=== PATIENT | female | born 1955 | race Caucasian/White ===

== ENCOUNTER 2020-02-21 12:44 | Outpatient (REF) | payer OTHER, SELFPAY ==
--- NOTE | 2020-02-21 12:51 | XR_ITS ---
EXAMINATION: XR LUMBOSACRAL SPINE CLINICAL INFORMATION: Fall. COMPARISON: None TECHNIQUE: Three views of the lumbosacral spine. FINDINGS: There is normal lumbar lordosis. The vertebral heights, alignment and disc heights are normal. There is no visible acute fracture, dislocation or lytic process seen. The soft tissues are normal. XR/XR lumbar spine 2-3V IMPRESSION: Unremarkable lumbar spine exam.
== END 2020-02-21 12:45 | disposition home or self-care (01) ==
LOC: HO.XRAY 12:44
PROVIDERS: PCP Internal Medicine; Visit Provider Nurse Practitioner Family
DX: M54.5 Low back pain (principal); W19.XXXA Unspecified fall, initial encounter
CPT/HCPCS: 72100

== ENCOUNTER 2020-04-29 11:24 | Outpatient (REF) | payer OTHER, SELFPAY ==
[2020-04-29 12:33] LABS: Alanine Aminotransferase 64 U/L (0-31); Albumin Level 3.9 g/dL (3.5-5.0); Alkaline Phosphatase 83 U/L (39-117); Anion Gap 11 (12-20); Aspartate Amino Transferase 37 U/L (5-31); Bilirubin Total 1.3 mg/dL (0.0-1.0); Blood Urea Nitrogen 13 mg/dL (9-16); Calcium 8.9 mg/dL (8.4-10.2); Carbon Dioxide 25 mmol/L (22-29); Chloride 108 mmol/L (96-108); Cholesterol 198 mg/dL; Estimated Glomerular Filt Rate > 60; Glucose Fasting 146 mg/dL (60-99); HDL Cholesterol 55 mg/dL; LDL Cholesterol Calculated 118 mg/dl; Potassium 3.9 mmol/l (3.3-5.1); Sodium 140 mmol/L (135-145); Total Protein 6.5 g/dL (6.5-8.0); Triglycerides 129 mg/dL; Uric Acid 4.6 mg/dL (2.4-5.7)
== END 2020-04-29 11:25 | disposition home or self-care (01) ==
LOC: HO.LAB 11:24
PROVIDERS: PCP Internal Medicine; Visit Provider Internal Medicine
DX: E11.9 Type 2 diabetes mellitus without complications (principal); M1A.0490 Idiopathic chronic gout, unspecified hand, without tophus (tophi)
CPT/HCPCS: 80053; 80061; 84550

== ENCOUNTER 2020-08-14 10:43 | Outpatient (REF) | payer OTHER, SELFPAY ==
[2020-08-14 11:36] LABS: MANUAL DIFF FLAG NO
[2020-08-14 11:46] LABS: Basophils Absolute Auto 0.1 X10*3/uL (0.0-0.2); Eosinophils Absolute Auto 0.3 X10*3/uL (0.0-0.4); Eosinophils Percent Auto 4.3 % (0-4); Hematocrit 44.5 % (37-47); Hemoglobin 13.7 g/dl (12.0-16.0); Imm Gran Abs Auto 0.01 X10*3/uL (0.00-0.03); Imm Gran Pct Auto 0.2 % (0.0-0.4); Lymphocytes Absolute Auto 2.9 X10*3/uL (1.2-4.9); Mean Corpuscular HGB Conc 30.8 g/dl (31.0-35.0); Mean Corpuscular Hemoglobin 26.3 pg (27.0-33.0); Mean Corpuscular Volume 85.4 fL (80-98); Mean Platelet Volume 9.8 fL (9.4-12.3); Monocytes Absolute Auto 0.6 X10*3/uL (0.1-1.2); Monocytes Percent Auto 10.3 % (2-11); Neutrophils Absolute Auto 2.2 X10*3/uL (2.0-8.3); Neutrophils Percent Auto 36.2 % (45-73); Platelet Count 184 X10*3/uL (160-400); Red Blood Count 5.21 X10*6/uL (4.20-5.50); Red Cell Distribution Width 13.2 % (11.0-16.0); White Blood Count 6.1 X10*3/uL (4.8-10.8)
[2020-08-14 12:14] LABS: Alanine Aminotransferase 57 U/L (0-31); Albumin Level 3.9 g/dL (3.5-5.0); Alkaline Phosphatase 85 U/L (39-117); Anion Gap 14 (12-20); Aspartate Amino Transferase 30 U/L (5-31); Bilirubin Total 0.6 mg/dL (0.0-1.0); Blood Urea Nitrogen 15 mg/dL (9-16); Calcium 9.2 mg/dL (8.4-10.2); Carbon Dioxide 24 mmol/L (22-29); Chloride 108 mmol/L (96-108); Cholesterol 175 mg/dL; Estimated Glomerular Filt Rate > 60; Glucose Fasting 102 mg/dL (60-99); HDL Cholesterol 48 mg/dL; LDL Cholesterol Calculated 95 mg/dl; Potassium 4.6 mmol/L (3.3-5.1); Sodium 141 mmol/L (135-145); Total Protein 6.3 g/dL (6.5-8.0); Triglycerides 161 mg/dL
[2020-08-14 12:19] LABS: Creatinine Urine 196.56 mg/dL; Microalbum/Creatinine Ratio Ur 28.4 ug/mg cr
== END 2020-08-14 10:44 | disposition home or self-care (01) ==
LOC: HO.LAB 10:43
PROVIDERS: PCP Internal Medicine; Visit Provider Internal Medicine
DX: E11.9 Type 2 diabetes mellitus without complications (principal); E78.5 Hyperlipidemia, unspecified; M1A.0490 Idiopathic chronic gout, unspecified hand, without tophus (tophi); E66.01 Morbid (severe) obesity due to excess calories; Z68.37 Body mass index [BMI] 37.0-37.9, adult; D64.9 Anemia, unspecified
CPT/HCPCS: 36415; 80053; 80061; 82043; 84443; 84550; 85025

== ENCOUNTER 2021-02-09 13:04 | Outpatient (REF) | payer OTHER, SELFPAY ==
[2021-02-16 06:21] LABS: HPV 16 RNA NOT DETECTED (NOT DETECTED); HPV mRNA E6/E7 rflx Detected (Not Detected)
== END 2021-02-09 13:05 | disposition home or self-care (01) ==
LOC: HO.LAB 13:04
PROVIDERS: PCP Internal Medicine; Visit Provider Obstetrics & Gynecology
DX: Z01.419 Encounter for gynecological examination (general) (routine) without abnormal findings (principal); Z11.51 Encounter for screening for human papillomavirus (HPV); Z78.0 Asymptomatic menopausal state; R19.00 Intra-abdominal and pelvic swelling, mass and lump, unspecified site
CPT/HCPCS: 87624; 87625; 88142

== ENCOUNTER 2021-03-01 12:30 | Outpatient (REF) | payer OTHER, SELFPAY | END 2021-03-01 12:31 | disposition home or self-care (01) | LOC: HO.LAB 12:30 | PROVIDERS: PCP Internal Medicine; Visit Provider Obstetrics & Gynecology | DX: R87.610 Atypical squamous cells of undetermined significance on cytologic smear of cervix (ASC-US) (principal); R87.810 Cervical high risk human papillomavirus (HPV) DNA test positive | CPT/HCPCS: 57454; 88305; 88341; 88342; 88360 ==

== ENCOUNTER 2021-03-02 13:26 | Outpatient (REF) | payer OTHER, SELFPAY ==
--- NOTE | ~2021-03-02 | MM_ITS ---
EXAMINATION: BONE DENSITOMETRY CLINICAL INDICATION: Asymptomatic menopausal state. COMPARISON: None (current study represents initial baseline exam). TECHNIQUE: Using a [employer] DXA System (software version: 13.1) manufactured by [employer], dual-energy x-ray absorptiometry was performed of the lumbar spine and left hip. The images are of good technical quality. Summary results are attached. FINDINGS: AP SPINE L1-L4: BMD 1.004 g/cm2, Z-score -0.6, T-score -1.5, osteopenia. LEFT FEMUR, NECK: BMD 0.784 g/cm2, Z-score -0.8, T-score -1.8, osteopenia. LEFT FEMUR, TOTAL: BMD 0.900 g/cm2, Z-score -0.1, T-score -0.9, normal. IDENTIFIED RISK FACTORS: Secondary osteoporosis, history of fracture (adult), anticonvulsants, menopause, anticonvulsants. HISTORY OF FRACTURE: Wrist. Knee. MEDICATIONS: None listed. MM/XR DEXA axial skeleton IMPRESSION: 1. DIAGNOSIS: Osteopenia based on the lowest T-score value of -1.8 in the femoral neck applying World Health Organization criteria. 2. 10-YEAR FRACTURE RISK PREDICTION, FRAX: Major osteoporotic fracture (clinical spine, forearm, hip or shoulder) 8.8%. Hip fracture 1.2%. 3. Treatment Recommendations: NOF guidelines recommend consideration for treatment in postmenopausal women and men age 50 and older presenting with the following: -A hip or vertebral (clinical or morphometric) fracture. -T-score less than or equal to -2.5 at the femoral neck or spine after appropriate evaluation to exclude secondary causes. -Low bone mass at the hip or spine and a 10-year fracture probability by FRAX of greater than or equal to 3% for hip fracture or greater than or equal to 20% for major osteoporotic fracture based on the [place] adapted WHO algorithm. 4. Other Recommendations: All treatment decisions require clinical judgment and consideration of individual patient factors, including patient preferences, comorbidities, previous drug use, risk factors not captured in the FRAX model (e.g. frailty, falls, vitamin D deficiency, increased bone turnover, interval significant decline in bone density) and possible under or overestimation of fracture risk by FRAX. Additional medical evaluation for secondary cause of low bone mineral density may be appropriate. FUTURE SCAN RECOMMENDATION: People with diagnosed cases of osteoporosis or at high risk for fracture should have regular bone mineral density tests. For patients eligible for Medicare, routine testing is allowed once every 2 years. The testing frequency can be increased to one year for patients who have rapidly progressing disease, those who are receiving or discontinuing medical therapy to restore bone mass, or have additional risk factors.
--- NOTE | ~2021-03-02 | MM_ITS ---
EXAMINATION: MM DIAGNOSTIC DIGITAL BREAST TOMOSYNTHESIS, BILATERAL US DIAGNOSTIC ULTRASOUND BREAST, LEFT CLINICAL INFORMATION: Left mastodynia greatest 3:00 retroareolar region. Due for yearly. Prior history bilateral breast surgeries. COMPARISON: Mammography: 11/15/2016, 09/17/2015 TECHNIQUE: Digital breast tomosynthesis is performed in both the craniocaudal and mediolateral oblique views along with computer-aided detection (CAD). Synthesized 2D images are generated from the tomosynthesis. Ultrasound left breast is performed including all 4 quadrants and additional targeting 3:00 retroareolar region. Grayscale imaging and color Doppler are performed. FINDINGS: There are scattered areas of fibroglandular density (ACR BI-RADS breast composition Category b). Parenchymal pattern is similar to prior studies. There is old scarring left breast upper outer quadrant similar to prior studies. Neither breast shows interval mass or architectural abnormality or developing density. No abnormal calcifications. The axilla are unremarkable. No skin thickening. No coarsening of the Rodrigo's ligaments. No interval duct ectasia. Ultrasound left breast demonstrates no cystic or solid mass. No focal duct ectasia or skin thickening or edema tracking in soft tissue planes. No suspicious architectural changes. Some minor scarring present upper outer quadrant consistent with the mammography exams. Results are discussed with the patient at time of visit using an international first officer. MM/MM tomosynthesis diagnostic BI IMPRESSION: 1. No significant changes in mammographic pattern compared with prior studies. 2. Unremarkable left breast ultrasound. ASSESSMENT: BI-RADS 2: Benign RECOMMENDATION: 1. Patient's left breast pain should be managed based on the clinical impression. 2. Otherwise, routine annual screening mammography. This patient's information was entered into a reminder system with a target due date for their next mammogram.
== END 2021-03-02 13:27 | disposition home or self-care (01) ==
LOC: HO.MAMMO 13:26
PROVIDERS: PCP Internal Medicine; Visit Provider Obstetrics & Gynecology
DX: Z13.820 Encounter for screening for osteoporosis (principal); Z78.0 Asymptomatic menopausal state; N64.4 Mastodynia
CPT/HCPCS: 76642; 77062; 77066; 77080

== ENCOUNTER 2021-03-05 11:12 | Outpatient (REF) | payer OTHER, SELFPAY ==
[2021-03-05 12:25] LABS: Blood Urea Nitrogen 10 mg/dL (9-16); Estimated Glomerular Filt Rate > 60
== END 2021-03-05 11:13 | disposition home or self-care (01) ==
LOC: HO.LAB 11:12
PROVIDERS: PCP Internal Medicine; Visit Provider Obstetrics & Gynecology
DX: R19.00 Intra-abdominal and pelvic swelling, mass and lump, unspecified site (principal)
CPT/HCPCS: 36415; 82565; 84520

== ENCOUNTER 2021-03-08 10:14 | Outpatient (REF) | payer OTHER, SELFPAY ==
--- NOTE | ~2021-03-08 | CT_ITS ---
EXAMINATION: CT ABDOMEN AND PELVIS WITH CONTRAST CLINICAL INFORMATION: Intra-abdominal and pelvic swelling, mass or lump COMPARISON: Previous CT of the abdomen and pelvis March 2018 TECHNIQUE: Multidetector volumetric images were obtained from the superior aspect of the liver through the pubic symphysis following administration 85 mL of Omnipaque 350 intravenous contrast. Sagittal and coronal reformatted images were obtained on the technologist's workstation. Oral contrast: Yes This CT examination was performed using dose optimization techniques as appropriate, variously including the following: *Automated exposure control *Adjustment of mA and/or kV according to patient size (this includes techniques or standardized protocols for targeted exams where dose is matched to indication/reason for exam; i.e. extremities or head) *Use of iterative reconstruction technique DLP: 429 mGy-cm FINDINGS: LUNG BASES: The visualized lung bases are unremarkable. LIVER, GALLBLADDER, AND BILIARY TREE: The liver is normal in size and shape. The liver is low in attenuation suggestive of mild fatty infiltration. No focal hepatic lesion or biliary ductal dilatation is present. The gallbladder is unremarkable with no evidence of radiopaque gallstones, gallbladder wall thickening, or obvious pericholecystic inflammatory changes. PANCREAS: Unremarkable. SPLEEN: Unremarkable. ADRENAL GLANDS: Unremarkable. KIDNEYS AND URETERS: The kidneys are normal in size, shape, and attenuation. No hydronephrosis, hydroureter, or calculi seen. There is a 5 mm low-attenuation lesion in the lower pole the left kidney probably representing a cyst axial image 32 series 3. No imaging follow-up needed. BLADDER: Unremarkable. GASTROINTESTINAL TRACT: The small and large bowel are unremarkable. The appendix is unremarkable. ABDOMINAL WALL: No significant hernia is appreciated. LYMPH NODES: Normal. VASCULAR: Unremarkable. PELVIC VISCERA: The uterus is retroverted. There is a small calcification in the right uterine fundus that may represent a fibroid. Uterus and adnexa are otherwise unremarkable. OSSEOUS STRUCTURES: There are degenerative changes of the spine. CT/CT abdomen pelvis w con IMPRESSION: Mild fatty infiltration of the liver. Small calcification in the uterus probably representing a fibroid. Small left renal cyst.
[2021-03-08] MEDS: iohexoL 350 MG/ML 100 ML INFUS..BTL IV (11:20)
== END 2021-03-08 10:15 | disposition home or self-care (01) ==
LOC: HO.CT 10:14
PROVIDERS: Visit Provider Obstetrics & Gynecology
DX: R19.00 Intra-abdominal and pelvic swelling, mass and lump, unspecified site (principal)
CPT/HCPCS: 74177; Q9967

== ENCOUNTER → 2021-03-10 10:36 | Outpatient (BNVA) | payer OTHER, SELFPAY | PROVIDERS: Visit Provider Obstetrics & Gynecology | DX: N87.0 Mild cervical dysplasia (principal); M85.80 Other specified disorders of bone density and structure, unspecified site; N28.1 Cyst of kidney, acquired; K76.0 Fatty (change of) liver, not elsewhere classified | CPT/HCPCS: 99212 ==

== ENCOUNTER 2021-03-12 12:16 | Day surgery (SDC) | payer OTHER, SELFPAY ==
--- NOTE | 2021-03-12 12:26 | P.CONAN_ITS ---
[facility] Active Problems Active Problems: All Active Problems (Updated 03/10/21 @ 11:09 by Dale Mayes MD) Renal cyst (Acute) Fatty infiltration of liver (Acute) Osteopenia (Acute) Dysplasia of cervix, low grade (JOSE JUAN 1) (Acute) ASCUS with positive high risk HPV cervical (Acute) Mass of abdomen does not move with respiration (Acute) Menopause (Acute) Well woman exam (Acute) Vaginal pruritus (Acute) Breast pain, left (Acute) Schizophrenia (Acute) Bipolar 1 disorder (Acute) Obese (Acute) Gout (Acute) Essential hypertension (Acute) Diabetes mellitus (Acute) Fall (Acute) Lumbar back pain (Acute) Past Medical History Medical History Bipolar 1 disorder Breast pain, left Diabetes mellitus Dysplasia of cervix, low grade (JOSE JUAN 1) Essential hypertension Fall Gout Lumbar back pain Obese Schizophrenia Vaginal pruritus Family History Family History Father Lung cancer Diabetes Hypertension Mother Diabetes CVD (cardiovascular disease) Maternal Aunt Breast cancer Surgical History Surgical History History of eye surgery History of hand surgery History of hemicolectomy History of removal of cyst History of surgery Hx of bilateral breast reduction surgery Social History Social History Housing: Apartment Alcohol intake: never Patient Tobacco Use Status: Never used Tobacco e-Cigarette/Vaping Use: Never Used Second Hand Smoke Exposure: No Advance Directives: No Advance Directives Information Provided: Yes service: No Current occupational status: disabled Meds Allergies Allergy/AdvReac Type Severity Reaction Status Date / Time Cortisone Allergy Severe pruritus, Verified 12/03/20 11:35 hives, swellin milk [MILK] Allergy Severe rash Verified 12/03/20 11:35 ibuprofen [IBUPROFEN] Allergy Intermediate swelling Verified 12/03/20 11:35 levofloxacin Allergy Intermediate pruritus Verified 12/03/20 11:35 metronidazole Allergy Intermediate pruritus Verified 12/03/20 11:35 peanut [PEANUT] Allergy Intermediate pruritus Verified 12/03/20 11:35 Penicillins [PENICILLINS] Allergy Intermediate Hives Verified 12/03/20 11:35 shellfish derived Allergy Intermediate rash, Verified 12/03/20 11:35 [SHELLFISH DERIVED] shortness of breath morphine [MORPHINE] AdvReac Severe loss of Verified 12/03/20 11:35 consciousness, hypotension oatmeal AdvReac Intermediate abdominal Verified 12/03/20 11:35 gas pain egg [EGG] AdvReac Mild diarrheas, Verified 12/03/20 11:35 dizziness red meat Allergy Intermediate hand Uncoded 12/03/20 11:35 swelling Home Medications Medication Instructions Recorded Confirmed Last Taken Type hydroxyzine HCl 25 mg tablet 25 mg PO TID 02/19/20 12/03/20 Unknown History triamcinolone acetonide 0.1 % applic TOPICAL 02/19/20 12/03/20 Unknown History topical cream Exam Exam Date and Time: March 12, 2021 1226 Airway Mallampati Class: II TM Dist: >3cm Neck ROM: Full
[2021-03-12 12:30] VITALS: BP 183/84; PULSE 50; RESP 18; TEMP 36.7; O2SAT 97; BMI 37.3
[2021-03-12 12:49] LABS: Glucose, Whole Blood 107 mg/dL (60-115)
[2021-03-12] MEDS: Lactated Ringers 1,000 ML 100 ML IVCONT (12:54)
--- NOTE | 2021-03-12 12:54 | MHC.SHP ---
Pre-Procedural Eval Section A Date of Service: 03/12/21 The patient is an INPATIENT: No Changes since office visit: No Cold of Flu in the past 2 weeks, No New Medical Problems, No Changes in Medication and No Patient answered all questions The History & Physical has been completed within 30 days and I have reviewed it.: Yes Section B Chief Complaint: mild cervical dysplasia Allergies: Allergies Allergy/AdvReac Type Severity Reaction Status Date / Time Cortisone Allergy Severe pruritus, Verified 12/03/20 11:35 hives, swellin milk [MILK] Allergy Severe rash Verified 12/03/20 11:35 ibuprofen [IBUPROFEN] Allergy Intermediate swelling Verified 12/03/20 11:35 levofloxacin Allergy Intermediate pruritus Verified 12/03/20 11:35 metronidazole Allergy Intermediate pruritus Verified 12/03/20 11:35 peanut [PEANUT] Allergy Intermediate pruritus Verified 12/03/20 11:35 Penicillins [PENICILLINS] Allergy Intermediate Hives Verified 12/03/20 11:35 shellfish derived Allergy Intermediate rash, Verified 12/03/20 11:35 [SHELLFISH DERIVED] shortness of breath morphine [MORPHINE] AdvReac Severe loss of Verified 12/03/20 11:35 consciousness, hypotension oatmeal AdvReac Intermediate abdominal Verified 12/03/20 11:35 gas pain egg [EGG] AdvReac Mild diarrheas, Verified 12/03/20 11:35 dizziness red meat Allergy Intermediate hand Uncoded 12/03/20 11:35 swelling Plan Diagnosis/Plan: Unchanged I have reviewed the history and physical and performed a pertinent physical examination on my patient. No changes have occurred unless specified.
--- NOTE | 2021-03-12 13:35 | P.OP_ITS ---
Operative Note Operative Note Date of Service: 03/12/21 Narrative: Preop diagnosis: Persistent JOSE JUAN 1 with + ECC Operation: LEEP Cone with post cone ECC Post op diagnosis: same Anesthesia: paracervical block Complications: none Pathology: Anterior and Posterior cervical lip with endocervix & post cone RCC QBL: minimal Procedure: The patient was put in the dorsal lithotomy position, was prepped and draped in the usual sterile fashion. A sterile speculum was inserted inside the derian ent vagina. Colposcopy was conducted with ascetic acid identified aceto-white lesion in done the cervix and at 06:00 o'clock. Then Using Lugol solution the cervix with Dyed with Lugol solution to identifiy the abnormal demarcating line. 10 cc of Marcaine 0.5% with epinephrine were given at 2,4 , 8, and 10 o'clock. Using a medium-size loop wire, the cervical cone was excised followed by the endocervix, post cone ECC was done afterwards. The Specimen was handed off , a 12:00 o'clock suture was placed at the cervical cone specimen. Hemostasis was assured using cautery and Monsel solution. All instruments were taken out of the patient's vaginal cavity. the patient tolerated the procedure well and was discharged home with the following instructions: call if temperature is above 100.4, vaginal bleeding, abdominal pain or nausea or vomiting. Follow-up in the office in 2 weeks for postop visit
--- NOTE | 2021-03-12 13:35 | P.BOP_ITS ---
Brief Operative Note Date of Service: 03/12/21 Pre-op diagnosis: Persistent JOSE JUAN 1 with positive ECC Post-op diagnosis: same Procedure: LEEP CONE with post CONE ECC Surgeon: Dale Mayes MD Anesthesia: GLMA, local and other (Paracervical block) Was an Border Machine Operator used for this Procedure?: No Estimated blood loss (mL): 0 Pathology: other (Cervical lip with a 12:00 o'clock suture, Endocx, Post cone ECC) Condition: stable Disposition: other (Home)
[2021-03-12 13:44] VITALS: BP 141/60; PULSE 64; RESP 16; O2SAT 98
[2021-03-12 13:49] VITALS: BP 139/67; PULSE 60; RESP 16; O2SAT 92
[2021-03-12 13:54] VITALS: BP 152/77; PULSE 62; RESP 17; O2SAT 96
[2021-03-12 13:58] VITALS: BP 155/74; PULSE 55; RESP 17; O2SAT 96
[2021-03-12 14:13] VITALS: BP 165/69; PULSE 53; RESP 16; O2SAT 96
== END 2021-03-12 14:50 | disposition home or self-care (01) ==
PROVIDERS: Visit Provider Obstetrics & Gynecology
PROC: 0UBC7ZZ Excision of Cervix, Via Natural or Artificial Opening (ICD-10-PCS; CPT 57522; principal; 2021-03-12 14:10)
DX: D06.0 Carcinoma in situ of endocervix (principal); M85.80 Other specified disorders of bone density and structure, unspecified site; K76.0 Fatty (change of) liver, not elsewhere classified; N28.1 Cyst of kidney, acquired; F31.9 Bipolar disorder, unspecified; I10 Essential (primary) hypertension; E11.9 Type 2 diabetes mellitus without complications; Z79.899 Other long term (current) drug therapy; E66.9 Obesity, unspecified; Z68.30 Body mass index [BMI] 30.0-30.9, adult; Z88.0 Allergy status to penicillin; Z88.8 Allergy status to other drugs, medicaments and biological substances
CPT/HCPCS: 57461; 82947; 88305; 88307; 88342; 88360; J2250; J3010

== ENCOUNTER → 2021-03-29 13:05 | Outpatient (BNVA) | payer OTHER, SELFPAY | PROVIDERS: PCP Internal Medicine; Visit Provider Obstetrics & Gynecology | DX: D06.9 Carcinoma in situ of cervix, unspecified (principal) | CPT/HCPCS: 99212 ==

== ENCOUNTER → 2021-05-14 10:49 | Outpatient (BNVA) | payer OTHER, SELFPAY | PROVIDERS: PCP Internal Medicine; Referring Provider Internal Medicine; Visit Provider Internal Medicine Gastroenterology | DX: K92.1 Melena (principal); R10.13 Epigastric pain | CPT/HCPCS: 99212 ==

== ENCOUNTER 2021-05-31 10:14 | Outpatient (REF) | payer OTHER, SELFPAY ==
[2021-06-03 13:08] LABS: H Pylori Breath Test Positive (Negative)
== END 2021-05-31 10:15 | disposition home or self-care (01) ==
LOC: HO.LNP 10:14
PROVIDERS: PCP Internal Medicine; Referring Provider Internal Medicine; Visit Provider Internal Medicine Gastroenterology
DX: A04.8 Other specified bacterial intestinal infections (principal)
CPT/HCPCS: 83013; 99211

== ENCOUNTER 2021-07-21 11:45 | Day surgery (SDC) | payer OTHER, SELFPAY ==
[2021-07-16 14:11] VITALS: BMI 37.3
--- NOTE | 2021-07-20 08:40 | P.CONAN_ITS ---
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 (Acute) Epigastric abdominal pain (Acute) Hematochezia (Acute) Vaginal pruritus (Acute) Breast pain, left (Acute) Schizophrenia (Acute) Bipolar 1 disorder (Acute) Obese (Acute) Gout (Acute) Essential hypertension (Acute) Diabetes mellitus (Acute) Fall (Acute) Lumbar back pain (Acute) Past Medical History Medical History (Updated 05/14/21 @ 11:47 by Gui Mayfield MD) Bipolar 1 disorder Breast pain, left Diabetes mellitus Dysplasia of cervix, low grade (JOSE JUAN 1) Essential hypertension Fall Gout Hematochezia Lumbar back pain Obese Schizophrenia Vaginal pruritus Family History Family History Father Lung cancer Diabetes Hypertension Mother Diabetes CVD (cardiovascular disease) Maternal Aunt Breast cancer Surgical History Surgical History (Updated 07/16/21 @ 14:09 by Chrystal Toure RN) H/O colonoscopy History of esophagogastroduodenoscopy (EGD) History of eye surgery History of hand surgery History of hemicolectomy History of removal of cyst History of surgery Hx of bilateral breast reduction surgery Hx of lithotripsy Social History Social History Housing: Apartment Alcohol intake: never Patient Tobacco Use Status: Never used Tobacco e-Cigarette/Vaping Use: Never Used Second Hand Smoke Exposure: No Advance Directives: No (unknown) Advance Directives Information Provided: Yes Advance Directives on File: No service: No Current occupational status: disabled Meds Allergies Allergy/AdvReac Type Severity Reaction Status Date / Time Cortisone Allergy Severe pruritus, Verified 05/14/21 10:59 hives, swellin milk [MILK] Allergy Severe rash Verified 05/14/21 10:59 ibuprofen [IBUPROFEN] Allergy Intermediate swelling Verified 05/14/21 10:59 levofloxacin Allergy Intermediate pruritus Verified 05/14/21 10:59 metronidazole Allergy Intermediate pruritus Verified 05/14/21 10:59 peanut [PEANUT] Allergy Intermediate pruritus Verified 05/14/21 10:59 Penicillins [PENICILLINS] Allergy Intermediate Hives Verified 05/14/21 10:59 shellfish derived Allergy Intermediate rash, Verified 05/14/21 10:59 [SHELLFISH DERIVED] shortness of breath morphine [MORPHINE] AdvReac Severe loss of Verified 05/14/21 10:59 consciousness, hypotension oatmeal AdvReac Intermediate abdominal Verified 05/14/21 10:59 gas pain egg [EGG] AdvReac Mild diarrheas, Verified 05/14/21 10:59 dizziness red meat Allergy Intermediate hand Uncoded 05/14/21 10:59 swelling Home Medications Medication Instructions Recorded Confirmed Last Taken Type hydroxyzine HCl 25 mg tablet 25 mg PO TID 02/19/20 07/16/21 Unknown History triamcinolone acetonide 0.1 % applic TOPICAL 02/19/20 04/14/21 Unknown History topical cream aripiprazole 15 mg tablet 15 mg PO DAILY 05/14/21 07/16/21 Unknown History buspirone 5 mg tablet 10 mg PO BID 05/14/21 07/16/21 Unknown History mirtazapine 7.5 mg tablet 7.5 mg PO BEDTIME 05/14/21 Unknown History paliperidone 9 mg tablet,extended 9 mg PO BEDTIME 05/14/21 Unknown History release 24 hr Exam Exam Date and Time: July 20, 2021 0840 Height,Weight and Vital Signs: Height 5 ft Weight 86.636 kg Pertinent Lab Results Pertinent Lab Results: Laboratory Tests 08/14/20 08/14/20 03/05/21 10:55 10:55 11:30 WBC 6.1 Hgb 13.7 Hct 44.5 Plt Count 184 Sodium 141 Potassium 4.6 Chloride 108 Carbon Dioxide 24 BUN 10 Creatinine 0.73 Assessment and Plan Assessment Anesthesia Assessment: Chart Reviewed Documented by User: Gregoria Lowery MD 07/21/21 12:05 [facility] Past Medical History Medical History (Updated 05/14/21 @ 11:47 by Gui Mayfield MD) Bipolar 1 disorder Breast pain, left Diabetes mellitus Dysplasia of cervix, low grade (JOSE JUAN 1) Essential hypertension Fall Gout Hematochezia Lumbar back pain Obese Schizophrenia Vaginal pruritus Family History Family History Father Lung cancer Diabetes Hypertension Mother Diabetes CVD (cardiovascular disease) Maternal Aunt Breast cancer Family history of problems with anesthesia: No Surgical History Surgical History (Updated 07/16/21 @ 14:09 by Chrystal Toure RN) H/O colonoscopy History of esophagogastroduodenoscopy (EGD) History of eye surgery History of hand surgery History of hemicolectomy History of removal of cyst History of surgery Hx of bilateral breast reduction surgery Hx of lithotripsy History of Problems with Anesthesia: No Social History Social History Housing: Apartment Alcohol intake: never Patient Tobacco Use Status: Never used Tobacco e-Cigarette/Vaping Use: Never Used Second Hand Smoke Exposure: No Advance Directives: No (unknown) Advance Directives Information Provided: Yes Advance Directives on File: No service: No Current occupational status: disabled Meds Allergies Allergy/AdvReac Type Severity Reaction Status Date / Time Cortisone Allergy Severe pruritus, Verified 05/14/21 10:59 hives, swellin milk [MILK] Allergy Severe rash Verified 05/14/21 10:59 ibuprofen [IBUPROFEN] Allergy Intermediate swelling Verified 05/14/21 10:59 levofloxacin Allergy Intermediate pruritus Verified 05/14/21 10:59 metronidazole Allergy Intermediate pruritus Verified 05/14/21 10:59 peanut [PEANUT] Allergy Intermediate pruritus Verified 05/14/21 10:59 Penicillins [PENICILLINS] Allergy Intermediate Hives Verified 05/14/21 10:59 shellfish derived Allergy Intermediate rash, Verified 05/14/21 10:59 [SHELLFISH DERIVED] shortness of breath morphine [MORPHINE] AdvReac Severe loss of Verified 05/14/21 10:59 consciousness, hypotension oatmeal AdvReac Intermediate abdominal Verified 05/14/21 10:59 gas pain egg [EGG] AdvReac Mild diarrheas, Verified 05/14/21 10:59 dizziness red meat Allergy Intermediate hand Uncoded 05/14/21 10:59 swelling Home Medications Medication Instructions Recorded Confirmed Last Taken Type hydroxyzine HCl 25 mg tablet 25 mg PO TID 02/19/20 07/16/21 Unknown History triamcinolone acetonide 0.1 % applic TOPICAL 02/19/20 04/14/21 Unknown History topical cream aripiprazole 15 mg tablet 15 mg PO DAILY 05/14/21 07/16/21 Unknown History buspirone 5 mg tablet 10 mg PO BID 05/14/21 07/16/21 Unknown History mirtazapine 7.5 mg tablet 7.5 mg PO BEDTIME 05/14/21 Unknown History paliperidone 9 mg tablet,extended 9 mg PO BEDTIME 05/14/21 Unknown History release 24 hr Exam Airway Mallampati Class: II (ImplNts laterally) TM Dist: >3cm Neck ROM: Full Heart: rrr Lungs: cta Assessment and Plan Assessment Anesthesia Assessment: Anesthesia Plan Discussed and Chart Reviewed Final Anesthetic Review Family History of Problems with Anesthesia: No History of Problems with Anesthesia: No NPO: Yes ASA Class: III Final Preanesthetic Review: No Changes in Pt Med Stat, Meds/Allgs Chart Reviewed and Consent Obtained/Reviewed Patient Risk: Intermediate Procedure Risk: Intermediate Anesthetic Plan Anesthetic Plan: MAC: Disposition: Standard PACU
[2021-07-21 11:56] VITALS: BP 178/83; PULSE 65; RESP 16; TEMP 37; O2SAT 98
[2021-07-21 12:09] LABS: Glucose, Whole Blood 109 mg/dL (60-115)
[2021-07-21] MEDS: Lactated Ringers 1,000 ML 100 ML IVCONT (12:20)
--- NOTE | 2021-07-21 12:44 | MHC.SHP ---
Pre-Procedural Eval Section A Date of Service: 07/21/21 Section B Chief Complaint: Melena, Epigastric Abdominal Pain Relevant Family History (Specify if Yes): No Relevant Social History: None Present Medications: see Short Stay Collaborative assessment Medical History: Significant History (Bipolar 1 disorder Breast pain, left Diabetes mellitus Dysplasia of cervix, low grade (JOSE JUAN 1) Essential hypertension Fall Gout Hematochezia Lumbar back pain Obese Schizophrenia Vaginal pruritus) History of Previous Operations: Relevant previous surgery/procedure and date(s) (H/O colonoscopy History of esophagogastroduodenoscopy (EGD) History of eye surgery History of hand surgery History of hemicolectomy History of removal of cyst History of surgery Hx of bilateral breast reduction surgery Hx of lithotripsy) Allergies: Allergies Allergy/AdvReac Type Severity Reaction Status Date / Time Cortisone Allergy Severe pruritus, Verified 05/14/21 10:59 hives, swellin milk [MILK] Allergy Severe rash Verified 05/14/21 10:59 ibuprofen [IBUPROFEN] Allergy Intermediate swelling Verified 05/14/21 10:59 levofloxacin Allergy Intermediate pruritus Verified 05/14/21 10:59 metronidazole Allergy Intermediate pruritus Verified 05/14/21 10:59 peanut [PEANUT] Allergy Intermediate pruritus Verified 05/14/21 10:59 Penicillins [PENICILLINS] Allergy Intermediate Hives Verified 05/14/21 10:59 shellfish derived Allergy Intermediate rash, Verified 05/14/21 10:59 [SHELLFISH DERIVED] shortness of breath morphine [MORPHINE] AdvReac Severe loss of Verified 05/14/21 10:59 consciousness, hypotension oatmeal AdvReac Intermediate abdominal Verified 05/14/21 10:59 gas pain egg [EGG] AdvReac Mild diarrheas, Verified 05/14/21 10:59 dizziness red meat Allergy Intermediate hand Uncoded 05/14/21 10:59 swelling Review of Systems Sugical H&P ROS: Negative: Constitution, Cardiovascular, Respiratory, Neurological, Psychiatric, Hem-Onc, Allergic/Immunologic, Gastrointestinal, Genitourinary, Musculoskeletal, Integumentary, Endocrine and Eyes/Ears/Nose/Throat Exam Surgical H&P Exam: Normal: HEENT, Normal: Heart, Normal: Lungs, Normal: Extremities, Normal: Abdomen, Normal: Skin and Normal: Neurological Plan Diagnosis/Plan: Unchanged I have reviewed the history and physical and performed a pertinent physical examination on my patient. No changes have occurred unless specified.
--- NOTE | 2021-07-21 14:06 | P.BOP_ITS ---
Brief Operative Note Date of Service: 07/21/21 Pre-op diagnosis: epigastric pain, colon screening Post-op diagnosis: same Procedure: see op note Surgeon: Gui Mayfield MD Anesthesia: MAC Was an Major Assembler used for this Procedure?: No Estimated blood loss (mL): 0 Condition: stable Disposition: PACU
--- NOTE | 2021-07-21 14:08 | W.PM.OPN ---
Operative Note Operative Note Date of Service: 07/21/21 Narrative: Operative Information Procedure Description: EGD, Colonoscopy FLEXIBLE TRANSORAL UPPER GASTROINTESTINAL ENDOSCOPY AND COLONOSCOPY PROCEDURE NOTE UPPER ENDOSCOPY Consent: Indications for the procedure and potential complications of bleeding, perforation, reaction to medications and missed diagnosis were discussed with the patient and informed consent was obtained. Instrument: Olympus GIF H 190 J mid size upper endoscope Monitoring: Vital signs and clinical assessment, continuous EKG monitoring, Pulse oximetry, Carbon Dioxide monitoring and blood pressure monitoring were done throughout the procedure. Procedure: The patient was placed in the left lateral decubitis position and pre-procedure medications were administered and a bite block was placed. The endoscope was inserted into the mouth and advanced under direct vision to the third part of duodenum. A careful inspection was made as the upper endoscope was withdrawn including a retroflexed examination of the proximal stomach; Findings and interventions are described below. Findings: Larynx:normal Esophagus: GE junction at 37 cm, diaphragm hiatus at 37 cm, normal mucosa Stomach: Patchy erythema. Biopsies were obtained. Grade 2 flap valve on retroflexed examination of the cardia. one polyp in cardia 6-8 mm removed using side viewer scope due to angulation, second polyp in mid body removed with forceps 7-8 mm. Duodenum: Normal bulb and descending duodenum, bx taken Intervention: Biopsies as noted above COLONOSCOPY Instrument: Olympus variable stiffness pediatric scope 190L Colonoscopy Monitoring: Vital signs and clinical assessment, continuous EKG monitoring, Pulse oximetry, Carbon Dioxide monitoring and blood pressure monitoring were done throughout the procedure. Colon withdrawal time was 13 minutes. Procedure: The patient was placed in the left lateral decubitis position and pre-procedure medications were administered. After a digital rectal examination of the ano-rectum, the video colonoscope was inserted into the rectum and advanced through the colon to the cecum/TI. The colonoscope was slowly withdrawn in a retrograde panoramic fashion and the colon mucosa was carefully examined including a retroflexed view of the rectum. Findings and interventions are described below. Procedure Difficulty: easy Findings: diffuse melanosis coli, random colon bx taken Terminal Ileum-normal, bx taken Cecum:normal Ascending Colon: 8-10 mm sessile polyp removed with cold snare, not retrieved. Transverse Colon -normal Descending Colon:normal Sigmoid Colon: normal Rectum: Retroflexion with small internal hemorrhoids, grade I Anorectum - normal Colon preparation: [place] Bowel Preparation Scale Right colon; 2 Transverse colon: 3 Left colon; 2 (0 = Unprepared colon segment with mucosa not seen due to solid stool that cannot be cleared. 1 = Portion of mucosa of the colon segment seen, but other areas of the colon segment not well seen due to staining, residual stool and/or opaque liquid. 2 = Minor amount of residual staining, small fragments of stool and/or opaque liquid, but mucosa of colon segment seen well. 3 = Entire mucosa of colon segment seen well with no residual staining, small fragments of stool or opaque liquid) Impression and Post Procedure Diagnosis: Endoscopy Findings: stomach polyps gastritis Colonoscopy Findings: polyp internal hemorrhoids melanosis coli Plan: Await Pathology results Repeat Colonoscopy in 5 years due to adenomatous appearing polyp or earlier if clinically indicated High fiber diet leaflet avoid straining at stool, epsom salts and sitz bath, anusol supps or cream If H pylori pos then treat Above findings were reviewed with the patient and relevant handouts were provided if indicated.
[2021-07-21 14:14] VITALS: BP 167/84; PULSE 69; RESP 22; TEMP 36.6; O2SAT 96
[2021-07-21 14:29] VITALS: BP 173/78; PULSE 66; RESP 16; TEMP 36.6; O2SAT 96
== END 2021-07-21 15:23 | disposition home or self-care (01) ==
PROVIDERS: PCP Internal Medicine; Visit Provider Internal Medicine Gastroenterology
PROC: (CPT 45385; principal; 2021-07-21 12:50)
DX: K92.1 Melena (principal); K63.5 Polyp of colon; K63.89 Other specified diseases of intestine; K64.0 First degree hemorrhoids; R10.13 Epigastric pain; K29.80 Duodenitis without bleeding; K31.7 Polyp of stomach and duodenum; K29.50 Unspecified chronic gastritis without bleeding; B96.81 Helicobacter pylori [H. pylori] as the cause of diseases classified elsewhere; K44.9 Diaphragmatic hernia without obstruction or gangrene; I10 Essential (primary) hypertension; E11.9 Type 2 diabetes mellitus without complications; Z88.0 Allergy status to penicillin; Z88.8 Allergy status to other drugs, medicaments and biological substances; Z79.899 Other long term (current) drug therapy
CPT/HCPCS: 45385; 45380; 43251; 43239; 82947; 88305; 88342

== ENCOUNTER 2021-07-28 10:26 | Outpatient (REF) | payer OTHER, SELFPAY ==
[2021-07-28 10:53] LABS: MANUAL DIFF FLAG NO
[2021-07-28 11:13] LABS: Basophils Absolute Auto 0.1 X10*3/uL (0.0-0.2); Basophils Percent Auto 0.9 % (0-2); Eosinophils Absolute Auto 0.2 X10*3/uL (0.0-0.4); Hematocrit 44.9 % (37.0-47.0); Hemoglobin 14.3 g/dl (12.0-16.0); Imm Gran Abs Auto 0.03 X10*3/uL (0.00-0.03); Imm Gran Pct Auto 0.5 % (0.0-0.4); Lymphocytes Absolute Auto 2.7 X10*3/uL (1.2-4.9); Mean Corpuscular HGB Conc 31.8 g/dl (31.0-35.0); Mean Corpuscular Hemoglobin 27.2 pg (27.0-33.0); Mean Corpuscular Volume 85.4 fL (80.0-98.0); Mean Platelet Volume 9.7 fL (9.4-12.3); Monocytes Absolute Auto 0.6 X10*3/uL (0.1-1.2); Monocytes Percent Auto 8.9 % (2-11); Neutrophils Absolute Auto 2.9 x10*3/uL (2.0-8.3); Neutrophils Percent Auto 44.7 % (45-73); Platelet Count 177 X10*3/uL (160-400); Red Blood Count 5.26 X10*6/uL (4.20-5.50); Red Cell Distribution Width 13.5 % (11.0-16.0); White Blood Count 6.4 X10*3/uL (4.8-10.8)
[2021-07-28 12:45] LABS: Ferritin 307 ng/mL (10-250)
[2021-07-28 13:06] LABS: Folate 12.2 ng/mL (> or = 4.0); Vitamin B12 229 pg/mL (200-900)
[2021-07-28 13:08] LABS: Alanine Aminotransferase 55 U/L (0-31); Albumin Level 3.9 g/dL (3.5-5.0); Alkaline Phosphatase 71 U/L (39-117); Anion Gap 12 (12-20); Aspartate Amino Transferase 31 U/L (5-31); Blood Urea Nitrogen 14 mg/dL (9-16); Calcium 9.9 mg/dL (8.4-10.2); Carbon Dioxide 24 mmol/L (22-29); Chloride 110 mmol/L (96-108); Cholesterol 212 mg/dL; Estimated Glomerular Filt Rate > 60; Glucose Random 119 mg/dL (60-115); HDL Cholesterol 64 mg/dL; Iron 124 mcg/dL (30-160); LDL Cholesterol Calculated 127 mg/dl; Percent Iron Saturation 40 % (15-50); Potassium 4.8 mmol/L (3.3-5.1); Sodium 141 mmol/L (135-145); Total Iron Binding Capacity 307 mcg/dL (228-428); Total Protein 6.6 g/dL (6.5-8.0); Triglycerides 107 mg/dL; Unsaturated Iron Binding 183 ug/dL
[2021-07-28 13:40] LABS: Creatinine Urine 103.18 mg/dL; Microalbum/Creatinine Ratio Ur 13.5 ug/mg cr
[2021-08-01 13:35] LABS: Vitamin D 25-OH, D2 <4 ng/mL; Vitamin D 25-OH, D3 25 ng/mL; Vitamin D 25-OH, Total 25 ng/mL (30-100)
== END 2021-07-28 10:27 | disposition home or self-care (01) ==
LOC: HO.LAB 10:26
PROVIDERS: PCP Internal Medicine; Visit Provider Internal Medicine Gastroenterology
DX: R10.13 Epigastric pain (principal); K92.1 Melena; K75.81 Nonalcoholic steatohepatitis (NASH); E55.9 Vitamin D deficiency, unspecified; E11.9 Type 2 diabetes mellitus without complications; E78.5 Hyperlipidemia, unspecified
CPT/HCPCS: 36415; 80053; 80061; 82043; 82306; 82607; 82728; 82746; 83540; 85025

== ENCOUNTER 2021-09-15 09:53 | Outpatient (REF) | payer OTHER, SELFPAY ==
--- NOTE | ~2021-09-15 | US_ITS ---
EXAMINATION: US RETROPERITONEAL LIMITED (RENAL ONLY) CLINICAL INFORMATION: Cyst of kidney, acquired. COMPARISON: CT abdomen and pelvis 03/08/2021. X-ray KUB 02/13/2019 and 04/19/2017. Ultrasound kidneys 08/18/2017. Ultrasound kidneys and bladder 10/25/2016. TECHNIQUE: Real-time imaging of the kidneys. FINDINGS: RIGHT KIDNEY: 10.6 x 5.7 x 5.4 cm (SAG x AP x TRV). The kidney is normal in size, contour, and echogenicity. Renal cortical thickness is normal. No calculi or focal parenchymal lesions. No hydronephrosis. LEFT KIDNEY: 10.1 x 5.3 x 4.5 cm (SAG x AP x TRV). The kidney is normal in size, contour, and echogenicity. Renal cortical thickness is normal. No renal calculi or hydronephrosis. There is a 4 mm circumscribed hypoechoic lesion within the interpolar region of the left kidney with some mild through sound enhancement likely representing a cyst but too small to categorize definitely as such. US/US renal BI IMPRESSION: No significant renal abnormality appreciated. Midpole hypoechoic region of the left kidney consistent with small cyst. This is either a Bosniak 1 or 2 cyst and therefore further follow-up is not necessary..
== END 2021-09-15 09:54 | disposition home or self-care (01) ==
LOC: HO.US 09:53
PROVIDERS: Visit Provider Internal Medicine
DX: N28.1 Cyst of kidney, acquired (principal)
CPT/HCPCS: 76775

== ENCOUNTER → 2021-09-24 11:06 | Outpatient (BNVA) | payer OTHER, SELFPAY | PROVIDERS: PCP Internal Medicine; Referring Provider Internal Medicine; Visit Provider Internal Medicine Gastroenterology | DX: A04.8 Other specified bacterial intestinal infections (principal) | CPT/HCPCS: 99212 ==

== ENCOUNTER → 2021-11-18 10:33 | Outpatient (BNVA) | payer OTHER, SELFPAY | PROVIDERS: PCP Internal Medicine | DX: N28.1 Cyst of kidney, acquired (principal) | CPT/HCPCS: 99202 ==

== ENCOUNTER → 2021-11-22 12:43 | Outpatient (BNVA) | payer OTHER, SELFPAY | PROVIDERS: PCP Internal Medicine; Referring Provider Internal Medicine; Visit Provider Internal Medicine Gastroenterology | DX: Z11.0 Encounter for screening for intestinal infectious diseases (principal) | CPT/HCPCS: 99212 ==

== ENCOUNTER 2021-11-26 | Outpatient (REF) | payer OTHER, SELFPAY ==
[2021-12-01 12:58] LABS: H Pylori Breath Test Positive (Negative)
== END 2021-11-26 00:01 | disposition home or self-care (01) ==
LOC: HO.LNP
PROVIDERS: Visit Provider Internal Medicine Gastroenterology
DX: A04.8 Other specified bacterial intestinal infections (principal)
CPT/HCPCS: 36415; 83013

== ENCOUNTER → 2021-11-26 09:48 | Outpatient (BNVA) | payer OTHER, SELFPAY | PROVIDERS: PCP Internal Medicine; Visit Provider Internal Medicine Gastroenterology | DX: Z11.0 Encounter for screening for intestinal infectious diseases (principal) | CPT/HCPCS: 36415; 99211 ==

== ENCOUNTER 2022-02-10 10:33 | Outpatient (REF) | payer OTHER, SELFPAY ==
--- NOTE | 2022-02-10 10:48 | ECG_ITS ---
Test Reason : E78.00 Blood Pressure : / mmHG Vent. Rate : 052 BPM Atrial Rate : 052 BPM P-R Int : 180 ms QRS Dur : 096 ms QT Int : 448 ms P-R-T Axes : 019 037 014 degrees QTc Int : 416 ms Sinus bradycardia with sinus arrhythmia Otherwise normal ECG When compared with ECG of 08-JAN-2020 08:10, No significant change was found Referred By: Araceli Dawkins Electronically Signed By:PEDRO LANCASTER MD
[2022-02-10 12:03] LABS: Alanine Aminotransferase 67 U/L (0-31); Albumin Level 3.7 g/dL (3.5-5.0); Alkaline Phosphatase 63 U/L (39-117); Anion Gap 15 (12-20); Aspartate Amino Transferase 40 U/L (5-31); Bilirubin Total 0.8 mg/dL (0.0-1.0); Blood Urea Nitrogen 18 mg/dL (9-16); Calcium 9.2 mg/dL (8.4-10.2); Carbon Dioxide 21 mmol/L (22-29); Chloride 108 mmol/L (96-108); Cholesterol 128 mg/dL; Estimated Glomerular Filt Rate > 60; Glucose Fasting 132 mg/dL (60-99); HDL Cholesterol 58 mg/dL; LDL Cholesterol Calculated 46 mg/dl; Potassium 4.3 mmol/L (3.3-5.1); Sodium 140 mmol/L (135-145); Total Protein 6.3 g/dL (6.5-8.0); Triglycerides 121 mg/dL
[2022-02-10 12:06] LABS: Creatinine Urine 217.12 mg/dL; Microalbum/Creatinine Ratio Ur 21.6 ug/mg cr
[2022-02-10 12:12] LABS: Vitamin D 25-OH Total 47.3 ng/mL (>30)
== END 2022-02-10 10:34 | disposition home or self-care (01) ==
LOC: HO.LAB 10:33
PROVIDERS: PCP Internal Medicine; Visit Provider Internal Medicine
DX: E78.00 Pure hypercholesterolemia, unspecified (principal); R07.9 Chest pain, unspecified; E55.9 Vitamin D deficiency, unspecified; E11.9 Type 2 diabetes mellitus without complications; E78.5 Hyperlipidemia, unspecified
CPT/HCPCS: 36415; 80053; 80061; 82043; 82306; 93005

== ENCOUNTER → 2022-02-23 11:01 | Outpatient (BNVA) | payer OTHER, SELFPAY | PROVIDERS: PCP Internal Medicine; Referring Provider Internal Medicine; Visit Provider Surgery | DX: R19.00 Intra-abdominal and pelvic swelling, mass and lump, unspecified site (principal); F31.9 Bipolar disorder, unspecified; E66.01 Morbid (severe) obesity due to excess calories; M1A.0490 Idiopathic chronic gout, unspecified hand, without tophus (tophi); I10 Essential (primary) hypertension; E11.9 Type 2 diabetes mellitus without complications; Z68.39 Body mass index [BMI] 39.0-39.9, adult | CPT/HCPCS: 99202 ==

== ENCOUNTER 2022-03-04 09:36 | Outpatient (REF) | payer OTHER, SELFPAY ==
--- NOTE | ~2022-03-04 | XR_ITS ---
EXAMINATION: XR ABDOMEN KUB CLINICAL INDICATION: Upper abdominal pain for one month. COMPARISON: 02/13/2019 KUB. TECHNIQUE: AP view of the abdomen. FINDINGS: There is a nonobstructive bowel gas pattern. Mild to moderate stool seen within the colon distally to the rectum more pronounced proximally. No abnormal calcifications. The osseous structures are unremarkable. XR/XR KUB IMPRESSION: 1. Nonobstructive bowel gas pattern. Mild to moderate colonic stool burden appears similar to the previous study.
== END 2022-03-04 09:37 | disposition home or self-care (01) ==
LOC: HO.XRAY 09:36
PROVIDERS: PCP Internal Medicine; Visit Provider Internal Medicine Gastroenterology
DX: K56.609 Unspecified intestinal obstruction, unspecified as to partial versus complete obstruction (principal)
CPT/HCPCS: 74018; 99212

== ENCOUNTER 2022-04-05 14:40 | Outpatient (REF) | payer OTHER, SELFPAY ==
[2022-04-09 22:04] LABS: HPV mRNA E6/E7 rflx Not Detected (Not Detected)
== END 2022-04-05 14:41 | disposition home or self-care (01) ==
LOC: HO.LNP 14:40
PROVIDERS: Visit Provider Obstetrics & Gynecology
DX: Z12.4 Encounter for screening for malignant neoplasm of cervix (principal); Z11.51 Encounter for screening for human papillomavirus (HPV); D06.9 Carcinoma in situ of cervix, unspecified; R31.9 Hematuria, unspecified
CPT/HCPCS: 87086; 87624; 88142

== ENCOUNTER 2022-04-29 09:12 | Outpatient (REF) | payer OTHER, SELFPAY ==
--- NOTE | ~2022-04-29 | CT_ITS ---
EXAMINATION: CT ABDOMEN AND PELVIS WITHOUT AND WITH CONTRAST CLINICAL INFORMATION: Hematuria. COMPARISON: CT abdomen and pelvis 03/28/2021. TECHNIQUE: Multidetector volumetric imaging was performed of the abdomen and pelvis before and after the IV administration of 100 mL of Omnipaque 350 intravenous contrast. Sagittal and coronal reformatted images were obtained on the technologist's workstation. This CT examination was performed using dose optimization techniques as appropriate, variously including the following: *Automated exposure control *Adjustment of mA and/or kV according to patient size (this includes techniques or standardized protocols for targeted exams where dose is matched to indication/reason for exam; i.e. extremities or head) *Use of iterative reconstruction technique DLP: 959 mGy-cm FINDINGS: LUNG BASES: The visualized lung bases are unremarkable. LIVER, GALLBLADDER, AND BILIARY TREE: The liver is normal in size and shape but demonstrates decreased attenuation consistent with hepatic steatosis. No focal hepatic lesion or biliary ductal dilatation is present. The gallbladder is unremarkable with no evidence of radiopaque gallstones, gallbladder wall thickening, or obvious pericholecystic inflammatory changes. PANCREAS: Unremarkable. SPLEEN: Unremarkable. ADRENAL GLANDS: Unremarkable. KIDNEYS AND URETERS: The kidneys are normal in size, shape, and attenuation. A 3 mm nonobstructing calculus is present at the lower pole of the left kidney. In retrospect, this was present at the time of the prior contrast-enhanced CT but was more difficult to appreciate (6:259). No hydronephrosis, hydroureter, or additional calculi seen. 5 mm benign cyst at the lower pole of the left kidney is unchanged. No perinephric stranding. BLADDER: Unremarkable. GASTROINTESTINAL TRACT: The small and large bowel are unremarkable. The appendix is unremarkable. ABDOMINAL WALL: No significant hernia is appreciated. LYMPH NODES: Normal. VASCULAR: Unremarkable. PELVIC VISCERA: Unremarkable. OSSEOUS STRUCTURES: Unremarkable. CT/CT abdomen pelvis wo/w IV con IMPRESSION: 1. A small 3 mm nonobstructing left renal calculus is present. 2. Incidental note made of hepatic steatosis and a benign unchanged 5 mm left renal cyst which needs no additional imaging or follow-up. Fleischner guidelines were followed.
[2022-04-29] MEDS: iohexoL 350 MG/ML 100 ML INFUS..BTL IV (10:22)
[2022-04-29 14:53] LABS: Creatinine POC 0.7 mg/dL (0.5-1.4); GFR POC > 60
== END 2022-04-29 09:13 | disposition home or self-care (01) ==
LOC: HO.CT 09:12
PROVIDERS: PCP Internal Medicine; Visit Provider Obstetrics & Gynecology
DX: R31.9 Hematuria, unspecified (principal)
CPT/HCPCS: 74178; 82565; Q9967

== ENCOUNTER 2022-05-03 11:11 | Outpatient (REF) | payer OTHER, SELFPAY ==
--- NOTE | ~2022-05-03 | US_ITS ---
EXAMINATION: US RETROPERITONEAL LIMITED (RENAL ONLY) CLINICAL INFORMATION: Cyst of kidney, acquired. COMPARISON: CT abdomen and pelvis 04/29/2022. X-ray abdomen KUB 03/04/2022. Renal ultrasound 09/15/2021 and 08/18/2017. TECHNIQUE: Real-time imaging of the kidneys. FINDINGS: RIGHT KIDNEY: 11.2 x 5.5 x 5.6 cm (SAG x AP x TRV). The kidney is normal in size, contour, and echogenicity. Renal cortical thickness is normal. No calculi or focal parenchymal lesions. No hydronephrosis. LEFT KIDNEY: 10.8 x 5.5 x 5.2 cm (SAG x AP x TRV). The kidney is normal in size, contour, and echogenicity. Renal cortical thickness is normal. No renal calculi or hydronephrosis. There is anechoic cyst midpole measuring 0.7 x 0.5 x 0.5 cm. US/US renal BI IMPRESSION: Simple cyst midpole left kidney.
== END 2022-05-03 11:12 | disposition home or self-care (01) ==
LOC: HO.US 11:11
DX: N28.1 Cyst of kidney, acquired (principal)
CPT/HCPCS: 76775

== ENCOUNTER 2022-05-05 08:38 | Outpatient (REF) | payer OTHER, SELFPAY ==
--- NOTE | ~2022-05-05 | MM_ITS ---
EXAMINATION: MM SCREENING DIGITAL BREAST TOMOSYNTHESIS, BILATERAL CLINICAL INFORMATION: Screening. Asymptomatic. Prior history bilateral breast surgery. The lifetime risk of breast cancer based on the Tyrer-Cuzick Model is 3%. COMPARISON: Mammography: 03/02/2021, 11/15/2016, 09/17/2015 (new baseline). TECHNIQUE: Digital breast tomosynthesis is performed in both the craniocaudal and mediolateral oblique views along with computer-aided detection (CAD). Synthesized 2D images are generated from the tomosynthesis. Additional exaggerated left CC view is provided. FINDINGS: There are scattered areas of fibroglandular density (ACR BI-RADS breast composition Category b). Parenchymal pattern is similar to prior studies. Minor bilateral asymmetries and old scarring posterior upper outer left breast are stable. There is no developing density or interval mass or architectural abnormality. No abnormal calcifications. Skin contours are smooth. No significant changes. MM/MM tomosynthesis screening BI IMPRESSION: No mammographic evidence of malignancy. ASSESSMENT: BI-RADS 2: Benign RECOMMENDATION: Routine annual mammography screening. This patient's information was entered into a reminder system with a target due date for their next mammogram.
== END 2022-05-05 08:39 | disposition home or self-care (01) ==
LOC: HO.MAMMO 08:38
PROVIDERS: PCP Internal Medicine; Visit Provider Obstetrics & Gynecology
DX: Z12.31 Encounter for screening mammogram for malignant neoplasm of breast (principal)
CPT/HCPCS: 77063; 77067

== ENCOUNTER → 2022-06-03 10:01 | Outpatient (BNVA) | payer OTHER, SELFPAY | PROVIDERS: PCP Internal Medicine; Visit Provider Internal Medicine Gastroenterology | DX: A04.8 Other specified bacterial intestinal infections (principal); R10.13 Epigastric pain; K21.9 Gastro-esophageal reflux disease without esophagitis | CPT/HCPCS: 99212 ==

== ENCOUNTER → 2022-06-27 11:43 | Outpatient (BNVA) | payer OTHER, SELFPAY | PROVIDERS: PCP Internal Medicine; Visit Provider Obstetrics & Gynecology | DX: N20.0 Calculus of kidney (principal); K76.0 Fatty (change of) liver, not elsewhere classified | CPT/HCPCS: 99212 ==

== ENCOUNTER 2022-07-13 10:13 | Outpatient (REF) | payer OTHER, SELFPAY | END 2022-07-13 10:14 | disposition home or self-care (01) | LOC: HO.LAB 10:13 | PROVIDERS: PCP Internal Medicine; Visit Provider Nurse Practitioner Family | DX: N39.0 Urinary tract infection, site not specified (principal); N28.1 Cyst of kidney, acquired; Z87.442 Personal history of urinary calculi; Z79.899 Other long term (current) drug therapy | CPT/HCPCS: 87086; 87147; 99212 ==

== ENCOUNTER → 2022-07-28 14:30 | Outpatient (BNVA) | payer OTHER, SELFPAY | PROVIDERS: PCP Internal Medicine; Visit Provider Nurse Practitioner Family | DX: N39.0 Urinary tract infection, site not specified (principal); R32 Unspecified urinary incontinence | CPT/HCPCS: 51798; 99212 ==

== ENCOUNTER 2022-10-14 14:32 | Outpatient (REF) | payer OTHER, SELFPAY | END 2022-10-14 14:33 | disposition home or self-care (01) | LOC: HO.LNP 14:32 | PROVIDERS: PCP Internal Medicine; Visit Provider Nurse Practitioner Family | DX: R32 Unspecified urinary incontinence (principal); R30.0 Dysuria; N28.1 Cyst of kidney, acquired | CPT/HCPCS: 51798; 87086; 99212 ==

== ENCOUNTER 2022-10-26 11:40 | Outpatient (REF) | payer OTHER, SELFPAY ==
[2022-10-26 13:48] LABS: Alanine Aminotransferase 94 U/L (0-31); Albumin Level 3.5 g/dL (3.5-5.0); Alkaline Phosphatase 91 U/L (39-117); Anion Gap 8 (12-20); Aspartate Amino Transferase 58 U/L (5-31); Bilirubin Total 0.6 mg/dL (0.0-1.0); Blood Urea Nitrogen 16 mg/dL (9-16); Calcium 9.2 mg/dL (8.4-10.2); Carbon Dioxide 26 mmol/L (22-29); Chloride 105 mmol/L (96-108); Cholesterol 186 mg/dL; Estimated Glomerular Filt Rate > 60; Glucose Fasting 255 mg/dL (60-99); HDL Cholesterol 50 mg/dL; LDL Cholesterol Calculated 90 mg/dl; Potassium 4.1 mmol/L (3.3-5.1); Sodium 135 mmol/L (135-145); Total Protein 6.8 g/dL (6.5-8.0); Triglycerides 232 mg/dL
[2022-10-26 14:00] LABS: Vitamin D 25-OH Total 31.6 ng/mL (>30)
== END 2022-10-26 11:41 | disposition home or self-care (01) ==
LOC: HO.LAB 11:40
PROVIDERS: PCP Internal Medicine; Visit Provider Internal Medicine
DX: E11.9 Type 2 diabetes mellitus without complications (principal); E55.9 Vitamin D deficiency, unspecified; E78.5 Hyperlipidemia, unspecified
CPT/HCPCS: 36415; 80053; 80061; 82306

== ENCOUNTER 2022-10-31 10:00 | Outpatient (REF) | payer OTHER, SELFPAY | END 2022-10-31 10:01 | disposition home or self-care (01) | LOC: HO.US 10:00 | PROVIDERS: PCP Internal Medicine; Visit Provider Nurse Practitioner Family | DX: R30.0 Dysuria (principal); R32 Unspecified urinary incontinence; N28.1 Cyst of kidney, acquired | CPT/HCPCS: 76770 ==

== ENCOUNTER 2022-11-14 09:35 | Outpatient (AMB) | payer OTHER, SELFPAY ==
[2022-11-14 09:41] VITALS: BP 152/79; PULSE 50; BMI 40.0
--- NOTE | 2022-11-14 09:41 | MHC.OFFVIS ---
Intake Vital Signs 11/14/22 09:41 Height 5 ft Weight 205 lb 0.478 oz BMI 40.0 BP 152/79 H Blood Pressure Location Lt brachial Position Sitting Pulse 50 Intake Visit Reasons: 5 month follow up Intake Note: Monica presents in the office as a 5 month follow up. CC: She has been having nausea and a fever when she goes outside. She has been getting cold sores on her lips. Gas Pumping Station Supervisor Required: No Gas Pumping Station Supervisor Name: Dread [phone] Allergies Cortisone Allergy (Severe, Verified 11/14/22 09:44) pruritus, hives, swellin milk [MILK] Allergy (Severe, Verified 11/14/22 09:44) rash ibuprofen [IBUPROFEN] Allergy (Intermediate, Verified 11/14/22 09:44) swelling levofloxacin Allergy (Intermediate, Verified 11/14/22 09:44) pruritus metronidazole Allergy (Intermediate, Verified 11/14/22 09:44) pruritus peanut [PEANUT] Allergy (Intermediate, Verified 11/14/22 09:44) pruritus Penicillins [PENICILLINS] Allergy (Intermediate, Verified 11/14/22 09:44) Hives shellfish derived [SHELLFISH DERIVED] Allergy (Intermediate, Verified 11/14/22 09:44) rash, shortness of breath morphine [MORPHINE] Adverse Reaction (Severe, Verified 11/14/22 09:44) loss of consciousness, hypotension oatmeal Adverse Reaction (Intermediate, Verified 11/14/22 09:44) abdominal gas pain egg [EGG] Adverse Reaction (Mild, Verified 11/14/22 09:44) diarrheas, dizziness red meat Allergy (Intermediate, Uncoded 11/14/22 09:44) hand swelling HPI 5 month follow up HPI Details 67 yr old f here for f/u RECAP: pt of? delilah ? H/O colon cancer- > 10 yrs? ago in [place] ? Diagnostic studies- ? 09/27/17- gastric? emptying study for nausea- normal- done in 3 hrs ? 03/2018- CT? and/pelvis- h/o abdominal pain- normal ? EGD/colonoscopy 2017- 2 small? polyps noted and removed, EGD with erythema h pylori pos ?she did get? treatment for h pylori in past h pylori ag was neg on? testing. ?EGD/colonoscopy 11/2018: gastritis, h pylori pos, hyperplastic? polyp, hyperplastic polyp rectum ? she was then treated with tinidazole? 250 mg TID for 14 d , omeprazole 20 mg bid for 2 weeks, bismuth 524 mg QID and? doxy 100 mg bid ?at f/o 01/2019 she was c/o LUQ pain with nausea,? constipation and was v hypertensive, was sent to ED for assessment, was able to? go home due to ongoing symptoms EGd,colonoscopy was repeated: EGD?colonoscopy: 06/2021 Endoscopy Findings: stomach polyps gastritis Colonoscopy Findings: polyp internal hemorrhoids melanosis coli Path: ? Chronic inactive duodenitis. severe chronic inflamamtion, h pylori pos hyperplastic stomach polyp melanosis coli I retried quadruple therapy but using flagyl (she denies allergy to this), and tetracycline she had KUB 03/22---constipation CT from administrative assistant -- hepatic steatosis, kidney cyst ? INTERIM: she has noted nausea for 2 weeks she has been having ongoing epigastric pain she still has dysphagia with choking, ears hurt a lot ongoing issues with constipation, tried miralax and didnt help, not went for 3 days she is straining and pushing she has noted blood in stool as well she has not refilled her PPI, ran out 2 months ago-- EXAM: GENERAL: The patient is well developed and nontoxic. VITAL SIGNS:see workflow HEENT: Nonicteric sclerae, PERRLA, EOMI. Oropharynx clear. Moist mucous membranes. Conjunctivae appear well perfused. No thyroid mass. CHEST: Chest wall is nontender. HEART: Regular rate and rhythm without murmurs. LUNGS: Clear to auscultation bilaterally. ABDOMEN: Soft, positive bowel sounds, tender epigastrium, no organomegaly.no flank tenderness SKIN: No rash, no excessive bruising, petechiae, or purpura. NEUROLOGIC: Cranial nerves II-XII intact without motor/sensory deficit. MS: normal A/P: 1/ h pylori pos with treatment with quadruple therapy, has co existing GERD, not responded to treatment regimens 2/ constipation 2/2 medications and age 3/ dysphagia, related to 1/ above PLAN: 1/ Get EGD and sigmoidoscopy as originally planned with H pylori c/s 2/ trial of linaclotide 3/ carafate meantime ? ? 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 pylori infection Hematochezia Lumbar back pain Obese Pure hypercholesterolemia Renal cyst Schizophrenia Vaginal pruritus Surgical History H/O colonoscopy History of esophagogastroduodenoscopy (EGD) History of eye surgery History of hand surgery History of hemicolectomy History of removal of cyst History of surgery Hx of bilateral breast reduction surgery Hx of lithotripsy Family History Father Lung cancer Diabetes Hypertension Mother Diabetes CVD (cardiovascular disease) Maternal Aunt Breast cancer Social History Housing: Apartment Alcohol intake: never Patient Tobacco Use Status: Never used Tobacco e-Cigarette/Vaping Use: Never Used Second Hand Smoke Exposure: No service: No Current occupational status: disabled Cognitive needs: Yes Hearing needs: No Vision needs: No Female Reproductive History Menstrual Age of Menarche: 13 Physical Exam Vital Signs: Last Vital Signs Pulse 50 11/14/22 09:41 BP 152/79 H 11/14/22 09:41 BMI result Body Mass Index 40.0 Assessment & Plan Assessment & Plan (1) Epigastric abdominal pain: Code(s): R10.13 - Epigastric pain (2) H. pylori infection: Code(s): A04.8 - Other specified bacterial intestinal infections (3) Constipation by delayed colonic transit: Code(s): K59.01 - Slow transit constipation Medications: New sucralfate (Carafate) swish in mouth and swallow; use after food/drink 5 mL PO QID 1,000 mL 0RF linaclotide 145 mcg PO DAILY 30 caps 3RF Coding Level of Care Code Est Pt Level 4 (91509) Diagnoses Epigastric abdominal pain R10.13 H. pylori infection A04.8 Constipation by delayed colonic transit K59.01
== END 2022-11-14 10:28 | disposition home or self-care (01) ==
PROVIDERS: Visit Provider Internal Medicine Gastroenterology
DX: R10.13 Epigastric pain (principal); A04.8 Other specified bacterial intestinal infections; K59.01 Slow transit constipation
CPT/HCPCS: 99214

== ENCOUNTER → 2022-11-14 09:35 | Outpatient (BNVA) | payer OTHER, SELFPAY | PROVIDERS: Visit Provider Internal Medicine Gastroenterology | DX: R10.13 Epigastric pain (principal); A04.8 Other specified bacterial intestinal infections; K59.01 Slow transit constipation | CPT/HCPCS: 99212 ==

== ENCOUNTER 2022-11-17 13:28 | Outpatient (AMB) | payer OTHER, SELFPAY ==
--- NOTE | 2022-11-17 13:29 | A.OFFVIS_ITS ---
Intake Intake Visit Reasons: follow up/US(SET) Intake Note: Patient is present for follow up ultrasound/incontinence/uti (imaging 10/31) Urology Medications: Estrace Cream Blood Thinner: none PVR: 61ml's Stockroom Coordinator Required: No Accompanied by: Self / Same As Patient Allergies Cortisone Allergy (Severe, Verified 11/17/22 13:49) pruritus, hives, swellin milk [MILK] Allergy (Severe, Verified 11/17/22 13:49) rash ibuprofen [IBUPROFEN] Allergy (Intermediate, Verified 11/17/22 13:49) swelling levofloxacin Allergy (Intermediate, Verified 11/17/22 13:49) pruritus metronidazole Allergy (Intermediate, Verified 11/17/22 13:49) pruritus peanut [PEANUT] Allergy (Intermediate, Verified 11/17/22 13:49) pruritus Penicillins [PENICILLINS] Allergy (Intermediate, Verified 11/17/22 13:49) Hives shellfish derived [SHELLFISH DERIVED] Allergy (Intermediate, Verified 11/17/22 13:49) rash, shortness of breath morphine [MORPHINE] Adverse Reaction (Severe, Verified 11/17/22 13:49) loss of consciousness, hypotension oatmeal Adverse Reaction (Intermediate, Verified 11/17/22 13:49) abdominal gas pain egg [EGG] Adverse Reaction (Mild, Verified 11/17/22 13:49) diarrheas, dizziness red meat Allergy (Intermediate, Uncoded 11/17/22 13:49) hand swelling Medication List - Last Reconciled 11/17/22 by MATHEW Lynn acetaminophen 0 mg PO albuterol sulfate 90 mcg/actuation 2 inhalations inhalation Q6H PRN amlodipine 10 mg PO DAILY 90 days aripiprazole 15 mg PO DAILY blood sugar diagnostic (OneTouch Ultra Test strips) test once daily blood-glucose meter (DoctolibTouch Ultra2 Meter) test once daily buspirone 10 mg PO BID PRN carboxymethylcellulose sodium 0.5% (Lubricating Plus) 1 drp ophthalmic (eye) BID cholecalciferol (vitamin D3) (Vitamin D3) 25 mcg PO DAILY diazepam 5 mg PO BID PRN 30 days docusate sodium (Colace) 100 mg PO BID donepezil 10 mg PO BEDTIME 30 days esomeprazole magnesium 40 mg PO DAILY 90 days estradiol 0.01%(0.1mg/gram) vaginally 3 times a week; pea sized amount to urethra 3 times a week 30 days fluticasone propionate 44 mcg/actuation (Flovent HFA) 1 puff inhalation BID hydrocortisone valerate 0.2% appl topical BID hydroxyzine HCl 25 mg PO TID lancets (OneTouch UltraSoft 2 Lancet) test once daily linaclotide 145 mcg PO DAILY losartan 50 mg PO DAILY 90 days metoprolol tartrate 50 mg PO BID metronidazole 0.75% appl topical BID mirtazapine 7.5 mg PO BEDTIME paliperidone ER 1.5 mg PO DAILY paroxetine HCl 30 mg PO QAM pioglitazone 30 mg PO DAILY polyethylene glycol 3350 (Miralax) 17 grams PO BID prednisone 50 mg PO DAILY rosuvastatin 40 mg PO DAILY 90 days sitagliptin phosphate (Januvia) 50 mg PO DAILY sucralfate (Carafate) 10 mL PO BID sucralfate (Carafate) 5 mL PO QID tretinoin 0.1% appl topical DAILY valacyclovir 1,000 mg PO BID 7 days zolpidem 10 mg PO BEDTIME 30 days HPI HPI Comments History of Present Illness Details Monica is a pleasant 67 year old Kitt[place] speaking patient of Dr. Arnaldo Dawkins. She has a past medical history of hepatic stenosis, JOSE JUAN III with severe dysplasia, large bowel obstruction, hypercholesteremia, lupus, osteopenia, schizophrenia, bipolar, hypertension, gout, diabetes colitis, and obesity. She presents to the office today for follow-up of her recent UTI and stress incontinence. Of note, patient was seen approximately She also has a history of renal cyst and nephrolithiasis. Of note, patient was seen approximately 1 month ago at which time retroparoteinal ultrasound was ordered for further assessment and evaluation. These results were reviewed with the patient today. Bilateral kidneys with no calculi, lesions, and or hydronephrosis noted. Previously noted cyst on left kidney in the mid pole is not appreciated on this current study. The bladder is well distended and normal. Pre void bladder volume is approximately 330 mL. Postvoid bladder volume is approximately 20 mL. Being when asked patient reports to be following up with Gastroenterology and has upcoming colonoscopy and endoscopy scheduled for 12/04. She discusses having ongoing issues with abdominal pain, nausea, vomiting, fever, and chills. She reports having followed up with Gastroenterology earlier this week and is being treated for h pylori. Patient with a history of Transobturartor Sling procedire in 2019. She also underwent in office cystoscopy for microscopic hematuria in 2019 with normal findings. In discussion with the patient today she reports she continues with stress incontinence. When asked she reports compliance with Estrace cream and reports episodes of dysuria have since resolved. She mentions wanting to reverse surgical sling procedure. Discussed risks versus benefits of doing so. Discussed referral to urogynocology for further assessment evaluation however patient reports she would like to think about this. When asked patient denies hematuria, dysuria, and or foul smelling urine. Discussed urinary symptoms in relation to diabetes and stressed the importance of better glucose control for overall health and well-being. Discussed in stressed the importance of drinking adequate amount of water daily. In office urinalysis results reviewed with the patient. PVR 61 mL. 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 pylori infection Hematochezia Lumbar back pain Obese Pure hypercholesterolemia Renal cyst Schizophrenia Vaginal pruritus Surgical History H/O colonoscopy History of esophagogastroduodenoscopy (EGD) History of eye surgery History of hand surgery History of hemicolectomy History of removal of cyst History of surgery Hx of bilateral breast reduction surgery Hx of lithotripsy Family History Father Lung cancer Diabetes Hypertension Mother Diabetes CVD (cardiovascular disease) Maternal Aunt Breast cancer Social History Housing: Apartment Alcohol intake: never Patient Tobacco Use Status: Never used Tobacco e-Cigarette/Vaping Use: Never Used Second Hand Smoke Exposure: No service: No Current occupational status: disabled Cognitive needs: Yes Hearing needs: No Vision needs: No Female Reproductive History Menstrual Age of Menarche: 13 Review of Systems Const Reports as per HPI Eyes Reports no additional complaints ENT Reports no additional complaints Card Reports as per HPI Resp Reports no additional complaints GI Reports as per HPI Reports as per HPI Musc Reports as per HPI Neuro Reports as per [facility] Psych Reports as per [facility] Endo Reports as per HPI Physical Exam Const General: cooperative, healthy appearing, comfortable, no acute distress, well developed, alert and awake Nutritional Appearance: overweight Orientation/consciousness: patient oriented x3 Limitations: no limitations HEENT Head: Yes normal to inspection, Yes normocephalic and Yes atraumatic Ears: hearing grossly normal bilaterally Eyes General: appearance normal, both eyes and all related structures Neck Neck: Yes normal visual inspection and Yes trachea midline Chest Chest palpation & inspection: normal inspection of the chest Resp Effort & Inspection: normal respiratory effort and able to speak in complete sentences Cardio Rate: regular rate GI Inspection: Yes normal to inspection and Yes Abdominal panniculus present General: Yes no CVA tenderness Back/Spine/Pelvis Back: no CVA tenderness Neuro General: patient oriented x3 Extrem General: Yes normal to inspection Psych Appearance: grossly normal Mental Status: mental status grossly normal Speech and movement: Normal speech and movement present and Clear speech present Affect: normal affect Attitude: cooperative Thought process: Normal thought process present Thought content: Normal thought content present Insight: Fair insight present (Psych) Judgement: Fair judgement present (Psych) Office Procedures Post Void Residual Post Residual Void Post Void Residual (PVR): 61 [id number] Void Residual by ultrasound Results AMB Urinalysis, Automated UA Leukoctes 70 Kan/uL Last Edit by [employer]pe on 11/17/22 13:46 UA Nitrite Last Edit by [facility] Roberth on 11/17/22 13:46 UA Urobilinogen 0.2 mg/dL Last Edit by [employer] on 11/17/22 13:46 UA Protein 15 mg/dL Last Edit by [employer] on 11/17/22 13:46 UA pH 6.0 Last Edit by [employer] on 11/17/22 13:46 UA Blood 0 Kwan/uL Last Edit by [facility] [employer] on 11/17/22 13:46 UA Specific Sanford 1.025 Last Edit by [employer] on 11/17/22 13:46 UA Ketone Last Edit by [employer] on 11/17/22 13:46 UA Bilirubin 1 mg/dL Last Edit by [employer] on 11/17/22 13:46 UA Glucose 0 mg/dL Last Edit by Hailey Lepe on 11/17/22 13:46 Results Reviewed Results Reviewed: Laboratory Last Values Urine pH (Auto) 6.0 11/17/22 13:32 Specific Sanford (Auto) 1.025 11/17/22 13:32 Urine Protein (Auto) 15 mg/dL 11/17/22 13:32 Glucose (UA)(Auto) 0 mg/dL 11/17/22 13:32 Urine Blood (Auto) 0 Kwan/uL 11/17/22 13:32 Urine Bilirubin (Auto) 1 mg/dL 11/17/22 13:32 Urine Urobilinogen (Auto) 0.2 mg/dL 11/17/22 13:32 Leukocyte Esterase (Auto) 70 Kan/uL 11/17/22 13:32 Date of Service: 10/31/22 EXAMINATION: US RETROPERITONEAL COMPLETE (RENAL) FINDINGS: RIGHT KIDNEY: 11.4 x 5.4 x 4.5 cm (SAG x AP x TRV). The kidney is normal in size, contour, and echogenicity. Renal cortical thickness is normal. No calculi or focal parenchymal lesions. No hydronephrosis. LEFT KIDNEY: 10.2 x 5.2 x 4.3 cm (SAG x AP x TRV). The kidney is normal in size, contour, and echogenicity. Renal cortical thickness is normal. No calculi or focal parenchymal lesions. No hydronephrosis. Previously noted cyst seen in the mid pole is not appreciated on the current study. BLADDER: Well distended and normal. Bilateral ureteral jets are demonstrated. Prevoid bladder volume is 331 mL. Postvoid bladder volume is 18.6 mL. IMPRESSION: 1.? Normal appearance of the kidneys. 2.? Small post void residual. Assessment & Plan Assessment & Plan (1) Urinary incontinence: Code(s): R32 - Unspecified urinary incontinence (2) Dysuria: Code(s): R30.0 - Dysuria Plan In office urinalysis results reviewed with the patient today. PVR 61 mL. Continue Estrace cream as patient reports improvement in dysuria Recent retroperitoneal ultrasound results reviewed with the patient today; as noted above. Discussed risks and benefits of reversal of sling procedure; as noted above; patient reports she will think about this Start Myrbetriq as discussed and prescribed. Follow-up with Gastroenterology as planned Discussed at length importance of managing diabetes for improvement in urinary symptoms as well as for overall health and well-being. Follow-up in 6 weeks with PVR; if not sooner with any issues, concerns, and or questions. Orders: Orders AMB Urinalysis Automated Today Z13.9 - Encounter for screening, unspecified AMB Post Void Residual by ultrasound Today R32 - Unspecified urinary incontinence Medications: New mirabegron ER (Myrbetriq) 25 mg PO DAILY 90 days 90 tabs 1RF N32.81 - Overactive bladder, R35.1 - Nocturia Patient Instructions: The patient had an opportunity to ask questions regarding the treatment plan. All questions were answered. Physical exam, labs, and imaging were discussed and reviewed in detail. As well as risks, benefits, and discussion of treatment choices. No major barriers to understanding were identified. The patient expressed understanding and agreement with the above treatment plan. The patient was made aware they should contact our office by phone for worsening of their current condition, the appearance of new symptoms, or with any questions or concerns. Compliance is encouraged with any medications and follow up testing that is ordered. It is a privilege to be allowed the opportunity to participate in? your urological care.? Again, if you have any questions or concerns If you have any questions or concerns please do not hesitate to contact me. The office is [phone]. This note is constructed using voice recognition software. While every effort has been made to ensure accuracy cut off saw grader errors may have been included. Yours sincerely, MATHEW Lynn Coding Level of Care Code Est Pt Level 4 (34615) Diagnoses Urinary incontinence R32 Dysuria R30.0 CPT Codes Post Residual Void - PVR CPT Code: 83684-Rhxv Void Residual by ultrasound ([id number])
== END 2022-11-17 13:58 | disposition home or self-care (01) ==
PROVIDERS: PCP Internal Medicine; Visit Provider Nurse Practitioner Family
DX: R32 Unspecified urinary incontinence (principal); R30.0 Dysuria
CPT/HCPCS: 99214

== ENCOUNTER → 2022-11-17 13:28 | Outpatient (BNVA) | payer OTHER, SELFPAY | PROVIDERS: PCP Internal Medicine; Visit Provider Nurse Practitioner Family | DX: R30.0 Dysuria (principal); R32 Unspecified urinary incontinence | CPT/HCPCS: 51798; 99212 ==

== ENCOUNTER 2022-12-20 10:29 | Outpatient (AMB) | payer OTHER, SELFPAY ==
--- NOTE | 2022-12-20 10:31 | A.OFFPC_ITS ---
Vital Signs 12/20/22 10:32 12/20/22 11:16 Height 5 ft Weight 205 lb 0.478 oz BMI 40.0 BP 168/92 H 160/90 H Blood Pressure Location Lt brachial Lt brachial Position Sitting Sitting Intake Visit Reasons: back pain- fell in shower Intake Note: Patient here c/o back pain due to fall in shower yesterday Chip Washer Required: No Accompanied by: Self / Same As Patient Allergies Cortisone Allergy (Severe, Verified 12/20/22 10:43) pruritus, hives, swellin milk [MILK] Allergy (Severe, Verified 12/20/22 10:43) rash ibuprofen [IBUPROFEN] Allergy (Intermediate, Verified 12/20/22 10:43) swelling levofloxacin Allergy (Intermediate, Verified 12/20/22 10:43) pruritus metronidazole Allergy (Intermediate, Verified 12/20/22 10:43) pruritus peanut [PEANUT] Allergy (Intermediate, Verified 12/20/22 10:43) pruritus Penicillins [PENICILLINS] Allergy (Intermediate, Verified 12/20/22 10:43) Hives shellfish derived [SHELLFISH DERIVED] Allergy (Intermediate, Verified 12/20/22 10:43) rash, shortness of breath morphine [MORPHINE] Adverse Reaction (Severe, Verified 12/20/22 10:43) loss of consciousness, hypotension oatmeal Adverse Reaction (Intermediate, Verified 12/20/22 10:43) abdominal gas pain egg [EGG] Adverse Reaction (Mild, Verified 12/20/22 10:43) diarrheas, dizziness red meat Allergy (Intermediate, Uncoded 12/20/22 10:43) hand swelling Medication List - Last Reconciled 12/20/22 by Araceli Dawkins MD acetaminophen 0 mg PO albuterol sulfate 90 mcg/actuation 2 inhalations inhalation Q6H PRN amlodipine 10 mg PO DAILY 90 days aripiprazole 15 mg PO DAILY blood sugar diagnostic (OneTouch Ultra Test strips) test once daily blood-glucose meter ([place] Ultra2 Meter) test once daily buspirone 10 mg PO BID PRN carboxymethylcellulose sodium 0.5% (Lubricating Plus) 1 drp ophthalmic (eye) BID cholecalciferol (vitamin D3) (Vitamin D3) 25 mcg PO DAILY diazepam 5 mg PO BID PRN 30 days docusate sodium (Colace) 100 mg PO BID donepezil 10 mg PO BEDTIME 30 days esomeprazole magnesium 40 mg PO DAILY 90 days estradiol 0.01%(0.1mg/gram) vaginally 3 times a week; pea sized amount to urethra 3 times a week 30 days fluticasone propionate 44 mcg/actuation (Flovent HFA) 1 puff inhalation BID hydrocortisone valerate 0.2% appl topical BID hydroxyzine HCl 25 mg PO TID lancets (Bird CycleworksTouch UltraSoft 2 Lancet) test once daily losartan 50 mg PO DAILY 90 days metoprolol tartrate 50 mg PO BID metronidazole 0.75% appl topical BID mirabegron ER (Myrbetriq) 25 mg PO DAILY 90 days mirtazapine 7.5 mg PO BEDTIME paliperidone ER 1.5 mg PO DAILY paroxetine HCl 30 mg PO QAM pioglitazone 30 mg PO DAILY plecanatide (Trulance) 3 mg PO DAILY polyethylene glycol 3350 (Miralax) 17 grams PO BID prednisone 50 mg PO DAILY rosuvastatin 40 mg PO DAILY 90 days sitagliptin phosphate (Januvia) 50 mg PO DAILY sucralfate (Carafate) 10 mL PO BID sucralfate (Carafate) 5 mL PO QID tretinoin 0.1% appl topical DAILY valacyclovir 1,000 mg PO BID 7 days zolpidem 10 mg PO BEDTIME 30 days Tobacco use date assessed: 06/08/22 Fall risk assessment: 1 Fall in past year Last assessed Fall Risk: 12/20/22 Dental Screening Dental Screen Date: 12/20/22 Did you have a dental visit in the last 12 months?: Yes Did you have a dental problem in the last 6 months where you did not have access to dental care?: No Was dental information given to patient?: Patient has dentist HPI HPI Comments History of Present Illness Details This is a 67-year-old female with diabetes mellitus type 2, hypertension and bipolar disorder that complains of low back pain that have been aggravated after she slipped and fell in the shower last night around 23:00. Blood glucose has been elevated and I will increase Actos from 30 mg to 45 mg. Blood pressure elevated and I will increase amlodipine from 5 mg to 10 mg. Blood pressure will be recheck in 3 weeks by nurse navigator. Bipolar disorder controlled with medications and this is follow by Psychiatry. Walks with a cane for gait stability. The back pain does radiate to the left leg. No fever, bowel or bladder incontinence. 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 pylori infection Hematochezia Lumbar back pain Obese Pure hypercholesterolemia Renal cyst Schizophrenia Vaginal pruritus Surgical History H/O colonoscopy History of esophagogastroduodenoscopy (EGD) History of eye surgery History of hand surgery History of hemicolectomy History of removal of cyst History of surgery Hx of bilateral breast reduction surgery Hx of lithotripsy Family History Father Lung cancer Diabetes Hypertension Mother Diabetes CVD (cardiovascular disease) Maternal Aunt Breast cancer Social History Housing: Apartment Alcohol intake: never Patient Tobacco Use Status: Never used Tobacco e-Cigarette/Vaping Use: Never Used Second Hand Smoke Exposure: No service: No Current occupational status: disabled Cognitive needs: Yes Hearing needs: No Vision needs: No Female Reproductive History Menstrual Age of Menarche: 13 Questionnaire Thrive Questionnaire Date Thrive assessed: 06/08/22 MASSIEL-7 AMB Questionnaire MASSIEL-7 Date MASSIEL - 7 assessed: 06/08/22 Source: Developed by Drs. Tony Cedeno, Maureen Davies, Franky Bryson and colleagues, with an educational avni from [employer]. Review of Systems Const All systems reviewed & are unremarkable except as noted in HPI and below Eyes Reports no additional complaints, Denies change in vision and Denies other visual disturbances Card Denies chest pain at rest, Denies chest pain with activity, Denies edema, Denies irregular heart rhythm, Denies claudication, Denies dyspnea, Denies dyspnea on exertion, Denies orthopnea, Denies paroxysmal nocturnal dyspnea and Denies slow heart rate Resp Denies cough, Denies dyspnea and Denies dyspnea on exertion GI Denies abdominal pain, Denies change in bowel habits, Denies excessive flatus, Denies nausea and Denies vomiting Denies urinary incontinence, Denies urinary hesitancy and Denies urinary urgency Musc Denies abnormal gait, Reports back pain, Denies atrophy, Denies deformity, Denies limited range of motion and Reports radiating pain into limb Skin/Breast Denies bleeding lesions, Denies changing lesions and Denies rash Neuro Denies abnormal gait and Denies lack of coordination Physical exam (Primary Care) Vital Signs: Last Vital Signs BP 168/92 H 12/20/22 10:32 BMI result Body Mass Index 40.0 Tobacco/Smoking Status: Tobacco use Status Tobacco use date assessed 06/08/22 12/20/22 10:38 Patient Tobacco Use Status Never used Tobacco 12/20/22 10:38 e-Cigarette/Vaping Use Never Used 12/20/22 10:38 Thrive Assessment: Date of Thrive Assessment Date Thrive assessed 06/08/22 12/20/22 10:38 Const Limitations: ambulation with cane Eyes General: appearance normal, both eyes and all related structures Eyelids: Yes eyelids normal Conjunctivae: conjunctivae normal Neck Neck: Yes normal visual inspection and Yes supple Resp Effort & Inspection: normal respiratory effort Auscultation: clear to auscultation bilaterally Cardio Jugular venous distension: no JVD Rate: regular rate Rhythm: regular rhythm Heart sounds: S1 normal heart sound present and S2 normal heart sound present Back/Spine/Pelvis Thoracic/Lumbar Spine: paraspinal muscle tenderness and lumbar spinal tenderness Extrem General: Yes full ROM Assessment and Plan Assessment & Plan (1) Back pain: Code(s): M54.9 - Dorsalgia, unspecified Plan: X-ray ordered (2) Diabetes mellitus: Code(s): E11.9 - Type 2 diabetes mellitus without complications Qualifiers: Diabetes mellitus type: type 2 Diabetes mellitus senior care insulin use: without watermelon harvesting supervisor use Diabetes mellitus complication status: without complic ation Qualified Code(s): E11.9 - Type 2 diabetes mellitus without complications Plan: Continue Januvia. Increase Actos. A1c goal is equal or less than 7% (3) Bipolar 1 disorder: Code(s): F31.9 - Bipolar disorder, unspecified Plan: Continue Abilify. Follow-up with psychiatry. (4) Essential hypertension: Code(s): I10 - Essential (primary) hypertension Plan: Continue losartan. Increase amlodipine from 5 mg to 10 mg. Blood pressure goal is equal or less than 130/80. Recheck blood pressure with nurse navigator in 3 weeks. Orders: Orders XR lumbar spine 2-3V Today M54.9 - Dorsalgia, unspecified Referrals Speech and Hearing Referral H91.92 - Unspecified hearing loss, left ear Medications: New pioglitazone 45 mg PO DAILY 90 days 90 tabs 1RF Discontinued pioglitazone Discontinued Reason: Patient Completed Course 30 mg PO DAILY 90 caps 3RF prednisone Discontinued Reason: Patient Completed Course 50 mg PO DAILY 5 tabs 0RF Coding Level of Care Code Est Pt Level 4 (58094) Diagnoses Back pain M54.9 Diabetes mellitus E11.9 Diabetes mellitus type: type 2 Diabetes mellitus senior care insulin use: without watermelon harvesting supervisor use Diabetes mellitus complication status: without complication Bipolar 1 disorder F31.9 Essential hypertension I10 Time Spent (min) 22
[2022-12-20 10:32] VITALS: BP 168/92; BMI 40.0
[2022-12-20 11:16] VITALS: BP 160/90
== END 2022-12-20 10:52 | disposition home or self-care (01) ==
PROVIDERS: PCP Internal Medicine; Visit Provider Internal Medicine
DX: M54.9 Dorsalgia, unspecified (principal); E11.9 Type 2 diabetes mellitus without complications; F31.9 Bipolar disorder, unspecified; I10 Essential (primary) hypertension
CPT/HCPCS: 99214

== ENCOUNTER 2022-12-20 11:07 | Outpatient (REF) | payer OTHER, SELFPAY ==
--- NOTE | ~2022-12-20 | XR_ITS ---
EXAMINATION: XR LUMBOSACRAL SPINE CLINICAL INFORMATION: Dorsalgia. COMPARISON: Lumbar spine radiographs dated 02/21/2020. TECHNIQUE: AP and lateral views of the lumbar spine and lateral view of the lumbosacral junction. FINDINGS: There is bony demineralization. At L4-L5, there is a 4 mm anterolisthesis. At L5-S1, there is moderate disc space narrowing and mild anterior spondylosis. No acute fracture or spondylolisthesis is seen. The posterior elements are intact. The paravertebral soft tissues are unremarkable. XR/XR lumbar spine 2-3V IMPRESSION: At L4-L5, there is mild degenerative disc disease, and at L5-S1, there is moderate degenerative disc disease.
== END 2022-12-20 11:08 | disposition home or self-care (01) ==
LOC: HO.XRAY 11:07
PROVIDERS: PCP Internal Medicine; Visit Provider Internal Medicine
DX: M54.9 Dorsalgia, unspecified (principal)
CPT/HCPCS: 72100

== ENCOUNTER 2022-12-29 13:05 | Outpatient (AMB) | payer OTHER, SELFPAY ==
--- NOTE | 2022-12-29 13:06 | MHC.OFFVIS ---
Intake Intake Visit Reasons: 6w/PVR Intake Note: Patient is present for follow up incontinence/uti/dysuria Urology Medications: Estrace Cream, Myrbetriq Blood Thinner: none PVR: 0ml's Medical Operations Supervisor Required: Yes Accompanied by: Self / Same As Patient Allergies Cortisone Allergy (Severe, Verified 12/29/22 13:54) pruritus, hives, swellin milk [MILK] Allergy (Severe, Verified 12/29/22 13:54) rash ibuprofen [IBUPROFEN] Allergy (Intermediate, Verified 12/29/22 13:54) swelling levofloxacin Allergy (Intermediate, Verified 12/29/22 13:54) pruritus metronidazole Allergy (Intermediate, Verified 12/29/22 13:54) pruritus peanut [PEANUT] Allergy (Intermediate, Verified 12/29/22 13:54) pruritus Penicillins [PENICILLINS] Allergy (Intermediate, Verified 12/29/22 13:54) Hives shellfish derived [SHELLFISH DERIVED] Allergy (Intermediate, Verified 12/29/22 13:54) rash, shortness of breath morphine [MORPHINE] Adverse Reaction (Severe, Verified 12/29/22 13:54) loss of consciousness, hypotension oatmeal Adverse Reaction (Intermediate, Verified 12/29/22 13:54) abdominal gas pain egg [EGG] Adverse Reaction (Mild, Verified 12/29/22 13:54) diarrheas, dizziness red meat Allergy (Intermediate, Uncoded 12/29/22 13:54) hand swelling Medication List - Last Reconciled 12/29/22 by MATHEW Lynn acetaminophen 0 mg PO albuterol sulfate 90 mcg/actuation 2 inhalations inhalation Q6H PRN amlodipine 10 mg PO DAILY 90 days aripiprazole 15 mg PO DAILY blood sugar diagnostic (OneTouch Ultra Test strips) test once daily blood-glucose meter (SoundtrackerTouch Ultra2 Meter) test once daily buspirone 10 mg PO BID PRN carboxymethylcellulose sodium 0.5% (Lubricating Plus) 1 drp ophthalmic (eye) BID cholecalciferol (vitamin D3) (Vitamin D3) 25 mcg PO DAILY diazepam 5 mg PO BID PRN 30 days docusate sodium (Colace) 100 mg PO BID donepezil 10 mg PO BEDTIME 30 days esomeprazole magnesium 40 mg PO DAILY 90 days estradiol 0.01%(0.1mg/gram) vaginally 3 times a week; pea sized amount to urethra 3 times a week 30 days fluticasone propionate 44 mcg/actuation (Flovent HFA) 1 puff inhalation BID hydrocortisone valerate 0.2% appl topical BID hydroxyzine HCl 25 mg PO TID lancets (OneTouch UltraSoft 2 Lancet) test once daily losartan 50 mg PO DAILY 90 days metoprolol tartrate 50 mg PO BID metronidazole 0.75% appl topical BID mirabegron ER (Myrbetriq) 25 mg PO DAILY 90 days mirtazapine 7.5 mg PO BEDTIME paliperidone ER 1.5 mg PO DAILY paroxetine HCl 30 mg PO QAM pioglitazone 45 mg PO DAILY 90 days plecanatide (Trulance) 3 mg PO DAILY polyethylene glycol 3350 (Miralax) 17 grams PO BID rosuvastatin 40 mg PO DAILY 90 days sitagliptin phosphate (Januvia) 50 mg PO DAILY sucralfate (Carafate) 10 mL PO BID sucralfate (Carafate) 5 mL PO QID tretinoin 0.1% appl topical DAILY valacyclovir 1,000 mg PO BID 7 days zolpidem 10 mg PO BEDTIME 30 days HPI HPI Comments History of Present Illness Details Monica is a pleasant 67 year old Telugu speaking patient of Dr. Arnaldo Dawkins. She has a past medical history of hepatic stenosis, JOSE JUAN III with severe dysplasia, large bowel obstruction, hypercholesteremia, lupus, osteopenia, schizophrenia, bipolar, hypertension, gout, diabetes colitis, and obesity. She presents to the office today for follow-up of her recent UTI and stress incontinence. Of note, patient was seen approximately 6 weeks ago at which time she was started on Myrbetriq 25 mg daily. In discussion with the patient today she reports no improvement in lower urinary tract symptoms since being on this medication. She continues to report urinary frequency, urinary urgency, and episodes of incontinence if not near a bathroom. Discussed at length pelvic floor exercises and importance of managing diabetes for improvement in urinary symptoms and overall health and well-being. Previous workup has included a retroperitoneal ultrasound noting bilateral kidneys with no calculi, lesions, and or hydronephrosis. Previously noted cyst on the left kidney in the midpole is not appreciated on the current study. Pre void bladder volume is approximately 330 mL. Postvoid bladder volume is approximately 20 mL. Patient with a history of Transobturartor Sling procedure in 2019. She also underwent in office cystoscopy for microscopic hematuria in 2020 with normal findings. In discussion with the patient today she reports she continues with stress incontinence. When asked she reports compliance with Estrace cream and reports episodes of dysuria have since resolved. She mentions wanting to reverse surgical sling procedure. Discussed risks versus benefits of doing so. Discussed referral to urogynocology for further assessment evaluation however patient reports she would like to think about this first. When asked patient denies hematuria, dysuria, and or foul smelling urine. Discussed urinary symptoms in relation to diabetes and stressed the importance of better glucose control for overall health and well-being. Discussed in stressed the importance of drinking adequate amount of water daily. In office urinalysis results reviewed with the patient. PVR 0 mL. 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 pylori infection Hematochezia Lumbar back pain Obese Pure hypercholesterolemia Renal cyst Schizophrenia Vaginal pruritus Surgical History H/O colonoscopy History of esophagogastroduodenoscopy (EGD) History of eye surgery History of hand surgery History of hemicolectomy History of removal of cyst History of surgery Hx of bilateral breast reduction surgery Hx of lithotripsy Family History Father Lung cancer Diabetes Hypertension Mother Diabetes CVD (cardiovascular disease) Maternal Aunt Breast cancer Social History Housing: Apartment Alcohol intake: never Patient Tobacco Use Status: Never used Tobacco e-Cigarette/Vaping Use: Never Used Second Hand Smoke Exposure: No service: No Current occupational status: disabled Cognitive needs: Yes Hearing needs: No Vision needs: No Female Reproductive History Menstrual Age of Menarche: 13 Review of Systems Const Reports as per HPI Eyes Reports no additional complaints ENT Reports no additional complaints Card Reports as per HPI Resp Reports no additional complaints GI Reports as per HPI Reports as per HPI Musc Reports as per HPI Neuro Reports as per [facility] Psych Reports as per [facility] Endo Reports as per HPI Physical Exam Const General: cooperative, healthy appearing, comfortable, no acute distress, well developed, alert and awake Nutritional Appearance: overweight Orientation/consciousness: patient oriented x3 Limitations: no limitations HEENT Head: Yes normal to inspection, Yes normocephalic and Yes atraumatic Ears: hearing grossly normal bilaterally Eyes General: appearance normal, both eyes and all related structures Neck Neck: Yes normal visual inspection and Yes trachea midline Chest Chest palpation & inspection: normal inspection of the chest Resp Effort & Inspection: normal respiratory effort and able to speak in complete sentences Cardio Rate: regular rate GI Inspection: Yes normal to inspection and Yes Abdominal panniculus present General: Yes no CVA tenderness Back/Spine/Pelvis Back: no CVA tenderness Neuro General: patient oriented x3 Extrem General: Yes normal to inspection Psych Appearance: grossly normal Mental Status: mental status grossly normal Speech and movement: Normal speech and movement present and Clear speech present Affect: normal affect Attitude: cooperative Thought process: Normal thought process present Thought content: Normal thought content present Insight: Fair insight present (Psych) Judgement: Fair judgement present (Psych) Office Procedures Post Void Residual Post Residual Void Post Void Residual (PVR): 0 [id number]-[id number] Void Residual by ultrasound Results AMB Urinalysis, Automated UA Leukoctes 15 Kan/uL Last Edit by [employer]buck Lepe on 12/29/22 13:18 UA Nitrite Last Edit by [employer] on 12/29/22 13:18 UA Urobilinogen 0.2 mg/dL Last Edit by [employer] on 12/29/22 13:18 UA Protein 0 mg/dL Last Edit by [employer] on 12/29/22 13:18 UA pH 6.0 Last Edit by [employer] on 12/29/22 13:18 UA Blood 0 Kwan/uL Last Edit by [employer] on 12/29/22 13:18 UA Specific [place] 1.020 Last Edit by [employer]reeze [employer] on 12/29/22 13:18 UA Ketone Last Edit by [employer] on 12/29/22 13:18 UA Bilirubin 0 mg/dL Last Edit by [employer] on 12/29/22 13:18 UA Glucose 0 mg/dL Last Edit by Hailey Lepe on 12/29/22 13:18 Results Reviewed Results Reviewed: Laboratory Last Values Urine pH (Auto) 6.0 12/29/22 13:12 Specific [place] (Auto) 1.020 12/29/22 13:12 Urine Protein (Auto) 0 mg/dL 12/29/22 13:12 Glucose (UA)(Auto) 0 mg/dL 12/29/22 13:12 Urine Blood (Auto) 0 Kwan/uL 12/29/22 13:12 Urine Bilirubin (Auto) 0 mg/dL 12/29/22 13:12 Urine Urobilinogen (Auto) 0.2 mg/dL 12/29/22 13:12 Leukocyte Esterase (Auto) 15 Kan/uL 12/29/22 13:12 Assessment & Plan Assessment & Plan (1) Urinary incontinence: Code(s): R32 - Unspecified urinary incontinence (2) Urinary tract infection: Code(s): N39.0 - Urinary tract infection, site not specified Plan In office urinalysis results reviewed with the patient today; as noted above. PVR 0 mL. Stop Myrbetriq. Start Gemtesa as discussed and prescribed. Discussed at length benefits of pelvic floor therapy in relation to urinary symptoms patient is reporting; however she reports she is not interested in doing so. Discussed importance of managing diabetes for improvement in urinary symptoms as well as overall health and well-being. Discussed near future in office cystoscopy if symptoms persist and/or worsen. Discussed possible urodynamics for further assessment evaluation. Follow-up in 6-8 weeks with imaging to be completed prior; or sooner with any issues, concerns, and or questions. Orders: Orders AMB Urinalysis Automated Today Z13.9 - Encounter for screening, unspecified AMB Post Void Residual by ultrasound Today R32 - Unspecified urinary incontinence Medications: New vibegron (Gemtesa) 75 mg PO DAILY 90 days 90 tabs 0RF N32.81 - Overactive bladder Discontinued mirabegron ER (Myrbetriq) Discontinued Reason: Doctor's Order 25 mg PO DAILY 90 days 90 tabs 1RF N32.81 - Overactive bladder, R35.1 - Nocturia Patient Instructions: The patient had an opportunity to ask questions regarding the treatment plan. All questions were answered. Physical exam, labs, and imaging were discussed and reviewed in detail. As well as risks, benefits, and discussion of treatment choices. No major barriers to understanding were identified. The patient expressed understanding and agreement with the above treatment plan. The patient was made aware they should contact our office by phone for worsening of their current condition, the appearance of new symptoms, or with any questions or concerns. Compliance is encouraged with any medications and follow up testing that is ordered. It is a privilege to be allowed the opportunity to participate in? your urological care.? Again, if you have any questions or concerns If you have any questions or concerns please do not hesitate to contact me. The office is [phone]. This note is constructed using voice recognition software. While every effort has been made to ensure accuracy scale adjuster errors may have been included. Yours sincerely, MATHEW Lynn Coding Level of Care Code Est Pt Level 4 (45896) Diagnoses Urinary incontinence R32 Urinary tract infection N39.0 CPT Codes Post Residual Void - PVR CPT Code: 41126-Qgyv Void Residual by ultrasound ([id number])
== END 2022-12-29 13:43 | disposition home or self-care (01) ==
PROVIDERS: PCP Internal Medicine; Visit Provider Nurse Practitioner Family
DX: R32 Unspecified urinary incontinence (principal); N39.0 Urinary tract infection, site not specified; Z13.9 Encounter for screening, unspecified
CPT/HCPCS: 99214

== ENCOUNTER → 2022-12-29 13:05 | Outpatient (BNVA) | payer OTHER, SELFPAY | PROVIDERS: PCP Internal Medicine; Visit Provider Nurse Practitioner Family | DX: R32 Unspecified urinary incontinence (principal); N39.0 Urinary tract infection, site not specified | CPT/HCPCS: 51798; 81003; 99212 ==

== ENCOUNTER 2023-01-04 11:02 | Day surgery (SDC) | payer OTHER, SELFPAY ==
--- NOTE | 2023-01-03 10:17 | HO.ANESPROP2 ---
Documented by User: Arely Butts NP 01/03/23 10:19 HPI - Anesthesia Eval Consult details Narrative: 67yo F for Upper Endoscopy, Sigmoidoscopy Flexible PMFSH Active Problems Active Problems: All Active Problems (Updated 12/20/22 @ 10:52 by Araceli Dawkins MD) Left ear hearing loss (Acute) Back pain (Acute) Constipation by delayed colonic transit (Acute) Dysuria (Acute) Urinary incontinence (Acute) Urinary tract infection (Acute) Complicated urinary tract infection (Acute) Hepatic steatosis (Acute) Nephrolithiasis (Acute) Physical exam (Acute) Hematuria (Acute) JOSE JUAN III (cervical intraepithelial neoplasia grade III) with severe dysplasia (Acute) Large bowel obstruction (Acute) Hyperlipidemia LDL goal <70 (Acute) Abdominal wall mass of suprapubic region (Acute) Renal cyst (Acute) H. pylori infection (Acute) Pure hypercholesterolemia (Acute) Well woman exam (Acute) Menopause (Acute) Mass of abdomen does not move with respiration (Acute) ASCUS with positive high risk HPV cervical (Acute) Dysplasia of cervix, low grade (JOSE JUAN 1) (Acute) Osteopenia (Acute) Fatty infiltration of liver (Acute) Renal cyst (Acute) Epigastric abdominal pain (Acute) Hematochezia (Acute) Vaginal pruritus (Acute) Breast pain, left (Acute) Schizophrenia (Acute) Bipolar 1 disorder (Acute) Obese (Acute) Gout (Acute) Essential hypertension (Acute) Diabetes mellitus (Acute) Fall (Acute) Lumbar back pain (Acute) Past Medical History Medical History Bipolar 1 disorder Breast pain, left JOSE JUAN 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 pylori infection Hematochezia Lumbar back pain Obese Pure hypercholesterolemia Renal cyst Schizophrenia Vaginal pruritus Family History Family History Father Lung cancer Diabetes Hypertension Mother Diabetes CVD (cardiovascular disease) Maternal Aunt Breast cancer Family history of problems with anesthesia: No Surgical History Surgical History H/O colonoscopy History of esophagogastroduodenoscopy (EGD) History of eye surgery History of hand surgery History of hemicolectomy History of removal of cyst History of surgery Hx of bilateral breast reduction surgery Hx of lithotripsy History of Problems with Anesthesia: No Social History Social History Housing: Apartment Alcohol intake: never Patient Tobacco Use Status: Never used Tobacco e-Cigarette/Vaping Use: Never Used Second Hand Smoke Exposure: No Advance Directives: No Advance Directives Information Provided: Yes service: No Current occupational status: disabled Cognitive needs: Yes Hearing needs: No Vision needs: No Meds Allergies Allergy/AdvReac Type Severity Reaction Status Date / Time Cortisone Allergy Severe pruritus, Verified 12/29/22 13:54 hives, swellin milk [MILK] Allergy Severe rash Verified 12/29/22 13:54 ibuprofen [IBUPROFEN] Allergy Intermediate swelling Verified 12/29/22 13:54 levofloxacin Allergy Intermediate pruritus Verified 12/29/22 13:54 metronidazole Allergy Intermediate pruritus Verified 12/29/22 13:54 peanut [PEANUT] Allergy Intermediate pruritus Verified 12/29/22 13:54 Penicillins [PENICILLINS] Allergy Intermediate Hives Verified 12/29/22 13:54 shellfish derived Allergy Intermediate rash, Verified 12/29/22 13:54 [SHELLFISH DERIVED] shortness of breath morphine [MORPHINE] AdvReac Severe loss of Verified 12/29/22 13:54 consciousness, hypotension oatmeal AdvReac Intermediate abdominal Verified 12/29/22 13:54 gas pain egg [EGG] AdvReac Mild diarrheas, Verified 12/29/22 13:54 dizziness red meat Allergy Intermediate hand Uncoded 12/29/22 13:54 swelling Home Medications Medication Instructions Recorded Confirmed Last Taken Type hydroxyzine HCl 25 mg tablet 25 mg PO TID 02/19/20 12/29/22 Unknown History aripiprazole 15 mg tablet 15 mg PO DAILY 05/14/21 12/29/22 Unknown History mirtazapine 7.5 mg tablet 7.5 mg PO BEDTIME 05/14/21 12/29/22 Unknown History buspirone 10 mg tablet 10 mg PO BID PRN anxiety 11/22/21 12/29/22 Unknown History acetaminophen 500 mg tablet 0 mg PO 07/13/22 12/29/22 Unknown History metronidazole 0.75 % topical cream appl topical BID 07/13/22 12/29/22 Unknown History tretinoin 0.1 % topical cream appl topical DAILY 07/13/22 12/29/22 Unknown History cholecalciferol (vitamin D3) 25 25 mcg PO DAILY 07/28/22 12/29/22 Unknown History mcg (1,000 unit) tablet (Vitamin D3) carboxymethylcellulose sodium 0.5 1 drp ophthalmic (eye) BID 11/14/22 12/29/22 Unknown History % eye drops in a dropperette (Lubricating Plus) hydrocortisone valerate 0.2 % appl topical BID 11/14/22 12/29/22 Unknown History topical cream paliperidone 1.5 mg 1.5 mg PO DAILY 11/14/22 12/29/22 Unknown History tablet,extended release 24 hr paroxetine HCl 30 mg tablet 30 mg PO QAM 11/14/22 12/29/22 Unknown History Exam Exam Date and Time: January 03, 2023 1017 Pertinent Lab Results Pertinent Lab Results: Laboratory Tests 10/26/22 11:59 Sodium 135 Potassium 4.1 Chloride 105 Carbon Dioxide 26 BUN 16 Creatinine 0.86 Narrative Narrative: EKG 2021 Vent. Rate : 052 BPM ? ? Atrial Rate : 052 BPM ?? P-R Int : 180 ms? QRS Dur : 096 ms ? ? QT Int : 448 ms ? ? ? P-R-T Axes : 019 037 014 degrees ?? QTc Int : 416 ms ? Sinus bradycardia with sinus arrhythmia Otherwise normal ECG When compared with ECG of 08-JAN-2020 08:10, No significant change was found Assessment and Plan Assessment Anesthesia Assessment: Chart Reviewed Final Anesthetic Review Family History of Problems with Anesthesia: No History of Problems with Anesthesia: No Documented by User: Gustavo Amos MD 01/04/23 11:53 [facility] Past Medical History Medical History Bipolar 1 disorder Breast pain, left JOSE JUAN 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 pylori infection Hematochezia Lumbar back pain Obese Pure hypercholesterolemia Renal cyst Schizophrenia Vaginal pruritus Family History Family History Father Lung cancer Diabetes Hypertension Mother Diabetes CVD (cardiovascular disease) Maternal Aunt Breast cancer Surgical History Surgical History H/O colonoscopy History of esophagogastroduodenoscopy (EGD) History of eye surgery History of hand surgery History of hemicolectomy History of removal of cyst History of surgery Hx of bilateral breast reduction surgery Hx of lithotripsy Social History Social History Housing: Apartment Alcohol intake: never Patient Tobacco Use Status: Never used Tobacco e-Cigarette/Vaping Use: Never Used Second Hand Smoke Exposure: No Advance Directives: No Advance Directives Information Provided: Yes service: No Current occupational status: disabled Cognitive needs: Yes Hearing needs: No Vision needs: No Meds Allergies Allergy/AdvReac Type Severity Reaction Status Date / Time Cortisone Allergy Severe pruritus, Verified 12/29/22 13:54 hives, swellin milk [MILK] Allergy Severe rash Verified 12/29/22 13:54 ibuprofen [IBUPROFEN] Allergy Intermediate swelling Verified 12/29/22 13:54 levofloxacin Allergy Intermediate pruritus Verified 12/29/22 13:54 metronidazole Allergy Intermediate pruritus Verified 12/29/22 13:54 peanut [PEANUT] Allergy Intermediate pruritus Verified 12/29/22 13:54 Penicillins [PENICILLINS] Allergy Intermediate Hives Verified 12/29/22 13:54 shellfish derived Allergy Intermediate rash, Verified 12/29/22 13:54 [SHELLFISH DERIVED] shortness of breath morphine [MORPHINE] AdvReac Severe loss of Verified 12/29/22 13:54 consciousness, hypotension oatmeal AdvReac Intermediate abdominal Verified 12/29/22 13:54 gas pain egg [EGG] AdvReac Mild diarrheas, Verified 12/29/22 13:54 dizziness red meat Allergy Intermediate hand Uncoded 12/29/22 13:54 swelling Home Medications Medication Instructions Recorded Confirmed Last Taken Type hydroxyzine HCl 25 mg tablet 25 mg PO TID 02/19/20 12/29/22 Unknown History aripiprazole 15 mg tablet 15 mg PO DAILY 05/14/21 12/29/22 Unknown History mirtazapine 7.5 mg tablet 7.5 mg PO BEDTIME 05/14/21 12/29/22 Unknown History buspirone 10 mg tablet 10 mg PO BID PRN anxiety 11/22/21 12/29/22 Unknown History acetaminophen 500 mg tablet 0 mg PO 07/13/22 12/29/22 Unknown History metronidazole 0.75 % topical cream appl topical BID 07/13/22 12/29/22 Unknown History tretinoin 0.1 % topical cream appl topical DAILY 07/13/22 12/29/22 Unknown History cholecalciferol (vitamin D3) 25 25 mcg PO DAILY 07/28/22 12/29/22 Unknown History mcg (1,000 unit) tablet (Vitamin D3) carboxymethylcellulose sodium 0.5 1 drp ophthalmic (eye) BID 11/14/22 12/29/22 Unknown History % eye drops in a dropperette (Lubricating Plus) hydrocortisone valerate 0.2 % appl topical BID 11/14/22 12/29/22 Unknown History topical cream paliperidone 1.5 mg 1.5 mg PO DAILY 11/14/22 12/29/22 Unknown History tablet,extended release 24 hr paroxetine HCl 30 mg tablet 30 mg PO QAM 11/14/22 12/29/22 Unknown History Exam Airway Mallampati Class: III TM Dist: >3cm Neck ROM: Full Assessment and Plan Final Anesthetic Review NPO: Yes ASA Class: III Final Preanesthetic Review: No Changes in Pt Med Stat, Meds/Allgs Chart Reviewed, Consent Obtained/Reviewed and Anes Risks/Benef Reviewed Patient Risk: Intermediate Procedure Risk: Low Anesthetic Plan Anesthetic Plan: MAC: Disposition: Standard PACU
[2023-01-04 11:55] LABS: Glucose, Whole Blood 131 mg/dL (60-115)
[2023-01-04 12:19] VITALS: BP 158/73; PULSE 54; RESP 16; TEMP 36.6; O2SAT 96; BMI 41.0
--- NOTE | 2023-01-04 12:24 | MHC.SHP ---
Pre-Procedural Eval Section A Date of Service: 01/04/23 Section B Chief Complaint: Epigastric pain,Slow transit constipation, Relevant Family History (Specify if Yes): No Relevant Social History: None Present Medications: see Short Stay Collaborative assessment Medical History: Significant History (Bipolar 1 disorder Breast pain, left JOSE JUAN 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 pylori infection Hematochezia Lumbar back pain Obese Pure hypercholesterolemia Renal cyst Gomez) History of Previous Operations: Relevant previous surgery/procedure and date(s) (H/O colonoscopy History of esophagogastroduodenoscopy (EGD) History of eye surgery History of hand surgery History of hemicolectomy History of removal of cyst History of surgery Hx of bilateral breast reduction surgery Hx of lithotripsy) Allergies: Allergies Allergy/AdvReac Type Severity Reaction Status Date / Time Cortisone Allergy Severe pruritus, Verified 12/29/22 13:54 hives, swellin milk [MILK] Allergy Severe rash Verified 12/29/22 13:54 ibuprofen [IBUPROFEN] Allergy Intermediate swelling Verified 12/29/22 13:54 levofloxacin Allergy Intermediate pruritus Verified 12/29/22 13:54 metronidazole Allergy Intermediate pruritus Verified 12/29/22 13:54 peanut [PEANUT] Allergy Intermediate pruritus Verified 12/29/22 13:54 Penicillins [PENICILLINS] Allergy Intermediate Hives Verified 12/29/22 13:54 shellfish derived Allergy Intermediate rash, Verified 12/29/22 13:54 [SHELLFISH DERIVED] shortness of breath morphine [MORPHINE] AdvReac Severe loss of Verified 12/29/22 13:54 consciousness, hypotension oatmeal AdvReac Intermediate abdominal Verified 12/29/22 13:54 gas pain egg [EGG] AdvReac Mild diarrheas, Verified 12/29/22 13:54 dizziness red meat Allergy Intermediate hand Uncoded 12/29/22 13:54 swelling Review of Systems Sugical H&P ROS: Negative: Constitution, Cardiovascular, Respiratory, Neurological, Psychiatric, Hem-Onc, Allergic/Immunologic, Gastrointestinal, Genitourinary, Musculoskeletal, Integumentary, Endocrine and Eyes/Ears/Nose/Throat Exam Surgical H&P Exam: Normal: HEENT, Normal: Heart, Normal: Lungs, Normal: Extremities, Normal: Abdomen, Normal: Skin and Normal: Neurological Plan Diagnosis/Plan: Unchanged I have reviewed the history and physical and performed a pertinent physical examination on my patient. No changes have occurred unless specified. Time Spent With Patient Time: Total time managing care of this patient today ____ minutes.
--- NOTE | 2023-01-04 13:25 | W.PM.OPN ---
Operative Note Operative Note Date of Service: 01/04/23 Narrative: Operative Information Procedure Description: EGD, Colonoscopy Indication: epigastric pain,dysphagia and constipation Anesthesia: MAC FLEXIBLE TRANSORAL UPPER GASTROINTESTINAL ENDOSCOPY AND Sigmoidoscopy PROCEDURE NOTE UPPER ENDOSCOPY Consent: Indications for the procedure and potential complications of bleeding, perforation, reaction to medications and missed diagnosis were discussed with the patient and informed consent was obtained. Instrument: Olympus GIF H 190 J mid size upper endoscope Monitoring: Vital signs and clinical assessment, continuous EKG monitoring, Pulse oximetry, Carbon Dioxide monitoring and blood pressure monitoring were done throughout the procedure. Procedure: The patient was placed in the left lateral decubitis position and pre-procedure medications were administered and a bite block was placed. The endoscope was inserted into the mouth and advanced under direct vision to the third part of duodenum. A careful inspection was made as the upper endoscope was withdrawn including a retroflexed examination of the proximal stomach; Findings and interventions are described below. Findings: Larynx:normal Esophagus: GE junction at 37? cm, diaphragm hiatus at 37 cm, mild esophagitis and irregular Z line, bx taken to check for Barretts, also taken from distal and proximal areas. distal and proximal esophagus dilated to 19 mm, no heme seen Stomach: Patchy erythema. Biopsies were obtained. Grade 2 flap valve on retroflexed examination of the cardia. Pyloric outlet seemed tight and dilated to 19 mm with heme noted Duodenum: Normal bulb and descending duodenum, bx taken Intervention: Biopsies as noted above, balloon dilation --bx also taken for H pylori culture Patient then turned : Sigmoidoscopy Instrument: Upper endoscope Colonoscopy Monitoring: Vital signs and clinical assessment, continuous EKG monitoring, Pulse oximetry, Carbon Dioxide monitoring and blood pressure monitoring were done throughout the procedure. Procedure: The patient was placed in the left lateral decubitis position and pre-procedure medications were administered. After a digital rectal examination of the ano-rectum, the video colonoscope was inserted into the rectum and advanced through the colon to the transverse colon. The scope was slowly withdrawn in a retrograde panoramic fashion and the colon mucosa was carefully examined including a retroflexed view of the rectum. Findings and interventions are described below. Procedure Difficulty: easy Findings: Transverse Colon -normal Descending Colon:normal Sigmoid Colon: normal Rectum: Retroflexion with small internal hemorrhoids, grade I, melanosis coli noted, with some atrophic appearing mucosa, bx taken Anorectum - normal Colon preparation: good Impression and Post Procedure Diagnosis: Endoscopy Findings: gastritis duodenitis esophagitis tight pyloric outlet Colonoscopy Findings: melanosis coli internal hemorrhoids Plan: Await Pathology results cont with laxatives as working now. Above findings were reviewed with the patient and relevant handouts were provided if indicated.
[2023-01-04 13:35] VITALS: BP 121/66; PULSE 54; RESP 16; TEMP 36.4; O2SAT 97
[2023-01-04 13:50] VITALS: BP 131/56; PULSE 58; RESP 16; O2SAT 97
[2023-01-04 14:05] VITALS: BP 154/66; PULSE 53; RESP 16; TEMP 36.2; O2SAT 97
[2023-01-18 15:21] LABS: H Pylori Cult Source TISSUE
== END 2023-01-04 14:47 | disposition home or self-care (01) ==
PROVIDERS: PCP Internal Medicine; Visit Provider Internal Medicine Gastroenterology
PROC: 0DJ08ZZ Inspection of Upper Intestinal Tract, Via Natural or Artificial Opening Endoscopic (ICD-10-PCS; CPT 43235; principal; 2023-01-04 12:50)
PROC: 0DJD8ZZ Inspection of Lower Intestinal Tract, Via Natural or Artificial Opening Endoscopic (ICD-10-PCS; CPT 45330; 2023-01-04 12:50)
DX: K59.01 Slow transit constipation (principal); K63.89 Other specified diseases of intestine; Z85.038 Personal history of other malignant neoplasm of large intestine; Z90.49 Acquired absence of other specified parts of digestive tract; K64.0 First degree hemorrhoids; K64.4 Residual hemorrhoidal skin tags; R13.10 Dysphagia, unspecified; R10.13 Epigastric pain; A04.8 Other specified bacterial intestinal infections; K29.80 Duodenitis without bleeding; K29.50 Unspecified chronic gastritis without bleeding; K20.80 Other esophagitis without bleeding; E11.9 Type 2 diabetes mellitus without complications; I10 Essential (primary) hypertension; E78.00 Pure hypercholesterolemia, unspecified; Z79.899 Other long term (current) drug therapy; Z88.8 Allergy status to other drugs, medicaments and biological substances; Z88.5 Allergy status to narcotic agent; Z98.890 Other specified postprocedural states
CPT/HCPCS: 45330; 43249; 43239; 36415; 82947; 87081; 88305; 88342; C1726

== ENCOUNTER → 2023-01-04 11:02 | Outpatient (BNV) | payer OTHER, SELFPAY | PROVIDERS: PCP Internal Medicine; Visit Provider Internal Medicine Gastroenterology | DX: R10.13 Epigastric pain (principal); R13.10 Dysphagia, unspecified; K59.00 Constipation, unspecified; K64.0 First degree hemorrhoids; K63.89 Other specified diseases of intestine | CPT/HCPCS: 43239; 43249; 45380 ==

== ENCOUNTER 2023-01-30 10:35 | Outpatient (AMB) | payer OTHER, SELFPAY ==
--- NOTE | 2023-01-30 10:36 | MHC.OFFVIS ---
Intake Vital Signs 01/30/23 10:41 Height 5 ft Weight 185 lb 3.013 oz BMI 36.2 BP 189/79 H Blood Pressure Location Lt brachial Position Sitting Pulse 57 Intake Visit Reasons: s/p egd/colon Intake Note: Monica presents in the office as a follow up egd and colonoscopy. CC: Allergies Cortisone Allergy (Severe, Verified 01/30/23 10:42) pruritus, hives, swellin milk [MILK] Allergy (Severe, Verified 01/30/23 10:42) rash ibuprofen [IBUPROFEN] Allergy (Intermediate, Verified 01/30/23 10:42) swelling levofloxacin Allergy (Intermediate, Verified 01/30/23 10:42) pruritus metronidazole Allergy (Intermediate, Verified 01/30/23 10:42) pruritus peanut [PEANUT] Allergy (Intermediate, Verified 01/30/23 10:42) pruritus Penicillins [PENICILLINS] Allergy (Intermediate, Verified 01/30/23 10:42) Hives shellfish derived [SHELLFISH DERIVED] Allergy (Intermediate, Verified 01/30/23 10:42) rash, shortness of breath morphine [MORPHINE] Adverse Reaction (Severe, Verified 01/30/23 10:42) loss of consciousness, hypotension oatmeal Adverse Reaction (Intermediate, Verified 01/30/23 10:42) abdominal gas pain egg [EGG] Adverse Reaction (Mild, Verified 01/30/23 10:42) diarrheas, dizziness red meat Allergy (Intermediate, Uncoded 01/30/23 10:42) hand swelling HPI s/p egd/colon HPI Details RECAP: pt of? [facility] ? H/O colon cancer- > 10 yrs? ago in [place] ? Diagnostic studies- ? 09/27/17- gastric? emptying study for nausea- normal- done in 3 hrs ? 03/2018- CT? and/pelvis- h/o abdominal pain- normal ? EGD/colonoscopy 2017- 2 small? polyps noted and removed, EGD with erythema h pylori pos ?she did get? treatment for h pylori in past h pylori ag was neg on? testing. ?EGD/colonoscopy 11/2018: gastritis, h pylori pos, hyperplastic? polyp, hyperplastic polyp rectum ? she was then treated with tinidazole? 250 mg TID for 14 d , omeprazole 20 mg bid for 2 weeks, bismuth 524 mg QID and? doxy 100 mg bid ?at f/o 01/2019 she was c/o LUQ pain with nausea,? constipation and was v hypertensive, was sent to ED for assessment, was able to? go home due to ongoing symptoms EGd,colonoscopy was repeated: EGD?colonoscopy: 06/2021 Endoscopy Findings: stomach polyps gastritis Colonoscopy Findings: polyp internal hemorrhoids melanosis coli Path: ? Chronic inactive duodenitis. severe chronic inflamamtion, h pylori pos hyperplastic stomach polyp melanosis coli I retried quadruple therapy but using flagyl (she denies allergy to this), and tetracycline she had KUB 03/22---constipation CT from [employer] ax developer -- hepatic steatosis, kidney cyst EGD/Sigmoidoscopy; 12/2022 dilation esophagus and pylorus small internal hemorrhoids H pylori still present but not able to be cultured ? INTERIM: she still has nausea dysphagia and swallowing much better v mild epigastric pain, imrpvoed since dilation still has constipation no blood in stools feels esomperazole not that effective admits to anxiery, depression, family probs, alone EXAM: GENERAL: The patient is well developed and nontoxic,slightly flat affect VITAL SIGNS:see workflow HEENT: Nonicteric sclerae, PERRLA, EOMI. Oropharynx clear. Moist mucous membranes. Conjunctivae appear well perfused. No thyroid mass. CHEST: Chest wall is nontender. HEART: Regular rate and rhythm without murmurs. LUNGS: Clear to auscultation bilaterally. ABDOMEN: Soft, positive bowel sounds, tender epigastrium, no organomegaly.no flank tenderness SKIN: No rash, no excessive bruising, petechiae, or purpura. NEUROLOGIC: Cranial nerves II-XII intact without motor/sensory deficit. MS: normal A/P: 1/ h pylori pos with treatment with quadruple therapy, has co existing GERD, not responded to treatment regimens--PCN allergy 2/ constipation 2/2 medications and age 3/ dysphagia, related to 1/ above--improved with dilation PLAN: 1/ change PPI 2/ refer allergy for PCN desensitization 3/ re send lianclotide, never got it last time? PFSH Medical History Renal cyst H. 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 Dysplasia of cervix, low grade (JOSE JUAN 1) Vaginal pruritus Breast pain, left Schizophrenia Bipolar 1 disorder Obese Gout Essential hypertension Diabetes mellitus Fall Lumbar back pain Surgical History Hx of lithotripsy History of esophagogastroduodenoscopy (EGD) H/O colonoscopy History of eye surgery History of removal of cyst History of surgery History of hemicolectomy History of hand surgery Hx of bilateral breast reduction surgery Family History Father Lung cancer Diabetes Hypertension Mother Diabetes CVD (cardiovascular disease) Maternal Aunt Breast cancer Social History Housing: Apartment Alcohol intake: never Patient Tobacco Use Status: Never used Tobacco e-Cigarette/Vaping Use: Never Used Second Hand Smoke Exposure: No service: No Current occupational status: disabled Cognitive needs: Yes Hearing needs: No Vision needs: No Female Reproductive History Menstrual Age of Menarche: 13 Physical Exam Vital Signs: Last Vital Signs Pulse 57 01/30/23 10:41 BP 189/79 H 01/30/23 10:41 BMI result Body Mass Index 36.2 Assessment & Plan Assessment & Plan (1) H. pylori infection: Code(s): A04.8 - Other specified bacterial intestinal infections (2) Epigastric abdominal pain: Code(s): R10.13 - Epigastric pain Medications: New lansoprazole 30 mg PO DAILY 30 caps 3RF Discontinued sucralfate (Carafate) Discontinued Reason: Patient Completed Course 10 mL PO BID 1,000 mL 1RF esomeprazole magnesium Discontinued Reason: Patient no longer taking 40 mg PO DAILY 90 caps 3RF 90 days sucralfate (Carafate) swish in mouth and swallow; use after food/drink Discontinued Reason: Patient Completed Course 5 mL PO QID 1,000 mL 0RF Coding Level of Care Code Est Pt Level 3 (18894) Diagnoses H. pylori infection A04.8 Epigastric abdominal pain R10.13
[2023-01-30 10:41] VITALS: BP 189/79; PULSE 57; BMI 36.2
== END 2023-01-30 11:30 | disposition home or self-care (01) ==
PROVIDERS: PCP Internal Medicine; Visit Provider Internal Medicine Gastroenterology
DX: A04.8 Other specified bacterial intestinal infections (principal); R10.13 Epigastric pain
CPT/HCPCS: 99213

== ENCOUNTER → 2023-01-30 10:35 | Outpatient (BNVA) | payer OTHER, SELFPAY | PROVIDERS: PCP Internal Medicine; Visit Provider Internal Medicine Gastroenterology | DX: A04.8 Other specified bacterial intestinal infections (principal); R10.13 Epigastric pain | CPT/HCPCS: 99212 ==

== ENCOUNTER 2023-02-09 13:26 | Outpatient (AMB) | payer OTHER, SELFPAY ==
--- NOTE | 2023-02-09 13:36 | A.OFFVIS_ITS ---
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: Yes Accompanied by: Self / Same As Patient Allergies Cortisone Allergy (Severe, Verified 02/09/23 22:01) pruritus, hives, swellin milk [MILK] Allergy (Severe, Verified 02/09/23 22:01) rash ibuprofen [IBUPROFEN] Allergy (Intermediate, Verified 02/09/23 22:) swelling levofloxacin Allergy (Intermediate, Verified 02/09/23 22:01) pruritus metronidazole Allergy (Intermediate, Verified 02/09/23 22:01) pruritus peanut [PEANUT] Allergy (Intermediate, Verified 02/09/23 22:) pruritus Penicillins [PENICILLINS] Allergy (Intermediate, Verified 02/09/23 22:) Hives shellfish derived [SHELLFISH DERIVED] Allergy (Intermediate, Verified 02/09/23 22:) rash, shortness of breath morphine [MORPHINE] Adverse Reaction (Severe, Verified 02/09/23 22:01) loss of consciousness, hypotension oatmeal Adverse Reaction (Intermediate, Verified 02/09/23 22:01) abdominal gas pain egg [EGG] Adverse Reaction (Mild, Verified 02/09/23 22:) diarrheas, dizziness red meat Allergy (Intermediate, Uncoded 02/09/23 22:01) hand swelling Medication List - Last Reconciled 02/09/23 by MATHEW Lynn acetaminophen 0 mg PO albuterol sulfate 90 mcg/actuation 2 inhalations inhalation Q6H PRN albuterol sulfate 90 mcg/actuation inhalation amlodipine 10 mg PO DAILY 90 days aripiprazole 15 mg PO DAILY blood sugar diagnostic (OneTouch Ultra Test strips) test once daily blood-glucose meter (SartaTouch Ultra2 Meter) test once daily buspirone 10 mg PO BID PRN carboxymethylcellulose sodium 0.5% (Lubricating Plus) 1 drp ophthalmic (eye) BID cholecalciferol (vitamin D3) (Vitamin D3) 25 mcg PO DAILY diazepam 5 mg PO BID PRN 30 days docusate sodium (Colace) 100 mg PO BID donepezil 10 mg PO BEDTIME 30 days estradiol 0.01%(0.1mg/gram) vaginally 3 times a week; pea sized amount to urethra 3 times a week 30 days fluticasone propionate 44 mcg/actuation (Flovent HFA) 1 puff inhalation BID hydrocortisone valerate 0.2% appl topical BID hydroxyzine HCl 25 mg PO TID lancets (OneTouch UltraSoft 2 Lancet) test once daily lansoprazole 30 mg PO DAILY losartan 50 mg PO DAILY 90 days metoprolol tartrate 50 mg PO BID metronidazole 0.75% appl topical BID mirtazapine 7.5 mg PO BEDTIME paliperidone ER 9 mg PO DAILY paroxetine HCl 30 mg PO QAM pioglitazone 45 mg PO DAILY 90 days plecanatide (Trulance) 3 mg PO DAILY polyethylene glycol 3350 (Miralax) 17 grams PO BID rosuvastatin 40 mg PO DAILY 90 days sitagliptin phosphate (Januvia) 50 mg PO DAILY tretinoin 0.1% appl topical DAILY valacyclovir 1,000 mg PO BID 7 days zolpidem 10 mg PO BEDTIME 30 days HPI HPI Comments History of Present Illness Details Monica is a pleasant 67 year old Swedish speaking patient of Dr. Arnaldo Dawkins. She has a past medical history of hepatic stenosis, JOSE JUAN III with severe dysplasia, large bowel obstruction, hypercholesteremia, lupus, osteopenia, schizophrenia, bipolar, hypertension, gout, diabetes colitis, and obesity. She presents to the office today for follow-up of her recent UTI and stress incontinence. Of note, patient was seen approximately 6 weeks ago at which time Myrbetriq was discontinued and the patient was started on Gemtesa 75 mg. In discussion with the patient today she reports no improvement in lower urinary tract symptoms since being on this medication. She continues to report urinary frequency, urinary urgency, and episodes of incontinence if not near a bathroom. Discussed at length pelvic floor exercises and importance of managing diabetes for improvement in urinary symptoms and overall health and well-being. Previous workup has included a retroperitoneal ultrasound noting bilateral kidneys with no calculi, lesions, and or hydronephrosis. Previously noted cyst on the left kidney in the midpole is not appreciated on the current study. Pre void bladder volume is approximately 330 mL. Postvoid bladder volume is approximately 20 mL. Patient with a history of Transobturartor Sling procedure in 2019. She also underwent in office cystoscopy for microscopic hematuria in 2019 with normal fin dings. In discussion with the patient today she reports experiencing UTI like symptoms approximately one week ago at which time she reports having self treated with left over antibiotics she had had at home. When asked she reports not knowing the name of the antibiotic. She reports experiencing dysuria and dark-colored urine. In office urinalysis results reviewed with the patient today. No leukocytes, no nitrates, and no microscopic hematuria noted. She reports having history of nephrolithiasis and feels she could possibly have passed a renal stone or is passing a renal stone. She reports noting bilateral flank pain however no CVA tenderness noted on exam today. c When asked she reports previously being compliant with Estrace cream however has not been most recently due to her recent endoscopy and colonoscopy. Paatient with a history of surgical sling procedure. Discussed urinary symptoms in relation to diabetes and stressed the importance of better glucose control for overall health and well-being. Discussed in stressed the importance of drinking adequate amount of water daily. PVR 76 mL PFSH Medical History Renal cyst H. 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 Dysplasia of cervix, low grade (JOSE JUAN 1) Vaginal pruritus Breast pain, left Schizophrenia Bipolar 1 disorder Obese Gout Essential hypertension Diabetes mellitus Fall Lumbar back pain Surgical History Hx of lithotripsy History of esophagogastroduodenoscopy (EGD) H/O colonoscopy History of eye surgery History of removal of cyst History of surgery History of hemicolectomy History of hand surgery Hx of bilateral breast reduction surgery Family History Father Lung cancer Diabetes Hypertension Mother Diabetes CVD (cardiovascular disease) Maternal Aunt Breast cancer Social History Housing: Apartment Alcohol intake: never Patient Tobacco Use Status: Never used Tobacco e-Cigarette/Vaping Use: Never Used Second Hand Smoke Exposure: No service: No Current occupational status: disabled Cognitive needs: Yes Hearing needs: No Vision needs: No Female Reproductive History Menstrual Age of Menarche: 13 Review of Systems Const Reports as per HPI Eyes Reports no additional complaints ENT Reports no additional complaints Card Reports as per HPI Resp Reports no additional complaints GI Reports as per HPI Reports as per [facility] Musc Reports as per HPI Neuro Reports as per HPI Psych Reports as per [facility] Endo Reports as per HPI Physical Exam Const General: cooperative, healthy appearing, comfortable, no acute distress, well developed, alert and awake Nutritional Appearance: overweight Orientation/consciousness: patient oriented x3 Limitations: no limitations HEENT Head: Yes normal to inspection, Yes normocephalic and Yes atraumatic Ears: hearing grossly normal bilaterally Eyes General: appearance normal, both eyes and all related structures Neck Neck: Yes normal visual inspection and Yes trachea midline Chest Chest palpation & inspection: normal inspection of the chest Resp Effort & Inspection: normal respiratory effort and able to speak in complete sentences Cardio Rate: regular rate GI Inspection: Yes normal to inspection and Yes Abdominal panniculus present General: Yes no CVA tenderness Back/Spine/Pelvis Back: no CVA tenderness Neuro General: patient oriented x3 Extrem General: Yes normal to inspection Psych Appearance: grossly normal Mental Status: mental status grossly normal Speech and movement: Normal speech and movement present and Clear speech present Affect: normal affect Attitude: cooperative Thought process: Normal thought process present Thought content: Normal thought content present Insight: Fair insight present (Psych) Judgement: Fair judgement present (Psych) Office Procedures Post Void Residual Post Residual Void Post Void Residual (PVR): 76 [id number] Void Residual by ultrasound Results AMB Urinalysis, Automated UA Leukoctes 0 Kan/uL Last Edit by [employer] on 02/09/23 13:49 UA Nitrite Negative Last Edit by [employer] on 02/09/23 13:49 UA Urobilinogen 0.2 mg/dL Last Edit by [employer] on 02/09/23 13:49 UA Protein 15 mg/dL Last Edit by [employer] on 02/09/23 13:49 UA pH 6.0 Last Edit by [employer] on 02/09/23 13:49 UA Blood 0 Kwan/uL Last Edit by [employer] on 02/09/23 13:49 UA Specific Ashley 1.025 Last Edit by [employer] on 02/09/23 13:49 UA Ketone Negative Last Edit by [employer] on 02/09/23 13:49 UA Bilirubin 0 mg/dL Last Edit by [employer] on 02/09/23 13:49 UA Glucose 0 mg/dL Last Edit by Hailey Lepe on 02/09/23 13:49 Results Reviewed Results Reviewed: Laboratory Last Values Urine pH (Auto) 6.0 02/09/23 13:45 Specific Ashley (Auto) 1.025 02/09/23 13:45 Urine Protein (Auto) 15 mg/dL 02/09/23 13:45 Glucose (UA)(Auto) 0 mg/dL 02/09/23 13:45 Urine Ketones (Auto) Negative 02/09/23 13:45 Urine Blood (Auto) 0 Kwan/uL 02/09/23 13:45 Urine Nitrite (Auto) Negative 02/09/23 13:45 Urine Bilirubin (Auto) 0 mg/dL 02/09/23 13:45 Urine Urobilinogen (Auto) 0.2 mg/dL 02/09/23 13:45 Leukocyte Esterase (Auto) 0 Kan/uL 02/09/23 13:45 Assessment & Plan Assessment & Plan (1) Nephrolithiasis: Comment: With renal cyst Code(s): N20.0 - Calculus of kidney (2) Flank pain: Code(s): R10.9 - Unspecified abdominal pain (3) Mixed incontinence urge and stress: Code(s): N39.46 - Mixed incontinence (4) Dysuria: Code(s): R30.0 - Dysuria Plan In office urinalysis results reviewed with the patient today. PVR 76 mLs. Stop Gemtesa as patient reports no improvement in lower urinary tract symptoms Discussed importance of compliance with Estrace cream as prescribed. Discussed and stressed the importance of taking medications as prescribed. Will obtain CT KUB for further assessment evaluation. Follow-up with nursing for microgen testing. Discussed and stressed the importance of drinking plenty of water daily. Discussed pelvic floor therapy Discussed importance of managing diabetes for improvement in lower urinary tract symptoms as well as overall health and well-being. Scheduling for urodynamics Follow-up in 1 month with imaging to be completed prior; or sooner with any issues, concerns, and or questions. Orders: Orders AMB Post Void Residual by ultrasound Today R32 - Unspecified urinary incontinence AMB Urinalysis Automated Today Z13.9 - Encounter for screening, unspecified CT kidney stone Today N20.0 - Calculus of kidney, R10.9 - Unspecified abdominal pain Patient Instructions: The patient had an opportunity to ask questions regarding the treatment plan. All questions were answered. Physical exam, labs, and imaging were discussed and reviewed in detail. As well as risks, benefits, and discussion of treatment choices. No major barriers to understanding were identified. The patient expressed understanding and agreement with the above treatment plan. The patient was made aware they should contact our office by phone for worsening of their current condition, the appearance of new symptoms, or with any questions or concerns. Compliance is encouraged with any medications and follow up testing that is ordered. It is a privilege to be allowed the opportunity to participate in? your urological care.? Again, if you have any questions or concerns If you have any questions or concerns please do not hesitate to contact me. The office is [phone]. This note is constructed using voice recognition software. While every effort has been made to ensure accuracy adult basic studies teacher errors may have been included. Yours sincerely, MATHEW Lynn Coding Level of Care Code Est Pt Level 3 (13981) Diagnoses Nephrolithiasis N20.0 Flank pain R10.9 Mixed incontinence urge and stress N39.46 Dysuria R30.0 CPT Codes Post Residual Void - PVR CPT Code: 22276-Elkp Void Residual by ultrasound ([id number])
== END 2023-02-09 14:10 | disposition home or self-care (01) ==
PROVIDERS: PCP Internal Medicine; Visit Provider Nurse Practitioner Family
DX: N20.0 Calculus of kidney (principal); R10.9 Unspecified abdominal pain; N39.46 Mixed incontinence; R30.0 Dysuria
CPT/HCPCS: 99213

== ENCOUNTER → 2023-02-09 13:26 | Outpatient (BNVA) | payer OTHER, SELFPAY | PROVIDERS: PCP Internal Medicine; Visit Provider Nurse Practitioner Family | DX: N20.0 Calculus of kidney (principal); N28.1 Cyst of kidney, acquired; N39.46 Mixed incontinence; R30.0 Dysuria | CPT/HCPCS: 51798; 81003; 99212 ==

== ENCOUNTER 2023-02-13 14:07 | Outpatient (AMB) | payer OTHER, SELFPAY ==
[2023-02-13 14:10] VITALS: BP 152/80; PULSE 64; O2SAT 96; BMI 39.4
--- NOTE | 2023-02-13 14:10 | A.OFFPC_ITS ---
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 Hand Required: No Accompanied by: Self / Same As Patient Allergies Cortisone Allergy (Severe, Verified 02/13/23 14:24) pruritus, hives, swellin milk [MILK] Allergy (Severe, Verified 02/13/23 14:24) rash ibuprofen [IBUPROFEN] Allergy (Intermediate, Verified 02/13/23 14:24) swelling levofloxacin Allergy (Intermediate, Verified 02/13/23 14:24) pruritus metronidazole Allergy (Intermediate, Verified 02/13/23 14:24) pruritus peanut [PEANUT] Allergy (Intermediate, Verified 02/13/23 14:24) pruritus Penicillins [PENICILLINS] Allergy (Intermediate, Verified 02/13/23 14:24) Hives shellfish derived [SHELLFISH DERIVED] Allergy (Intermediate, Verified 02/13/23 14:24) rash, shortness of breath morphine [MORPHINE] Adverse Reaction (Severe, Verified 02/13/23 14:24) loss of consciousness, hypotension oatmeal Adverse Reaction (Intermediate, Verified 02/13/23 14:24) abdominal gas pain egg [EGG] Adverse Reaction (Mild, Verified 02/13/23 14:24) diarrheas, dizziness red meat Allergy (Intermediate, Uncoded 02/13/23 14:24) hand swelling Medication List - Last Reconciled 02/13/23 by Araceli Dawkins MD acetaminophen 0 mg PO albuterol sulfate 90 mcg/actuation 2 inhalations inhalation Q6H PRN albuterol sulfate 90 mcg/actuation inhalation amlodipine 10 mg PO DAILY 90 days aripiprazole 15 mg PO DAILY blood sugar diagnostic (OneTouch Ultra Test strips) test once daily blood-glucose meter ([employer] Ultra2 Meter) test once daily buspirone 10 mg PO BID PRN carboxymethylcellulose sodium 0.5% (Lubricating Plus) 1 drp ophthalmic (eye) BID cholecalciferol (vitamin D3) (Vitamin D3) 25 mcg PO DAILY diazepam 5 mg PO BID PRN 30 days docusate sodium (Colace) 100 mg PO BID donepezil 10 mg PO BEDTIME 30 days fluticasone propionate 44 mcg/actuation (Flovent HFA) 1 puff inhalation BID hydrocortisone valerate 0.2% appl topical BID hydroxyzine HCl 25 mg PO TID lancets (OneTouch UltraSoft 2 Lancet) test once daily lansoprazole 30 mg PO DAILY losartan 50 mg PO DAILY 90 days metoprolol tartrate 50 mg PO BID metronidazole 0.75% appl topical BID mirtazapine 7.5 mg PO BEDTIME paliperidone ER 9 mg PO DAILY paroxetine HCl 30 mg PO QAM pioglitazone 45 mg PO DAILY 90 days plecanatide (Trulance) 3 mg PO DAILY polyethylene glycol 3350 (Miralax) 17 grams PO BID rosuvastatin 40 mg PO DAILY 90 days sitagliptin phosphate (Januvia) 50 mg PO DAILY tretinoin 0.1% appl topical DAILY valacyclovir 1,000 mg PO BID 7 days zolpidem 10 mg PO BEDTIME 30 days Tobacco use date assessed: 06/08/22 Fall risk assessment: No Falls in past year Last assessed Fall Risk: 02/13/23 Dental Screening Dental Screen Date: 02/13/23 Did you have a dental visit in the last 12 months?: Yes Did you have a dental problem in the last 6 months where you did not have access to dental care?: No Was dental information given to patient?: Patient has dentist HPI HPI Comments History of Present Illness Details This is a 67-year-old female with diabetes mellitus type 2, hypertension and bipolar disorder that still complains of low back pain due to lumbar degenerative disc disease. Walks with a cane for gait stability. I will refer her to pain management. A1c within goal. Blood pressure elevated and I will increase losartan. Blood pressure will be recheck in 3 weeks by nurse navigator. Bipolar disorder is well controlled with medications and follow by Psychiatry. [facility] Medical History (Updated 02/13/23 @ 14:35 by Araceli Dawkins MD) Renal cyst H. 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 Dysplasia of cervix, low grade (JOSE JUAN 1) Vaginal pruritus Breast pain, left Schizophrenia Bipolar 1 disorder Obese Gout Essential hypertension Diabetes mellitus Fall Lumbar back pain Surgical History Hx of lithotripsy History of esophagogastroduodenoscopy (EGD) H/O colonoscopy History of eye surgery History of removal of cyst History of surgery History of hemicolectomy History of hand surgery Hx of bilateral breast reduction surgery Family History Father Lung cancer Diabetes Hypertension Mother Diabetes CVD (cardiovascular disease) Maternal Aunt Breast cancer Social History Housing: Apartment Alcohol intake: never Patient Tobacco Use Status: Never used Tobacco e-Cigarette/Vaping Use: Never Used Second Hand Smoke Exposure: No service: No Current occupational status: disabled Cognitive needs: Yes Hearing needs: No Vision needs: No Female Reproductive History Menstrual Age of Menarche: 13 Questionnaire Thrive Questionnaire Date Thrive assessed: 06/08/22 MASSIEL-7 AMB Questionnaire MASSIEL-7 Date MASSIEL - 7 assessed: 06/08/22 Source: Developed by Drs. Tony Cedeno, Maureen Davies, Franky Bryson and colleagues, with an educational avni from [employer]. Review of Systems Const All systems reviewed & are unremarkable except as noted in HPI and below Eyes Reports no additional complaints, Denies change in vision and Denies other visual disturbances Card Denies chest pain at rest, Denies chest pain with activity, Denies edema, Denies irregular heart rhythm, Denies claudication, Denies dyspnea, Denies dyspnea on exertion, Denies orthopnea, Denies paroxysmal nocturnal dyspnea and Denies slow heart rate Resp Denies cough, Denies dyspnea and Denies dyspnea on exertion GI Denies abdominal pain, Denies change in bowel habits, Denies excessive flatus, Denies nausea and Denies vomiting Denies urinary incontinence, Denies urinary hesitancy and Denies urinary urgency Musc Denies abnormal gait, Denies atrophy, Denies deformity and Denies limited range of motion Skin/Breast Denies bleeding lesions, Denies changing lesions and Denies rash Neuro Denies abnormal gait and Denies lack of coordination Physical exam (Primary Care) Vital Signs: Last Vital Signs Pulse 64 02/13/23 14:10 BP 152/80 H 02/13/23 14:10 Pulse Ox 96 02/13/23 14:10 Oxygen Delivery Method Room Air 02/13/23 14:10 BMI result Body Mass Index 39.4 Tobacco/Smoking Status: Tobacco use Status Tobacco use date assessed 06/08/22 02/13/23 14:21 Patient Tobacco Use Status Never used Tobacco 02/13/23 14:21 e-Cigarette/Vaping Use Never Used 02/13/23 14:21 Thrive Assessment: Date of Thrive Assessment Date Thrive assessed 06/08/22 02/13/23 14:21 Const Limitations: ambulation with cane Eyes General: appearance normal, both eyes and all related structures Eyelids: Yes eyelids normal Conjunctivae: conjunctivae normal Neck Neck: Yes normal visual inspection and Yes supple Resp Effort & Inspection: normal respiratory effort Auscultation: clear to auscultation bilaterally Cardio Jugular venous distension: no JVD Rate: regular rate Rhythm: regular rhythm Heart sounds: S1 normal heart sound present and S2 normal heart sound present Extrem General: Yes full ROM Results AMB Hemoglobin A1c AMB Hemoglobin A1c 6.1 % Last Edit by EMMIE Mujica on 02/13/23 14:2 3 Results Reviewed Results Reviewed: Laboratory Last Values Hgb A1c (Clinic) 6.1 % (4.0-6.0) H 02/13/23 14:21 Assessment and Plan Assessment & Plan (1) Essential hypertension: Code(s): I10 - Essential (primary) hypertension Plan: Continue amlodipine. Increase losartan. Blood pressure goal is equal or less than 130/80. Recheck blood pressure with nurse navigator in 3 weeks. (2) Diabetes mellitus: Code(s): E11.9 - Type 2 diabetes mellitus without complications Qualifiers: Diabetes mellitus type: type 2 Diabetes mellitus [employer] insulin use: without correction use Diabetes mellitus complication status: without complication Qualified Code(s): E11.9 - Type 2 diabetes mellitus without complications Plan: Continue Actos. A1c goal is equal or less than 7%. (3) Bipolar 1 disorder: Code(s): F31.9 - Bipolar disorder, unspecified Plan: Continue mirtazapine. Follow-up with psychiatry. (4) Lumbar degenerative disc disease: Code(s): M51.36 - Other intervertebral disc degeneration, lumbar region Plan: Referred to pain management. Orders: Orders AMB Hemoglobin A1c Today E11.9 - Type 2 diabetes mellitus without complications Microalbumin, Random (w Creat) 4 Months E11.9 - Type 2 diabetes mellitus without complications Comprehensive [place]. Panel Fast 4 Months E11.9 - Type 2 diabetes mellitus without complications Lipid Panel 4 Months E78.5 - Hyperlipidemia, unspecified Vitamin D 25-OH Total 4 Months E55.9 - Vitamin D deficiency, unspecified Referrals Pain Management Referral M51.36 - Other intervertebral disc degeneration, lumbar region Medications: New losartan 100 mg PO DAILY 90 days 90 tabs 1RF Discontinued losartan Discontinued Reason: Patient Completed Course 50 mg PO DAILY 90 days 90 tabs 0RF Coding Level of Care Code Est Pt Level 4 (50228) Diagnoses Essential hypertension I10 Type 2 diabetes mellitus without complication, without long-term current use of insulin E11.9 Diabetes mellitus type: type 2 Diabetes mellitus [employer] insulin use: without correction use Diabetes mellitus complication status: without complication Bipolar 1 disorder F31.9 Lumbar degenerative disc disease M51.36 Time Spent (min) 22
[2023-02-13 15:08] VITALS: BP 150/80
== END 2023-02-13 14:32 | disposition home or self-care (01) ==
PROVIDERS: PCP Internal Medicine; Visit Provider Internal Medicine
DX: I10 Essential (primary) hypertension (principal); E11.9 Type 2 diabetes mellitus without complications; F31.9 Bipolar disorder, unspecified; M51.36 Other intervertebral disc degeneration, lumbar region
CPT/HCPCS: 83036; 99214

== ENCOUNTER → 2023-02-20 13:21 | Outpatient (BNVA) | payer OTHER, SELFPAY | PROVIDERS: PCP Internal Medicine; Visit Provider Nurse Practitioner Family ==

== ENCOUNTER 2023-02-27 14:52 | Outpatient (AMB) | payer OTHER, SELFPAY ==
--- NOTE | 2023-02-27 14:55 | A.OFFVIS_ITS ---
Intake Vital Signs 02/27/23 15:01 Height 5 ft Weight 199 lb 4 oz BMI 38.9 BP 140/88 H Blood Pressure Location Lt brachial Position Sitting Respiration 18 Pulse 63 Pulse Source Pulse Oximeter Pulse Oximetry (%) 99 Oxygen Delivery Method Room Air Intake Visit Reasons: Intervert Disc Degeneration, Lumbar Regin/confirm Intake Note: patient comes in for initial visit was referred by [facility] [place] primary care. Allergies Cortisone Allergy (Severe, Verified 02/27/23 15:03) pruritus, hives, swellin milk [MILK] Allergy (Severe, Verified 02/27/23 15:03) rash ibuprofen [IBUPROFEN] Allergy (Intermediate, Verified 02/27/23 15:03) swelling levofloxacin Allergy (Intermediate, Verified 02/27/23 15:03) pruritus metronidazole Allergy (Intermediate, Verified 02/27/23 15:03) pruritus peanut [PEANUT] Allergy (Intermediate, Verified 02/27/23 15:03) pruritus Penicillins [PENICILLINS] Allergy (Intermediate, Verified 02/27/23 15:03) Hives shellfish derived [SHELLFISH DERIVED] Allergy (Intermediate, Verified 02/27/23 15:03) rash, shortness of breath morphine [MORPHINE] Adverse Reaction (Severe, Verified 02/27/23 15:03) loss of consciousness, hypotension oatmeal Adverse Reaction (Intermediate, Verified 02/27/23 15:03) abdominal gas pain egg [EGG] Adverse Reaction (Mild, Verified 02/27/23 15:03) diarrheas, dizziness red meat Allergy (Intermediate, Uncoded 02/13/23 14:24) hand swelling HPI HPI Comments History of Present Illness Details Monica is very pleasant 67 years old female who presents in my office with multiple pain generators. He reports pain in bilateral wrists lower back bilateral knees on anterior and posterior surface and pain in the neck. She reports that pain radiates from the central axial area of the lower lumbar spine down to the right leg all the way to the toes and she reports that toes feel numb with numbness exacerbated with pain getting stronger. She reports that the pain is worse at night she has cane for ambulation. In terms of tissue damage she reports her pain is pounding flashing, lancinating, ridging, hot burning, searing, stinging, tiring, exhausting, spreading, radiating. She had extensive history of physical therapy in the past which did not help her pain. She was sent by neurosurgeon Dr. Tyler for cervical MRI results of which are dictated as below her spinal MRI also dictated as below. She never received any injections for her back pain. Her past medical history significant for renal cyst H pylori infection, hypercholesterolemia, schizophrenia, bipolar disorder, obesity, gout, essential hypertension, diabetes, and lower back pain. Her past surgical history significant for lithotripsy, colonoscopy, eye surgery, history of hemicolectomy secondary to cancer 10 years ago history of hand surgery and history of bilateral breast reduction surgery. Social history she denies drinking alcohol smoking cigarettes or using recreational drugs she denies caffeinated beverages. [facility] Medical History Renal cyst H. 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 Dysplasia of cervix, low grade (JOSE JUAN 1) Vaginal pruritus Breast pain, left Schizophrenia Bipolar 1 disorder Obese Gout Essential hypertension Diabetes mellitus Fall Lumbar back pain Surgical History Hx of lithotripsy History of esophagogastroduodenoscopy (EGD) H/O colonoscopy History of eye surgery History of removal of cyst History of surgery History of hemicolectomy History of hand surgery Hx of bilateral breast reduction surgery Family History Father Lung cancer Diabetes Hypertension Mother Diabetes CVD (cardiovascular disease) Maternal Aunt Breast cancer Social History Housing: Apartment Alcohol intake: never Patient Tobacco Use Status: Never used Tobacco e-Cigarette/Vaping Use: Never Used Second Hand Smoke Exposure: No service: No Current occupational status: disabled Cognitive needs: Yes Hearing needs: No Vision needs: No Female Reproductive History Menstrual Age of Menarche: 13 Review of Systems Const All systems reviewed & are unremarkable except as noted in HPI and below Eyes Reports no additional complaints, Denies change in vision and Denies other visual disturbances ENT Reports Normal hearing present Card Denies chest pain at rest, Denies chest pain with activity and Reports slow heart rate Resp Denies cough GI Denies abdominal pain, Denies change in bowel habits, Denies excessive flatus, Denies nausea and Denies vomiting Denies urinary incontinence, Denies urinary hesitancy and Denies urinary urgency Musc Denies abnormal gait, Denies atrophy, Denies deformity and Denies limited range of motion Skin/Breast Denies bleeding lesions, Denies changing lesions and Denies rash Neuro Reports Normal hearing present, Denies Abnormal speech present, Denies abnormal gait, Denies confusion, Denies lack of coordination and Denies Sensory deficit (Neuro) Psych Denies confusion Physical Exam Vital Signs: Last Vital Signs Pulse 63 02/27/23 15:01 Resp 18 02/27/23 15:01 BP 140/88 H 02/27/23 15:01 Pulse Ox 99 02/27/23 15:01 Oxygen Delivery Method Room Air 02/27/23 15:01 BMI result Body Mass Index 38.9 Const General: no acute distress; No confusion Nutritional Appearance: obese morbidly obese Orientation/consciousness: patient oriented x3 and No confusion Eyes General: appearance normal, both eyes and all related structures Pupils: Equal, round and reactive pupils present EOM: EOMs intact bilaterally Neck Neck: Yes full ROM Chest Chest palpation & inspection: normal inspection of the chest Resp Effort & Inspection: normal respiratory effort, able to speak in complete sentences, normal respiratory pattern, no audible wheezes and no cough Cardio Jugular venous distension: no JVD GI Inspection: Yes normal to inspection Back/Spine/Pelvis Other: There is a tenderness to palpation on paraspinal spinal region of cervical spine as well as tenderness of palpation of paraspinal spinal region lumbar spine. SLR is positive on the right and equivocal on the left. There is objective numbness in the projection of bilateral soles and toes. Neuro General: patient oriented x3, gait normal and No confusion Cranial nerves: Yes CN's II-XII intact bilaterally, Yes Equal, round and reactive pupils present, Yes Normal hearing present and Yes Ability to bilaterally elevate shoulders present Speech: No Abnormal speech present Gait exam (Neuro): Normal gait present Motor exam (neuro): 5/5 motor strength present throughout Sensory Exam: No Sensory deficit (Neuro) Extrem General: No pedal edema Psych Speech and movement: Normal speech and movement present Affect: normal affect Attitude: cooperative Thought process: Normal thought process present Thought content: Normal thought content present Insight: Good insight present (Psych) Judgement: Good judgement present (Psych) Assessment & Plan Assessment & Plan (1) Lumbar degenerative disc disease: Code(s): M51.36 - Other intervertebral disc degeneration, lumbar region (2) Spondylosis of lumbar joint: Code(s): M47.816 - Spondylosis without myelopathy or radiculopathy, lumbar region (3) Chronic pain syndrome: Code(s): G89.4 - Chronic pain syndrome (4) Radiculopathy, lumbar region: Code(s): M54.16 - Radiculopathy, lumbar region Plan The physical examination of this patient is highly suspicious on the radiculopathy. I will schedule this patient for MRI of the lumbar spine to evaluate possible stenotic changes, possible sources of discogenic vertebra genic pain and possible spondylosis. I recommended her to schedule with me an appointment as soon as she will step out of the MRI machine. I will see her after that. Orders: Orders MR lumbar spine wo con Today G89.4 - Chronic pain syndrome, M47.816 - Spondylosis without myelopathy or radiculopathy, lumbar region, M51.36 - Other intervertebral disc degeneration, lumbar region, M54.16 - Radiculopathy, lumbar region, N39.46 - Mixed incontinence Coding Level of Care Code New Pt Level 3 (80952) Diagnoses Lumbar degenerative disc disease M51.36 Spondylosis of lumbar joint M47.816 Chronic pain syndrome G89.4 Radiculopathy, lumbar region M54.16
[2023-02-27 15:01] VITALS: BP 140/88; PULSE 63; RESP 18; O2SAT 99; BMI 38.9
== END 2023-02-27 15:25 | disposition home or self-care (01) ==
PROVIDERS: PCP Internal Medicine; Visit Provider Anesthesiology
DX: G89.4 Chronic pain syndrome (principal); M51.36 Other intervertebral disc degeneration, lumbar region; M47.896 Other spondylosis, lumbar region; M54.16 Radiculopathy, lumbar region
CPT/HCPCS: 99203

== ENCOUNTER → 2023-02-27 14:52 | Outpatient (BNVA) | payer OTHER, SELFPAY | PROVIDERS: PCP Internal Medicine; Visit Provider Anesthesiology | DX: M51.36 Other intervertebral disc degeneration, lumbar region (principal); M47.816 Spondylosis without myelopathy or radiculopathy, lumbar region; M54.16 Radiculopathy, lumbar region; G89.4 Chronic pain syndrome | CPT/HCPCS: 99202 ==

== ENCOUNTER 2023-02-28 07:07 | Outpatient (REF) | payer OTHER, SELFPAY ==
--- NOTE | ~2023-02-28 | CT_ITS ---
EXAMINATION: CT KIDNEY STONE CLINICAL INFORMATION: Renal calculus COMPARISON: CT scan of abdomen without and with contrast on 04/29/2022 DLP: 507.53 mGy-cm FINDINGS: CT ABDOMEN LUNG BASES: Bilateral lung bases are clear. LIVER: A 3 mm calcified granuloma is seen at the medial capsular border of right hepatic lobe segment 6. GALLBLADDER AND BILIARY TREE: Gallbladder appears unremarkable without calcified stones. Common bile duct is not dilated. SPLEEN: The spleen is normal in size without focal lesion on noncontrast enhanced images. PANCREAS: The pancreas appears unremarkable on noncontrast enhanced images. ADRENAL GLANDS: Adrenal glands are normal in size without focal lesion bilaterally. KIDNEYS: The visualized bilateral kidneys are normal in size with a persistent 0.3 cm left lower renal pole nonobstructive calculus. No caliectasis or dilated pelvis is seen. No dilated ureters are found. BOWELS: There is no abnormal dilatation of the large and small bowel loops. Normal high lying air-filled appendix is seen projecting posterior superior to the cecum, in contact with posterior capsular border of right hepatic lobe segment 6. RETROPERITONEUM: No abnormally enlarged retroperitoneal lymph nodes, mass or hematoma could be seen. BLOOD VESSELS: Abdominal aorta is normal in size and smooth in outline. ABDOMINAL WALL: Abdominal subcutaneous tissue and muscle are intact. No evidence of ventral hernia. PERITONEUM: There is no ascites. There were no abdominal peritoneal inflammatory changes seen. No free peritoneal air was seen. BONES: No fracture or dislocation. No focal bone lesion diagnostic of metastatic disease could be seen in the lumbar region. CT PELVIS URINARY BLADDER: The visualized urinary bladder is normal, filled with urine. No intraluminal stones are found. No abnormally dilated distal ureters are seen. BOWELS: There is no abnormal dilatation of the large and small bowel loops. GENITAL ORGANS: No adnexal mass lesion could be seen. The uterus contains a chunky calcification in right parasagittal upper uterine body.. LYMPH NODES: No abnormally enlarged iliac or inguinal lymph nodes are seen. PERITONEUM: No inflammatory changes, ascites or free peritoneal air are found in the pelvis. BONES: No fracture or dislocation. No focal bone lesion diagnostic of metastatic disease could be seen in the pelvis. CT/CT kidney stone IMPRESSION: 1. Unchanged left lower renal pole nonobstructive calculus. 2. No right renal stone, no hydronephrosis or hydroureter is seen. 3. No urinary bladder stone or distal ureteric stone is found. 4. 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
== END 2023-02-28 07:08 | disposition home or self-care (01) ==
LOC: HO.CT 07:07
PROVIDERS: PCP Internal Medicine; Visit Provider Nurse Practitioner Family
DX: N20.0 Calculus of kidney (principal); R10.9 Unspecified abdominal pain
CPT/HCPCS: 74176

== ENCOUNTER 2023-03-13 13:25 | Outpatient (AMB) | payer OTHER, SELFPAY ==
--- NOTE | 2023-03-13 13:53 | A.OFFVIS_ITS ---
Intake Intake Visit Reasons: 1m/CT KUB(set) Intake Note: Patient is present for follow up incontinence/uti/dysuria/nephrolithiasis/CT KUB (imaging 02/28/23) Urology Medications: Estrace Cream (patient stated that she is not using) Blood Thinner: none PVR: 28ml's Journeyman Pipe Welder Required: Yes Journeyman Pipe Welder Name: KELLI RUVALCABAFILIBERTO Accompanied by: Self / Same As Patient Allergies Cortisone Allergy (Severe, Verified 03/13/23 14:29) pruritus, hives, swellin milk [MILK] Allergy (Severe, Verified 03/13/23 14:29) rash ibuprofen [IBUPROFEN] Allergy (Intermediate, Verified 03/13/23 14:29) swelling levofloxacin Allergy (Intermediate, Verified 03/13/23 14:29) pruritus metronidazole Allergy (Intermediate, Verified 03/13/23 14:29) pruritus peanut [PEANUT] Allergy (Intermediate, Verified 03/13/23 14:29) pruritus Penicillins [PENICILLINS] Allergy (Intermediate, Verified 03/13/23 14:29) Hives shellfish derived [SHELLFISH DERIVED] Allergy (Intermediate, Verified 03/13/23 14:29) rash, shortness of breath morphine [MORPHINE] Adverse Reaction (Severe, Verified 03/13/23 14:29) loss of consciousness, hypotension oatmeal Adverse Reaction (Intermediate, Verified 03/13/23 14:29) abdominal gas pain egg [EGG] Adverse Reaction (Mild, Verified 03/13/23 14:29) diarrheas, dizziness red meat Allergy (Intermediate, Uncoded 03/13/23 14:29) hand swelling Medication List - Last Reconciled 03/13/23 by MATHEW Lynn acetaminophen 0 mg PO albuterol sulfate 90 mcg/actuation 2 inhalations inhalation Q6H PRN albuterol sulfate 90 mcg/actuation inhalation amlodipine 10 mg PO DAILY 90 days aripiprazole 15 mg PO DAILY blood sugar diagnostic (QuintilesTouch Ultra Test strips) test once daily blood-glucose meter (QuintilesTouch Ultra2 Meter) test once daily buspirone 10 mg PO BID PRN carboxymethylcellulose sodium 0.5% (Lubricating Plus) 1 drp ophthalmic (eye) BID cholecalciferol (vitamin D3) (Vitamin D3) 25 mcg PO DAILY diazepam 5 mg PO BID PRN 30 days docusate sodium (Colace) 100 mg PO BID donepezil 10 mg PO BEDTIME 30 days fluticasone propionate 44 mcg/actuation (Flovent HFA) 1 puff inhalation BID hydralazine 10 mg PO TID 30 days hydrocortisone valerate 0.2% appl topical BID hydroxyzine HCl 25 mg PO TID lancets (OneTouch UltraSoft 2 Lancet) test once daily lansoprazole 30 mg PO DAILY losartan 100 mg PO DAILY 90 days metoprolol tartrate 50 mg PO BID metronidazole 0.75% appl topical BID mirtazapine 7.5 mg PO BEDTIME paliperidone ER 9 mg PO DAILY paroxetine HCl 30 mg PO QAM pioglitazone 45 mg PO DAILY 90 days plecanatide (Trulance) 3 mg PO DAILY polyethylene glycol 3350 (Miralax) 17 grams PO BID rosuvastatin 40 mg PO DAILY 90 days sitagliptin phosphate (Januvia) 50 mg PO DAILY tretinoin 0.1% appl topical DAILY valacyclovir 1,000 mg PO BID 7 days zolpidem 10 mg PO BEDTIME 30 days HPI HPI Comments History of Present Illness Details Monica is a pleasant 67 year old Mosotho speaking patient of Dr. Arnaldo Dawkins. She has a past medical history of hepatic stenosis, JOSE JUAN III with severe dysplasia, large bowel obstruction, hypercholesteremia, lupus, osteopenia, schizophrenia, bipolar, hypertension, gout, diabetes, colitis, and obesity. She presents to the office today for follow-up of her nephrolithiasis and lower urinary tract symptoms. Of note, patient was seen approximately 1 month ago at which time a CT KUB was ordered for further assessment evaluation of patient's longstanding history of nephrolithiasis. These results reviewed with the patient today. Bilateral kidneys are normal in size with a persistent 0.3 cm left lower renal pole nonobstructive calculus. No dilation of ureters is seen. Patient with a longstanding history of lower urinary tract symptoms. She has had a previous sling procedure in 2019 and continues with urinary frequency, urinary urgency, and episodes of incontinence if not near a bathroom. She has trialed and failed off of multiple oral therapies Myrbetriq, Gemtesa a, oxybutynin, tolterodine, and fesoterodine. She has also trialed combination therapy with Myrbetriq and VESIcare. Discussed at length pelvic floor exercises and importance of managing diabetes for improvement in urinary symptoms as well as overall health and well-being. She has also underwent in office cystoscopy for microscopic hematuria in 2020 with normal findings. In office urinalysis results reviewed with the patient today. PVR 28 mL. When asked patient does report noncompliance with Estrace cream as prescribed. She otherwise offers no other issues or concerns at this time. [facility] Medical History Renal cyst H. 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 Dysplasia of cervix, low grade (JOSE JUAN 1) Vaginal pruritus Breast pain, left Schizophrenia Bipolar 1 disorder Obese Gout Essential hypertension Diabetes mellitus Fall Lumbar back pain Surgical History Hx of lithotripsy History of esophagogastroduodenoscopy (EGD) H/O colonoscopy History of eye surgery History of removal of cyst History of surgery History of hemicolectomy History of hand surgery Hx of bilateral breast reduction surgery Family History Father Lung cancer Diabetes Hypertension Mother Diabetes CVD (cardiovascular disease) Maternal Aunt Breast cancer Social History Housing: Apartment Alcohol intake: never Patient Tobacco Use Status: Never used Tobacco e-Cigarette/Vaping Use: Never Used Second Hand Smoke Exposure: No service: No Current occupational status: disabled Cognitive needs: Yes Hearing needs: No Vision needs: No Female Reproductive History Menstrual Age of Menarche: 13 Review of Systems Const Reports as per HPI Eyes Reports no additional complaints ENT Reports no additional complaints Card Reports as per HPI Resp Reports no additional complaints GI Reports as per HPI Reports as per HPI Musc Reports as per HPI Neuro Reports as per HPI Psych Reports as per HPI Endo Reports as per HPI Physical Exam Const General: cooperative, healthy appearing, comfortable, no acute distress, well developed, alert and awake Nutritional Appearance: overweight Orientation/consciousness: patient oriented x3 Limitations: no limitations HEENT Head: Yes normal to inspection, Yes normocephalic and Yes atraumatic Ears: hearing grossly normal bilaterally Eyes General: appearance normal, both eyes and all related structures Neck Neck: Yes normal visual inspection and Yes trachea midline Chest Chest palpation & inspection: normal inspection of the chest Resp Effort & Inspection: normal respiratory effort and able to speak in complete sentences Cardio Rate: regular rate GI Inspection: Yes normal to inspection and Yes Abdominal panniculus present General: Yes no CVA tenderness Back/Spine/Pelvis Back: no CVA tenderness Neuro General: patient oriented x3 Extrem General: Yes normal to inspection Psych Appearance: grossly normal Mental Status: mental status grossly normal Speech and movement: Normal speech and movement present and Clear speech present Affect: normal affect Attitude: cooperative Thought process: Normal thought process present Thought content: Normal thought content present Insight: Fair insight present (Psych) Judgement: Fair judgement present (Psych) Office Procedures Post Void Residual Post Residual Void Post Void Residual (PVR): 28 [id number] Void Residual by ultrasound Results AMB Urinalysis, Automated UA Leukoctes 70 Kan/uL Last Edit by [employer] on 03/13/23 14:08 UA Nitrite Negative Last Edit by [employer] on 03/13/23 14:08 UA Urobilinogen 0.2 mg/dL Last Edit by [employer] on 03/13/23 14:08 UA Protein 15 mg/dL Last Edit by [employer] on 03/13/23 14:08 UA pH 6.0 Last Edit by [employer] on 03/13/23 14:08 UA Blood 0 Kwan/uL Last Edit by [employer] on 03/13/23 14:08 UA Specific [place] 1.020 Last Edit by [employer] on 03/13/23 14:08 UA Ketone Negative Last Edit by [employer] on 03/13/23 14:08 UA Bilirubin 0 mg/dL Last Edit by [employer] on 03/13/23 14:08 UA Glucose 0 mg/dL Last Edit by [employer] on 03/13/23 14:08 Results Reviewed Results Reviewed: Laboratory Last Values Urine pH (Auto) 6.0 03/13/23 14:06 Specific [place] (Auto) 1.020 03/13/23 14:06 Urine Protein (Auto) 15 mg/dL 03/13/23 14:06 Glucose (UA)(Auto) 0 mg/dL 03/13/23 14:06 Urine Ketones (Auto) Negative 03/13/23 14:06 Urine Blood (Auto) 0 Kwan/uL 03/13/23 14:06 Urine Nitrite (Auto) Negative 03/13/23 14:06 Urine Bilirubin (Auto) 0 mg/dL 03/13/23 14:06 Urine Urobilinogen (Auto) 0.2 mg/dL 03/13/23 14:06 Leukocyte Esterase (Auto) 70 Kan/uL 03/13/23 14:06 Date of Service: 02/28/23 EXAMINATION: CT KIDNEY STONE FINDINGS: CT ABDOMEN LUNG BASES: Bilateral lung bases are clear. LIVER: A 3 mm calcified granuloma is seen at the medial capsular border of right hepatic lobe segment 6. GALLBLADDER AND BILIARY TREE: Gallbladder appears unremarkable without calcified stones. Common bile duct is not dilated. SPLEEN: The spleen is normal in size without focal lesion on noncontrast enhanced images. PANCREAS: The pancreas appears unremarkable on noncontrast enhanced images. ADRENAL GLANDS: Adrenal glands are normal in size without focal lesion bilaterally. KIDNEYS: The visualized bilateral kidneys are normal in size with a persistent 0.3 cm left lower renal pole nonobstructive calculus. No caliectasis or dilated pelvis is seen. No dilated ureters are found. BOWELS: There is no abnormal dilatation of the large and small bowel loops. Normal high lying air-filled appendix is seen projecting posterior superior to the cecum, in contact with posterior capsular border of right hepatic lobe segment 6. RETROPERITONEUM: No abnormally enlarged retroperitoneal lymph nodes, mass or hematoma could be seen. BLOOD VESSELS: Abdominal aorta is normal in size and smooth in outline. ABDOMINAL WALL: Abdominal subcutaneous tissue and muscle are intact. No evidence of ventral hernia. PERITONEUM: There is no ascites. There were no abdominal peritoneal inflammatory changes seen. No free peritoneal air was seen. BONES: No fracture or dislocation. No focal bone lesion diagnostic of metastatic disease could be seen in the lumbar region. CT PELVIS URINARY BLADDER: The visualized urinary bladder is normal, filled with urine. No intraluminal stones are found. No abnormally dilated distal ureters are seen. BOWELS: There is no abnormal dilatation of the large and small bowel loops. GENITAL ORGANS: No adnexal mass lesion could be seen. The uterus contains a chunky calcification in right parasagittal upper uterine body.. LYMPH NODES: No abnormally enlarged iliac or inguinal lymph nodes are seen. PERITONEUM: No inflammatory changes, ascites or free peritoneal air are found in the pelvis. BONES: No fracture or dislocation. No focal bone lesion diagnostic of metastatic disease could be seen in the pelvis. IMPRESSION: 1. Unchanged left lower renal pole nonobstructive calculus. 2. No right renal stone, no hydronephrosis or hydroureter is seen. 3. No urinary bladder stone or distal ureteric stone is found. 4. 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 Assessment & Plan Assessment & Plan (1) Mixed incontinence urge and stress: Code(s): N39.46 - Mixed incontinence (2) Nephrolithiasis: Comment: With renal cyst Code(s): N20.0 - Calculus of kidney (3) Flank pain: Code(s): R10.9 - Unspecified abdominal pain (4) Dysuria: Code(s): R30.0 - Dysuria Plan In office urinalysis results reviewed with the patient today. PVR 28 mLs. Stop all urological medications as patient reports no improvement in lower urinary tract symptoms Discussed importance of compliance with Estrace cream as prescribed. Discussed and stressed the importance of taking medications as prescribed. Recent CT KUB results reviewed with the patient today will continue with surveillance monitoring Discussed and stressed the importance of drinking plenty of water daily. Discussed pelvic floor therapy Discussed importance of managing diabetes for improvement in lower urinary tract symptoms as well as overall health and well-being. Scheduling for urodynamics Renal ultrasound in 6 months Follow-up for urodynamics when scheduled. Will continue with surveillance monitoring of nephrolithiasis with imaging to be completed prior; or sooner with any issues, concerns, and or questions. Orders: Orders AMB Post Void Residual by ultrasound Today R32 - Unspecified urinary incontinence AMB Urinalysis Automated Today Z13.9 - Encounter for screening, unspecified Patient Instructions: The patient had an opportunity to ask questions regarding the treatment plan. All questions were answered. Physical exam, labs, and imaging were discussed and reviewed in detail. As well as risks, benefits, and discussion of treatment choices. No major barriers to understanding were identified. The patient expressed understanding and agreement with the above treatment plan. The patient was made aware they should contact our office by phone for worsening of their current condition, the appearance of new symptoms, or with any questions or concerns. Compliance is encouraged with any medications and follow up testing that is ordered. It is a privilege to be allowed the opportunity to participate in? your urological care.? Again, if you have any questions or concerns If you have any questions or concerns please do not hesitate to contact me. The office is [phone]. This note is constructed using voice recognition software. While every effort has been made to ensure accuracy business trainer errors may have been included. Yours sincerely, MATHEW Lynn Coding Level of Care Code Est Pt Level 3 (73359) Diagnoses Mixed incontinence urge and stress N39.46 Nephrolithiasis N20.0 Flank pain R10.9 Dysuria R30.0 CPT Codes Post Residual Void - PVR CPT Code: 41907-Msvp Void Residual by ultrasound ([id number])
== END 2023-03-13 14:25 | disposition home or self-care (01) ==
PROVIDERS: PCP Internal Medicine; Visit Provider Nurse Practitioner Family
DX: N39.46 Mixed incontinence (principal); N20.0 Calculus of kidney; R10.9 Unspecified abdominal pain; R30.0 Dysuria; Z13.9 Encounter for screening, unspecified
CPT/HCPCS: 99213

== ENCOUNTER → 2023-03-13 13:25 | Outpatient (BNVA) | payer OTHER, SELFPAY | PROVIDERS: PCP Internal Medicine; Visit Provider Nurse Practitioner Family | DX: N39.46 Mixed incontinence (principal); N20.0 Calculus of kidney; R10.9 Unspecified abdominal pain; R30.0 Dysuria | CPT/HCPCS: 51798; 81003; 99212 ==

== ENCOUNTER 2023-04-10 13:34 | Outpatient (AMB) | payer OTHER, SELFPAY ==
--- NOTE | 2023-04-10 13:40 | MHC.OFFVIS ---
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 ARCHITECT annual exam Intake Note: no concerns Medical Charge Entry Specialist Required: Yes Medical Charge Entry Specialist Language: Chain Carrier Name: Keisha OLEA Information Interpreted: non-clinical & clinical Cyber Intelligence Analyst: Cyber Intelligence Analyst Present (Keisha OLEA) Accompanied by: Self / Same As Patient Allergies Cortisone Allergy (Severe, Verified 04/10/23 13:53) pruritus, hives, swellin milk [MILK] Allergy (Severe, Verified 04/10/23 13:53) rash ibuprofen [IBUPROFEN] Allergy (Intermediate, Verified 04/10/23 13:53) swelling levofloxacin Allergy (Intermediate, Verified 04/10/23 13:53) pruritus metronidazole Allergy (Intermediate, Verified 04/10/23 13:53) pruritus peanut [PEANUT] Allergy (Intermediate, Verified 04/10/23 13:53) pruritus Penicillins [PENICILLINS] Allergy (Intermediate, Verified 04/10/23 13:53) Hives shellfish derived [SHELLFISH DERIVED] Allergy (Intermediate, Verified 04/10/23 13:53) rash, shortness of breath morphine [MORPHINE] Adverse Reaction (Severe, Verified 04/10/23 13:53) loss of consciousness, hypotension oatmeal Adverse Reaction (Intermediate, Verified 04/10/23 13:53) abdominal gas pain egg [EGG] Adverse Reaction (Mild, Verified 04/10/23 13:53) diarrheas, dizziness red meat Allergy (Intermediate, Uncoded 04/10/23 13:53) hand swelling Post menopausal: Yes HPI HPI Comments History of Present Illness Details Presenting for annual exam. No complaints. Last Pap/HPV was negative in 04/21, preceded by JOSE JUAN 3 in status post LEEP, followed by 6 months ascus/HPV positive, colpo/ biopsy JOSE JUAN 1 in 2020 Last Mammogram was BI-RADS 2 in 05/23 Last Colonoscopy was in 07/20 the recommendation was to repeat in 5 years Last DEXA scan was in 03/21 [facility] Medical History Renal cyst H. 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 Dysplasia of cervix, low grade (JOSE JUAN 1) Vaginal pruritus Breast pain, left Schizophrenia Bipolar 1 disorder Obese Gout Essential hypertension Diabetes mellitus Fall Lumbar back pain Surgical History Hx of lithotripsy History of esophagogastroduodenoscopy (EGD) H/O colonoscopy History of eye surgery History of removal of cyst History of surgery History of hemicolectomy History of hand surgery Hx of bilateral breast reduction surgery Family History Father Lung cancer Diabetes Hypertension Mother Diabetes CVD (cardiovascular disease) Maternal Aunt Breast cancer Brother Colon cancer Paternal Grandmother Colon cancer Social History Housing: Apartment Alcohol intake: never Patient Tobacco Use Status: Never used Tobacco e-Cigarette/Vaping Use: Never Used Second Hand Smoke Exposure: No service: No Current occupational status: disabled Cognitive needs: Yes Hearing needs: No Vision needs: No Female Reproductive History Menstrual Age of Menarche: 13 Menopause type: natural Total pregnancies: 2 Full term: 2 Number of Living Children: 2 Date of last pap smear: 04/07/22 History of abnormal pap smear: Yes (JOSE JUAN 3) Date of Mammogram: 05/05/22 Review of Systems Const All systems reviewed & are unremarkable except as noted in HPI and below Card Reports as per HPI Resp Reports as per HPI GI Reports as per HPI and Reports no additional complaints Reports as per HPI Physical Exam Vital Signs: BMI result Body Mass Index 38.7 Const General: cooperative, healthy appearing and comfortable Chest Chest palpation & inspection: normal inspection of the chest and normal palpation of entire chest wall Breast/axilla inspection: normal inspection of the breasts and normal inspection of the axillae Breast/axilla palpation: normal palpation of the breasts, normal palpation of the axillae and no axillary lymphadenopathy Resp Effort & Inspection: normal respiratory effort Auscultation: clear to auscultation bilaterally Percussion: percussion normal Cardio Palpation: normal PMI Rate: regular rate Rhythm: regular rhythm Heart sounds: no murmurs and no rubs Peripheral pulses: Peripheral pulses 2+ throughout GI Inspection: Yes normal to inspection Palpation (GI): Soft to palpation, nontender, no guarding, not rigid and No hepatosplenomegaly present Percussion: Yes normal to percussion Auscultation: normal bowel sounds Rectal Exam - Female: deferred General: Yes bladder normal to palpation External Female Exam: No lesion Speculum Exam - Vagina: normal appearance of the vagina, normal palpation, normal vaginal discharge and not erythematous Speculum Exam - Cervix: normal appearance of the cervix and normal palpation Bimanual exam- vagina & uterus: normal bimanual exam, normal palpation, uterine size normal, bladder normal to palpation, consistency normal and normal palpation Bimanual Exam- Adnexa, other: normal adnexae, no masses and no tenderness Assessment & Plan Assessment & Plan (1) Well woman exam: Comment: History of JOSE JUAN 3 status post LEEP 03/21 Code(s): Z01.419 - Encounter for gynecological examination (general) (routine) without abnormal findings Plan: Co testing done. Counseled the patient about the recommended dietary allowance of 1200 mg of Calcium & 800 IU of vitamin D. Mammogram ordered. Will order DEXA scan . The patient was instructed to perform monthly self-breast exams and to schedule a 2 week DEXA scan follow-up appointment and an annual exam in a year; All questions answered and the patient verbalized understanding. Orders: Orders MM screening mammo BI Today Z12.31 - Encounter for screening mammogram for malignant neoplasm of breast XR DEXA axial skeleton Today Z78.0 - Asymptomatic menopausal state Coding Level of Care Code Est Pt Prev Care >65y(15577) Diagnoses Well woman exam Z01.419
[2023-04-10 13:41] VITALS: BP 130/72; BMI 38.7
== END 2023-04-10 14:31 | disposition home or self-care (01) ==
LOC: HO.HWS 13:34
PROVIDERS: PCP Internal Medicine; Visit Provider Obstetrics & Gynecology
DX: Z01.419 Encounter for gynecological examination (general) (routine) without abnormal findings (principal)
CPT/HCPCS: 99397

== ENCOUNTER 2023-04-10 13:34 | Outpatient (REF) | payer OTHER, SELFPAY ==
[2023-04-15 05:43] LABS: HPV 16 RNA NOT DETECTED (NOT DETECTED); HPV mRNA E6/E7 rflx Detected (Not Detected)
== END 2023-04-10 13:35 | disposition home or self-care (01) ==
LOC: HO.LNP 13:34
PROVIDERS: PCP Internal Medicine; Visit Provider Obstetrics & Gynecology
DX: Z01.419 Encounter for gynecological examination (general) (routine) without abnormal findings (principal)
CPT/HCPCS: 87624; 87625; 88142

== ENCOUNTER 2023-04-27 07:59 | Outpatient (REF) | payer OTHER, SELFPAY | END 2023-04-27 08:00 | disposition home or self-care (01) | LOC: HO.MRI 07:59 | PROVIDERS: PCP Internal Medicine; Visit Provider Anesthesiology | DX: M51.36 Other intervertebral disc degeneration, lumbar region (principal); N39.46 Mixed incontinence; M47.816 Spondylosis without myelopathy or radiculopathy, lumbar region; M54.16 Radiculopathy, lumbar region; G89.4 Chronic pain syndrome | CPT/HCPCS: 72148 ==

== ENCOUNTER 2023-05-16 13:20 | Outpatient (AMB) | payer OTHER, SELFPAY ==
--- NOTE | 2023-05-16 14:03 | MHC.OFFVIS ---
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 Technician Name: Keisha OLEA Information Interpreted: non-clinical & clinical Body Service Team Member: Body Service Team Member Present (Keisha OLEA) Accompanied by: Self / Same As Patient Allergies Cortisone Allergy (Severe, Verified 05/16/23 14:11) pruritus, hives, swellin milk [MILK] Allergy (Severe, Verified 05/16/23 14:11) rash ibuprofen [IBUPROFEN] Allergy (Intermediate, Verified 05/16/23 14:11) swelling levofloxacin Allergy (Intermediate, Verified 05/16/23 14:11) pruritus metronidazole Allergy (Intermediate, Verified 05/16/23 14:11) pruritus peanut [PEANUT] Allergy (Intermediate, Verified 05/16/23 14:11) pruritus Penicillins [PENICILLINS] Allergy (Intermediate, Verified 05/16/23 14:11) Hives shellfish derived [SHELLFISH DERIVED] Allergy (Intermediate, Verified 05/16/23 14:11) rash, shortness of breath morphine [MORPHINE] Adverse Reaction (Severe, Verified 05/16/23 14:11) loss of consciousness, hypotension oatmeal Adverse Reaction (Intermediate, Verified 05/16/23 14:11) abdominal gas pain egg [EGG] Adverse Reaction (Mild, Verified 05/16/23 14:11) diarrheas, dizziness red meat Allergy (Intermediate, Uncoded 05/16/23 14:11) hand swelling Post menopausal: Yes HPI HPI Comments History of Present Illness Details Presenting for colposcopy regarding negative Pap smear/HPV E6/87 positive, HPV 16/18/45 negative [facility] Medical History Renal cyst H. 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 Dysplasia of cervix, low grade (JOSE JUAN 1) Vaginal pruritus Breast pain, left Schizophrenia Bipolar 1 disorder Obese Gout Essential hypertension Diabetes mellitus Fall Lumbar back pain Surgical History Hx of lithotripsy History of esophagogastroduodenoscopy (EGD) H/O colonoscopy History of eye surgery History of removal of cyst History of surgery History of hemicolectomy History of hand surgery Hx of bilateral breast reduction surgery Family History Father Lung cancer Diabetes Hypertension Mother Diabetes CVD (cardiovascular disease) Maternal Aunt Breast cancer Brother Colon cancer Paternal Grandmother Colon cancer Social History Housing: Apartment Alcohol intake: never Patient Tobacco Use Status: Never used Tobacco e-Cigarette/Vaping Use: Never Used Second Hand Smoke Exposure: No service: No Current occupational status: disabled Cognitive needs: Yes Hearing needs: No Vision needs: No Female Reproductive History Menstrual Age of Menarche: 13 Physical Exam Vital Signs: Last Vital Signs BP 120/78 05/16/23 14:10 BMI result Body Mass Index 38.3 Office Procedures Colposcopy Before the procedure was started discussed with the patient the procedure, alternatives & all the risks associated with the procedure (bleeding, infection, injury to vagina, bladder, vessels, possible need for transfusion with all its risks) then patient signed the consent Pap smear = negative/HPV positive Speculum inserted, acetic acid used Colposcopy done Transformation zone seen, acetowhite lesions identified at 6+12 o?clock, cervical biopsies taken from 6+12 o?clock, cervix is stenosis secondary to previous LEEP cone, therefore, could not perform ECC . Vaginoscopy of the upper vagina showed no evidence of any aceto-white lesions Monsel solution used for hemostasis. The patient tolerated well . At the end the patient was instructed to call if temp>100.4, abdominal pain, n/v, bleeding; The patient was given the following instructions: nothing per vagina, no intercourse or bath tub use. All questions answered the patient verbalized understanding. Instructed the patient to make an appointment in 2 weeks for follow-up This note was generated with a voice recognition program. Some errors may have been overlooked during the review of this note. Sometimes these errors may affect the content or meaning of a given sentence. 97399-[id number] of cervix including upper vagina and biopsy Procedure code (CPT) selection complete Assessment & Plan Assessment & Plan (1) HPV in female: Comment: 03/21 JOSE JUAN 3 Status post LEEP cone with negative margins Code(s): B97.7 - Papillomavirus as the cause of diseases classified elsewhere Plan: Colposcopy done, see procedure note Orders: Orders AMB Colposcopy Today B97.7 - Papillomavirus as the cause of diseases classified elsewhere Coding Level of Care Code Procedure Only Diagnoses HPV in female B97.7 CPT Codes Colposcopy - CPT: 13156-Djrtpeemwy of cervix including upper vagina and biopsy ([id number])
[2023-05-16 14:10] VITALS: BP 120/78; BMI 38.3
== END 2023-05-16 14:35 | disposition home or self-care (01) ==
LOC: HO.HWS 13:20
PROVIDERS: PCP Internal Medicine; Visit Provider Obstetrics & Gynecology
DX: R87.810 Cervical high risk human papillomavirus (HPV) DNA test positive (principal)
CPT/HCPCS: 57455

== ENCOUNTER 2023-05-16 13:20 | Outpatient (REF) | payer OTHER, SELFPAY | END 2023-05-16 13:21 | disposition home or self-care (01) | LOC: HO.LNP 13:20 | PROVIDERS: PCP Internal Medicine; Visit Provider Obstetrics & Gynecology | DX: A63.0 Anogenital (venereal) warts (principal) | CPT/HCPCS: 57455; 88305; 88342; 88360 ==

== ENCOUNTER 2023-05-18 12:29 | Outpatient (REF) | payer OTHER, SELFPAY ==
--- NOTE | ~2023-05-18 | MM_ITS ---
EXAMINATION: BONE DENSITOMETRY CLINICAL INDICATION: Menopause. COMPARISON: Baseline BD dated 03/02/2021. TECHNIQUE: Using a [id number] DXA System (software version: 13.1) manufactured by [employer], dual-energy x-ray absorptiometry was performed of the lumbar spine and left hip. The images are of good technical quality. Summary results are attached. FINDINGS: LEFT FEMUR, NECK: Current: BMD 0.754 g/cm2, Z-score -0.9, T-score -2.0, osteopenia. Baseline: BMD 0.784 g/cm2. LEFT FEMUR, TOTAL: Current: BMD 0.822 g/cm2, Z-score -0.6, T-score -1.5, osteopenia, 8.7% decrease from baseline (<5% change is not significant). Baseline: BMD 0.900 g/cm2. AP SPINE L1-L4: Current: BMD 0.953 g/cm2, Z-score -1.0, T-score -1.9, osteopenia, 5.1% decrease from baseline (<5% change is not significant). Baseline: BMD 1.004 g/cm2. IDENTIFIED RISK FACTORS: Menopause, history of fracture (adult), family history (parent hip fracture), osteoporosis, recurrent falls. HISTORY OF FRACTURE: Wrist, other. MEDICATIONS: Vitamin D. MM/XR DEXA axial skeleton IMPRESSION: 1. DIAGNOSIS: Osteopenia based on the lowest T-score value of -2.0 in the femoral neck applying World Health Organization criteria. 2. 10-YEAR FRACTURE RISK PREDICTION, FRAX: Major osteoporotic fracture (clinical spine, forearm, hip or shoulder) 16.2%. Hip fracture 3.1%. 3. Treatment Recommendations: NOF guidelines recommend consideration for treatment in postmenopausal women and men age 50 and older presenting with the following: -A hip or vertebral (clinical or morphometric) fracture. -T-score less than or equal to -2.5 at the femoral neck or spine after appropriate evaluation to exclude secondary causes. -Low bone mass at the hip or spine and a 10-year fracture probability by FRAX of greater than or equal to 3% for hip fracture or greater than or equal to 20% for major osteoporotic fracture based on the [place] adapted WHO algorithm. 4. Other Recommendations: All treatment decisions require clinical judgment and consideration of individual patient factors, including patient preferences, comorbidities, previous drug use, risk factors not captured in the FRAX model (e.g. frailty, falls, vitamin D deficiency, increased bone turnover, interval significant decline in bone density) and possible under or overestimation of fracture risk by FRAX. Additional medical evaluation for secondary cause of low bone mineral density may be appropriate. FUTURE SCAN RECOMMENDATION: People with diagnosed cases of osteoporosis or at high risk for fracture should have regular bone mineral density tests. For patients eligible for Medicare, routine testing is allowed once every 2 years. The testing frequency can be increased to one year for patients who have rapidly progressing disease, those who are receiving or discontinuing medical therapy to restore bone mass, or have additional risk factors.
--- NOTE | ~2023-05-18 | MM_ITS ---
EXAMINATION: MM SCREENING DIGITAL BREAST TOMOSYNTHESIS, BILATERAL CLINICAL INFORMATION: Screening. Asymptomatic. The patient is status post bilateral, benign, excisional biopsies of the inferior aspect of each breast. COMPARISON: Mammography: This study is compared with prior exams dating back to 2017. TECHNIQUE: Digital breast tomosynthesis is performed in both the craniocaudal and mediolateral oblique views along with computer-aided detection (CAD). Synthesized 2D images are generated from the tomosynthesis. FINDINGS: There are scattered areas of fibroglandular density (ACR BI-RADS breast composition Category b). There are no significant masses, abnormal calcifications, or other abnormalities. There are postsurgical changes in each breast. MM/MM tomosynthesis screening BI IMPRESSION: No mammographic evidence of malignancy. ASSESSMENT: BI-RADS BI-RADS 2 - Benign Findings RECOMMENDATION: Routine annual mammography screening. 1 year F/U This examination should not preclude the clinical evaluation of a suspicious palpable abnormality. This patient's information was entered into a reminder system with a target due date for their next mammogram.
== END 2023-05-18 12:30 | disposition home or self-care (01) ==
LOC: HO.MAMMO 12:29
PROVIDERS: PCP Internal Medicine; Visit Provider Obstetrics & Gynecology
DX: Z12.31 Encounter for screening mammogram for malignant neoplasm of breast (principal); Z13.820 Encounter for screening for osteoporosis; Z78.0 Asymptomatic menopausal state
CPT/HCPCS: 77063; 77067; 77080

== ENCOUNTER → 2023-05-18 13:00 | Outpatient (BNV) | payer OTHER, SELFPAY | PROVIDERS: PCP Internal Medicine; Visit Provider Radiology Diagnostic Radiology | DX: Z12.31 Encounter for screening mammogram for malignant neoplasm of breast (principal) | CPT/HCPCS: 77063; 77067 ==

== ENCOUNTER 2023-06-05 10:09 | Outpatient (AMB) | payer OTHER, SELFPAY ==
--- NOTE | 2023-06-05 10:29 | A.OFFVIS_ITS ---
Intake Vital Signs 06/05/23 10:34 Height 5 ft Weight 197 lb BMI 38.5 BP 170/75 H Blood Pressure Location Lt brachial Position Sitting Pulse 62 Intake Visit Reasons: 4M follow up Intake Note: Patient follow up for abdominal pain. Patient cc: abdominal pain with bloating, nauseas, acid reflex with burning sensation, constipation on and off, and some swallowing problem with solid food. 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 Name: [facility] Interpeter Accompanied by: Self / Same As Patient Allergies Cortisone Allergy (Severe, Verified 06/05/23 10:28) pruritus, hives, swellin milk [MILK] Allergy (Severe, Verified 06/05/23 10:28) rash ibuprofen [IBUPROFEN] Allergy (Intermediate, Verified 06/05/23 10:28) swelling levofloxacin Allergy (Intermediate, Verified 06/05/23 10:28) pruritus metronidazole Allergy (Intermediate, Verified 06/05/23 10:28) pruritus peanut [PEANUT] Allergy (Intermediate, Verified 06/05/23 10:28) pruritus Penicillins [PENICILLINS] Allergy (Intermediate, Verified 06/05/23 10:28) Hives shellfish derived [SHELLFISH DERIVED] Allergy (Intermediate, Verified 06/05/23 10:28) rash, shortness of breath morphine [MORPHINE] Adverse Reaction (Severe, Verified 06/05/23 10:28) loss of consciousness, hypotension oatmeal Adverse Reaction (Intermediate, Verified 06/05/23 10:28) abdominal gas pain egg [EGG] Adverse Reaction (Mild, Verified 06/05/23 10:28) diarrheas, dizziness red meat Allergy (Intermediate, Uncoded 05/16/23 14:11) hand swelling HPI 4M follow up HPI Details 68 yr old f here for f/u RECAP: pt of? delilah ? H/O colon cancer- > 10 yrs? ago in [place] ? Diagnostic studies- ? 09/27/17- gastric? emptying study for nausea- normal- done in 3 hrs ? 03/2018- CT? and/pelvis- h/o abdominal pain- normal ? EGD/colonoscopy 2018- 2 small? polyps noted and removed, EGD with erythema h pylori pos ?she did get? treatment for h pylori in past h pylori ag was neg on? testing. ?EGD/colonoscopy 11/2018: gastritis, h pylori pos, hyperplastic? polyp, hyperplastic polyp rectum ? she was then treated with tinidazole? 250 mg TID for 14 d , omeprazole 20 mg bid for 2 weeks, bismuth 524 mg QID and? doxy 100 mg bid ?at f/o 01/2019 she was c/o LUQ pain with nausea,? constipation and was v hypertensive, was sent to ED for assessment, was able to? go home due to ongoing symptoms EGd,colonoscopy was repeated: EGD?colonoscopy: 06/2021 Endoscopy Findings: stomach polyps gastritis Colonoscopy Findings: polyp internal hemorrhoids melanosis coli Path: ? Chronic inactive duodenitis. 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 INTERIM: she still has nausea she has ongoing epigastric discomfort still has constipation occ blood in stools from hemorrhoids she feel dysphagia has recurred as well, liquids ok, hard with solids she was changed from esomeprazole, to lansoprazole due to poor effect--not had ti for months, uncertain why admits to ongoing anxiery, depression, family probs, alone EXAM: GENERAL: The patient is well developed and nontoxic,slightly flat affect VITAL SIGNS:see workflow HEENT: Nonicteric sclerae, PERRLA, EOMI. Oropharynx clear. Moist mucous membranes. Conjunctivae appear well perfused. No thyroid mass. CHEST: Chest wall is nontender. HEART: Regular rate and rhythm without murmurs. LUNGS: Clear to auscultation bilaterally. ABDOMEN: Soft, positive bowel sounds, tender epigastrium, no organomegaly.no flank tenderness SKIN: No rash, no excessive bruising, petechiae, or purpura. NEUROLOGIC: Cranial nerves II-XII intact without motor/sensory deficit. MS: normal A/P: 1/ h pylori pos with treatment with quad ruple therapy, has co existing GERD, not responded to treatment regimens--PCN allergy 2/ constipation 2/2 medications and age 3/ dysphagia, related to 1/ above--impro john with dilation but recurred possibly from not taking PPI PLAN: 1/ refilled PPI 2/ re-refer allergy for PCN desensitizat ion 3/ repeat EGD --and culture--hold PPI fo r 2 weeks before 4/ ansuol for hemorrhoids PFSH Medical History Renal cyst H. 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 Dysplasia of cervix, low grade (JOSE JUAN 1) Vaginal pruritus Breast pain, left Schizophrenia Bipolar 1 disorder Obese Gout Essential hypertension Diabetes mellitus Fall Lumbar back pain Surgical History Hx of lithotripsy History of esophagogastroduodenoscopy (EGD) H/O colonoscopy History of eye surgery History of removal of cyst History of surgery History of hemicolectomy History of hand surgery Hx of bilateral breast reduction surgery Family History Father Lung cancer Diabetes Hypertension Mother Diabetes CVD (cardiovascular disease) Maternal Aunt Breast cancer Brother Colon cancer Paternal Grandmother Colon cancer Social History Housing: Apartment Alcohol intake: never Patient Tobacco Use Status: Never used Tobacco e-Cigarette/Vaping Use: Never Used Second Hand Smoke Exposure: No service: No Current occupational status: disabled Cognitive needs: Yes Hearing needs: No Vision needs: No Female Reproductive History Menstrual Age of Menarche: 13 Physical Exam Vital Signs: Last Vital Signs Pulse 62 06/05/23 10:34 BP 170/75 H 06/05/23 10:34 BMI result Body Mass Index 38.5 Assessment & Plan Assessment & Plan (1) H. pylori infection: Code(s): A04.8 - Other specified bacterial intestinal infections Plan: A/P: 1/ h pylori pos with treatment with quadruple therapy, has co existing GERD, not responded to treatment regimens--PCN allergy 2/ constipation 2/2 medications and age 3/ dysphagia, related to 1/ above--improved with dilation but recurred possibly from not taking PPI PLAN: 1/ refilled PPI 2/ re-refer allergy for PCN desensitization 3/ repeat EGD --and culture--hold PPI for 2 weeks before 4/ ansuol for hemorrhoids (2) Dysphagia: Code(s): R13.10 - Dysphagia, unspecified Plan: A/P: 1/ h pylori pos with treatment with quadruple therapy, has co existing GERD, not responded to treatment regimens--PCN allergy 2/ constipation 2/2 medications and age 3/ dysphagia, related to 1/ above--improved with dilation but recurred possibly from not taking PPI PLAN: 1/ refilled PPI 2/ re-refer allergy for PCN desensitization 3/ repeat EGD --and culture--hold PPI for 2 weeks before 4/ ansuol for hemorrhoids Medications: New hydrocortisone 2.5% (Anusol-HC) 1 appl [place] BID-QID PRN 30 grams 0RF hemorrhoids Refilled lansoprazole 30 mg PO DAILY 90 caps 3RF Coding Level of Care Code Est Pt Level 4 (86049) Diagnoses H. pylori infection A04.8 Dysphagia R13.10
[2023-06-05 10:34] VITALS: BP 170/75; PULSE 62; BMI 38.5
== END 2023-06-05 11:09 | disposition home or self-care (01) ==
PROVIDERS: PCP Internal Medicine; Visit Provider Internal Medicine Gastroenterology
DX: A04.8 Other specified bacterial intestinal infections (principal); R13.10 Dysphagia, unspecified
CPT/HCPCS: 99214

== ENCOUNTER → 2023-06-05 10:09 | Outpatient (BNVA) | payer OTHER, SELFPAY | PROVIDERS: PCP Internal Medicine; Visit Provider Internal Medicine Gastroenterology | DX: A04.8 Other specified bacterial intestinal infections (principal); R13.10 Dysphagia, unspecified; B97.7 Papillomavirus as the cause of diseases classified elsewhere; Z91.89 Other specified personal risk factors, not elsewhere classified; Z98.890 Other specified postprocedural states | CPT/HCPCS: 99212 ==

== ENCOUNTER 2023-06-05 12:54 | Outpatient (AMB) | payer OTHER, SELFPAY ==
[2023-06-05 13:12] VITALS: BP 124/80; BMI 37.0
--- NOTE | 2023-06-05 13:12 | MHC.OFFVIS ---
Intake Vital Signs 06/05/23 13:12 Height 5 ft Weight 189 lb 9.561 oz BMI 37.0 BP 124/80 Intake Visit Reasons: DEXA follow up/Colpo Allergies Cortisone Allergy (Severe, Verified 06/05/23 10:28) pruritus, hives, swellin milk [MILK] Allergy (Severe, Verified 06/05/23 10:28) rash ibuprofen [IBUPROFEN] Allergy (Intermediate, Verified 06/05/23 10:28) swelling levofloxacin Allergy (Intermediate, Verified 06/05/23 10:) pruritus metronidazole Allergy (Intermediate, Verified 06/05/23 10:28) pruritus peanut [PEANUT] Allergy (Intermediate, Verified 06/05/23 10:) pruritus Penicillins [PENICILLINS] Allergy (Intermediate, Verified 06/05/23 10:) Hives shellfish derived [SHELLFISH DERIVED] Allergy (Intermediate, Verified 06/05/23 10:) rash, shortness of breath morphine [MORPHINE] Adverse Reaction (Severe, Verified 06/05/23 10:) loss of consciousness, hypotension oatmeal Adverse Reaction (Intermediate, Verified 06/05/23 10:28) abdominal gas pain egg [EGG] Adverse Reaction (Mild, Verified 06/05/23 10:28) diarrheas, dizziness red meat Allergy (Intermediate, Uncoded 05/16/23 14:11) hand swelling HPI HPI Comments History of Present Illness Details The patient is presenting for follow up regarding DEXA scan and post colpo results. T score @ spine and femoral Neck respectively were=-1.5 /-2 and 10 year FRAX risk = 16.2 /3.1 % for severe osteoporosis and fracture. The pathology showed the following: A. Cervix, 6:00, biopsy: Squamous mucosa with atrophy and reactive changes; negative for dysplasia; no endocervical glandular component. B. Cervix, 12:00, biopsy: Squamous mucosa with acute inflammation; negative for dysplasia; no endocervical glandular component. [facility] Medical History Renal cyst H. 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 Dysplasia of cervix, low grade (JOSE JUAN 1) Vaginal pruritus Breast pain, left Schizophrenia Bipolar 1 disorder Obese Gout Essential hypertension Diabetes mellitus Fall Lumbar back pain Surgical History Hx of lithotripsy History of esophagogastroduodenoscopy (EGD) H/O colonoscopy History of eye surgery History of removal of cyst History of surgery History of hemicolectomy History of hand surgery Hx of bilateral breast reduction surgery Family History Father Lung cancer Diabetes Hypertension Mother Diabetes CVD (cardiovascular disease) Maternal Aunt Breast cancer Brother Colon cancer Paternal Grandmother Colon cancer Social History Housing: Apartment Alcohol intake: never Patient Tobacco Use Status: Never used Tobacco e-Cigarette/Vaping Use: Never Used Second Hand Smoke Exposure: No service: No Current occupational status: disabled Cognitive needs: Yes Hearing needs: No Vision needs: No Female Reproductive History Menstrual Age of Menarche: 13 Review of Systems Const All systems reviewed & are unremarkable except as noted in HPI and below Reports as per HPI and Reports no additional complaints GI Reports no additional complaints Reports no additional complaints Physical Exam Vital Signs: Last Vital Signs BP 124/80 06/05/23 13:12 BMI result Body Mass Index 37.0 Assessment & Plan Assessment & Plan (1) At high risk for fracture: Code(s): Z91.89 - Other specified personal risk factors, not elsewhere classified Plan: Discussed with the patient the DEXA results and FRAX risk. Discussed with the patient all the options for therapeutic treatment including mechanism of actions, risks and benefits of Bisphosphonates (benefits=osteoporosis prevention; Risks=GERD, osteonecrosis of jaw), Raloxifene, (benefits=osteoporosis prevention and breast ca risk reduction; Risks=DVT), Forteo. The patient decided to go ahead with Fosamax so instructions given to the pt on how to take the med: NPO x 30 minutes, large amount of water , stay upright x 30 minutes, inform her dentist of alendronate intake in case invasive dental work. Also Caltrate+D 600 mg x2/day was recommended to the patient. (2) HPV in female: Comment: 03/21 JOSE JUAN 3 Status post LEEP cone with negative margins Code(s): B97.7 - Papillomavirus as the cause of diseases classified elsewhere Plan: Discussed with the patient the pathology results of the colposcopy biopsies & endocervical curettage ( neck). Discussed with the patient the sensitivity specificity, positive and negative predictive value in detecting cervical cancer in addition discussed the regression, persistence and progression rates. Recommended co-testing in 12 months, if cytology and or HPV are abnormal will proceed was colposcopy biopsy and endocervical curettage. Instructions given to the patient to schedule a co test appointment in 1 year. All questions answered the patient verbalized understanding. Medications: New alendronate 70 mg PO QWEEK 14 tabs 3RF Coding Level of Care Code Est Pt Level 3 (34056) Diagnoses At high risk for fracture Z91.89 HPV in female B97.7
== END 2023-06-05 13:30 | disposition home or self-care (01) ==
LOC: HO.HWS 12:54
PROVIDERS: PCP Internal Medicine; Visit Provider Obstetrics & Gynecology
DX: Z91.89 Other specified personal risk factors, not elsewhere classified (principal); B97.7 Papillomavirus as the cause of diseases classified elsewhere
CPT/HCPCS: 99213

== ENCOUNTER 2023-06-12 14:23 | Outpatient (AMB) | payer OTHER, SELFPAY ==
--- NOTE | 2023-06-12 14:24 | MHC.PC.OV ---
Vital Signs 06/12/23 14:25 Height 5 ft Weight 194 lb BMI 37.9 BP 132/80 Blood Pressure Location Lt brachial Position Sitting Intake Visit Reasons: Annual exam Intake Note: Patient here for a physical exam Process Validation Engineer Required: No Accompanied by: Self / Same As Patient Allergies Cortisone Allergy (Severe, Verified 06/12/23 14:47) pruritus, hives, swellin milk [MILK] Allergy (Severe, Verified 06/12/23 14:47) rash ibuprofen [IBUPROFEN] Allergy (Intermediate, Verified 06/12/23 14:47) swelling levofloxacin Allergy (Intermediate, Verified 06/12/23 14:47) pruritus metronidazole Allergy (Intermediate, Verified 06/12/23 14:47) pruritus peanut [PEANUT] Allergy (Intermediate, Verified 06/12/23 14:47) pruritus Penicillins [PENICILLINS] Allergy (Intermediate, Verified 06/12/23 14:47) Hives shellfish derived [SHELLFISH DERIVED] Allergy (Intermediate, Verified 06/12/23 14:47) rash, shortness of breath morphine [MORPHINE] Adverse Reaction (Severe, Verified 06/12/23 14:47) loss of consciousness, hypotension oatmeal Adverse Reaction (Intermediate, Verified 06/12/23 14:47) abdominal gas pain egg [EGG] Adverse Reaction (Mild, Verified 06/12/23 14:47) diarrheas, dizziness red meat Allergy (Intermediate, Uncoded 06/12/23 14:47) hand swelling Medication List - Last Reconciled 06/12/23 by Araceli Dawkins MD acetaminophen 0 mg PO albuterol sulfate 90 mcg/actuation 2 inhalations inhalation Q6H PRN albuterol sulfate 90 mcg/actuation inhalation alendronate 70 mg PO QWEEK amlodipine 10 mg PO DAILY 90 days aripiprazole 15 mg PO DAILY blood sugar diagnostic (OneTouch Ultra Test strips) test once daily blood-glucose meter (OneTouch Ultra2 Meter) test once daily buspirone 10 mg PO BID PRN carboxymethylcellulose sodium 0.5% (Lubricating Plus) 1 drp ophthalmic (eye) BID cholecalciferol (vitamin D3) (Vitamin D3) 25 mcg PO DAILY diazepam 5 mg PO BID PRN 30 days docusate sodium (Colace) 100 mg PO BID donepezil 10 mg PO BEDTIME 30 days fluticasone propionate 44 mcg/actuation (Flovent HFA) 1 puff inhalation BID hydralazine 10 mg PO TID 30 days hydrocortisone 2.5% (Anusol-HC) 1 appl UT BID-QID PRN hydrocortisone valerate 0.2% appl topical BID hydroxyzine HCl 25 mg PO TID lancets (OneTouch UltraSoft 2 Lancet) test once daily lansoprazole 30 mg PO DAILY losartan 100 mg PO DAILY 90 days mecobalamin (vitamin B12) mcg PO metoprolol tartrate 50 mg PO BID mirtazapine 7.5 mg PO BEDTIME paliperidone ER 9 mg PO DAILY paroxetine HCl 30 mg PO QAM pioglitazone 45 mg PO DAILY 90 days plecanatide (Trulance) 3 mg PO DAILY polyethylene glycol 3350 (Miralax) 17 grams PO BID rosuvastatin 40 mg PO DAILY 90 days sitagliptin phosphate (Januvia) 50 mg PO DAILY tretinoin 0.1% appl topical DAILY valacyclovir 1,000 mg PO BID 7 days zolpidem 10 mg PO BEDTIME 30 days Tobacco use date assessed: 06/12/23 Fall risk assessment: No Falls in past year Last assessed Fall Risk: 06/12/23 Dental Screening Dental Screen Date: 06/12/23 Did you have a dental visit in the last 12 months?: Yes Did you have a dental problem in the last 6 months where you did not have access to dental care?: No Was dental information given to patient?: Patient has dentist HPI HPI Comments History of Present Illness Details This is a 68-year-old female with schizophrenia, bipolar disorder and diabetes mellitus type 2 that comes for her physical exam. Walks with a cane due to chronic low back pain. Schizophrenia and bipolar disorder are follow by Psychiatry and has been stable with medications. A1c within goal. Last diabetic eye exam was 2022. Last mammogram and bone density were last month and patient is aware that it shows osteopenia and the treatment is calcium with vitamin-D. Has history of colon cancer and had a flexible sigmoidoscopy last year. No chest pain. [facility] Medical History Renal cyst H. 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 Dysplasia of cervix, low grade (JOSE JUAN 1) Vaginal pruritus Breast pain, left Schizophrenia Bipolar 1 disorder Obese Gout Essential hypertension Diabetes mellitus Fall Lumbar back pain Surgical History Hx of lithotripsy History of esophagogastroduodenoscopy (EGD) H/O colonoscopy History of eye surgery History of removal of cyst History of surgery History of hemicolectomy History of hand surgery Hx of bilateral breast reduction surgery Family History Father Lung cancer Diabetes Hypertension Mother Diabetes CVD (cardiovascular disease) Maternal Aunt Breast cancer Brother Colon cancer Paternal Grandmother Colon cancer Social History Housing: Apartment Alcohol intake: never Patient Tobacco Use Status: Never used Tobacco e-Cigarette/Vaping Use: Never Used Second Hand Smoke Exposure: No service: No Current occupational status: disabled Cognitive needs: Yes Hearing needs: No Vision needs: No Female Reproductive History Menstrual Age of Menarche: 13 Questionnaire PHQ-9 Over the last 2 weeks, how often have you been bothered by any of the following problems? 1. Little interest or pleasure in doing things: nearly every day 2. Feeling down, depressed, or hopeless: nearly every day 3. Trouble falling or staying asleep, or sleeping too much: nearly every day 4. Feeling tired or having little energy: nearly every day 5. Poor appetite or overeating: nearly every day 6. Feeling bad about yourself - or that you are a failure or have let yourself or your family down: several days 7. Trouble concentrating on things, such as reading the newspaper or watching television: nearly every day 8. Moving or speaking so slowly that other people could have noticed. Or the opposite - being so fidgety or restless that you have been moving around a lot more than usual: nearly every day 9. Thoughts that you would be better off or of hurting yourself in some way: not at all Total score: 22 Depression Screening Interpretation: Positive (No suicidal thoughts) Depression Screening Follow-up: Existing condition, In treatment and Community Mental Health Worker F/U Depression Screening Done: Yes 11074 - PHQ-9 Billing: Yes Source: Developed by Drs. Maureen Luu Kurt Kroenke and colleagues, with an educational avni from [employer]. Thrive Questionnaire Date Thrive assessed: 06/12/23 I am a: Patient What is your living situation today?: I have a steady place to live Within the past 12 months, did the food you bought not last and you didn't have the money to get more?: Never true Within the past 12 months, did you worry whether your food would run out before you got money to buy more?: Never true Do you have trouble paying for medicines?: No Do you have trouble getting transportation to medical appointments?: No Do you have trouble paying your heating and electricity bill?: No Do you have trouble taking care of your child, family member or friend?: No Do you have trouble with day-to-day activities such as bathing, preparing meals, shopping, managing finances, etc.?: No Are you currently unemployed and looking for a job?: No Are you interested in more education?: No Please select the resources that you would like help with: None Currently or been in a relationship where the following occur: no concerns reported THRIVE Score: 0 AUDIT C Alcohol Use Questionnaire (AUDIT-C) 1. How often do you have a drink containing alcohol?: Never Total Score: 0 MASSIEL-7 AMB Questionnaire MASSIEL-7 Date MASSIEL - 7 assessed: 06/12/23 Feeling nervous, anxious, or on edge: 3 = Nearly every day Not being able to stop or control worryin = Not at all Worrying too much about different things: 0 = Not at all Trouble relaxin = More than half the days Being so restless that it is hard to sit still: 1 = Several days Becoming easily annoyed or irritable: 3 = Nearly every day Feeling afraid as if something awful might happen: 0 = Not at all Total MASSIEL-7 score (0-4 normal; 5-9 mild; 10-14 moderate; 15-21 severe): 9 Source: Developed by Drs. Tony Cedeno, Franky Jean and colleagues, with an educational avni from [employer]. MASSIEL-7 Assessment Billing MASSIEL-7 Assessment Tool: MASSIEL-7 Assessment 86408 Review of Systems Const All systems reviewed & are unremarkable except as noted in HPI and below Eyes Reports no additional complaints, Denies change in vision and Denies other visual disturbances Card Denies chest pain at rest, Denies chest pain with activity, Denies edema, Denies irregular heart rhythm, Denies claudication, Denies dyspnea, Denies dyspnea on exertion, Denies orthopnea, Denies paroxysmal nocturnal dyspnea and Denies slow heart rate Resp Denies cough, Denies dyspnea and Denies dyspnea on exertion GI Denies abdominal pain, Denies change in bowel habits, Denies excessive flatus, Denies nausea and Denies vomiting Denies urinary incontinence, Denies urinary hesitancy and Denies urinary urgency Musc Denies abnormal gait, Denies atrophy, Denies deformity and Denies limited range of motion Skin/Breast Denies bleeding lesions, Denies changing lesions and Denies rash Neuro Denies abnormal gait, Denies behavioral changes, Denies confusion and Denies lack of coordination Psych Denies behavioral changes and Denies confusion Physical exam (Primary Care) Vital Signs: Last Vital Signs BP 132/80 06/12/23 14:25 BMI result Body Mass Index 37.9 Tobacco/Smoking Status: Tobacco use Status Tobacco use date assessed 06/12/23 06/12/23 14:35 Patient Tobacco Use Status Never used Tobacco 06/12/23 14:35 e-Cigarette/Vaping Use Never Used 06/12/23 14:35 PHQ-9: PHQ-9 Score PHQ-9: Total score 22 06/12/23 14:53 Depression Screening Interpretation: Positive (No suicidal thoughts) Depression Screening Follow-up: Existing condition, In treatment and Community Mental Health Worker F/U Thrive Assessment: Date of Thrive Assessment Date Thrive assessed 06/12/23 06/12/23 14:35 Currently or been in a relationship where the following occur: no concerns reported Const General: No confusion Orientation/consciousness: patient oriented x3 and No confusion HENMT Head: Yes normal to inspection, Yes normocephalic and Yes atraumatic Ears: external ears normal Eyes General: appearance normal, both eyes and all related structures Eyelids: Yes eyelids normal Conjunctivae: conjunctivae normal Neck Neck: Yes normal visual inspection and Yes supple Resp Effort & Inspection: normal respiratory effort Auscultation: clear to auscultation bilaterally Cardio Jugular venous distension: no JVD Rate: regular rate Rhythm: regular rhythm Heart sounds: S1 normal heart sound present and S2 normal heart sound present GI Inspection: Yes normal to inspection Palpation (GI): Soft to palpation and nontender Auscultation: normal bowel sounds Skin General skin exam: no rashes or lesions noted Neuro General: patient oriented x3, no focal motor deficits and No confusion Extrem General: Yes full ROM Psych Appearance: grossly normal Assessment and Plan Assessment & Plan (1) Physical exam: Code(s): Z00.00 - Encounter for general adult medical examination without abnormal findings Plan: Repeat in a year. (2) Diabetes mellitus: Code(s): E11.9 - Type 2 diabetes mellitus without complications Qualifiers: Diabetes mellitus type: type 2 Diabetes mellitus usp insulin use: without superintendent [employer] use Diabetes mellitus complication status: without complication Qualified Code(s): E11.9 - Type 2 diabetes mellitus without complications Plan: Continue Januvia. A1c goal is equal or less than 7%. (3) Bipolar 1 disorder: Code(s): F31.9 - Bipolar disorder, unspecified Plan: Continue paroxetine. Follow-up with psychiatry. (4) Schizophrenia: Code(s): F20.9 - Schizophrenia, unspecified Qualifiers: Schizophrenia type: paranoid schizophrenia Qualified Code(s): F20.0 - Paranoid schizophrenia Plan: Continue paliperidone. Follow-up with psychiatry. Orders: Orders Vitamin B12 and Folate Today E53.8 - Deficiency of other specified B group vitamins Microalbumin, Random (w Creat) Today E11.9 - Type 2 diabetes mellitus without complications T Spot TB Today Z11.1 - Encounter for screening for respiratory tuberculosis Comprehensive [place]. Panel Fast Today Z00.00 - Encounter for general adult medical examination without abnormal findings Vitamin D 25-OH Total Today E55.9 - Vitamin D deficiency, unspecified Lipid Panel Today E78.5 - Hyperlipidemia, unspecified Medications: Changed From cholecalciferol (vitamin D3) (Vitamin D3) 25 mcg PO DAILY To cholecalciferol (vitamin D3) (Vitamin D3) 25 mcg PO DAILY 90 tabs 1RF 90 days From mecobalamin (vitamin B12) PO To mecobalamin (vitamin B12) 500 mcg PO DAILY 90 tabs 1RF 90 days Refilled docusate sodium (Colace) 100 mg PO BID 60 caps 1RF Coding Level of Care Code Est Pt Prev Care >65y(42744) Diagnoses Physical exam Z00.00 Type 2 diabetes mellitus without complication, without long-term current use of insulin E11.9 Diabetes mellitus type: type 2 Diabetes mellitus [employer] insulin use: without usp use Diabetes mellitus complication status: without complication Bipolar 1 disorder F31.9 Paranoid schizophrenia F20.0 Schizophrenia type: paranoid schizophrenia Additional Codes MASSIEL-7 Assessment Billing - MASSIEL-7 Assessment Tool: MASSIEL-7 Assessment 13469 ([id number]) Time Spent (min) 321
[2023-06-12 14:25] VITALS: BP 132/80; BMI 37.9
== END 2023-06-12 15:12 | disposition home or self-care (01) ==
PROVIDERS: Visit Provider Internal Medicine
DX: Z00.00 Encounter for general adult medical examination without abnormal findings (principal); E11.9 Type 2 diabetes mellitus without complications; F31.9 Bipolar disorder, unspecified; F20.0 Paranoid schizophrenia
CPT/HCPCS: 99397

== ENCOUNTER 2023-08-29 09:55 | Day surgery (SDC) | payer OTHER, SELFPAY ==
--- NOTE | 2023-08-25 15:36 | HO.ANESPROP2 ---
Documented by User: Arely Butts NP 09/04/23 15:30 HPI - Anesthesia Eval Consult details Narrative: 68yo F for Upper Endoscopy with dilation Anesthesia Pre-Procedure Meds Is the patient on any of the following meds?: GLP1/DPP4 PMFSH Active Problems Active Problems: All Active Problems At high risk for fracture (Acute) Dysphagia (Acute) HPV in female (Acute) Chronic pain syndrome (Acute) Radiculopathy, lumbar region (Acute) Spondylosis of lumbar joint (Acute) Lumbar degenerative disc disease (Acute) Mixed incontinence urge and stress (Acute) Flank pain (Acute) Allergic reaction to penicillin (Acute) Left ear hearing loss (Acute) Back pain (Acute) Constipation by delayed colonic transit (Acute) Dysuria (Acute) Urinary incontinence (Acute) Urinary tract infection (Acute) Complicated urinary tract infection (Acute) Hepatic steatosis (Acute) Nephrolithiasis (Acute) Physical exam (Acute) Hematuria (Acute) JOSE JUAN III (cervical intraepithelial neoplasia grade III) with severe dysplasia (Acute) Large bowel obstruction (Acute) Hyperlipidemia LDL goal <70 (Acute) Abdominal wall mass of suprapubic region (Acute) Renal cyst (Acute) H. pylori infection (Acute) Pure hypercholesterolemia (Acute) Well woman exam (Acute) Menopause (Acute) Mass of abdomen does not move with respiration (Acute) ASCUS with positive high risk HPV cervical (Acute) Dysplasia of cervix, low grade (JOSE JUAN 1) (Acute) Osteopenia (Acute) Fatty infiltration of liver (Acute) Renal cyst (Acute) Epigastric abdominal pain (Acute) Hematochezia (Acute) Vaginal pruritus (Acute) Breast pain, left (Acute) Schizophrenia (Acute) Bipolar 1 disorder (Acute) Obese (Acute) Gout (Acute) Essential hypertension (Acute) Diabetes mellitus (Acute) Fall (Acute) Lumbar back pain (Acute) Past Medical History Medical History Renal cyst H. 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 Dysplasia of cervix, low grade (JOSE JUAN 1) Vaginal pruritus Breast pain, left Schizophrenia Bipolar 1 disorder Obese Gout Essential hypertension Diabetes mellitus Fall Lumbar back pain Family History Family History Father Lung cancer Diabetes Hypertension Mother Diabetes CVD (cardiovascular disease) Maternal Aunt Breast cancer Brother Colon cancer Paternal Grandmother Colon cancer Family history of problems with anesthesia: No Surgical History Surgical History Hx of lithotripsy History of esophagogastroduodenoscopy (EGD) H/O colonoscopy History of eye surgery History of removal of cyst History of surgery History of hemicolectomy History of hand surgery Hx of bilateral breast reduction surgery History of Problems with Anesthesia: No Social History Social History Housing: Apartment Alcohol intake: never Patient Tobacco Use Status: Never used Tobacco e-Cigarette/Vaping Use: Never Used Second Hand Smoke Exposure: No service: No Current occupational status: disabled Cognitive needs: Yes Hearing needs: No Vision needs: No Meds Allergies Allergy/AdvReac Type Severity Reaction Status Date / Time Cortisone Allergy Severe pruritus, Verified 08/29/23 10:07 hives, swellin milk [MILK] Allergy Severe rash Verified 08/29/23 10:07 ibuprofen [IBUPROFEN] Allergy Intermediate swelling Verified 08/29/23 10:07 levofloxacin Allergy Intermediate pruritus Verified 08/29/23 10:07 metronidazole Allergy Intermediate pruritus Verified 08/29/23 10:07 peanut [PEANUT] Allergy Intermediate pruritus Verified 08/29/23 10:07 Penicillins [PENICILLINS] Allergy Intermediate Hives Verified 08/29/23 10:07 shellfish derived Allergy Intermediate rash, Verified 08/29/23 10:07 [SHELLFISH DERIVED] shortness of breath morphine [MORPHINE] AdvReac Severe loss of Verified 08/29/23 10:07 consciousness, hypotension oatmeal AdvReac Intermediate abdominal Verified 08/29/23 10:07 gas pain egg [EGG] AdvReac Mild diarrheas, Verified 08/29/23 10:07 dizziness red meat Allergy Intermediate hand Uncoded 08/29/23 10:07 swelling Home Medications ?Medication ?Instructions ?Recorded ?Confirmed ?Last Taken ?Type hydroxyzine HCl 25 mg tablet 25 mg PO TID 02/19/20 08/29/23 Unknown History aripiprazole 15 mg tablet 15 mg PO DAILY 05/14/21 08/29/23 Unknown History mirtazapine 7.5 mg tablet 7.5 mg PO BEDTIME 05/14/21 08/29/23 Unknown History buspirone 10 mg tablet 10 mg PO BID PRN anxiety 11/22/21 08/29/23 Unknown History acetaminophen 500 mg tablet 0 mg PO 07/13/22 06/12/23 Unknown History tretinoin 0.1 % topical cream appl topical DAILY 07/13/22 06/12/23 Unknown History carboxymethylcellulose sodium 0.5 1 drp ophthalmic (eye) BID 11/14/22 08/29/23 Unknown History % eye drops in a dropperette (Lubricating Plus) hydrocortisone valerate 0.2 % appl topical BID 11/14/22 06/12/23 Unknown History topical cream paroxetine HCl 30 mg tablet 30 mg PO QAM 11/14/22 08/29/23 Unknown History albuterol sulfate 90 mcg/actuation inhalation 01/30/23 06/12/23 Unknown History aerosol inhaler paliperidone 9 mg tablet,extended 9 mg PO DAILY 01/30/23 08/29/23 Unknown History release 24 hr Assessment and Plan Assessment Anesthesia Assessment: Chart Reviewed Final Anesthetic Review Family History of Problems with Anesthesia: No History of Problems with Anesthesia: No Documented by User: Marcell Ku MD 09/05/23 11:23 [facility] Past Medical History Medical History Renal cyst H. 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 Dysplasia of cervix, low grade (JOSE JUAN 1) Vaginal pruritus Breast pain, left Schizophrenia Bipolar 1 disorder Obese Gout Essential hypertension Diabetes mellitus Fall Lumbar back pain Family History Family History Father Lung cancer Diabetes Hypertension Mother Diabetes CVD (cardiovascular disease) Maternal Aunt Breast cancer Brother Colon cancer Paternal Grandmother Colon cancer Surgical History Surgical History Hx of lithotripsy History of esophagogastroduodenoscopy (EGD) H/O colonoscopy History of eye surgery History of removal of cyst History of surgery History of hemicolectomy History of hand surgery Hx of bilateral breast reduction surgery Social History Social History Housing: Apartment Alcohol intake: never Patient Tobacco Use Status: Never used Tobacco e-Cigarette/Vaping Use: Never Used Second Hand Smoke Exposure: No service: No Current occupational status: disabled Cognitive needs: Yes Hearing needs: No Vision needs: No Meds Allergies Allergy/AdvReac Type Severity Reaction Status Date / Time Cortisone Allergy Severe pruritus, Verified 08/29/23 10:07 hives, swellin milk [MILK] Allergy Severe rash Verified 08/29/23 10:07 ibuprofen [IBUPROFEN] Allergy Intermediate swelling Verified 08/29/23 10:07 levofloxacin Allergy Intermediate pruritus Verified 08/29/23 10:07 metronidazole Allergy Intermediate pruritus Verified 08/29/23 10:07 peanut [PEANUT] Allergy Intermediate pruritus Verified 08/29/23 10:07 Penicillins [PENICILLINS] Allergy Intermediate Hives Verified 08/29/23 10:07 shellfish derived Allergy Intermediate rash, Verified 08/29/23 10:07 [SHELLFISH DERIVED] shortness of breath morphine [MORPHINE] AdvReac Severe loss of Verified 08/29/23 10:07 consciousness, hypotension oatmeal AdvReac Intermediate abdominal Verified 08/29/23 10:07 gas pain egg [EGG] AdvReac Mild diarrheas, Verified 08/29/23 10:07 dizziness red meat Allergy Intermediate hand Uncoded 08/29/23 10:07 swelling Home Medications ?Medication ?Instructions ?Recorded ?Confirmed ?Last Taken ?Type hydroxyzine HCl 25 mg tablet 25 mg PO TID 02/19/20 08/29/23 Unknown History aripiprazole 15 mg tablet 15 mg PO DAILY 05/14/21 08/29/23 Unknown History mirtazapine 7.5 mg tablet 7.5 mg PO BEDTIME 05/14/21 08/29/23 Unknown History buspirone 10 mg tablet 10 mg PO BID PRN anxiety 11/22/21 08/29/23 Unknown History acetaminophen 500 mg tablet 0 mg PO 07/13/22 06/12/23 Unknown History tretinoin 0.1 % topical cream appl topical DAILY 07/13/22 06/12/23 Unknown History carboxymethylcellulose sodium 0.5 1 drp ophthalmic (eye) BID 11/14/22 08/29/23 Unknown History % eye drops in a dropperette (Lubricating Plus) hydrocortisone valerate 0.2 % appl topical BID 11/14/22 06/12/23 Unknown History topical cream paroxetine HCl 30 mg tablet 30 mg PO QAM 11/14/22 08/29/23 Unknown History albuterol sulfate 90 mcg/actuation inhalation 01/30/23 06/12/23 Unknown History aerosol inhaler paliperidone 9 mg tablet,extended 9 mg PO DAILY 01/30/23 08/29/23 Unknown History release 24 hr Assessment and Plan Final Anesthetic Review NPO: Yes ASA Class: III Final Preanesthetic Review: No Changes in Pt Med Stat, Meds/Allgs Chart Reviewed, Consent Obtained/Reviewed and Anes Risks/Benef Reviewed Patient Risk: Intermediate Procedure Risk: Low Anesthetic Plan Anesthetic Plan: MAC: Disposition: Standard PACU
[2023-08-29 10:04] VITALS: BMI 39.3
[2023-08-29 10:28] VITALS: BP 164/86; PULSE 79; RESP 18; TEMP 36.6; O2SAT 98
[2023-08-29] MEDS: Lactated Ringers 1,000 ML 100 ML IVCONT (10:32)
[2023-08-29 10:41] LABS: Glucose, Whole Blood 131 mg/dL (60-115)
--- NOTE | 2023-08-29 11:33 | P.HPSUR_ITS ---
Pre-Procedural Eval Section A - 24 Hr Update-Section A only Date of Service: 08/29/23 Section B - Complete if H&P > 30 days Chief Complaint: Other specified bacterial intestinal infections Relevant Family History (Specify if Yes): No Relevant Social History: None Present Medications: see Short Stay Collaborative assessment Medical History: Significant History (Renal cyst H. 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 Dysplasia of cervix, low grade (JOSE JUAN 1) Vaginal pruritus Breast pain, left Schizophrenia Bipolar 1 disorder Obese Gout Essential hypertension Diabetes zhao) History of Previous Operations: Relevant previous surgery/procedure and date(s) (Hx of lithotripsy History of esophagogastroduodenoscopy (EGD) H/O colonoscopy History of eye surgery History of removal of cyst History of surgery History of hemicolectomy History of hand surgery Hx of bilateral breast reduction surgery) Allergies: Allergies Allergy/AdvReac Type Severity Reaction Status Date / Time Cortisone Allergy Severe pruritus, Verified 08/29/23 10:07 hives, swellin milk [MILK] Allergy Severe rash Verified 08/29/23 10:07 ibuprofen [IBUPROFEN] Allergy Intermediate swelling Verified 08/29/23 10:07 levofloxacin Allergy Intermediate pruritus Verified 08/29/23 10:07 metronidazole Allergy Intermediate pruritus Verified 08/29/23 10:07 peanut [PEANUT] Allergy Intermediate pruritus Verified 08/29/23 10:07 Penicillins [PENICILLINS] Allergy Intermediate Hives Verified 08/29/23 10:07 shellfish derived Allergy Intermediate rash, Verified 08/29/23 10:07 [SHELLFISH DERIVED] shortness of breath morphine [MORPHINE] AdvReac Severe loss of Verified 08/29/23 10:07 consciousness, hypotension oatmeal AdvReac Intermediate abdominal Verified 08/29/23 10:07 gas pain egg [EGG] AdvReac Mild diarrheas, Verified 08/29/23 10:07 dizziness red meat Allergy Intermediate hand Uncoded 08/29/23 10:07 swelling Review of Systems Sugical H&P ROS: Negative: Constitution, Cardiovascular, Respiratory, Neurological, Psychiatric, Hem-Onc, Allergic/Immunologic, Gastrointestinal, Genitourinary, Musculoskeletal, Integumentary, Endocrine and Eyes/Ears/Nose/Throat Exam Surgical H&P Exam: Normal: HEENT, Normal: Heart, Normal: Lungs, Normal: Extremities, Normal: Abdomen, Normal: Skin and Normal: Neurological Plan Diagnosis/Plan: Unchanged I have reviewed the history and physical and performed a pertinent physical examination on my patient. No changes have occurred unless specified. Time Spent With Patient Time: Total time managing care of this patient today ____ minutes.
--- NOTE | 2023-08-29 11:53 | W.PM.OPN ---
Operative Note Operative Note Date of Service: 08/29/23 Narrative: Procedure Description: EGD Indication: dysphagia and H pylori Anesthesia: MAC FLEXIBLE TRANSORAL UPPER GASTROINTESTINAL ENDOSCOPY UPPER ENDOSCOPY Consent: Indications for the procedure and potential complications of bleeding, perforation, reaction to medications and missed diagnosis were discussed with the patient and informed consent was obtained. Instrument: Olympus GIF H 190 J mid size upper endoscope Monitoring: Vital signs and clinical assessment, continuous EKG monitoring, Pulse oximetry, Carbon Dioxide monitoring and blood pressure monitoring were done throughout the procedure. Procedure: The patient was placed in the left lateral decubitis position and pre-procedure medications were administered and a bite block was placed. The endoscope was inserted into the mouth and advanced under direct vision to the third part of duodenum. A careful inspection was made as the upper endoscope was withdrawn including a retroflexed examination of the proximal stomach; Findings and interventions are described below. Findings: Larynx:normal Esophagus: GE junction at 37? cm, diaphragm hiatus at 37 cm, mild esophagitis and irregular Z line, bx taken to check for Barretts, distal and proximal esophagus dilated to 19 mm, no heme seen Stomach: Patchy erythema with erosion in the pre pyloric area. Biopsies were obtained. Grade 2 flap valve on retroflexed examination of the cardia. Duodenum: Normal bulb and descending duodenum, Intervention: Biopsies as noted above, balloon dilation --bx also taken for H pylori culture Impression/Findings: gastritis and gastric erosion irregular Z line PLAN: await culture results GERD precautions restart lansoprazole
[2023-08-29 12:18] VITALS: BP 143/69; PULSE 86; RESP 16; TEMP 36.3; O2SAT 96
[2023-08-29 12:33] VITALS: BP 138/81; PULSE 76; RESP 16; TEMP 36.3; O2SAT 95
[2023-08-29] MEDS: Acetaminophen 325 MG TABLET 650 MG PO (12:37)
[2023-09-10 17:49] LABS: H Pylori Cult Source TISSUE
== END 2023-08-29 13:10 | disposition home or self-care (01) ==
PROVIDERS: PCP Internal Medicine; Visit Provider Internal Medicine Gastroenterology
PROC: 0DJ08ZZ Inspection of Upper Intestinal Tract, Via Natural or Artificial Opening Endoscopic (ICD-10-PCS; CPT 43235; principal; 2023-08-29 13:30)
DX: R13.10 Dysphagia, unspecified (principal); K29.50 Unspecified chronic gastritis without bleeding; B96.81 Helicobacter pylori [H. pylori] as the cause of diseases classified elsewhere; K25.9 Gastric ulcer, unspecified as acute or chronic, without hemorrhage or perforation; K20.90 Esophagitis, unspecified without bleeding; K22.89 Other specified disease of esophagus; I10 Essential (primary) hypertension; E11.9 Type 2 diabetes mellitus without complications; Z88.0 Allergy status to penicillin; Z88.8 Allergy status to other drugs, medicaments and biological substances
CPT/HCPCS: 43249; 43239; 36415; 82947; 87081; 88305; 88313; 88342; C1726; J2704

== ENCOUNTER → 2023-08-29 09:55 | Outpatient (BNV) | payer OTHER, SELFPAY | PROVIDERS: PCP Internal Medicine; Visit Provider Internal Medicine Gastroenterology | DX: R13.10 Dysphagia, unspecified (principal); K29.70 Gastritis, unspecified, without bleeding; K25.9 Gastric ulcer, unspecified as acute or chronic, without hemorrhage or perforation; K22.89 Other specified disease of esophagus | CPT/HCPCS: 43239; 43249 ==

== ENCOUNTER 2023-09-08 13:04 | Outpatient (REF) | payer OTHER, SELFPAY ==
--- NOTE | ~2023-09-08 | US_ITS ---
EXAMINATION: US RETROPERITONEAL COMPLETE (RENAL) CLINICAL INFORMATION: Calculus of kidney. COMPARISON: CT kidney stone 02/28/2023. Ultrasound retroperitoneal 10/31/2022. Ultrasound renal 05/03/2022. X-ray KUB 03/04/2022 and 02/13/2019. TECHNIQUE: Real-time imaging of the kidneys and bladder. FINDINGS: RIGHT KIDNEY: 11.1 x 5.3 x 5.7 cm (SAG x AP x TRV). The kidney is normal in size, contour, and echogenicity. Renal cortical thickness is normal. A few punctate echogenic foci are noted within the right kidney, either tiny nonobstructing calculi versus vascular reflections. No hydronephrosis. LEFT KIDNEY: 10.6 x 4.9 x 3.9 cm (SAG x AP x TRV). The kidney is normal in size, contour, and echogenicity. Renal cortical thickness is normal. 3 mm nonobstructing mid pole calculus. A few other tiny echogenic foci are noted within the left kidney which may represent vascular reflections versus nonobstructing calculi. No hydronephrosis. BLADDER: Well distended and normal. Bilateral ureteral jets are demonstrated. Prevoid bladder volume is 155.2 mL. Postvoid bladder volume is 2.3 mL. US/US retroperitoneal comp IMPRESSION: 3 mm nonobstructing left renal calculus. A few other tiny echogenic foci are noted within both kidneys which may represent vascular reflections versus nonobstructing calculi. There is no hydronephrosis of either kidney.
== END 2023-09-08 13:05 | disposition home or self-care (01) ==
LOC: HO.US 13:04
PROVIDERS: PCP Internal Medicine; Visit Provider Nurse Practitioner Family
DX: N20.0 Calculus of kidney (principal)
CPT/HCPCS: 76770

== ENCOUNTER 2023-09-11 13:16 | Outpatient (AMB) | payer OTHER, SELFPAY ==
--- NOTE | 2023-09-11 13:17 | MHC.OFFVIS ---
Intake Visit Reasons: 6m/US(pending 09/07) Intake Note: Patient is present for follow up incontinence, nephrolithiasis, renal cysts, and ultrasound results Imagin09/08/23 Urology Medications: none Blood Thinner: none PVR: 0ml's Film Recordist Required: Yes Film Recordist Name: David [id number] Accompanied by: Self / Same As Patient Allergies Cortisone Allergy (Severe, Verified 09/11/23 13:58) pruritus, hives, swellin milk [MILK] Allergy (Severe, Verified 09/11/23 13:58) rash ibuprofen [IBUPROFEN] Allergy (Intermediate, Verified 09/11/23 13:58) swelling levofloxacin Allergy (Intermediate, Verified 09/11/23 13:58) pruritus metronidazole Allergy (Intermediate, Verified 09/11/23 13:58) pruritus peanut [PEANUT] Allergy (Intermediate, Verified 09/11/23 13:58) pruritus Penicillins [PENICILLINS] Allergy (Intermediate, Verified 09/11/23 13:58) Hives shellfish derived [SHELLFISH DERIVED] Allergy (Intermediate, Verified 09/11/23 13:58) rash, shortness of breath morphine [MORPHINE] Adverse Reaction (Severe, Verified 09/11/23 13:58) loss of consciousness, hypotension oatmeal Adverse Reaction (Intermediate, Verified 09/11/23 13:58) abdominal gas pain egg [EGG] Adverse Reaction (Mild, Verified 09/11/23 13:58) diarrheas, dizziness red meat Allergy (Intermediate, Uncoded 09/11/23 13:58) hand swelling Medication List - Last Reconciled 09/11/23 by MATHEW Lynn acetaminophen 0 mg PO albuterol sulfate 90 mcg/actuation 2 inhalations inhalation Q6H PRN albuterol sulfate 90 mcg/actuation inhalation alendronate 70 mg PO QWEEK amlodipine 10 mg PO DAILY 90 days aripiprazole 15 mg PO DAILY blood sugar diagnostic (OneTouch Ultra Test strips) test once daily blood-glucose meter (uKnow.comTouch Ultra2 Meter) test once daily buspirone 10 mg PO BID PRN carboxymethylcellulose sodium 0.5% (Lubricating Plus) 1 drp ophthalmic (eye) BID cholecalciferol (vitamin D3) (Vitamin D3) 25 mcg PO DAILY 90 days diazepam 5 mg PO BID PRN 30 days docusate sodium (Colace) 100 mg PO BID donepezil 10 mg PO BEDTIME 30 days fluticasone propionate 44 mcg/actuation (Flovent HFA) 1 puff inhalation BID hydralazine 10 mg PO TID 30 days hydrocortisone 2.5% (Anusol-HC) 1 appl OH BID-QID PRN hydrocortisone valerate 0.2% appl topical BID hydroxyzine HCl 25 mg PO TID lancets (OneTouch UltraSoft 2 Lancet) test once daily lansoprazole 30 mg PO DAILY losartan 100 mg PO DAILY 90 days mecobalamin (vitamin B12) 500 mcg PO DAILY 90 days metoprolol tartrate 50 mg PO BID mirtazapine 7.5 mg PO BEDTIME paliperidone ER 9 mg PO DAILY paroxetine HCl 30 mg PO QAM pioglitazone 45 mg PO DAILY 90 days plecanatide (Trulance) 3 mg PO DAILY polyethylene glycol 3350 (Miralax) 17 grams PO BID rosuvastatin 40 mg PO DAILY 90 days sitagliptin phosphate (Januvia) 50 mg PO DAILY tretinoin 0.1% appl topical DAILY valacyclovir 1,000 mg PO BID 7 days zolpidem 10 mg PO BEDTIME 30 days HPI Comments Details: Monica is a pleasant 68 year old Danish speaking patient of Dr. Arnaldo Dawkins. She has a past medical history of hepatic stenosis, JOSE JUAN III with severe dysplasia, large bowel obstruction, hypercholesteremia, lupus, osteopenia, schizophrenia, bipolar, hypertension, gout, diabetes, colitis, and obesity. She presents to the office today for follow-up of her nephrolithiasis and lower urinary tract symptoms. Recent retroperitoneal ultrasound results reviewed with the patient today. Bilateral kidneys with no hydronephrosis. Right kidney with a few punctate echogenic foci within the right kidney either tiny nonobstructing calculi versus vascular reflections. Left kidney with 3 mm nonobstructing mid pole calculus. A few other tiny echogenic foci are noted within the left kidney which may represent vascular reflections verses nonobstructing calculi. The bladder is well distended and normal. Bladder ureteral jets are demonstrated. Pre void bladder volume is approximately 150 mL. Postvoid bladder volume is approximately 5 mL. In discussion with the patient today she reports having undergone recent endoscopy with Dr. Mayfield the end of July at which time biopsies were taken and sent for H pylori culture and balloon dilatation was performed. She discusses findings of gastritis and gastric erosion were noted. She does continue to report lower urinary tract symptoms however feels she would like to recover from recent cystoscopy prior to further workup with in office urodynamics. Patient with a longstanding history of lower urinary tract symptoms. She has had a previous sling procedure in 2019 and continues with urinary frequency, urinary urgency, and episodes of incontinence if not near a bathroom. She has trialed and failed off of multiple oral therapies Myrbetriq, Gemtesa a, oxybutynin, tolterodine, and fesoterodine. She has also trialed combination therapy with Myrbetriq and VESIcare. Discussed at length pelvic floor exercises and importance of managing diabetes for improvement in urinary symptoms as well as overall health and well-being. She has also underwent in office cystoscopy for microscopic hematuria in 2019 with normal findings. In office urinalysis results reviewed with the patient today. PVR 0 mL. When asked patient does report noncompliance with Estrace cream as prescribed. She otherwise offers no other issues or concerns at this time. [facility] Medical History Renal cyst H. 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 Dysplasia of cervix, low grade (JOSE JUAN 1) Vaginal pruritus Breast pain, left Schizophrenia Bipolar 1 disorder Obese Gout Essential hypertension Diabetes mellitus Fall Lumbar back pain Surgical History Hx of lithotripsy History of esophagogastroduodenoscopy (EGD) H/O colonoscopy History of eye surgery History of removal of cyst History of surgery History of hemicolectomy History of hand surgery Hx of bilateral breast reduction surgery Family History Father Lung cancer Diabetes Hypertension Mother Diabetes CVD (cardiovascular disease) Maternal Aunt Breast cancer Brother Colon cancer Paternal Grandmother Colon cancer Social History Housing: Apartment Alcohol intake: never Patient Tobacco Use Status: Never used Tobacco e-Cigarette/Vaping Use: Never Used Second Hand Smoke Exposure: No service: No Current occupational status: disabled Cognitive needs: Yes Hearing needs: No Vision needs: No Female Reproductive History Menstrual Age of Menarche: 13 Review of Systems Const Reports as per [facility] Eyes Reports no additional complaints ENT Reports no additional complaints Card Reports as per [facility] Resp Reports no additional complaints GI Reports as per [facility] Reports as per [facility] Musc Reports as per [facility] Neuro Reports as per [facility] Psych Reports as per [facility] Endo Reports as per [facility] Physical Exam Const General: cooperative, healthy appearing, comfortable, no acute distress, well developed, alert and awake Nutritional Appearance: overweight Orientation/consciousness: patient oriented x3 Limitations: no limitations HEENT Head: Yes normal to inspection, Yes normocephalic and Yes atraumatic Ears: hearing grossly normal bilaterally Eyes General: appearance normal, both eyes and all related structures Neck Neck: Yes normal visual inspection and Yes trachea midline Chest Chest palpation & inspection: normal inspection of the chest Resp Effort & Inspection: normal respiratory effort and able to speak in complete sentences Cardio Rate: regular rate GI Inspection: Yes normal to inspection and Yes Abdominal panniculus present General: Yes no CVA tenderness Back/Spine/Pelvis Back: no CVA tenderness Neuro General: patient oriented x3 Extrem General: Yes normal to inspection Psych Appearance: grossly normal Mental Status: mental status grossly normal Speech and movement: Normal speech and movement present and Clear speech present Affect: normal affect Attitude: cooperative Thought process: Normal thought process present Thought content: Normal thought content present Insight: Fair insight present (Psych) Judgement: Fair judgement present (Psych) Office Procedures Post Void Residual Post Residual Void Post Void Residual (PVR): 0 09177-Crll Void Residual by ultrasound Results AMB Urinalysis, Automated UA Leukoctes 15 Kan/uL Last Edit by [employer] on 09/11/23 13:38 UA Nitrite Negative Last Edit by [facility] on 09/11/23 13:38 UA Urobilinogen 0.2 mg/dL Last Edit by [facility] on 09/11/23 13:38 UA Protein 15 mg/dL Last Edit by [employer] on 09/11/23 13:38 UA pH 6.0 Last Edit by [email or web address] on 09/11/23 13:38 UA Blood 0 Kwan/uL Last Edit by [facility] ([facility] on 09/11/23 13:38 UA Specific Edison 1.020 Last Edit by Hailey Lepe on 09/11/23 13:38 UA Ketone Negative Last Edit by Hailey Lepe on 09/11/23 13:38 UA Bilirubin 0 mg/dL Last Edit by Hailey Lepe on 09/11/23 13:38 UA Glucose 0 mg/dL Last Edit by Hailey Lepe on 09/11/23 13:38 Results Reviewed Results Reviewed: Laboratory Last Values Urine pH (Auto) 6.0 09/11/23 13:24 Specific Edison (Auto) 1.020 09/11/23 13:24 Urine Protein (Auto) 15 mg/dL 09/11/23 13:24 Glucose (UA)(Auto) 0 mg/dL 09/11/23 13:24 Urine Ketones (Auto) Negative 09/11/23 13:24 Urine Blood (Auto) 0 Kwan/uL 09/11/23 13:24 Urine Nitrite (Auto) Negative 09/11/23 13:24 Urine Bilirubin (Auto) 0 mg/dL 09/11/23 13:24 Urine Urobilinogen (Auto) 0.2 mg/dL 09/11/23 13:24 Leukocyte Esterase (Auto) 15 Kan/uL 09/11/23 13:24 Date of Service: 09/08/23 EXAMINATION: US RETROPERITONEAL COMPLETE (RENAL) FINDINGS: RIGHT KIDNEY: 11.1 x 5.3 x 5.7 cm (SAG x AP x TRV). The kidney is normal in size, contour, and echogenicity. Renal cortical thickness is normal. A few punctate echogenic foci are noted within the right kidney, either tiny nonobstructing calculi versus vascular reflections. No hydronephrosis. LEFT KIDNEY: 10.6 x 4.9 x 3.9 cm (SAG x AP x TRV). The kidney is normal in size, contour, and echogenicity. Renal cortical thickness is normal. 3 mm nonobstructing mid pole calculus. A few other tiny echogenic foci are noted within the left kidney which may represent vascular reflections versus nonobstructing calculi. No hydronephrosis. BLADDER: Well distended and normal. Bilateral ureteral jets are demonstrated. Prevoid bladder volume is 155.2 mL. Postvoid bladder volume is 2.3 mL. IMPRESSION: 3 mm nonobstructing left renal calculus. A few other tiny echogenic foci are noted within both kidneys which may represent vascular reflections versus nonobstructing calculi. There is no hydronephrosis of either kidney. Assessment & Plan Assessment & Plan (1) Mixed incontinence urge and stress: Code(s): N39.46 - Mixed incontinence Category: Medical (2) Nephrolithiasis: Comment: With renal cyst Code(s): N20.0 - Calculus of kidney Category: Medical (3) Flank pain: Code(s): R10.9 - Unspecified abdominal pain Category: Medical (4) Dysuria: Code(s): R30.0 - Dysuria Category: Medical Plan In office urinalysis results reviewed with the patient today; as noted above PVR 0 mL. Recent retroperitoneal ultrasound results reviewed with the patient today; as noted above. Discussed, educated, and stressed the importance of drinking water daily. Discussed continue to add 1 oz of lemon juice to water daily. Discussed importance of compliance with Estrace cream as prescribed. Discussed pelvic floor therapy Discussed importance of managing diabetes for improvement in lower urinary tract symptoms as well as overall health and well-being. Scheduling for urodynamics Follow-up for urodynamics when scheduled. Will continue with surveillance monitoring of nephrolithiasis with imaging to be completed prior; or sooner with any issues, concerns, and or questions. Orders: Orders US retroperitoneal comp 09/08/23 N20.0 - Calculus of kidney AMB Urinalysis Automated 09/11/23 Z13.9 - Encounter for screening, unspecified AMB Post Void Residual by ultrasound 09/11/23 N39.46 - Mixed incontinence Patient Instructions: The patient had an opportunity to ask questions regarding the treatment plan. All questions were answered. Physical exam, labs, and imaging were discussed and reviewed in detail. As well as risks, benefits, and discussion of treatment choices. No major barriers to understanding were identified. The patient expressed understanding and agreement with the above treatment plan. The patient was made aware they should contact our office by phone for worsening of their current condition, the appearance of new symptoms, or with any questions or concerns. Compliance is encouraged with any medications and follow up testing that is ordered. It is a privilege to be allowed the opportunity to participate in? your urological care.? Again, if you have any questions or concerns If you have any questions or concerns please do not hesitate to contact me. The office is [phone]. This note is constructed using voice recognition software. While every effort has been made to ensure accuracy radiologic technology instructor errors may have been included. Yours sincerely, BIANCA Lynn-ANDREA Coding Level of Care Code Est Pt Level 4 (68146) Diagnoses Mixed incontinence urge and stress N39.46 Nephrolithiasis N20.0 Flank pain R10.9 Dysuria R30.0 CPT Codes Post Residual Void - PVR CPT Code: 81188-Gawl Void Residual by ultrasound ([id number]) Time Spent (min) 25
== END 2023-09-11 14:00 | disposition home or self-care (01) ==
PROVIDERS: PCP Internal Medicine; Visit Provider Nurse Practitioner Family
DX: N39.46 Mixed incontinence (principal); N20.0 Calculus of kidney; R10.9 Unspecified abdominal pain; R30.0 Dysuria
CPT/HCPCS: 99214

== ENCOUNTER → 2023-09-11 13:16 | Outpatient (BNVA) | payer OTHER, SELFPAY | PROVIDERS: PCP Internal Medicine; Visit Provider Nurse Practitioner Family | DX: N20.0 Calculus of kidney (principal); N39.46 Mixed incontinence; R10.9 Unspecified abdominal pain; R30.0 Dysuria | CPT/HCPCS: 51798; 81003; 99212 ==

== ENCOUNTER 2023-10-05 10:14 | Outpatient (REF) | payer OTHER, SELFPAY ==
[2023-10-05 11:40] LABS: Alanine Aminotransferase 80 U/L (0-31); Albumin Level 3.7 g/dL (3.5-5.0); Alkaline Phosphatase 76 U/L (39-117); Anion Gap 13 (12-20); Aspartate Amino Transferase 42 U/L (5-31); Bilirubin Total 0.5 mg/dL (0.0-1.0); Blood Urea Nitrogen 16 mg/dL (9-16); Calcium 9.3 mg/dL (8.4-10.2); Carbon Dioxide 22 mmol/L (22-29); Chloride 111 mmol/L (96-108); Cholesterol 178 mg/dL (<200); Estimated Glomerular Filt Rate > 60; Glucose Fasting 117 mg/dL (60-99); HDL Cholesterol 46 mg/dL (>40); LDL Cholesterol Calculated 68 mg/dL (<100); Sodium 142 mmol/L (135-145); Total Protein 6.6 g/dL (6.5-8.0); Triglycerides 323 mg/dL (<150)
[2023-10-05 11:59] LABS: Vitamin D 25-OH Total 67.7 ng/mL (>30)
[2023-10-05 12:03] LABS: Folate 10.8 ng/mL (> or = 4.0); Vitamin B12 234 pg/mL (200-900)
[2023-10-05 12:10] LABS: Creatinine Urine 140.84 mg/dL; Microalbum/Creatinine Ratio Ur 7.1 ug/mg cr (<30)
[2023-10-08 09:48] LABS: TS Negative Control Passed; TS Panel A 0; TS Panel B 1; TS Positive Control Passed; TSpotTB Negative (Negative)
== END 2023-10-05 10:15 | disposition home or self-care (01) ==
LOC: HO.LAB 10:14
PROVIDERS: PCP Internal Medicine; Visit Provider Internal Medicine
DX: E55.9 Vitamin D deficiency, unspecified (principal); E78.5 Hyperlipidemia, unspecified; E53.8 Deficiency of other specified B group vitamins; Z11.1 Encounter for screening for respiratory tuberculosis
CPT/HCPCS: 36415; 80053; 80061; 82043; 82306; 82570; 82607; 82746; 86481

== ENCOUNTER 2023-10-16 10:40 | Outpatient (AMB) | payer OTHER, SELFPAY ==
--- NOTE | 2023-10-16 10:44 | A.OFFPC_ITS ---
Vital Signs 10/16/23 10:45 10/16/23 11:10 Height 5 ft Weight 200 lb BMI 39.1 BP 152/80 H 150/80 H Blood Pressure Location Lt brachial Lt brachial Position Sitting Sitting Intake Visit Reasons: dm Intake Note: Patient here for a follof up DM Manager Hardware Required: No Accompanied by: Self / Same As Patient Allergies Cortisone Allergy (Severe, Verified 10/16/23 10:58) pruritus, hives, swellin milk [MILK] Allergy (Severe, Verified 10/16/23 10:58) rash ibuprofen [IBUPROFEN] Allergy (Intermediate, Verified 10/16/23 10:58) swelling levofloxacin Allergy (Intermediate, Verified 10/16/23 10:58) pruritus metronidazole Allergy (Intermediate, Verified 10/16/23 10:58) pruritus peanut [PEANUT] Allergy (Intermediate, Verified 10/16/23 10:58) pruritus Penicillins [PENICILLINS] Allergy (Intermediate, Verified 10/16/23 10:58) Hives shellfish derived [SHELLFISH DERIVED] Allergy (Intermediate, Verified 10/16/23 10:58) rash, shortness of breath morphine [MORPHINE] Adverse Reaction (Severe, Verified 10/16/23 10:58) loss of consciousness, hypotension oatmeal Adverse Reaction (Intermediate, Verified 10/16/23 10:58) abdominal gas pain egg [EGG] Adverse Reaction (Mild, Verified 10/16/23 10:58) diarrheas, dizziness red meat Allergy (Intermediate, Uncoded 10/16/23 10:58) hand swelling Medication List - Last Reconciled 10/16/23 by Araceli Dawkins MD acetaminophen 0 mg PO albuterol sulfate 90 mcg/actuation 2 inhalations inhalation Q6H PRN albuterol sulfate 90 mcg/actuation inhalation alendronate 70 mg PO QWEEK amlodipine 10 mg PO DAILY 90 days aripiprazole 15 mg PO DAILY blood sugar diagnostic (OneTouch Ultra Test strips) test once daily blood-glucose meter (PelikonTouch Ultra2 Meter) test once daily buspirone 10 mg PO BID PRN carboxymethylcellulose sodium 0.5% (Lubricating Plus) 1 drp ophthalmic (eye) BID cholecalciferol (vitamin D3) (Vitamin D3) 25 mcg PO DAILY 90 days diazepam 5 mg PO BID PRN 30 days docusate sodium (Colace) 100 mg PO BID donepezil 10 mg PO BEDTIME 30 days fluticasone propionate 44 mcg/actuation (Flovent HFA) 1 puff inhalation BID hydralazine 10 mg PO TID 30 days hydrocortisone 2.5% (Anusol-HC) 1 appl VA BID-QID PRN hydrocortisone valerate 0.2% appl topical BID hydroxyzine HCl 25 mg PO TID hydroxyzine pamoate 50 mg PO DAILY PRN lancets (PelikonTouch UltraSoft 2 Lancet) test once daily lansoprazole 30 mg PO DAILY losartan 100 mg PO DAILY 90 days mecobalamin (vitamin B12) 500 mcg PO DAILY 90 days metoprolol tartrate 50 mg PO BID mirtazapine 7.5 mg PO BEDTIME paliperidone ER 9 mg PO DAILY paroxetine HCl 30 mg PO QAM pioglitazone 45 mg PO DAILY 90 days plecanatide (Trulance) 3 mg PO DAILY polyethylene glycol 3350 (Miralax) 17 grams PO BID rosuvastatin 40 mg PO DAILY 90 days sitagliptin phosphate (Januvia) 50 mg PO DAILY tretinoin 0.1% appl topical DAILY valacyclovir 1,000 mg PO BID 7 days zolpidem 10 mg PO BEDTIME 30 days Tobacco use date assessed: 06/12/23 Fall risk assessment: No Falls in past year Last assessed Fall Risk: 10/16/23 Dental Screening Dental Screen Date: 06/12/23 HPI HPI Comments History of Present Illness Details This is a 68-year-old female with diabetes mellitus type 2, hypertension, hyperlipidemia, schizophrenia and bipolar disorder that comes today for follow-up on her conditions. Walks with a cane for gait stability. A1c within goal. LDL within goal. Blood pressure borderline normal to elevated and I will increase hydralazine from 10 mg to 25 mg 3 times a day. Blood pressure will be recheck in 3 weeks by nurse navigator. Schizophrenia and bipolar disorder are follow by Psychiatry once a month and counseling and is somewhat stable with medications. Has occasional chest pain and EKG will be ordered. [facility] Medical History (Updated 10/16/23 @ 11:05 by Araceli Dawkins MD) Renal cyst H. 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 Dysplasia of cervix, low grade (JOSE JUAN 1) Vaginal pruritus Breast pain, left Schizophrenia Bipolar 1 disorder Obese Gout Essential hypertension Diabetes mellitus Fall Lumbar back pain Surgical History Hx of lithotripsy History of esophagogastroduodenoscopy (EGD) H/O colonoscopy History of eye surgery History of removal of cyst History of surgery History of hemicolectomy History of hand surgery Hx of bilateral breast reduction surgery Family History Father Lung cancer Diabetes Hypertension Mother Diabetes CVD (cardiovascular disease) Maternal Aunt Breast cancer Brother Colon cancer Paternal Grandmother Colon cancer Social History Housing: Apartment Alcohol intake: never Patient Tobacco Use Status: Never used Tobacco e-Cigarette/Vaping Use: Never Used Second Hand Smoke Exposure: No service: No Current occupational status: disabled Cognitive needs: Yes Hearing needs: No Vision needs: No Female Reproductive History Menstrual Age of Menarche: 13 Questionnaire PHQ-9 Over the last 2 weeks, how often have you been bothered by any of the following problems? 1. Little interest or pleasure in doing things: several days 2. Feeling down, depressed, or hopeless: several days 3. Trouble falling or staying asleep, or sleeping too much: several days 4. Feeling tired or having little energy: several days 5. Poor appetite or overeating: several days 6. Feeling bad about yourself - or that you are a failure or have let yourself or your family down: several days 7. Trouble concentrating on things, such as reading the newspaper or watching television: several days 8. Moving or speaking so slowly that other people could have noticed. Or the opposite - being so fidgety or restless that you have been moving around a lot more than usual: several days 9. Thoughts that you would be better off or of hurting yourself in some way: not at all Total score: 8 Depression Screening Interpretation: Positive Depression Screening Follow-up: Existing condition, In treatment, Community Mental Health Worker F/U and Follow- up Visit Requested Depression Screening Done: Yes 86036 - PHQ-9 Billing: Yes Source: Developed by Drs. Tony Cedeno, Maureen BFranky Bernard and colleagues, with an educational avni from [employer]. Thrive Questionnaire Date Thrive assessed: 06/12/23 MASSIEL-7 AMB Questionnaire MASSIEL-7 Date MASSIEL - 7 assessed: 06/12/23 Source: Developed by Drs. Tony Cedeno, Franky Jean and colleagues, with an educational avni from [employer]. Review of Systems Const All systems reviewed & are unremarkable except as noted in HPI and below Card Reports chest pain at rest, Denies chest pain with activity, Denies edema, Denies irregular heart rhythm, Denies claudication, Denies dyspnea, Denies dyspnea on exertion, Denies orthopnea, Denies paroxysmal nocturnal dyspnea and Denies slow heart rate Resp Denies cough, Denies dyspnea and Denies dyspnea on exertion GI Denies abdominal pain, Denies change in bowel habits, Denies excessive flatus, Denies nausea and Denies vomiting Denies urinary incontinence, Denies urinary hesitancy and Denies urinary urgency Physical exam (Primary Care) Vital Signs: Last Vital Signs BP 150/80 H 10/16/23 11:10 Care Plan Goal for BP management: Blood pressure will be recheck in 3 weeks by nurse navigator Next steps: Hydralazine was increased from 10 mg to 25 mg 3 times a day BMI result Body Mass Index 39.1 BMI Assessment/Plan discussion: High BMI High, discussed plan: lifestyle, weight reduction, dietary and physical activity Tobacco/Smoking Status: Tobacco use Status Tobacco use date assessed 06/12/23 10/16/23 10:58 Patient Tobacco Use Status Never used Tobacco 10/16/23 10:58 e-Cigarette/Vaping Use Never Used 10/16/23 10:58 Depression Screening Interpretation: Positive Depression Screening Follow-up: Existing condition, In treatment, Community Mental Health Worker F/U and Follow- up Visit Requested Thrive Assessment: Date of Thrive Assessment Date Thrive assessed 06/12/23 10/16/23 10:58 Const Limitations: ambulation with cane Resp Effort & Inspection: normal respiratory effort Auscultation: clear to auscultation bilaterally Cardio Jugular venous distension: no JVD Rate: regular rate Rhythm: regular rhythm Heart sounds: S1 normal heart sound present and S2 normal heart sound present Extrem General: Yes full ROM Results AMB Hemoglobin A1c AMB Hemoglobin A1c 6.5 % Last Edit by EMMIE Mujica on 10/16/23 11:0 1 Results Reviewed Results Reviewed: Laboratory Last Values Hgb A1c (Clinic) 6.5 % (4.0-6.0) H 10/16/23 10:44 Assessment and Plan Assessment & Plan (1) Diabetes mellitus: Code(s): E11.9 - Type 2 diabetes mellitus without complications Qualifiers: Diabetes mellitus type: type 2 Diabetes mellitus terminal operator insulin use: without terminal operator use Diabetes mellitus complication status: without complication Qualified Code(s): E11.9 - Type 2 diabetes mellitus without complications Plan: Continue Actos. A1c goal is equal or less than 7%. (2) Essential hypertension: Code(s): I10 - Essential (primary) hypertension Plan: Continue losartan and amlodipine. Increase hydralazine to 25 mg 3 times a day. Recheck blood pressure with nurse navigator in 3 weeks. Blood pressure goal is equal or less than 130/80. (3) Schizophrenia: Code(s): F20.9 - Schizophrenia, unspecified Qualifiers: Schizophrenia type: paranoid schizophrenia Qualified Code(s): F20.0 - Paranoid schizophrenia Plan: Continue Abilify. Follow-up with psychiatry. (4) Bipolar 1 disorder: Code(s): F31.9 - Bipolar disorder, unspecified Plan: Continue Abilify. Follow-up with psychiatry. (5) Hyperlipidemia LDL goal <70: Code(s): E78.5 - Hyperlipidemia, unspecified Plan: Continue statins. LDL goal is less than 70. Orders: Orders AMB Hemoglobin A1c Today E11.9 - Type 2 diabetes mellitus without complications ECG 12 lead EKG Today R07.9 - Chest pain, unspecified Vitamin D 25-OH Total 4 Months E55.9 - Vitamin D deficiency, unspecified Vitamin B12 and Folate 4 Months E53.8 - Deficiency of other specified B group vitamins Lipid Panel 4 Months E78.5 - Hyperlipidemia, unspecified Microalbumin, Random (w Creat) 4 Months E11.9 - Type 2 diabetes mellitus without complications Comprehensive Brutus. Panel Fast 4 Months E11.9 - Type 2 diabetes mellitus without complications Medications: New hydralazine 25 mg PO TID 90 days 270 tabs 1RF Refilled cholecalciferol (vitamin D3) (Vitamin D3) 25 mcg PO DAILY 90 days 90 tabs 1RF Discontinued hydralazine Discontinued Reason: Order 10 mg PO TID 30 days 90 tabs 2RF Coding Level of Care Code Est Pt Level 4 (67706) Complex EM visit Add On G2211 Diagnoses Type 2 diabetes mellitus without complication, without long-term current use of insulin E11.9 Diabetes mellitus type: type 2 Diabetes mellitus long-term insulin use: without terminal operator use Diabetes mellitus complication status: without complication Essential hypertension I10 Paranoid schizophrenia F20.0 Schizophrenia type: paranoid schizophrenia Bipolar 1 disorder F31.9 Hyperlipidemia LDL goal <70 E78.5 Time Spent (min) 23
[2023-10-16 10:45] VITALS: BP 152/80; BMI 39.1
[2023-10-16 11:10] VITALS: BP 150/80
== END 2023-10-16 11:12 | disposition home or self-care (01) ==
PROVIDERS: PCP Internal Medicine; Visit Provider Internal Medicine
DX: E11.9 Type 2 diabetes mellitus without complications (principal); I10 Essential (primary) hypertension; F20.0 Paranoid schizophrenia; F31.9 Bipolar disorder, unspecified; E78.5 Hyperlipidemia, unspecified
CPT/HCPCS: 83036; 99214; G2211

== ENCOUNTER 2023-10-23 09:16 | Outpatient (AMB) | payer OTHER, SELFPAY ==
[2023-10-23 10:17] VITALS: BP 132/80; PULSE 76; TEMP 36.6; O2SAT 97
--- NOTE | 2023-10-23 10:17 | AM.OFFWIN_ITS ---
Intake Vital Signs 10/23/23 10:17 Height 5 ft BP 132/80 Blood Pressure Location Rt brachial Position Sitting Pulse 76 Pulse Source Pulse Oximeter Temp 97.9 F Temp Source Temporal Artery Scan Pulse Oximetry (%) 97 Oxygen Delivery Method Room Air Intake Visit Reasons: EP RT arm/side pain Intake Note: pt is here for right arm with side pain with swollen arm Patient Tobacco Use Status: Never used Tobacco Allergies Cortisone Allergy (Severe, Verified 10/23/23 10:17) pruritus, hives, swellin milk [MILK] Allergy (Severe, Verified 10/23/23 10:17) rash ibuprofen [IBUPROFEN] Allergy (Intermediate, Verified 10/23/23 10:17) swelling levofloxacin Allergy (Intermediate, Verified 10/23/23 10:17) pruritus metronidazole Allergy (Intermediate, Verified 10/23/23 10:17) pruritus peanut [PEANUT] Allergy (Intermediate, Verified 10/23/23 10:17) pruritus Penicillins [PENICILLINS] Allergy (Intermediate, Verified 10/23/23 10:17) Hives shellfish derived [SHELLFISH DERIVED] Allergy (Intermediate, Verified 10/23/23 10:17) rash, shortness of breath morphine [MORPHINE] Adverse Reaction (Severe, Verified 10/23/23 10:17) loss of consciousness, hypotension oatmeal Adverse Reaction (Intermediate, Verified 10/23/23 10:17) abdominal gas pain egg [EGG] Adverse Reaction (Mild, Verified 10/23/23 10:17) diarrheas, dizziness red meat Allergy (Intermediate, Uncoded 10/16/23 10:58) hand swelling Do you need a note to return to daycare/school/sports/work: No HPI HPI Comments History of Present Illness Details 68 y/o female patient who presents to [facility] in clinic with c/o right sided upper arm pain for few days now. Describes the pain as radiating from the neck/shoulder down to the hand. Reports some swelling of the hand. Reports feeling muscle spasm, numbness and tingling of fingers. Denies injury or trauma. Pt reports h/o Lupus. [facility] Medical History Renal cyst H. 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 Dysplasia of cervix, low grade (JOSE JUAN 1) Vaginal pruritus Breast pain, left Schizophrenia Bipolar 1 disorder Obese Gout Essential hypertension Diabetes mellitus Fall Lumbar back pain Surgical History Hx of lithotripsy History of esophagogastroduodenoscopy (EGD) H/O colonoscopy History of eye surgery History of removal of cyst History of surgery History of hemicolectomy History of hand surgery Hx of bilateral breast reduction surgery Family History Father Lung cancer Diabetes Hypertension Mother Diabetes CVD (cardiovascular disease) Maternal Aunt Breast cancer Brother Colon cancer Paternal Grandmother Colon cancer Social History Housing: Apartment Alcohol intake: never Patient Tobacco Use Status: Never used Tobacco e-Cigarette/Vaping Use: Never Used Second Hand Smoke Exposure: No service: No Current occupational status: disabled Cognitive needs: Yes Hearing needs: No Vision needs: No Female Reproductive History Menstrual Age of Menarche: 13 Physical Exam Vital Signs: Last Vital Signs Temp 97.9 F 10/23/23 10:17 Pulse 76 10/23/23 10:17 BP 132/80 10/23/23 10:17 Pulse Ox 97 10/23/23 10:17 Oxygen Delivery Method Room Air 10/23/23 10:17 Const General: no acute distress; No comfortable Nutritional Appearance: obese Orientation/consciousness: patient oriented x3 Neuro General: patient oriented x3, gait normal and moves all extremities Extrem Right upper extremity: shoulder/upper arm Details: tenderness, swelling (MIld swelling right hand) and abnormal ROM Details: pain with active ROM and pain with passive ROM and Extremity exam: right hand Left upper extremity: hand Details: normal capillary refill, normal ROM of fingers (Slightly limited due to pain) and swelling; no ecchymosis Psych Speech and movement: Normal speech and movement present Assessment & Plan Assessment & Plan (1) Arthralgia of right upper arm: Code(s): M25.521 - Pain in right elbow Plan: Pt with multiple drug allergies, unable to prescribe NSAIDs or Muscle relaxants. Prescribed Acetaminophen for pain relief Ice/Hot Rest the joint. RTC if not better. Medications: New acetaminophen 1,000 mg (2 x 500 mg) PO Q6H PRN 30 caps 0RF pain M25.521 - Pain in right elbow Coding Level of Care Code Est Pt Level 3 (57541) Diagnoses Arthralgia of right upper arm M25.521 Time Spent (min) 15
== END 2023-10-23 11:22 | disposition home or self-care (01) ==
PROVIDERS: PCP Internal Medicine; Visit Provider Nurse Practitioner Family
DX: M25.521 Pain in right elbow (principal)
CPT/HCPCS: 99213

== ENCOUNTER 2023-11-17 09:59 | Outpatient (AMB) | payer OTHER, SELFPAY ==
--- NOTE | 2023-11-17 10:01 | MHC.OFFVIS ---
Vital Signs 11/17/23 10:02 Height 5 ft Weight 200 lb 9.93 oz BMI 39.2 BP 145/67 H Blood Pressure Location Lt radial Position Sitting Pulse 77 Intake Visit Reasons: 3-4 month follow up Intake Note: Monica presents in the office as a 3-4 month follow up. CC: She states that she is having constipation and nausea. Bloating in the stomach due to the constipation. Data Governance Analyst Required: Yes Allergies Cortisone Allergy (Severe, Verified 11/17/23 10:07) pruritus, hives, swellin milk [MILK] Allergy (Severe, Verified 11/17/23 10:07) rash ibuprofen [IBUPROFEN] Allergy (Intermediate, Verified 11/17/23 10:07) swelling levofloxacin Allergy (Intermediate, Verified 11/17/23 10:07) pruritus metronidazole Allergy (Intermediate, Verified 11/17/23 10:07) pruritus peanut [PEANUT] Allergy (Intermediate, Verified 11/17/23 10:07) pruritus Penicillins [PENICILLINS] Allergy (Intermediate, Verified 11/17/23 10:07) Hives shellfish derived [SHELLFISH DERIVED] Allergy (Intermediate, Verified 11/17/23 10:07) rash, shortness of breath morphine [MORPHINE] Adverse Reaction (Severe, Verified 11/17/23 10:07) loss of consciousness, hypotension oatmeal Adverse Reaction (Intermediate, Verified 11/17/23 10:07) abdominal gas pain egg [EGG] Adverse Reaction (Mild, Verified 11/17/23 10:07) diarrheas, dizziness red meat Allergy (Intermediate, Uncoded 11/17/23 10:07) hand swelling HPI HPI 3-4 month follow up: Details: 68 yr old f here for f/u RECAP: pt of? delilah ? H/O colon cancer- > 10 yrs? ago in [place] ? Diagnostic studies- ? 09/27/17- gastric? emptying study for nausea- normal- done in 3 hrs ? 03/2018- CT? and/pelvis- h/o abdominal pain- normal ? EGD/colonoscopy 2018- 2 small? polyps noted and removed, EGD with erythema h pylori pos ?she did get? treatment for h pylori in past h pylori ag was neg on? testing. ?EGD/colonoscopy 11/2018: gastritis, h pylori pos, hyperplastic? polyp, hyperplastic polyp rectum ? she was then treated with tinidazole? 250 mg TID for 14 d , omeprazole 20 mg bid for 2 weeks, bismuth 524 mg QID and? doxy 100 mg bid ?at f/o 01/2019 she was c/o LUQ pain with nausea,? constipation and was v hypertensive, was sent to ED for assessment, was able to? go home due to ongoing symptoms EGd,colonoscopy was repeated: EGD?colonoscopy: 06/2021 Endoscopy Findings: stomach polyps gastritis Colonoscopy Findings: polyp internal hemorrhoids melanosis coli Path: ? Chronic inactive duodenitis. severe chronic inflamamtion, h pylori pos hyperplastic stomach polyp melanosis coli I retried quadruple therapy but using flagyl (she denies allergy to this), and tetracycline she had KUB 03/22---constipation CT from thread inspector -- hepatic steatosis, kidney cyst EGD/Sigmoidoscopy; 12/2022 dilation esophagus and pylorus small internal hemorrhoids H pylori still present but not able to be cultured ? INTERIM: she still has nausea she has ongoing epigastric discomfort I did EGD 07/2023 with dilation and that helped her swallowing I sent samples for c/s for h pylori but unable to grow althoguh stain was pos in lab still taking PPI admits to ongoing anxiery, depression, family probs, alone EXAM: GENERAL: The patient is well developed and nontoxic,slightly flat affect VITAL SIGNS:see workflow HEENT: Nonicteric sclerae, PERRLA, EOMI. Oropharynx clear. Moist mucous membranes. Conjunctivae appear well perfused. No thyroid mass. CHEST: Chest wall is nontender. HEART: Regular rate and rhythm without murmurs. LUNGS: Clear to auscultation bilaterally. ABDOMEN: Soft, positive bowel sounds, tender epigastrium, no organomegaly.no flank tenderness SKIN: No rash, no excessive bruising, petechiae, or purpura. NEUROLOGIC: Cranial nerves II-XII intact without motor/sensory deficit. MS: normal A/P: 1/ h pylori pos with treatment with quadruple therapy, has co existing GERD, not responded to treatment regimens--PCN allergy--also hard to grow H pylori on specimens 2/ constipation 2/2 medications and age--helped by prunes 3/ dysphagia, related to 1/ above--improved with dilation PLAN: 1/ repeat EGD but hold PPI for 2 weeks before, can use tums, maalox, will resned samples for culture.sens 2/ re-refer allergy for PCN desensitization PFSH Medical History Renal cyst H. 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 Dysplasia of cervix, low grade (JOSE JUAN 1) Vaginal pruritus Breast pain, left Schizophrenia Bipolar 1 disorder Obese Gout Essential hypertension Diabetes mellitus Fall Lumbar back pain Surgical History Hx of lithotripsy History of esophagogastroduodenoscopy (EGD) H/O colonoscopy History of eye surgery History of removal of cyst History of surgery History of hemicolectomy History of hand surgery Hx of bilateral breast reduction surgery Family History Father Lung cancer Diabetes Hypertension Mother Diabetes CVD (cardiovascular disease) Maternal Aunt Breast cancer Brother Colon cancer Paternal Grandmother Colon cancer Social History Housing: Apartment Alcohol intake: never Patient Tobacco Use Status: Never used Tobacco e-Cigarette/Vaping Use: Never Used Second Hand Smoke Exposure: No service: No Current occupational status: disabled Cognitive needs: Yes Hearing needs: No Vision needs: No Female Reproductive History Menstrual Age of Menarche: 13 Physical Exam Vital Signs: Last Vital Signs Pulse 77 11/17/23 10:02 BP 145/67 H 11/17/23 10:02 BMI result Body Mass Index 39.2 Assessment & Plan Assessment & Plan (1) H. pylori infection: Code(s): A04.8 - Other specified bacterial intestinal infections Category: Medical Plan: see above Coding Level of Care Code Est Pt Level 3 (45999) Diagnoses H. pylori infection A04.8
[2023-11-17 10:02] VITALS: BP 145/67; PULSE 77; BMI 39.2
== END 2023-11-17 10:35 | disposition home or self-care (01) ==
PROVIDERS: PCP Internal Medicine; Visit Provider Internal Medicine Gastroenterology
DX: A04.8 Other specified bacterial intestinal infections (principal)
CPT/HCPCS: 99213

== ENCOUNTER → 2023-11-17 09:59 | Outpatient (BNVA) | payer OTHER, SELFPAY | PROVIDERS: PCP Internal Medicine; Visit Provider Internal Medicine Gastroenterology | DX: A04.8 Other specified bacterial intestinal infections (principal) | CPT/HCPCS: 99212 ==

== ENCOUNTER 2023-11-29 15:47 | Outpatient (AMB) | payer OTHER, SELFPAY ==
--- NOTE | 2023-11-29 16:17 | A.OFFPC_ITS ---
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 Accompanied by: Self / Same As Patient Allergies Cortisone Allergy (Severe, Verified 11/29/23 16:36) pruritus, hives, swellin milk [MILK] Allergy (Severe, Verified 11/29/23 16:36) rash ibuprofen [IBUPROFEN] Allergy (Intermediate, Verified 11/29/23 16:36) swelling levofloxacin Allergy (Intermediate, Verified 11/29/23 16:36) pruritus metronidazole Allergy (Intermediate, Verified 11/29/23 16:36) pruritus peanut [PEANUT] Allergy (Intermediate, Verified 11/29/23 16:36) pruritus Penicillins [PENICILLINS] Allergy (Intermediate, Verified 11/29/23 16:36) Hives shellfish derived [SHELLFISH DERIVED] Allergy (Intermediate, Verified 11/29/23 16:36) rash, shortness of breath morphine [MORPHINE] Adverse Reaction (Severe, Verified 11/29/23 16:36) loss of consciousness, hypotension oatmeal Adverse Reaction (Intermediate, Verified 11/29/23 16:36) abdominal gas pain egg [EGG] Adverse Reaction (Mild, Verified 11/29/23 16:36) diarrheas, dizziness red meat Allergy (Intermediate, Uncoded 11/29/23 16:36) hand swelling Medication List - Last Reconciled 11/29/23 by Araceli Dawkins MD acetaminophen 500 mg PO Q6H PRN albuterol sulfate 90 mcg/actuation 2 inhalations inhalation Q6H PRN albuterol sulfate 90 mcg/actuation inhalation alendronate 70 mg PO QWEEK amlodipine 10 mg PO DAILY 90 days aripiprazole 15 mg PO DAILY blood sugar diagnostic (OneTouch Ultra Test strips) test once daily blood-glucose meter (OneTouch Ultra2 Meter) test once daily buspirone 10 mg PO BID PRN carboxymethylcellulose sodium 0.5% (Lubricating Plus) 1 drp ophthalmic (eye) BID cholecalciferol (vitamin D3) (Vitamin D3) 25 mcg PO DAILY 90 days diazepam 5 mg PO BID PRN 30 days docusate sodium (Colace) 100 mg PO BID donepezil 10 mg PO BEDTIME 30 days fluticasone propionate 44 mcg/actuation (Flovent HFA) 1 puff inhalation BID hydralazine 25 mg PO TID 90 days hydrocortisone 2.5% (Anusol-HC) 1 appl IA BID-QID PRN hydrocortisone valerate 0.2% appl topical BID hydroxyzine pamoate 50 mg PO DAILY PRN lancets (OneTouch UltraSoft 2 Lancet) test once daily lansoprazole 30 mg PO DAILY losartan 100 mg PO DAILY 90 days mecobalamin (vitamin B12) 500 mcg PO DAILY 90 days metoprolol tartrate 50 mg PO BID mirtazapine 7.5 mg PO BEDTIME paliperidone ER 1.5 mg PO QAM paroxetine HCl 30 mg PO QAM pioglitazone 45 mg PO DAILY 90 days plecanatide (Trulance) 3 mg PO DAILY polyethylene glycol 3350 (Miralax) 17 grams PO BID rosuvastatin 40 mg PO DAILY 90 days sitagliptin phosphate (Januvia) 50 mg PO DAILY tretinoin 0.1% appl topical DAILY valacyclovir 1,000 mg PO BID 7 days zolpidem 10 mg PO BEDTIME 30 days Tobacco use date assessed: 06/12/23 Fall risk assessment: No Falls in past year Last assessed Fall Risk: 11/29/23 Dental Screening Dental Screen Date: 06/12/23 HPI HPI Comments History of Present Illness Details This is a 68-year-old female with diabetes mellitus type 2, hypertension, hyperlipidemia, schizophrenia and bipolar disorder that comes today for follow-up on her conditions. A1c within goal. Blood pressure elevated and will be recheck in 3 weeks. LDL within goal. Schizophrenia and bipolar disorder are stable with medications and follow by Psychiatry. Complains of headaches. Medications are given by METAL DIE FINISHER and she seems very confused on what she is taking. Complains of occasional chest pain located in the middle of the chest. [facility] Medical History (Updated 11/29/23 @ 19:23 by Araceli Dawkins MD) Large bowel obstruction Renal cyst H. 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 Dysplasia of cervix, low grade (JOSE JUAN 1) Vaginal pruritus Breast pain, left Schizophrenia Bipolar 1 disorder Obese Gout Essential hypertension Diabetes mellitus Fall Lumbar back pain Surgical History Hx of lithotripsy History of esophagogastroduodenoscopy (EGD) H/O colonoscopy History of eye surgery History of removal of cyst History of surgery History of hemicolectomy History of hand surgery Hx of bilateral breast reduction surgery Family History Father Lung cancer Diabetes Hypertension Mother Diabetes CVD (cardiovascular disease) Maternal Aunt Breast cancer Brother Colon cancer Paternal Grandmother Colon cancer Social History Housing: Apartment Alcohol intake: never Patient Tobacco Use Status: Never used Tobacco e-Cigarette/Vaping Use: Never Used Second Hand Smoke Exposure: No service: No Current occupational status: disabled Cognitive needs: Yes Hearing needs: No Vision needs: No Female Reproductive History Menstrual Age of Menarche: 13 Questionnaire Thrive Questionnaire Date Thrive assessed: 06/12/23 MASSIEL-7 AMB Questionnaire MASSIEL-7 Date MASSIEL - 7 assessed: 06/12/23 Source: Developed by Drs. Tony Cedeno, Maureen Davies, Franky Bryson and colleagues, with an educational avni from [email or web address]. Review of Systems Const All systems reviewed & are unremarkable except as noted in HPI and below Card Denies chest pain at rest, Denies chest pain with activity, Denies edema, Denies irregular heart rhythm, Denies claudication, Denies dyspnea, Denies dyspnea on exertion, Denies orthopnea, Denies paroxysmal nocturnal dyspnea and Denies slow heart rate Resp Denies cough, Denies dyspnea and Denies dyspnea on exertion GI Denies abdominal pain, Denies change in bowel habits, Denies excessive flatus, Denies nausea and Denies vomiting Physical exam (Primary Care) Vital Signs: Last Vital Signs BP 170/92 H 11/29/23 16:18 BMI result Body Mass Index 38.5 Tobacco/Smoking Status: Tobacco use Status Tobacco use date assessed 06/12/23 11/29/23 16:24 Patient Tobacco Use Status Never used Tobacco 11/29/23 16:24 e-Cigarette/Vaping Use Never Used 11/29/23 16:24 Thrive Assessment: Date of Thrive Assessment Date Thrive assessed 06/12/23 11/29/23 16:24 Resp Effort & Inspection: normal respiratory effort Auscultation: clear to auscultation bilaterally Cardio Jugular venous distension: no JVD Rate: regular rate Rhythm: regular rhythm Heart sounds: S1 normal heart sound present and S2 normal heart sound present Extrem General: Yes full ROM Assessment and Plan Assessment & Plan (1) Bipolar 1 disorder: Code(s): F31.9 - Bipolar disorder, unspecified Plan: Continue Abilify. Follow-up with psychiatry. (2) Schizophrenia: Code(s): F20.9 - Schizophrenia, unspecified Qualifiers: Schizophrenia type: paranoid schizophrenia Qualified Code(s): F20.0 - Paranoid schizophrenia Plan: Continue Abilify. Follow-up with psychiatry. 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 Continue Actos. Start Rybelsus. A1c goal is equal or less than 7% (4) Essential hypertension: Code(s): I10 - Essential (primary) hypertension Plan: Continue hydralazine and lisinopril. Restart amlodipine. Blood pressure goal is equal or less than 130/80. Recheck blood pressure with nurse navigator in 3 weeks. (5) Hyperlipidemia LDL goal <70: Code(s): E78.5 - Hyperlipidemia, unspecified Plan: Continue statins. LDL goal is less than 70. Orders: Orders Vitamin D 25-OH Total 4 Months E55.9 - Vitamin D deficiency, unspecified Comprehensive Castella. Panel Fast 4 Months I25.10 - Atherosclerotic heart disease of [place] coronary artery without angina pectoris Lipid Panel 4 Months E78.5 - Hyperlipidemia, unspecified Microalbumin, Random (w Creat) 4 Months E11.9 - Type 2 diabetes mellitus withou t complications Referrals Cardiology Referral I25.10 - Atherosclerotic heart disease of [place] coronary artery without angina pectoris Medications: New semaglutide (Rybelsus) 3 mg PO DAILY 30 tabs 0RF 30 days Refilled losartan 100 mg PO DAILY 90 tabs 1RF 90 days hydralazine 25 mg PO TID 270 tabs 1RF 90 days amlodipine 10 mg PO DAILY 90 tabs 2RF 90 days Discontinued sitagliptin phosphate (Januvia) Discontinued Reason: Patient Completed Course 50 mg PO DAILY 90 tabs 1RF Coding Level of Care Code Est Pt Level 4 (38037) Complex EM visit Add On G2211 Diagnoses Bipolar 1 disorder F31.9 Paranoid schizophrenia F20.0 Schizophrenia type: paranoid schizophrenia Type 2 diabetes mellitus without complication, without long-term current use of insulin E11.9 Diabetes mellitus type: type 2 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
[2023-11-29 16:18] VITALS: BP 170/92; BMI 38.5
== END 2023-11-29 17:20 | disposition home or self-care (01) ==
PROVIDERS: PCP Internal Medicine; Visit Provider Internal Medicine
DX: F31.9 Bipolar disorder, unspecified (principal); F20.0 Paranoid schizophrenia; E11.9 Type 2 diabetes mellitus without complications; I10 Essential (primary) hypertension; E78.5 Hyperlipidemia, unspecified
CPT/HCPCS: 99214; G2211

== ENCOUNTER 2023-12-28 10:51 | Day surgery (SDC) | payer OTHER, SELFPAY ==
[2023-12-28 11:44] VITALS: BP 160/71; PULSE 89; RESP 19; TEMP 36.9; O2SAT 97; BMI 39.3
[2023-12-28] MEDS: Lactated Ringers 1,000 ML 100 ML IVCONT (12:09)
[2023-12-28 12:14] LABS: Glucose, Whole Blood 170 mg/dL (60-115)
--- NOTE | 2023-12-28 12:15 | HO.ANESPROP2 ---
Documented by User: Arely Butts NP 12/27/23 09:06 HPI - Anesthesia Eval Consult details Narrative: 68yo F for Upper Endoscopy with Balloon Dilitation s/p EGD 07/2023 with MAC Anesthesia Pre-Procedure Meds Is the patient on any of the following meds?: GLP1/DPP4 PMFSH Active Problems Active Problems: All Active Problems CAD (coronary artery disease) (Acute) Chest pain (Acute) At high risk for fracture (Acute) Dysphagia (Acute) HPV in female (Acute) Chronic pain syndrome (Acute) Radiculopathy, lumbar region (Acute) Spondylosis of lumbar joint (Acute) Lumbar degenerative disc disease (Acute) Mixed incontinence urge and stress (Acute) Flank pain (Acute) Allergic reaction to penicillin (Acute) Left ear hearing loss (Acute) Back pain (Acute) Constipation by delayed colonic transit (Acute) Dysuria (Acute) Urinary incontinence (Acute) Urinary tract infection (Acute) Complicated urinary tract infection (Acute) Hepatic steatosis (Acute) Nephrolithiasis (Acute) Physical exam (Acute) Hematuria (Acute) JOSE JUAN III (cervical intraepithelial neoplasia grade III) with severe dysplasia (Acute) Hyperlipidemia LDL goal <70 (Acute) Abdominal wall mass of suprapubic region (Acute) Renal cyst (Acute) H. pylori infection (Acute) Pure hypercholesterolemia (Acute) Well woman exam (Acute) Menopause (Acute) Mass of abdomen does not move with respiration (Acute) ASCUS with positive high risk HPV cervical (Acute) Dysplasia of cervix, low grade (JOSE JUAN 1) (Acute) Osteopenia (Acute) Fatty infiltration of liver (Acute) Renal cyst (Acute) Epigastric abdominal pain (Acute) Hematochezia (Acute) Vaginal pruritus (Acute) Breast pain, left (Acute) Schizophrenia (Acute) Bipolar 1 disorder (Acute) Obese (Acute) Gout (Acute) Essential hypertension (Acute) Diabetes mellitus (Acute) Fall (Acute) Lumbar back pain (Acute) Past Medical History Medical History (Updated 11/29/23 @ 19:23 by Araceli Dawkins MD) Large bowel obstruction Renal cyst H. 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 Dysplasia of cervix, low grade (JOSE JUAN 1) Vaginal pruritus Breast pain, left Schizophrenia Bipolar 1 disorder Obese Gout Essential hypertension Diabetes mellitus Fall Lumbar back pain Family History Family History Father Lung cancer Diabetes Hypertension Mother Diabetes CVD (cardiovascular disease) Maternal Aunt Breast cancer Brother Colon cancer Paternal Grandmother Colon cancer Family history of problems with anesthesia: No Surgical History Surgical History Hx of lithotripsy History of esophagogastroduodenoscopy (EGD) H/O colonoscopy History of eye surgery History of removal of cyst History of surgery History of hemicolectomy History of hand surgery Hx of bilateral breast reduction surgery History of Problems with Anesthesia: No Social History Social History Housing: Apartment Alcohol intake: never Patient Tobacco Use Status: Never used Tobacco e-Cigarette/Vaping Use: Never Used Second Hand Smoke Exposure: No Are you DNR?: No Advance Directives: No Advance Directives Information Provided: Yes service: No Current occupational status: disabled Cognitive needs: Yes Hearing needs: No Vision needs: No Meds Allergies Allergy/AdvReac Type Severity Reaction Status Date / Time Cortisone Allergy Severe pruritus, Verified 11/29/23 16:36 hives, swellin milk [MILK] Allergy Severe rash Verified 11/29/23 16:36 ibuprofen [IBUPROFEN] Allergy Intermediate swelling Verified 11/29/23 16:36 levofloxacin Allergy Intermediate pruritus Verified 11/29/23 16:36 metronidazole Allergy Intermediate pruritus Verified 11/29/23 16:36 peanut [PEANUT] Allergy Intermediate pruritus Verified 11/29/23 16:36 Penicillins [PENICILLINS] Allergy Intermediate Hives Verified 11/29/23 16:36 shellfish derived Allergy Intermediate rash, Verified 11/29/23 16:36 [SHELLFISH DERIVED] shortness of breath morphine [MORPHINE] AdvReac Severe loss of Verified 11/29/23 16:36 consciousness, hypotension oatmeal AdvReac Intermediate abdominal Verified 11/29/23 16:36 gas pain egg [EGG] AdvReac Mild diarrheas, Verified 11/29/23 16:36 dizziness red meat Allergy Intermediate hand Uncoded 11/29/23 16:36 swelling Home Medications ?Medication ?Instructions ?Recorded ?Confirmed ?Last Taken ?Type aripiprazole 15 mg tablet 15 mg PO DAILY 05/14/21 11/29/23 Unknown History mirtazapine 7.5 mg tablet 7.5 mg PO BEDTIME 05/14/21 11/29/23 Unknown History buspirone 10 mg tablet 10 mg PO BID PRN anxiety 11/22/21 11/29/23 Unknown History tretinoin 0.1 % topical cream appl topical DAILY 07/13/22 11/29/23 Unknown History carboxymethylcellulose sodium 0.5 1 drp ophthalmic (eye) BID 11/14/22 11/29/23 Unknown History % eye drops in a dropperette (Lubricating Plus) hydrocortisone valerate 0.2 % appl topical BID 11/14/22 11/29/23 Unknown History topical cream paroxetine HCl 30 mg tablet 30 mg PO QAM 11/14/22 11/29/23 Unknown History albuterol sulfate 90 mcg/actuation inhalation 01/30/23 11/29/23 12/28/23 11:53 History aerosol inhaler hydroxyzine pamoate 50 mg capsule 50 mg PO DAILY PRN 10/16/23 11/29/23 Unknown History paliperidone 1.5 mg 1.5 mg PO QAM 11/17/23 11/29/23 Unknown History tablet,extended release 24 hr acetaminophen 500 mg tablet 500 mg PO Q6H PRN 11/29/23 11/29/23 Unknown History Exam Pertinent Lab Results Pertinent Lab Results: Laboratory Tests 07/28/21 10/05/23 10:52 10:30 WBC 6.4 Hgb 14.3 Hct 44.9 Plt Count 177 Sodium 142 Potassium 4.0 Chloride 111 H Carbon Dioxide 22 BUN 16 Creatinine 0.74 Assessment and Plan Assessment Anesthesia Assessment: Chart Reviewed Final Anesthetic Review Family History of Problems with Anesthesia: No History of Problems with Anesthesia: No Documented by User: Rylie Ruiz DO 12/28/23 12:19 HPI - Anesthesia Eval Anesthesia Pre-Procedure Meds Is the patient on any of the following meds?: GLP1/DPP4 [facility] Past Medical History Medical History (Updated 11/29/23 @ 19:23 by Araceli Dawkins MD) Large bowel obstruction Renal cyst H. 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 Dysplasia of cervix, low grade (JOSE JUAN 1) Vaginal pruritus Breast pain, left Schizophrenia Bipolar 1 disorder Obese Gout Essential hypertension Diabetes mellitus Fall Lumbar back pain Family History Family History Father Lung cancer Diabetes Hypertension Mother Diabetes CVD (cardiovascular disease) Maternal Aunt Breast cancer Brother Colon cancer Paternal Grandmother Colon cancer Family history of problems with anesthesia: No Surgical History Surgical History Hx of lithotripsy History of esophagogastroduodenoscopy (EGD) H/O colonoscopy History of eye surgery History of removal of cyst History of surgery History of hemicolectomy History of hand surgery Hx of bilateral breast reduction surgery History of Problems with Anesthesia: No Social History Social History Housing: Apartment Alcohol intake: never Patient Tobacco Use Status: Never used Tobacco e-Cigarette/Vaping Use: Never Used Second Hand Smoke Exposure: No Are you DNR?: No Advance Directives: No Advance Directives Information Provided: Yes service: No Current occupational status: disabled Cognitive needs: Yes Hearing needs: No Vision needs: No Meds Allergies Allergy/AdvReac Type Severity Reaction Status Date / Time Cortisone Allergy Severe pruritus, Verified 11/29/23 16:36 hives, swellin milk [MILK] Allergy Severe rash Verified 11/29/23 16:36 ibuprofen [IBUPROFEN] Allergy Intermediate swelling Verified 11/29/23 16:36 levofloxacin Allergy Intermediate pruritus Verified 11/29/23 16:36 metronidazole Allergy Intermediate pruritus Verified 11/29/23 16:36 peanut [PEANUT] Allergy Intermediate pruritus Verified 11/29/23 16:36 Penicillins [PENICILLINS] Allergy Intermediate Hives Verified 11/29/23 16:36 shellfish derived Allergy Intermediate rash, Verified 11/29/23 16:36 [SHELLFISH DERIVED] shortness of breath morphine [MORPHINE] AdvReac Severe loss of Verified 11/29/23 16:36 consciousness, hypotension oatmeal AdvReac Intermediate abdominal Verified 11/29/23 16:36 gas pain egg [EGG] AdvReac Mild diarrheas, Verified 11/29/23 16:36 dizziness red meat Allergy Intermediate hand Uncoded 11/29/23 16:36 swelling Home Medications ?Medication ?Instructions ?Recorded ?Confirmed ?Last Taken ?Type aripiprazole 15 mg tablet 15 mg PO DAILY 05/14/21 11/29/23 Unknown History mirtazapine 7.5 mg tablet 7.5 mg PO BEDTIME 05/14/21 11/29/23 Unknown History buspirone 10 mg tablet 10 mg PO BID PRN anxiety 11/22/21 11/29/23 Unknown History tretinoin 0.1 % topical cream appl topical DAILY 07/13/22 11/29/23 Unknown History carboxymethylcellulose sodium 0.5 1 drp ophthalmic (eye) BID 11/14/22 11/29/23 Unknown History % eye drops in a dropperette (Lubricating Plus) hydrocortisone valerate 0.2 % appl topical BID 11/14/22 11/29/23 Unknown History topical cream paroxetine HCl 30 mg tablet 30 mg PO QAM 11/14/22 11/29/23 Unknown History albuterol sulfate 90 mcg/actuation inhalation 01/30/23 11/29/23 12/28/23 11:53 History aerosol inhaler hydroxyzine pamoate 50 mg capsule 50 mg PO DAILY PRN 10/16/23 11/29/23 Unknown History paliperidone 1.5 mg 1.5 mg PO QAM 11/17/23 11/29/23 Unknown History tablet,extended release 24 hr acetaminophen 500 mg tablet 500 mg PO Q6H PRN 11/29/23 11/29/23 Unknown History Exam Exam Date and Time: 12/28/23 1215 Height,Weight and Vital Signs: Height 5 ft Weight 91.231 kg Vital Signs Temperature 98.5 F 12/28/23 11:44 Pulse Rate 89 12/28/23 11:44 Respiratory Rate 12/28/23 11:44 Blood Pressure 160/71 H 12/28/23 11:44 Pulse Oximetry 97 12/28/23 11:44 Oxygen Delivery Method Room Air 12/28/23 11:44 Temperature 98.5 F 12/28/23 11:44 Pulse Rate 89 12/28/23 11:44 Respiratory Rate 12/28/23 11:44 Blood Pressure 160/71 H 12/28/23 11:44 Pulse Oximetry 97 12/28/23 11:44 Oxygen Delivery Method Room Air 12/28/23 11:44 Airway Mallampati Class: II TM Dist: >3cm Neck ROM: Full Loose/Missing/Broken Teeth: Yes (a few missing teeth but patient denies any loose or broken teeth) Heart: S1S2 Lungs: CTAB Assessment and Plan Assessment Anesthesia Assessment: Anesthesia Plan Discussed and Chart Reviewed Final Anesthetic Review Family History of Problems with Anesthesia: No History of Problems with Anesthesia: No NPO: Yes ASA Class: III Final Preanesthetic Review: No Changes in Pt Med Stat, Meds/Allgs Chart Reviewed, Consent Obtained/Reviewed and Anes Risks/Benef Reviewed Patient Risk: Intermediate Procedure Risk: Low Anesthetic Plan Anesthetic Plan: MAC: Disposition: Standard PACU
--- NOTE | 2023-12-28 12:25 | P.HPSUR_ITS ---
Pre-Procedural Eval Section A - 24 Hr Update-Section A only Date of Service: 12/28/23 Section B - Complete if H&P > 30 days Chief Complaint: bacterial intestinal infections,dysphaghia Relevant Social History: None Present Medications: see Short Stay Collaborative assessment Medical History: Significant History History of Previous Operations: Relevant previous surgery/procedure and date(s) Allergies: Allergies Allergy/AdvReac Type Severity Reaction Status Date / Time Cortisone Allergy Severe pruritus, Verified 11/29/23 16:36 hives, swellin milk [MILK] Allergy Severe rash Verified 11/29/23 16:36 ibuprofen [IBUPROFEN] Allergy Intermediate swelling Verified 11/29/23 16:36 levofloxacin Allergy Intermediate pruritus Verified 11/29/23 16:36 metronidazole Allergy Intermediate pruritus Verified 11/29/23 16:36 peanut [PEANUT] Allergy Intermediate pruritus Verified 11/29/23 16:36 Penicillins [PENICILLINS] Allergy Intermediate Hives Verified 11/29/23 16:36 shellfish derived Allergy Intermediate rash, Verified 11/29/23 16:36 [SHELLFISH DERIVED] shortness of breath morphine [MORPHINE] AdvReac Severe loss of Verified 11/29/23 16:36 consciousness, hypotension oatmeal AdvReac Intermediate abdominal Verified 11/29/23 16:36 gas pain egg [EGG] AdvReac Mild diarrheas, Verified 11/29/23 16:36 dizziness red meat Allergy Intermediate hand Uncoded 11/29/23 16:36 swelling Review of Systems Sugical H&P ROS: Negative: Constitution, Cardiovascular, Respiratory, Neurological, Psychiatric, Hem-Onc, Allergic/Immunologic, Gastrointestinal, Genitourinary, Musculoskeletal, Integumentary, Endocrine and Eyes/Ears/Nose/T hroat Exam Surgical H&P Exam: Normal: HEENT, Normal: Heart, Normal: Lungs, Normal: Extremities, Normal: Abdomen, Normal: Skin and Normal: Neurological Plan Diagnosis/Plan: Unchanged I have reviewed the history and physical and performed a pertinent physical examination on my patient. No changes have occurred unless specified. Time Spent With Patient Time: Total time managing care of this patient today ____ minutes.
--- NOTE | 2023-12-28 12:43 | P.OP_ITS ---
Operative Note Operative Note Date of Service: 12/28/23 Narrative: Procedure Description: EGD Indication: h pylori Anesthesia: MAC FLEXIBLE TRANSORAL UPPER GASTROINTESTINAL ENDOSCOPY UPPER ENDOSCOPY Consent: Indications for the procedure and potential complications of bleeding, perforation, reaction to medications and missed diagnosis were discussed with the patient and informed consent was obtained. Instrument: Olympus GIF H 190 J mid size upper endoscope Monitoring: Vital signs and clinical assessment, continuous EKG monitoring, Pulse oximetry, Carbon Dioxide monitoring and blood pressure monitoring were done throughout the procedure. Procedure: The patient was placed in the left lateral decubitis position and pre-procedure medications were administered and a bite block was placed. The endoscope was inserted into the mouth and advanced under direct vision to the third part of duodenum. A careful inspection was made as the upper endoscope was withdrawn including a retroflexed examination of the proximal stomach; Findings and interventions are described below. Findings: Larynx:normal Esophagus: GE junction at 37? cm, diaphragm hiatus at 37 cm, irregular Z line- possible short segment barretts, bx taken Stomach: Patchy erythema with erosion in the pre pyloric area. Biopsies were obtained for culture. Grade 2 flap valve on retroflexed examination of the cardia. Duodenum: Normal bulb and descending duodenum, Intervention: Biopsies as noted above, -bx also taken for H pylori culture Impression/Findings: gastritis irregular Z line -possible short segment barretts PLAN: await culture results GERD precautions restart lansoprazole
[2023-12-28 12:50] VITALS: BP 120/74; PULSE 69; RESP 16; TEMP 36.2; O2SAT 94
[2023-12-28 13:05] VITALS: BP 108/55; PULSE 82; RESP 18; TEMP 36.5; O2SAT 97
== END 2023-12-28 13:58 | disposition home or self-care (01) ==
PROVIDERS: PCP Internal Medicine; Visit Provider Internal Medicine Gastroenterology
PROC: (CPT 43239; principal; 2023-12-28 13:20)
DX: R13.10 Dysphagia, unspecified (principal); A04.8 Other specified bacterial intestinal infections; K29.70 Gastritis, unspecified, without bleeding; K22.89 Other specified disease of esophagus; K44.9 Diaphragmatic hernia without obstruction or gangrene; K21.9 Gastro-esophageal reflux disease without esophagitis; I10 Essential (primary) hypertension; E78.00 Pure hypercholesterolemia, unspecified; E11.9 Type 2 diabetes mellitus without complications; M10.9 Gout, unspecified; F20.9 Schizophrenia, unspecified; E66.9 Obesity, unspecified; Z68.39 Body mass index [BMI] 39.0-39.9, adult; Z79.899 Other long term (current) drug therapy; Z88.6 Allergy status to analgesic agent; Z88.0 Allergy status to penicillin; Z88.1 Allergy status to other antibiotic agents; Z88.5 Allergy status to narcotic agent; Z91.012 Allergy to eggs; Z91.011 Allergy to milk products; Z91.010 Allergy to peanuts; Z91.013 Allergy to seafood; Z90.49 Acquired absence of other specified parts of digestive tract; Z98.890 Other specified postprocedural states; Z87.442 Personal history of urinary calculi
CPT/HCPCS: 43239; 82947; 87081; 87205; 88305; 88313; J2704

== ENCOUNTER → 2023-12-28 10:51 | Outpatient (BNV) | payer OTHER, SELFPAY | PROVIDERS: PCP Internal Medicine; Visit Provider Internal Medicine Gastroenterology | DX: K29.70 Gastritis, unspecified, without bleeding (principal); K20.90 Esophagitis, unspecified without bleeding; A04.8 Other specified bacterial intestinal infections | CPT/HCPCS: 43239 ==

== ENCOUNTER 2024-02-07 07:48 | Outpatient (REF) | payer OTHER, SELFPAY ==
--- NOTE | 2024-02-07 08:52 | ECG_ITS ---
Test Reason : pre op Blood Pressure : / mmHG Vent. Rate : 063 BPM Atrial Rate : 063 BPM P-R Int : 168 ms QRS Dur : 098 ms QT Int : 428 ms P-R-T Axes : 052 015 009 degrees QTc Int : 437 ms Normal sinus rhythm Normal ECG When compared with ECG of 10-FEB-2022 10:50, No significant change was found Referred By: Alison Bourne Electronically Signed By:CORONA BRADLEY MD
[2024-02-07 10:36] LABS: Alanine Aminotransferase 100 U/L (0-31); Albumin Level 3.9 g/dL (3.5-5.0); Alkaline Phosphatase 96 U/L (39-117); Anion Gap 10 (12-20); Aspartate Amino Transferase 89 U/L (5-31); Bilirubin Total 0.5 mg/dL (0.0-1.0); Blood Urea Nitrogen 14 mg/dL (9-16); Calcium 9.9 mg/dL (8.4-10.2); Carbon Dioxide 29 mmol/L (22-29); Chloride 108 mmol/L (96-108); Cholesterol 155 mg/dL (<200); Estimated Glomerular Filt Rate > 60; Glucose Fasting 120 mg/dL (60-99); HDL Cholesterol 55 mg/dL (>40); LDL Cholesterol Calculated 67 mg/dL (<100); Potassium 4.1 mmol/L (3.3-5.1); Sodium 143 mmol/L (135-145); Total Protein 6.9 g/dL (6.5-8.0); Triglycerides 169 mg/dL (<150)
[2024-02-07 10:37] LABS: Creatinine Urine 277.82 mg/dL; Microalbum/Creatinine Ratio Ur 36.7 ug/mg cr (<30)
[2024-02-07 11:02] LABS: Folate 11.7 ng/mL (> or = 4.0); Vitamin B12 285 pg/mL (200-900)
== END 2024-02-07 07:49 | disposition home or self-care (01) ==
LOC: HO.LAB 07:48
PROVIDERS: Absent Provider Internal Medicine; PCP Internal Medicine
DX: Z01.818 Encounter for other preprocedural examination (principal); Z00.00 Encounter for general adult medical examination without abnormal findings; E55.9 Vitamin D deficiency, unspecified; E11.9 Type 2 diabetes mellitus without complications; E78.5 Hyperlipidemia, unspecified; E53.8 Deficiency of other specified B group vitamins; I10 Essential (primary) hypertension; Z79.4 Long term (current) use of insulin
CPT/HCPCS: 36415; 80053; 80061; 82043; 82306; 82570; 82607; 82746; 83036; 93005; 99212

== ENCOUNTER 2024-02-07 07:48 | Outpatient (AMB) | payer OTHER, SELFPAY ==
[2024-02-07 07:58] VITALS: BP 144/72; PULSE 70; O2SAT 98; BMI 38.1
--- NOTE | 2024-02-07 07:58 | A.OFFPC_ITS ---
Vital Signs 02/07/24 07:58 02/07/24 08:37 Height 5 ft Weight 195 lb BMI 38.1 BP 144/72 H 146/82 H Blood Pressure Location Lt brachial Lt brachial Position Sitting Sitting Pulse 70 Pulse Source Pulse Oximeter Pulse Oximetry (%) 98 Oxygen Delivery Method Room Air Intake Visit Reasons: [facility] 02/14 upper eye lid surgery Intake Note: Patient is here for a Pre-op for eyelid surgery scheduled with Dr. Rahul Srivastava on 02/15/24 Natural Resources Manager Required: Yes Natural Resources Manager Language: Maldivian Allergies Cortisone Allergy (Severe, Verified 02/07/24 08:20) pruritus, hives, swellin milk [MILK] Allergy (Severe, Verified 02/07/24 08:20) rash ibuprofen [IBUPROFEN] Allergy (Intermediate, Verified 02/07/24 08:20) swelling levofloxacin Allergy (Intermediate, Verified 02/07/24 08:20) pruritus metronidazole Allergy (Intermediate, Verified 02/07/24 08:20) pruritus peanut [PEANUT] Allergy (Intermediate, Verified 02/07/24 08:20) pruritus Penicillins [PENICILLINS] Allergy (Intermediate, Verified 02/07/24 08:20) Hives shellfish derived [SHELLFISH DERIVED] Allergy (Intermediate, Verified 02/07/24 08:20) rash, shortness of breath morphine [MORPHINE] Adverse Reaction (Severe, Verified 02/07/24 08:20) loss of consciousness, hypotension oatmeal Adverse Reaction (Intermediate, Verified 02/07/24 08:20) abdominal gas pain egg [EGG] Adverse Reaction (Mild, Verified 02/07/24 08:20) diarrheas, dizziness red meat Allergy (Intermediate, Uncoded 02/07/24 08:20) hand swelling Medication List - Last Reconciled 02/07/24 by Alison Bourne PA-C acetaminophen 500 mg PO Q6H PRN albuterol sulfate 90 mcg/actuation 2 inhalations inhalation Q6H PRN albuterol sulfate 90 mcg/actuation inhalation alendronate 70 mg PO QWEEK amlodipine 10 mg PO DAILY 90 days aripiprazole 15 mg PO DAILY blood sugar diagnostic (Bright[employer] SoftwareTouch Ultra Test strips) test once daily blood-glucose meter ([employer] Ultra2 Meter) test once daily buspirone 10 mg PO BID PRN carboxymethylcellulose sodium 0.5% (Lubricating Plus) 1 drp ophthalmic (eye) BID cholecalciferol (vitamin D3) (Vitamin D3) 25 mcg PO DAILY 90 days diazepam 5 mg PO BID PRN 30 days docusate sodium (Colace) 100 mg PO BID donepezil 10 mg PO BEDTIME 30 days fluticasone propionate 44 mcg/actuation (Flovent HFA) 1 puff inhalation BID hydralazine 25 mg PO TID 90 days hydrocortisone 2.5% (Anusol-HC) 1 appl [place] BID-QID PRN hydrocortisone valerate 0.2% appl topical BID hydroxyzine pamoate 50 mg PO DAILY PRN lancets (B[employer]Touch UltraSoft 2 Lancet) test once daily lansoprazole 30 mg PO DAILY losartan 100 mg PO DAILY 90 days mecobalamin (vitamin B12) 500 mcg PO DAILY 90 days metoprolol tartrate 50 mg PO BID mirtazapine 7.5 mg PO BEDTIME paliperidone ER 1.5 mg PO QAM paroxetine HCl 30 mg PO QAM pioglitazone 45 mg PO DAILY 90 days plecanatide (Trulance) 3 mg PO DAILY rosuvastatin 40 mg PO DAILY 90 days semaglutide (Rybelsus) 3 mg PO DAILY 30 days tretinoin 0.1% appl topical DAILY valacyclovir 1,000 mg PO BID 7 days zolpidem 10 mg PO BEDTIME 30 days Tobacco use date assessed: 06/12/23 Dental Screening Dental Screen Date: 06/12/23 HPI [facility] 02/14 upper eye lid surgery HPI Details 68-year-old female past history of diabe marni mellitus, hypertension, hyperlipidemia, schizophrenia, and bipolar disorder last seen by Dr. Mcintosh coming in for preoperative visit.?Patient is scheduled to have upper eyelid surgery with [facility] 02/15/2024. No history of CVA, CHF did report having NV in 2012. Scheduled to see Cardiology next month previously seen by [facility]. Diabetes mellitus: A1c 6.6% today at goal for patient. Currently on semaglutide and pioglitazone. Hypertension: Blood pressure mildly elevated today 146/82. Currently on metoprolol, hydralazine, losartan, amlodipine. [facility] Medical History Large bowel obstruction Renal cyst H. 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 Dysplasia of cervix, low grade (JOSE JUAN 1) Vaginal pruritus Breast pain, left Schizophrenia Bipolar 1 disorder Obese Gout Essential hypertension Diabetes mellitus Fall Lumbar back pain Surgical History Hx of lithotripsy History of esophagogastroduodenoscopy (EGD) H/O colonoscopy History of eye surgery History of removal of cyst History of surgery History of hemicolectomy History of hand surgery Hx of bilateral breast reduction surgery Family History Father Lung cancer Diabetes Hypertension Mother Diabetes CVD (cardiovascular disease) Maternal Aunt Breast cancer Brother Colon cancer Paternal Grandmother Colon cancer Social History Housing: Apartment Alcohol intake: never Patient Tobacco Use Status: Never used Tobacco e-Cigarette/Vaping Use: Never Used Second Hand Smoke Exposure: No service: No Current occupational status: disabled Cognitive needs: Yes Hearing needs: No Vision needs: No Female Reproductive History Menstrual Age of Menarche: 13 Questionnaire Thrive Questionnaire Date Thrive assessed: 06/12/23 Are you currently unemployed and looking for a job?: No AUDIT C Alcohol Use Questionnaire (AUDIT-C) 1. How often do you have a drink containing alcohol?: Never 3. How often do you have six or more drinks on one occasion?: Never Total Score: 0 MASSIEL-7 AMB Questionnaire MASSIEL-7 Date MASSIEL - 7 assessed: 06/12/23 Source: Developed by Drs. Tony Cedeno, Maureen Davies, Franky Bryson and colleagues, with an educational avni from [employer]. Review of Systems Const Denies body aches, Denies chills, Denies fever(s), Denies headache(s) and Denies poor appetite Eyes Reports no additional complaints ENT Denies dysphagia, Denies dizziness, Denies headache(s) and Denies odynophagia Card Denies chest pain, Denies syncope, Denies edema, Denies irregular heart rhythm, Denies lightheadedness and Denies dyspnea Resp Denies cough and Denies dyspnea GI Reports abdominal pain (Chronic epigastric), Denies constipation, Denies dysphagia, Denies diarrhea, Reports nausea, Denies odynophagia and Denies vomiting Reports no additional complaints Musc Reports no additional complaints and Denies abnormal gait Skin/Breast Reports system reviewed and no additional complaints, except as documented Neuro Denies abnormal gait, Denies dizziness, Denies syncope and Denies headache(s) Psych Reports no additional complaints Physical exam (Primary Care) Vital Signs: Last Vital Signs Pulse 70 02/07/24 07:58 BP 144/72 H 02/07/24 07:58 Pulse Ox 98 02/07/24 07:58 Oxygen Delivery Method Room Air 02/07/24 07:58 BMI result Body Mass Index 38.1 Tobacco/Smoking Status: Tobacco use Status Tobacco use date assessed 06/12/23 02/07/24 07:59 Patient Tobacco Use Status Never used Tobacco 02/07/24 07:59 e-Cigarette/Vaping Use Never Used 02/07/24 07:59 Thrive Assessment: Date of Thrive Assessment Date Thrive assessed 06/12/23 02/07/24 07:59 Const General: cooperative, healthy appearing, comfortable and no acute distress Orientation/consciousness: patient oriented x3 HENMT Head: Yes normocephalic Ears: hearing grossly normal bilaterally General nose exam: Normal external nose present Eyes General: appearance normal, both eyes and all related structures Conjunctivae: conjunctivae normal Neck Neck: Yes full ROM and Yes no lymphadenopathy Resp Effort & Inspection: normal respiratory effort Auscultation: clear to auscultation bilaterally, no crackles, no rales, no rhonchi and no wheezes Cardio Rate: regular rate Rhythm: regular rhythm GI Palpation (GI): Soft to palpation, not firm, Tenderness to palpation present (GI) in the epigastrum, no guarding and not rigid Skin General skin exam: no rashes or lesions noted Neuro General: patient oriented x3 Gait exam (Neuro): Normal gait present Extrem General: Yes normal to inspection, Yes full ROM and No edema Psych Affect: normal affect Attitude: cooperative Insight: Good insight present (Psych) Judgement: Good judgement present (Psych) Results AMB Hemoglobin A1c AMB Hemoglobin A1c 6.6 % Last Edit by EMMIE Prajapati on 02/07/24 08:22 Coding Level of Care Code Est Pt Level 4 (16977) Diagnoses Hyperlipidemia LDL goal <70 E78.5 Essential hypertension I10 Type 2 diabetes mellitus without complication, without long-term current use of insulin E11.9 Diabetes mellitus type: type 2 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 Triglyceride goal of less than 150 and LDL goal of less than 70. Continue on rosuvastatin. (2) Essential hypertension: Code(s): I10 - Essential (primary) hypertension Category: Medical Plan: Blood pressure mildly elevated today 146/82. Continue on current medication regimen and encouraged healthy diet and regular exercise. (3) Diabetes mellitus: Code(s): E11.9 - Type 2 diabetes mellitus without complications Category: Medical Qualifiers: Diabetes mellitus type: type 2 Diabetes mellitus chcf insulin use: without termite exterminator use Diabetes mellitus complication status: without complication Qualified Code(s): E11.9 - Type 2 diabetes mellitus without complications Plan: Decrease the amount of carbohydrates such as pasta, bread, rice, and potatoes and limit the amount of sweets. Although fruits are generally healthy they should be eaten in moderation as they are still high in sugar. Hemoglobin A1c goal of less than 7%. A1c at 6.6% today. Continue on pioglitazone and semaglutide. (4) Pre-op evaluation: Code(s): Z01.818 - Encounter for other preprocedural examination Category: Medical Plan: Regarding preop clearance, the patient is at moderate risk for proposed surgery due to age and comorbidities which are well managed at this time. Reviewed with the patient that no surgery is completely free of risk and that this examination is to assist the surgeon in reviewing informed consent. CBC, CMP, and EKG were ordered to be completed by the patient. Clearance pending these results and we will add addendum to note once results are received. Advised patient to discontinue semaglutide injection 1 week prior to surgery and avoid NSAIDs 7 days prior to surgery. Advised patient to stop taking medications day before surgery and to take only blood pressure medications in the morning of the procedure. All questions were answered and patient understands preoperative instructions. Plan This note was constructed using voice recognition software. While every effort has been made to ensure accuracy and type rolling machine operator, still areas may have been included sometimes these areas may affect the content or meeting of the given symptoms. Total time spent caring for the patient today was 30 minutes. This includes time spent before the visit reviewing the chart, time spent during the visit, and time spent after the visit and documentation. Orders: Orders ECG 12 lead EKG Today Z01.818 - Encounter for other preprocedural examination AMB Hemoglobin A1c Today E11.9 - Type 2 diabetes mellitus without complications Complete Blood Count Auto Diff Today Z00.00 - Encounter for general adult medical examination without abnormal findings Comprehensive Met. Panel Today Z00.00 - Encounter for general adult medical examination without abnormal findings
[2024-02-07 08:37] VITALS: BP 146/82
== END 2024-02-07 08:52 | disposition home or self-care (01) ==
PROVIDERS: PCP Internal Medicine
DX: E78.5 Hyperlipidemia, unspecified (principal); I10 Essential (primary) hypertension; E11.9 Type 2 diabetes mellitus without complications; Z01.818 Encounter for other preprocedural examination

== ENCOUNTER → 2024-02-07 08:52 | Outpatient (BNV) | payer OTHER, SELFPAY | PROVIDERS: Absent Provider Internal Medicine; PCP Internal Medicine; Visit Provider Internal Medicine Cardiovascular Disease | DX: Z01.810 Encounter for preprocedural cardiovascular examination (principal) | CPT/HCPCS: 93010 ==

== ENCOUNTER 2024-03-13 08:39 | Outpatient (AMB) | payer OTHER, SELFPAY ==
--- NOTE | 2024-03-13 08:48 | A.OFFPC_ITS ---
Vital Signs 03/13/24 08:50 Height 5 ft Weight 196 lb BMI 38.3 BP 158/92 H Blood Pressure Location Lt brachial Position Sitting Intake Visit Reasons: pe Intake Note: Patient here for a physical exam Pharmacy Resource Tech Required: No Accompanied by: Self / Same As Patient Allergies Cortisone Allergy (Severe, Verified 03/13/24 09:16) pruritus, hives, swellin milk [MILK] Allergy (Severe, Verified 03/13/24 09:16) rash ibuprofen [IBUPROFEN] Allergy (Intermediate, Verified 03/13/24 09:16) swelling levofloxacin Allergy (Intermediate, Verified 03/13/24 09:16) pruritus metronidazole Allergy (Intermediate, Verified 03/13/24 09:16) pruritus peanut [PEANUT] Allergy (Intermediate, Verified 03/13/24 09:16) pruritus Penicillins [PENICILLINS] Allergy (Intermediate, Verified 03/13/24 09:16) Hives shellfish derived [SHELLFISH DERIVED] Allergy (Intermediate, Verified 03/13/24 09:16) rash, shortness of breath morphine [MORPHINE] Adverse Reaction (Severe, Verified 03/13/24 09:16) loss of consciousness, hypotension oatmeal Adverse Reaction (Intermediate, Verified 03/13/24 09:16) abdominal gas pain egg [EGG] Adverse Reaction (Mild, Verified 03/13/24 09:16) diarrheas, dizziness red meat Allergy (Intermediate, Uncoded 03/13/24 09:16) hand swelling Medication List - Last Reconciled 03/13/24 by Araceli Dawkins MD acetaminophen 500 mg PO Q6H PRN albuterol sulfate 90 mcg/actuation 2 inhalations inhalation Q6H PRN albuterol sulfate 90 mcg/actuation inhalation alendronate 70 mg PO QWEEK amlodipine 10 mg PO DAILY 90 days aripiprazole 15 mg PO DAILY blood sugar diagnostic (Liquid Health LabsTouch Ultra Test strips) test once daily blood-glucose meter (Liquid Health LabsTouch Ultra2 Meter) test once daily buspirone 10 mg PO BID PRN carboxymethylcellulose sodium 0.5% (Lubricating Plus) 1 drp ophthalmic (eye) BID cholecalciferol (vitamin D3) (Vitamin D3) 25 mcg PO DAILY 90 days diazepam 5 mg PO BID PRN 30 days docusate sodium (Colace) 100 mg PO BID donepezil 10 mg PO BEDTIME 30 days fluticasone propionate 44 mcg/actuation (Flovent HFA) 1 puff inhalation BID hydralazine 25 mg PO TID 90 days hydrocortisone 2.5% (Anusol-HC) 1 appl [place] BID-QID PRN hydrocortisone valerate 0.2% appl topical BID hydroxyzine pamoate 50 mg PO DAILY PRN lancets (OneTouch UltraSoft 2 Lancet) test once daily lansoprazole 30 mg PO DAILY losartan 100 mg PO DAILY 90 days mecobalamin (vitamin B12) 500 mcg PO DAILY 90 days metoprolol tartrate 50 mg PO BID mirtazapine 7.5 mg PO BEDTIME paliperidone ER 1.5 mg PO QAM paroxetine HCl 30 mg PO QAM pioglitazone 45 mg PO DAILY 90 days plecanatide (Trulance) 3 mg PO DAILY rosuvastatin 40 mg PO DAILY 90 days semaglutide (Rybelsus) 3 mg PO DAILY 30 days tretinoin 0.1% appl topical DAILY valacyclovir 1,000 mg PO BID 7 days zolpidem 10 mg PO BEDTIME 30 days Tobacco use date assessed: 06/12/23 Fall risk assessment: No Falls in past year Last assessed Fall Risk: 03/13/24 Dental Screening Dental Screen Date: 03/13/24 Did you have a dental visit in the last 12 months?: No Did you have a dental problem in the last 6 months where you did not have access to dental care?: No Was dental information given to patient?: Patient has dentist HPI HPI Comments History of Present Illness Details This is a 68-year-old female with diabetes mellitus type 2 and bipolar disorder that comes for her physical exam. Last A1c was within goal. Bipolar disorder is follow by Psychiatry. Walks with a cane for gait stability due to chronic low back pain. Mammogram done 2023. DEXA scan done 2023 showing osteopenia. Colonoscopy done 2022. Has transaminitis and ultrasound of the abdomen will be ordered. [facility] Medical History (Updated 03/13/24 @ 09:32 by Araceli Dawkins MD) Large bowel obstruction Renal cyst H. 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 Dysplasia of cervix, low grade (JOSE JUAN 1) Vaginal pruritus Breast pain, left Schizophrenia Bipolar 1 disorder Obese Gout Essential hypertension Diabetes mellitus Fall Lumbar back pain Surgical History (Updated 03/13/24 @ 09:25 by Araceli aDwkins MD) H/O breast surgery Hx of lithotripsy History of esophagogastroduodenoscopy (EGD) H/O colonoscopy History of eye surgery History of removal of cyst History of surgery History of hemicolectomy History of hand surgery Family History Father Lung cancer Diabetes Hypertension Mother Diabetes CVD (cardiovascular disease) Maternal Aunt Breast cancer Brother Colon cancer Paternal Grandmother Colon cancer Social History Housing: Apartment Alcohol intake: never Patient Tobacco Use Status: Never used Tobacco e-Cigarette/Vaping Use: Never Used Second Hand Smoke Exposure: No service: No Current occupational status: disabled Cognitive needs: Yes Hearing needs: No Vision needs: No Female Reproductive History Menstrual Age of Menarche: 13 Questionnaire PHQ-9 Over the last 2 weeks, how often have you been bothered by any of the following problems? 1. Little interest or pleasure in doing things: nearly every day 2. Feeling down, depressed, or hopeless: nearly every day 3. Trouble falling or staying asleep, or sleeping too much: nearly every day 4. Feeling tired or having little energy: nearly every day 5. Poor appetite or overeating: nearly every day 6. Feeling bad about yourself - or that you are a failure or have let yourself or your family down: nearly every day 7. Trouble concentrating on things, such as reading the newspaper or watching television: nearly every day 8. Moving or speaking so slowly that other people could have noticed. Or the opposite - being so fidgety or restless that you have been moving around a lot more than usual: not at all 9. Thoughts that you would be better off or of hurting yourself in some way: not at all Total score: 21 Depression Screening Interpretation: Positive (no suicidal thoughts) Depression Screening Follow-up: Existing condition, In treatment, Community Mental Health Worker F/U and Follow-up Visit Requested Depression Screening Done: Yes 34361 - PHQ-9 Billing: Yes Source: Developed by Drs. Tony Cedeno, Maureen Franky Fontanez and colleagues, with an educational avni from [employer]. Thrive Questionnaire Date Thrive assessed: 03/13/24 I am a: Patient What is your living situation today?: I choose not to answer this question Within the past 12 months, did the food you bought not last and you didn't have the money to get more?: I choose not to answer this question Within the past 12 months, did you worry whether your food would run out before you got money to buy more?: I choose not to answer this question Do you have trouble paying for medicines?: No Do you have trouble getting transportation to medical appointments?: No Do you have trouble paying your heating and electricity bill?: No Do you have trouble taking care of your child, family member or friend?: No Do you have trouble with day-to-day activities such as bathing, preparing meals, shopping, managing finances, etc.?: No Are you currently unemployed and looking for a job?: No Are you interested in more education?: No Please select the resources that you would like help with: None Currently or been in a relationship where the following occur: I choose not to answer THRIVE Score: 0 AUDIT C Alcohol Use Questionnaire (AUDIT-C) 1. How often do you have a drink containing alcohol?: Never Total Score: 0 Score Reviewed/Action Taken: No MASSIEL-7 AMB Questionnaire MASSIEL-7 Date MASSIEL - 7 assessed: 03/13/24 Feeling nervous, anxious, or on edge: 3 = Nearly every day Not being able to stop or control worryin = Not at all Worrying too much about different things: 0 = Not at all Trouble relaxin = Not at all Being so restless that it is hard to sit still: 0 = Not at all Becoming easily annoyed or irritable: 0 = Not at all Feeling afraid as if something awful might happen: 0 = Not at all Total MASSIEL-7 score (0-4 normal; 5-9 mild; 10-14 moderate; 15-21 severe): 3 Source: Developed by Drs. Tony Cedeno, Franky Jean and colleagues, with an educational avni from [employer]. MASSIEL-7 Assessment Billing MASSIEL-7 Assessment Tool: MASSIEL-7 Assessment 10762 Review of Systems Const All systems reviewed & are unremarkable except as noted in HPI and below Card Denies chest pain at rest, Denies chest pain with activity, Denies edema, Denies irregular heart rhythm, Denies claudication, Denies dyspnea, Denies dyspnea on exertion, Denies orthopnea, Denies paroxysmal nocturnal dyspnea and Denies slow heart rate Resp Denies cough, Denies dyspnea and Denies dyspnea on exertion GI Denies abdominal pain, Denies change in bowel habits, Denies excessive flatus, Denies nausea and Denies vomiting Denies urinary incontinence, Denies urinary hesitancy and Denies urinary urgency Musc Denies abnormal gait, Denies atrophy, Denies deformity and Denies limited range of motion Skin/Breast Denies bleeding lesions, Denies changing lesions and Denies rash Neuro Denies abnormal gait, Denies behavioral changes and Denies lack of coordination Psych Denies behavioral changes Physical exam (Primary Care) Vital Signs: Last Vital Signs BP 158/92 H 03/13/24 08:50 Care Plan Goal for BP management: Be compliant with blood pressure medications. Recheck blood pressure in 3 weeks by nurse navigator. BMI result Body Mass Index 38.3 BMI Assessment/Plan discussion: High BMI High, discussed plan: lifestyle, weight reduction, dietary and physical activity Tobacco/Smoking Status: Tobacco use Status Tobacco use date assessed 06/12/23 03/13/24 08:52 Patient Tobacco Use Status Never used Tobacco 03/13/24 08:52 e-Cigarette/Vaping Use Never Used 03/13/24 08:52 PHQ-9: PHQ-9 Score PHQ-9: Total score 21 03/13/24 10:21 Depression Screening Interpretation: Positive (no suicidal thoughts) Depression Screening Follow-up: Existing condition, In treatment, Community Mental Health Worker F/U and Follow-up Visit Requested Thrive Assessment: Date of Thrive Assessment Date Thrive assessed 03/13/24 03/13/24 08:52 Currently or been in a relationship where the following occur: I choose not to answer Const Limitations: ambulation with cane HENMT Head: Yes normal to inspection, Yes normocephalic and Yes atraumatic Ears: external ears normal Eyes General: appearance normal, both eyes and all related structures Eyelids: Yes eyelids normal Conjunctivae: conjunctivae normal Neck Neck: Yes normal visual inspection and Yes supple Resp Effort & Inspection: normal respiratory effort Auscultation: clear to auscultation bilaterally Cardio Jugular venous distension: no JVD Rate: regular rate Rhythm: regular rhythm Heart sounds: S1 normal heart sound present and S2 normal heart sound present GI Inspection: Yes normal to inspection Palpation (GI): Soft to palpation and nontender Auscultation: normal bowel sounds Skin General skin exam: no rashes or lesions noted Neuro General: no focal motor deficits Extrem General: Yes full ROM Psych Appearance: grossly normal Coding Level of Care Code Est Pt Level 3 (17100) Est Pt Prev Care >65y(40184) Diagnoses Physical exam Z00.00 Type 2 diabetes mellitus without complication, without long-term current use of insulin E11.9 Diabetes mellitus type: type 2 Diabetes mellitus care home insulin use: without 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 (2) Diabetes mellitus: Code(s): E11.9 - Type 2 diabetes mellitus without complications Category: Medical Qualifiers: Diabetes mellitus type: type 2 Diabetes mellitus care home insulin use: without local company intermodal truck driver use Diabetes mellitus complication status: without complication Qualified Code(s): E11.9 - Type 2 diabetes mellitus without complications Plan: Continue Actos. Restart rybelsus. A1c goal is equal or less than 7% (3) Bipolar 1 disorder: Code(s): F31.9 - Bipolar disorder, unspecified Category: Medical Plan: Continue Abilify. Follow-up with psychiatry. (4) Transaminitis: Code(s): R74.01 - Elevation of levels of liver transaminase levels Category: Medical Plan: Ultrasound of the abdomen ordered. Orders: Orders US abdomen comp w elastography Today R74.01 - Elevation of levels of liver transaminase levels Referrals Urology Referral N20.0 - Calculus of kidney Medications: Refilled cholecalciferol (vitamin D3) (Vitamin D3) 25 mcg PO DAILY 90 days 90 tabs 1RF amlodipine 10 mg PO DAILY 90 days 90 tabs 2RF mecobalamin (vitamin B12) 500 mcg PO DAILY 90 days 90 tabs 1RF semaglutide (Rybelsus) 3 mg PO DAILY 30 days 30 tabs 0RF hydralazine 25 mg PO TID 90 days 270 tabs 1RF losartan 100 mg PO DAILY 90 days 90 tabs 1RF metoprolol tartrate 50 mg PO BID 180 tabs 3RF pioglitazone 45 mg PO DAILY 90 days 90 tabs 1RF
[2024-03-13 08:50] VITALS: BP 158/92; BMI 38.3
== END 2024-03-13 09:36 | disposition home or self-care (01) ==
PROVIDERS: PCP Internal Medicine; Visit Provider Internal Medicine
DX: Z00.00 Encounter for general adult medical examination without abnormal findings (principal); E11.9 Type 2 diabetes mellitus without complications; F31.9 Bipolar disorder, unspecified; R74.01 Elevation of levels of liver transaminase levels

== ENCOUNTER → 2024-03-13 08:39 | Outpatient (BNVA) | payer OTHER, SELFPAY | PROVIDERS: PCP Internal Medicine; Visit Provider Internal Medicine | DX: Z00.00 Encounter for general adult medical examination without abnormal findings (principal); E11.9 Type 2 diabetes mellitus without complications; F31.9 Bipolar disorder, unspecified; R74.01 Elevation of levels of liver transaminase levels | CPT/HCPCS: 96127; 99397 ==

== ENCOUNTER 2024-03-20 12:52 | Outpatient (AMB) | payer OTHER, SELFPAY ==
[2024-03-20 13:06] VITALS: BP 118/68; PULSE 78; BMI 38.7
--- NOTE | 2024-03-20 13:06 | A.OFFVIS_ITS ---
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/dr gomez/atherosclerotic heart disease Grain Elevator Man Required: Yes Grain Elevator Man Name: LISA [id number] Allergies Cortisone Allergy (Severe, Verified 03/13/24 09:16) pruritus, hives, swellin milk [MILK] Allergy (Severe, Verified 03/13/24 09:16) rash ibuprofen [IBUPROFEN] Allergy (Intermediate, Verified 03/13/24 09:16) swelling levofloxacin Allergy (Intermediate, Verified 03/13/24 09:16) pruritus metronidazole Allergy (Intermediate, Verified 03/13/24 09:16) pruritus peanut [PEANUT] Allergy (Intermediate, Verified 03/13/24 09:16) pruritus Penicillins [PENICILLINS] Allergy (Intermediate, Verified 03/13/24 09:16) Hives shellfish derived [SHELLFISH DERIVED] Allergy (Intermediate, Verified 03/13/24 09:16) rash, shortness of breath morphine [MORPHINE] Adverse Reaction (Severe, Verified 03/13/24 09:16) loss of consciousness, hypotension oatmeal Adverse Reaction (Intermediate, Verified 03/13/24 09:16) abdominal gas pain egg [EGG] Adverse Reaction (Mild, Verified 03/13/24 09:16) diarrheas, dizziness red meat Allergy (Intermediate, Uncoded 03/13/24 09:16) hand swelling Medication List - Last Reconciled 03/20/24 by Agustin Dumont MD acetaminophen 500 mg PO Q6H PRN albuterol sulfate 90 mcg/actuation 2 inhalations inhalation Q6H PRN albuterol sulfate 90 mcg/actuation inhalation alendronate 70 mg PO QWEEK amlodipine 10 mg PO DAILY 90 days aripiprazole 15 mg PO DAILY blood sugar diagnostic (OneTouch Ultra Test strips) test once daily blood-glucose meter (Dinam[employer]Touch Ultra2 Meter) test once daily buspirone 10 mg PO BID PRN carboxymethylcellulose sodium 0.5% (Lubricating Plus) 1 drp ophthalmic (eye) BID cholecalciferol (vitamin D3) (Vitamin D3) 25 mcg PO DAILY 90 days diazepam 5 mg PO BID PRN 30 days docusate sodium (Colace) 100 mg PO BID donepezil 10 mg PO BEDTIME 30 days fluticasone propionate 44 mcg/actuation (Flovent HFA) 1 puff inhalation BID hydralazine 25 mg PO TID 90 days hydrocortisone 2.5% (Anusol-HC) 1 appl [place] BID-QID PRN hydrocortisone valerate 0.2% appl topical BID hydroxyzine pamoate 50 mg PO DAILY PRN lancets (OneTouch UltraSoft 2 Lancet) test once daily lansoprazole 30 mg PO DAILY losartan 100 mg PO DAILY 90 days mecobalamin (vitamin B12) 500 mcg PO DAILY 90 days metoprolol tartrate 50 mg PO BID mirtazapine 7.5 mg PO BEDTIME paliperidone ER 1.5 mg PO QAM paroxetine HCl 30 mg PO QAM pioglitazone 45 mg PO DAILY 90 days plecanatide (Trulance) 3 mg PO DAILY rosuvastatin 40 mg PO DAILY 90 days semaglutide (Rybelsus) 3 mg PO DAILY 30 days tretinoin 0.1% appl topical DAILY valacyclovir 1,000 mg PO BID 7 days zolpidem 10 mg PO BEDTIME 30 days HPI Comments Details: Monica has been referred for cardiac evaluation. Patient gives a very vague history of possible CAD but not clear. She thinks she was at [facility] around 8-9 years ago and describes a possible catheterization but overall unable to clarify clearly. This was in spite of a automotive parts interpreter. She has the overall difficult historian. She describes a vague discomfort in the chest but again difficult to assess clearly. She is not able to give any clear-cut characteristics extra. She thinks it comes off and on but again unable to assess further. Seems to be on polypharmacy. Multiple comorbidities. COUNT INCLUDES THE [facility] Medical History Large bowel obstruction Renal cyst H. 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 Dysplasia of cervix, low grade (JOSE JUAN 1) Vaginal pruritus Breast pain, left Schizophrenia Bipolar 1 disorder Obese Gout Essential hypertension Diabetes mellitus Fall Lumbar back pain Surgical History H/O breast surgery Hx of lithotripsy History of esophagogastroduodenoscopy (EGD) H/O colonoscopy History of eye surgery History of removal of cyst History of surgery History of hemicolectomy History of hand surgery Family History Father Lung cancer Diabetes Hypertension Mother Diabetes CVD (cardiovascular disease) Maternal Aunt Breast cancer Brother Colon cancer Paternal Grandmother Colon cancer Social History Housing: Apartment Alcohol intake: never Patient Tobacco Use Status: Never used Tobacco e-Cigarette/Vaping Use: Never Used Second Hand Smoke Exposure: No service: No Current occupational status: disabled Cognitive needs: Yes Hearing needs: No Vision needs: No Female Reproductive History Menstrual Age of Menarche: 13 Review of Systems Const Reports headache(s) and Denies weakness ENT Denies dizziness and Reports headache(s) Card Denies chest pain, Denies chest pain with activity, Denies syncope, Denies rapid heart rate, Denies pedal edema, Denies edema, Denies leg edema, Denies lightheadedness, Denies palpitations, Reports dyspnea, Denies dyspnea on exertion and Denies orthopnea Resp Denies cough, Reports dyspnea and Denies dyspnea on exertion GI Denies hematochezia and Denies change in stool character Musc Denies abnormal gait, Denies muscle cramps, Denies muscle weakness, Denies numbness, Denies radiating pain into limb and Denies tingling Neuro Denies abnormal gait, Denies dizziness, Denies syncope, Reports headache(s), Denies numbness, Denies tingling and Denies weakness Endo Denies palpitations Physical Exam Vital Signs: Last Vital Signs Pulse 78 03/20/24 13:06 BP 118/68 03/20/24 13:06 BMI result Body Mass Index 38.7 Const General: comfortable and no acute distress Orientation/consciousness: patient oriented x3 HEENT Other: Unremarkable Head: Yes normal to inspection Neck Neck: Yes normal visual inspection Chest Chest palpation & inspection: normal inspection of the chest Resp Auscultation: clear to auscultation bilaterally Cardio Palpation: normal PMI Heart sounds: S1 normal heart sound present, S2 normal heart sound present, no gallops, no murmurs and no rubs GI Palpation (GI): Soft to palpation Back/Spine/Pelvis Other: unremarkable Skin General skin exam: no rashes or lesions noted Neuro General: patient oriented x3 Extrem General: Yes normal to inspection Psych Mental Status: mental status grossly normal Assessment & Plan Assessment & Plan (1) Chest pain: Code(s): R07.9 - Chest pain, unspecified Category: Medical Plan Recent EKG shows sinus rhythm at 63/Min; no significant ST-T changes and otherwise unremarkable. Normal WI and corrected QT. Overall, poorly characterized chest pain with possible coronary disease history and many comorbidities. We will evaluate further with an echocardiogram/myocardial perfusion imaging study. Follow-up after the above. Orders: Orders CA echo transthoracic complete Today R07.9 - Chest pain, unspecified CA lexiscan stress w tonie Today I20.9 - Angina pectoris, unspecified, R07.9 - Chest pain, unspecified NM cardiolite stress test Today R07.2 - Precordial pain, R07.9 - Chest pain, unspecified Coding Level of Care Code New Pt Level 4 (69232) Diagnoses Chest pain R07.9
== END 2024-03-20 13:34 | disposition home or self-care (01) ==
PROVIDERS: PCP Internal Medicine; Visit Provider Internal Medicine
DX: R07.9 Chest pain, unspecified (principal)
CPT/HCPCS: 99204

== ENCOUNTER → 2024-03-20 12:52 | Outpatient (BNVA) | payer OTHER, SELFPAY | PROVIDERS: PCP Internal Medicine; Visit Provider Internal Medicine | DX: R07.9 Chest pain, unspecified (principal) | CPT/HCPCS: 99202 ==

== ENCOUNTER 2024-04-10 10:29 | Outpatient (REF) | payer OTHER, SELFPAY | END 2024-04-10 10:30 | disposition home or self-care (01) | LOC: HO.US 10:29 | PROVIDERS: PCP Internal Medicine; Visit Provider Internal Medicine | DX: R74.01 Elevation of levels of liver transaminase levels (principal) | CPT/HCPCS: 76700; 76981 ==

== ENCOUNTER 2024-04-15 13:27 | Outpatient (AMB) | payer OTHER, SELFPAY ==
--- NOTE | 2024-04-15 13:30 | A.OFFVIS_ITS ---
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 [employer] Set Up Operator Required: Yes [employer] Set Up Operator Language: Rn Community Services: [employer] Set Up Operator Present (in person) [employer] Set Up Operator Name: Keisha MitchellEMMIE munguia Information Interpreted: non-clinical & clinical Tool Builder: Tool Builder Present (EMMIE Ortiz) Accompanied by: Self / Same As Patient Allergies Cortisone Allergy (Severe, Verified 04/15/24 13:35) pruritus, hives, swellin milk [MILK] Allergy (Severe, Verified 04/15/24 13:35) rash ibuprofen [IBUPROFEN] Allergy (Intermediate, Verified 04/15/24 13:35) swelling levofloxacin Allergy (Intermediate, Verified 04/15/24 13:35) pruritus metronidazole Allergy (Intermediate, Verified 04/15/24 13:35) pruritus peanut [PEANUT] Allergy (Intermediate, Verified 04/15/24 13:35) pruritus Penicillins [PENICILLINS] Allergy (Intermediate, Verified 04/15/24 13:35) Hives shellfish derived [SHELLFISH DERIVED] Allergy (Intermediate, Verified 04/15/24 13:35) rash, shortness of breath morphine [MORPHINE] Adverse Reaction (Severe, Verified 04/15/24 13:35) loss of consciousness, hypotension oatmeal Adverse Reaction (Intermediate, Verified 04/15/24 13:35) abdominal gas pain egg [EGG] Adverse Reaction (Mild, Verified 04/15/24 13:35) diarrheas, dizziness red meat Allergy (Intermediate, Uncoded 03/13/24 09:16) hand swelling HPI Comments Details: Presenting for annual exam. No complaints. Last Pap/HPV was in 04/22, Pap negative/HPV positive, colpo biopsy ECC negative the patient has JOSE JUAN 2-3 in 03/21 followed by negative co testing in 04/21 Last Mammogram was BI-RADS 2 in 05/24 Last Colonoscopy was in 08/22 Last DEXA scan was done in 05/24, T-score was-1.9/-2 with a for ask risk of 16.2/3.1 %, the patient was started on alendronate 70 mg p.o. q.week, the patient took it for 12 weeks and stopped thinking she completed the course. [facility] Medical History Large bowel obstruction Renal cyst H. 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 Dysplasia of cervix, low grade (JOSE JUAN 1) Vaginal pruritus Breast pain, left Schizophrenia Bipolar 1 disorder Obese Gout Essential hypertension Diabetes mellitus Fall Lumbar back pain Surgical History H/O breast surgery Hx of lithotripsy History of esophagogastroduodenoscopy (EGD) H/O colonoscopy History of eye surgery History of removal of cyst History of surgery History of hemicolectomy History of hand surgery Family History Father Lung cancer Diabetes Hypertension Mother Diabetes CVD (cardiovascular disease) Maternal Aunt Breast cancer Brother Colon cancer Paternal Grandmother Colon cancer Social History Housing: Apartment Alcohol intake: never Patient Tobacco Use Status: Never used Tobacco e-Cigarette/Vaping Use: Never Used Second Hand Smoke Exposure: No service: No Current occupational status: disabled Cognitive needs: Yes Hearing needs: No Vision needs: No Female Reproductive History Menstrual Age of Menarche: 13 Total pregnancies: 2 Full term: 2 Date of last pap smear: 04/10/23 (+hpv) History of abnormal pap smear: Yes Date of Mammogram: 05/18/23 (bi rad 2) Date of last Bone Density Screenin05/18/23 Review of Systems Const All systems reviewed & are unremarkable except as noted in HPI and below Card Reports as per HPI Resp Reports as per HPI GI Reports as per HPI and Reports no additional complaints Reports as per HPI Physical Exam Vital Signs: Last Vital Signs BP 132/78 04/15/24 13:36 BMI result Body Mass Index 38.9 Const General: cooperative, healthy appearing and comfortable Chest Chest palpation & inspection: normal inspection of the chest and normal palpation of entire chest wall Breast/axilla inspection: normal inspection of the breasts and normal inspection of the axillae Breast/axilla palpation: normal palpation of the breasts, normal palpation of the axillae and no axillary lymphadenopathy Resp Effort & Inspection: normal respiratory effort Auscultation: clear to auscultation bilaterally Percussion: percussion normal Cardio Palpation: normal PMI Rate: regular rate Rhythm: regular rhythm Heart sounds: no murmurs and no rubs Peripheral pulses: Peripheral pulses 2+ throughout GI Inspection: Yes normal to inspection Palpation (GI): Soft to palpation, nontender, no guarding, not rigid and No hepatosplenomegaly present Percussion: Yes normal to percussion Auscultation: normal bowel sounds Rectal Exam - Female: deferred General: Yes bladder normal to palpation External Female Exam: No lesion Speculum Exam - Vagina: normal appearance of the vagina, normal palpation, normal vaginal discharge and not erythematous Speculum Exam - Cervix: normal appearance of the cervix and normal palpation Bimanual exam- vagina & uterus: normal bimanual exam, normal palpation, uterine size normal, bladder normal to palpation, consistency normal and normal palpation Bimanual Exam- Adnexa, other: normal adnexae, no masses and no tenderness Assessment & Plan Assessment & Plan (1) Well woman exam: Comment: History of JOSE JUAN 3 status post LEEP 03/21 Code(s): Z01.419 - Encounter for gynecological examination (general) (routine) without abnormal findings Category: Medical Plan: Co testing done Counseled the patient about the recommended dietary allowance of 1200 mg of Calcium & 800 IU of vitamin D. Mammogram ordered. Alendronate refills, instructions given to the pt on how to take the med: NPO x 30 minutes, large amount of water , stay upright x 30 minutes, inform her dentist of alendronate intake in case invasive dental work. Also Caltrate+D 600 mg x2/day was recommended to the patient. The patient was instructed to perform monthly self-breast exams and to schedule an annual exam in a year; All questions answered and the patient verbalized understanding. Medications: Refilled alendronate 70 mg PO QWEEK 14 tabs 3RF Coding Level of Care Code Est Pt Prev Care >65y(67326) Diagnoses Well woman exam Z01.419
[2024-04-15 13:36] VITALS: BP 132/78; BMI 38.9
== END 2024-04-15 13:56 | disposition home or self-care (01) ==
LOC: HO.HWS 13:27
PROVIDERS: PCP Internal Medicine; Visit Provider Obstetrics & Gynecology
DX: Z01.419 Encounter for gynecological examination (general) (routine) without abnormal findings (principal)
CPT/HCPCS: 99397

== ENCOUNTER 2024-04-15 13:27 | Outpatient (REF) | payer OTHER, SELFPAY ==
[2024-04-16 10:58] LABS: HPV 16,18/45 See PAP report
== END 2024-04-15 13:28 | disposition home or self-care (01) ==
LOC: HO.LNP 13:27
PROVIDERS: PCP Internal Medicine; Visit Provider Obstetrics & Gynecology
DX: Z01.419 Encounter for gynecological examination (general) (routine) without abnormal findings (principal); D06.9 Carcinoma in situ of cervix, unspecified
CPT/HCPCS: 87624; 88175; 99397; 99459

== ENCOUNTER → 2024-04-18 10:38 | Outpatient (REF) | payer OTHER, SELFPAY ==
--- NOTE | 2024-04-18 10:41 | CA_ITS ---
Transthoracic Echocardiogram Patient (Last, First, Middle): Monica Alcaraz, Gender: Female Date of : 1955 Age: 68 Procedure Date: 04/18/2024 Procedure Type: Transthoracic Echocardiogram Location: OP Height: 152.4 cm Weight: 90.27 kg BSA: 1.86 m2 Heart Rate: bpm BP: 132 / 78 mmHg Broach Trouble Shooter: CHANNING Referring MD: Agustin Dumont MD Symptoms: R07.9 - Chest pain, unspecified Study Quality: Adequate ECG Rhythm: Sinus Conclusions: - The left ventricular systolic function is normal. The visually estimated ejection fraction is between 65-70%. - No obvious valvular pathology seen on this study. Findings Left Ventricle Normal left ventricular cavity size. There is mildly increased left ventricular wall thickness. The left ventricular systolic function is normal. The visually estimated ejection fraction is between 65-70%. There is no evidence of regional wall motion abnormalities. Diastolic function is normal for age. Right Ventricle Normal right ventricular cavity size and systolic function. Atria Both atria are normal in size. Aortic Valve There is a normal trileaflet aortic valve. There is no aortic valve stenosis. There is no aortic valve regurgitation. Mitral Valve The mitral valve appears normal. There is no mitral valve regurgitation. There is no mitral valve stenosis. Pulmonic Valve The pulmonic valve is likely normal. Tricuspid Valve Normal tricuspid valve structure. There is trace tricuspid valve regurgitation. There is no evidence of pulmonary hypertension. Great Vessels The asc aorta and aortic arch are normal in size. Venous The inferior vena cava is normal in size and collapses greater than 50% with inspiration. Pericardium/Pleural There is no evidence of pericardial effusion. Prior Study Comparison No prior study available for comparison. Recommendations, Care & Conclusions No obvious valvular pathology seen on this study. Measurements 2D Linear Measurements IVSd: 1.29 0.6-0.9/0.6-1.0 cm LVIDd: 4.06 3.9-5.3/4.2-5.9 cm LVIDd Index: 2.18 2.4-3.2/2.2-3.1 cm/m2 LVIDs: 2.54 2.0-3.6 cm LVPWd: 1.14 0.7-1.1 cm LA Diam: 3.50 2.7-3.8/3.0-4.0 cm LAIDs Index: 1.88 1.5-2.3 cm/m2 LV Mass: 214.69 67-162/88-224 g LV Mass Index: 115.43 43-95/49-115 g/m2 LVOT Diam: 2.10 3.0+(-)1.3 cm 2D Systolic Function EF 4C: 69.10 >55% EF 2C: 65.10 >55% EF BiP: 68.50 >55% Mitral Valve MV Pk E: 0.59 MV PK A: 0.78 MV Decel Time: 371.00 E/A: 0.70 E'Lateral: 8.16 E'Medial: 5.33 E/E' Med: 11.00 E/E' Lat: 7.20 PHT: 109.00 MVA PHT: 2.02 Decel Eaton: 1.58 Aortic Valve AoV Pk Kamron: 1.30 AoV Mn Kamron: 0.95 AoV VTI: 0.33 AoV Pk Grad: 7.00 Aov Mn Grad: 4.00 MOLLY Cont.VTI: 2.48 LVOT LVOT Pk Kamron: 1.01 LVOT Mn Kamron: 0.66 LVOT VTI: 0.24 LVOT Pk Grad: 4.00 LVOT Mn Grad: 2.00 LVOT Diam: 2.10 LVOT Area: 3.46 Diastolic Function MV Pk E: 0.59 MV Pk A: 0.78 E/A: 0.70 E'Medial: 5.33 E/E' Med: 11.00 E' Laterial: 8.16 E/E' Lat: 7.20 Right Ventricle TAPSE (mm): 23.50 TVS' Kamron: 10.60 Tricuspid Valve TR Pk Kamron: 1.60 TR Pk Grad: 10.00 RA Press: 3.00 RVSP: 13.00 Great Vessels Aorta Sinus of Valsalva: 3.34 2.0-3.5 cm Ao Asc: 3.60 2.1-3.4 cm Ao Arch: 3.50 Updated in Other Vendor System with Status of Final Agustin Dumont MD electronically signed on 04/20/2024 1:17:32 PM with status of Final
== END ==
LOC: HO.CARD 10:38
PROVIDERS: PCP Internal Medicine; Visit Provider Internal Medicine
DX: R07.9 Chest pain, unspecified (principal)
CPT/HCPCS: 93306

== ENCOUNTER → 2024-04-18 10:41 | Outpatient (BNV) | payer OTHER, SELFPAY | PROVIDERS: PCP Internal Medicine; Visit Provider Internal Medicine | DX: R07.9 Chest pain, unspecified (principal) | CPT/HCPCS: 93306 ==

== ENCOUNTER → 2024-06-25 07:40 | Outpatient (REF) | payer OTHER, SELFPAY ==
--- OUTSIDE RECORDS SUMMARY | 2024-06-25 07:43 | XMS_ITS | Clinical Summary ---
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 Name Role Phone Unavailable Primary Care Provider Unavailabl e Social History Tobacco Use Types Packs/Day Years Used Date Smoking Tobacco: Never Assessed Sex and Gender Information Value Date Recorded Sex Assigned at Not on file Gender Identity Not on file Sexual Orientation Not on file Plan of Treatment Health Maintenance Due Date Last Done Comments Hepatitis C Virus Screening 1955 DTaP/Tdap/Td Vaccines (1 - Tdap) 1973 Pneumococcal Vaccines 50+ (1 of 1 - PCV) 2004 Zoster (Shingles) Vaccine (1 of 2) 2004 COVID-19 Vaccine ( - 2023-2 5 season) 2023 RSV Vaccine 60 years and old er and Patients (1 - 1-dose 75+ series) 2029 Hepatitis B Vaccines Aged Out No long er eligible based on patient's age to complete this topic
== END ==
LOC: HO.CARD 07:40
PROVIDERS: PCP Internal Medicine; Visit Provider Internal Medicine
DX: Z13.89 Encounter for screening for other disorder (principal)

== ENCOUNTER 2024-07-23 09:51 | Outpatient (REF) | payer OTHER, SELFPAY ==
[2024-07-23 10:58] LABS: MANUAL DIFF FLAG NO
[2024-07-23 11:51] LABS: Basophils Absolute Auto 0.1 X10*3/uL (0.0-0.2); Basophils Percent Auto 1.5 % (0-2); Eosinophils Absolute Auto 0.5 X10*3/uL (0.0-0.4); Eosinophils Percent Auto 6.3 % (0-4); Hematocrit 45.3 % (37.0-47.0); Hemoglobin 14.2 g/dl (12.0-16.0); Imm Gran Abs Auto 0.02 X10*3/uL (0.00-0.03); Imm Gran Pct Auto 0.3 % (0.0-0.4); Lymphocytes Absolute Auto 3.2 X10*3/uL (1.2-4.9); Lymphocytes Percent Auto 42.6 % (20-40); Mean Corpuscular HGB Conc 31.3 g/dl (31.0-35.0); Mean Corpuscular Hemoglobin 27.1 pg (27.0-33.0); Mean Corpuscular Volume 86.5 fL (80.0-98.0); Mean Platelet Volume 10.7 fL (9.4-12.3); Monocytes Absolute Auto 0.6 X10*3/uL (0.1-1.2); Monocytes Percent Auto 7.8 % (2-11); Neutrophils Absolute Auto 3.1 x10*3/uL (2.0-8.3); Neutrophils Percent Auto 41.5 % (45-73); Platelet Count 193 X10*3/uL (160-400); Red Blood Count 5.24 X10*6/uL (4.20-5.50); Red Cell Distribution Width 13.5 % (11.0-16.0); White Blood Count 7.6 X10*3/uL (4.8-10.8)
[2024-07-23 12:31] LABS: Creatinine Urine 266.92 mg/dL; Microalbum/Creatinine Ratio Ur 14.2 ug/mg cr (<30)
[2024-07-23 12:44] LABS: Vitamin D 25-OH Total 82.8 ng/mL (>30)
[2024-07-23 12:45] LABS: Alanine Aminotransferase 124 U/L (0-31); Albumin Level 3.8 g/dL (3.5-5.0); Alkaline Phosphatase 107 U/L (39-117); Anion Gap 8 (12-20); Aspartate Amino Transferase 77 U/L (5-31); Bilirubin Total 0.7 mg/dL (0.0-1.0); Blood Urea Nitrogen 20 mg/dL (9-16); Calcium 9.6 mg/dL (8.4-10.2); Carbon Dioxide 27 mmol/L (22-29); Chloride 111 mmol/L (96-108); Cholesterol 179 mg/dL (<200); Estimated Glomerular Filt Rate > 60; Glucose Fasting 120 mg/dL (60-99); Glucose Random 119 mg/dL (60-115); HDL Cholesterol 54 mg/dL (>40); LDL Cholesterol Calculated 81 mg/dL (<100); Potassium 4.4 mmol/L (3.3-5.1); Sodium 142 mmol/L (135-145); Triglycerides 222 mg/dL (<150)
== END 2024-07-23 09:52 | disposition home or self-care (01) ==
LOC: HO.LAB 09:51
PROVIDERS: PCP Internal Medicine; Visit Provider Internal Medicine
DX: J45.40 Moderate persistent asthma, uncomplicated (principal); M51.369 Other intervertebral disc degeneration, lumbar region without mention of lumbar back pain or lower extremity pain; E78.5 Hyperlipidemia, unspecified; F20.0 Paranoid schizophrenia; F31.9 Bipolar disorder, unspecified; I10 Essential (primary) hypertension; E11.9 Type 2 diabetes mellitus without complications; Z00.00 Encounter for general adult medical examination without abnormal findings; E55.9 Vitamin D deficiency, unspecified
CPT/HCPCS: 36415; 80053; 80061; 82043; 82306; 82570; 83036; 85025; 96127; 99212

== ENCOUNTER 2024-07-23 09:51 | Outpatient (AMB) | payer OTHER, SELFPAY ==
--- NOTE | 2024-07-23 09:58 | MHC.PC.OV ---
Vital Signs 07/23/24 10:02 Height 5 ft Weight 198 lb BMI 38.7 BP 136/80 Blood Pressure Location Lt brachial Position Sitting Intake Visit Reasons: dm Intake Note: Patient here for a follow up DM Media Sales Executive Required: No Accompanied by: Self / Same As Patient Allergies Cortisone Allergy (Severe, Verified 07/23/24 10:19) pruritus, hives, swellin milk [MILK] Allergy (Severe, Verified 07/23/24 10:19) rash ibuprofen [IBUPROFEN] Allergy (Intermediate, Verified 07/23/24 10:19) swelling levofloxacin Allergy (Intermediate, Verified 07/23/24 10:19) pruritus metronidazole Allergy (Intermediate, Verified 07/23/24 10:19) pruritus peanut [PEANUT] Allergy (Intermediate, Verified 07/23/24 10:19) pruritus Penicillins [PENICILLINS] Allergy (Intermediate, Verified 07/23/24 10:19) Hives shellfish derived [SHELLFISH DERIVED] Allergy (Intermediate, Verified 07/23/24 10:19) rash, shortness of breath morphine [MORPHINE] Adverse Reaction (Severe, Verified 07/23/24 10:19) loss of consciousness, hypotension oatmeal Adverse Reaction (Intermediate, Verified 07/23/24 10:19) abdominal gas pain egg [EGG] Adverse Reaction (Mild, Verified 07/23/24 10:19) diarrheas, dizziness red meat Allergy (Intermediate, Uncoded 07/23/24 10:19) hand swelling Medication List - Last Reconciled 07/23/24 by Araceli Dawkins MD acetaminophen 500 mg PO Q6H PRN albuterol sulfate 90 mcg/actuation 2 inhalations inhalation Q6H PRN albuterol sulfate 90 mcg/actuation inhalation alendronate 70 mg PO QWEEK amlodipine 10 mg PO DAILY 90 days aripiprazole 15 mg PO DAILY [back brace As directed] blood sugar diagnostic (OneTouch Ultra Test strips) test once daily blood-glucose meter (OneTouch Ultra2 Meter) test once daily buspirone 10 mg PO BID PRN carboxymethylcellulose sodium 0.5% (Lubricating Plus) 1 drp ophthalmic (eye) BID cholecalciferol (vitamin D3) (Vitamin D3) 25 mcg PO DAILY 90 days diazepam 5 mg PO BID PRN 30 days docusate sodium (Colace) 100 mg PO BID donepezil 10 mg PO BEDTIME 30 days fluticasone propionate 44 mcg/actuation 1 puff inhalation BID hydralazine 25 mg PO TID 90 days hydrocortisone 2.5% (Anusol-HC) 1 appl AK BID-QID PRN hydrocortisone valerate 0.2% appl topical BID hydroxyzine pamoate 50 mg PO DAILY PRN lancets (OneTouch UltraSoft 2 Lancet) test once daily lansoprazole 30 mg PO DAILY lorazepam mg PO losartan 100 mg PO DAILY 90 days mecobalamin (vitamin B12) 500 mcg PO DAILY 90 days metoprolol tartrate 50 mg PO BID mirtazapine 7.5 mg PO BEDTIME paliperidone ER mg PO paliperidone ER 9 mg PO DAILY paroxetine HCl 30 mg PO QAM pioglitazone 45 mg PO DAILY 90 days plecanatide (Trulance) 3 mg PO DAILY quetiapine 50 mg PO BEDTIME rosuvastatin 40 mg PO DAILY 90 days [Scooter As directed] semaglutide (Rybelsus) 3 mg PO DAILY 30 days tretinoin 0.1% appl topical DAILY valacyclovir 1,000 mg PO BID 7 days zolpidem 10 mg PO BEDTIME 30 days Tobacco use date assessed: 07/23/24 Fall risk assessment: No Falls in past year Last assessed Fall Risk: 07/23/24 Dental Screening Dental Screen Date: 07/23/24 Did you have a dental visit in the last 12 months?: No Did you have a dental problem in the last 6 months where you did not have access to dental care?: No Was dental information given to patient?: Patient has dentist HPI HPI Comments History of Present Illness Details The patient is a 69-year-old female presenting for follow-up care of chronic conditions such as type 2 diabetes mellites, hypertension, and hyperlipidemia. Her diabetes is controlled with an A1c of 6.8%, and her LDL was last recorded at 67 mg/dL, which is within therapeutic goals. She has a history of osteopenia and has been on alendronate, confirmed via a 2023 bone densitometry. She experiences chronic nasal bleeding, particularly on awakening, which is noted to occur despite using a humidifier at night. Past medical history includes a significant history of colon cancer, managed with a prior hemicolectomy, and follow-up colonoscopy was conducted in 2022. She experiences chronic back pain, for which she uses a cane. In terms of psychiatric health, she has a mild level of depression, with a PHQ-9 score of 12, evaluated and followed by a psychiatrist. Her treatment regimen is comprehensive, addressing various ailments with medications including buspirone, donepezil, rosuvastatin, semaglutide, and zolpidem, among others. There is no reported history of tobacco, alcohol, or drug use. [facility] Medical History Large bowel obstruction Renal cyst H. 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 Dysplasia of cervix, low grade (JOSE JUAN 1) Vaginal pruritus Breast pain, left Schizophrenia Bipolar 1 disorder Obese Gout Essential hypertension Diabetes mellitus Fall Lumbar back pain Surgical History H/O breast surgery Hx of lithotripsy History of esophagogastroduodenoscopy (EGD) H/O colonoscopy History of eye surgery History of removal of cyst History of surgery History of hemicolectomy History of hand surgery Family History Father Lung cancer Diabetes Hypertension Mother Diabetes CVD (cardiovascular disease) Maternal Aunt Breast cancer Brother Colon cancer Paternal Grandmother Colon cancer Social History Housing: Apartment Alcohol intake: never Patient Tobacco Use Status: Never used Tobacco e-Cigarette/Vaping Use: Never Used Second Hand Smoke Exposure: No service: No Current occupational status: disabled Cognitive needs: Yes Hearing needs: No Vision needs: No Female Reproductive History Menstrual Age of Menarche: 13 Questionnaire PHQ-9 Over the last 2 weeks, how often have you been bothered by any of the following problems? 1. Little interest or pleasure in doing things: several days 2. Feeling down, depressed, or hopeless: more than half the days 3. Trouble falling or staying asleep, or sleeping too much: nearly every day 4. Feeling tired or having little energy: more than half the days 5. Poor appetite or overeating: more than half the days 6. Feeling bad about yourself - or that you are a failure or have let yourself or your family down: several days 7. Trouble concentrating on things, such as reading the newspaper or watching television: several days 8. Moving or speaking so slowly that other people could have noticed. Or the opposite - being so fidgety or restless that you have been moving around a lot more than usual: not at all 9. Thoughts that you would be better off or of hurting yourself in some way: not at all Total score: 12 Depression Screening Interpretation: Positive Depression Screening Follow-up: Existing condition, In treatment, Community Mental Health Worker F/U and Follow-up Visit Requested Depression Screening Done: Yes 98342 - PHQ-9 Billing: Yes Source: Developed by Drs. Tony Cedeno, Maureen Davies, Franky Bryson and colleagues, with an educational avni from [employer]. Thrive Questionnaire Date Thrive assessed: 07/23/24 I am a: Patient What is your living situation today?: I choose not to answer this question Within the past 12 months, did the food you bought not last and you didn't have the money to get more?: I choose not to answer this question Within the past 12 months, did you worry whether your food would run out before you got money to buy more?: I choose not to answer this question Do you have trouble paying for medicines?: No Do you have trouble getting transportation to medical appointments?: No Do you have trouble paying your heating and electricity bill?: No Do you have trouble taking care of your child, family member or friend?: No Do you have trouble with day-to-day activities such as bathing, preparing meals, shopping, managing finances, etc.?: No Are you currently unemployed and looking for a job?: No Are you interested in more education?: No Please select the resources that you would like help with: None Currently or been in a relationship where the following occur: I choose not to answer THRIVE Score: 0 AUDIT C Alcohol Use Questionnaire (AUDIT-C) 1. How often do you have a drink containing alcohol?: Never Total Score: 0 Score Reviewed/Action Taken: No MASSIEL-7 AMB Questionnaire MASSIEL-7 Date MASSIEL - 7 assessed: 07/23/24 Feeling nervous, anxious, or on edge: 2 = More than half the days Not being able to stop or control worryin = Not at all Worrying too much about different things: 1 = Several days Trouble relaxin = Several days Being so restless that it is hard to sit still: 0 = Not at all Becoming easily annoyed or irritable: 1 = Several days Feeling afraid as if something awful might happen: 1 = Several days Total MASSIEL-7 score (0-4 normal; 5-9 mild; 10-14 moderate; 15-21 severe): 6 Source: Developed by Drs. Tony Cedeno, Maureen Davies, Franky Bryson and colleagues, with an educational avni from [employer]. MASSIEL-7 Assessment Billing MASSIEL-7 Assessment Tool: MASSIEL-7 Assessment 90298 Review of Systems Const All systems reviewed & are unremarkable except as noted in HPI and below Card Denies chest pain at rest, Denies chest pain with activity, Denies edema, Denies irregular heart rhythm, Denies claudication, Denies dyspnea, Denies dyspnea on exertion, Denies orthopnea, Denies paroxysmal nocturnal dyspnea and Denies slow heart rate Resp Denies cough, Denies dyspnea and Denies dyspnea on exertion GI Denies abdominal pain, Denies change in bowel habits, Denies excessive flatus, Denies nausea and Denies vomiting Physical exam (Primary Care) Vital Signs: Last Vital Signs BP 136/80 07/23/24 10:02 BMI result Body Mass Index 38.7 BMI Assessment/Plan discussion: High BMI High, discussed plan: lifestyle, weight reduction, dietary and physical activity Tobacco/Smoking Status: Tobacco use Status Tobacco use date assessed 07/23/24 07/23/24 10:12 Patient Tobacco Use Status Never used Tobacco 07/23/24 10:12 e-Cigarette/Vaping Use Never Used 07/23/24 10:12 PHQ-9: PHQ-9 Score PHQ-9: Total score 12 07/23/24 10:12 Depression Screening Interpretation: Positive Depression Screening Follow-up: Existing condition, In treatment, Community Mental Health Worker F/U and Follow-up Visit Requested Thrive Assessment: Date of Thrive Assessment Date Thrive assessed 07/23/24 07/23/24 10:12 Currently or been in a relationship where the following occur: I choose not to answer Const Limitations: ambulation with cane Resp Effort & Inspection: normal respiratory effort Auscultation: clear to auscultation bilaterally Cardio Jugular venous distension: no JVD Rate: regular rate Rhythm: regular rhythm Heart sounds: S1 normal heart sound present and S2 normal heart sound present Extrem General: Yes full ROM Results AMB Hemoglobin A1c AMB Hemoglobin A1c 6.8 % Last Edit by EMMIE Mujica on 07/23/24 10:16 Results Reviewed Results Reviewed: Laboratory Last Values Hgb A1c (Clinic) 6.8 % (4.0-6.0) H 07/23/24 09:57 Coding Level of Care Code Est Pt Level 4 (76290) Complex EM visit Add On G2211 Diagnoses Moderate persistent asthma, uncomplicated J45.40 Lumbar degenerative disc disease M51.36 Hyperlipidemia LDL goal <70 E78.5 Paranoid schizophrenia F20.0 Schizophrenia type: paranoid schizophrenia Bipolar 1 disorder F31.9 Essential hypertension I10 Type 2 diabetes mellitus without complication, without long-term current use of insulin E11.9 Diabetes mellitus type: type 2 Diabetes mellitus watermaster insulin use: without watermaster use Diabetes mellitus complication status: without complication Additional Codes PHQ-9 - 69941 - PHQ-9 Billing: Yes ([id number]) MASSIEL-7 Assessment Billing - MASSIEL-7 Assessment Tool: MASSIEL-7 Assessment 81797 ([id number]) Time Spent (min) 22 Assessment & Plan Assessment & Plan (1) Moderate persistent asthma, uncomplicated: Code(s): J45.40 - Moderate persistent asthma, uncomplicated Category: Medical (2) Lumbar degenerative disc disease: Code(s): M51.36 - Other intervertebral disc degeneration, lumbar region Category: Medical (3) Hyperlipidemia LDL goal <70: Code(s): E78.5 - Hyperlipidemia, unspecified Category: Medical (4) Schizophrenia: Code(s): F20.9 - Schizophrenia, unspecified Category: Medical Qualifiers: Schizophrenia type: paranoid schizophrenia Qualified Code(s): F20.0 - Paranoid schizophrenia (5) Bipolar 1 disorder: Code(s): F31.9 - Bipolar disorder, unspecified Category: Medical (6) Essential hypertension: Code(s): I10 - Essential (primary) hypertension Category: Medical (7) Diabetes mellitus: Code(s): E11.9 - Type 2 diabetes mellitus without complications Category: Medical Qualifiers: Diabetes mellitus type: type 2 Diabetes mellitus correction insulin use: without watermaster use Diabetes mellitus complication status: without complication Qualified Code(s): E11.9 - Type 2 diabetes mellitus without complications Plan The patient's type 2 diabetes management will continue with her current regimen, as her A1c is controlled. Osteopenia is managed with alendronate, noted in a 2023 bone densitometry. Hypertension and hyperlipidemia treatment will also continue as current levels are acceptable. Concerning the nosebleeds, we'll check platelet counts to identify any hematologic issues. She may benefit from a humidifier during dry seasons, and a pulmonary referral is planned. Psychiatry continues to oversee her depression and anxiety treatment. Medication interactions will be monitored as well. Patient was informed and verbally consented to the use of an ambient scribe for clinic note documentation during this visit. During this visit, we discussed her chronic conditions and reviewed her current treatment. The control of her diabetes, blood pressure, and cholesterol levels indicates effective management. I explained the potential causes of her nasal bleeding and recommended checking platelet counts. The importance of continuing psychiatric consultations for her depression and anxiety was emphasized, as well as the review of her extensive medication regimen to prevent drug interactions. Plans for the pulmonary referral were also discussed, with consent given. Follow-up frequency was discussed, with emphasis on any changes in her condition. Orders: Orders AMB Hemoglobin A1c Today E11.9 - Type 2 diabetes mellitus without complications Complete Blood Count Auto Diff Today D64.9 - Anemia, unspecified Referrals Pulmonology Referral J45.40 - Moderate persistent asthma, uncomplicated Medications: New umeclidinium-vilanterol 62.5-25 mcg/actuation (Anoro Ellipta) 1 inh inhalation DAILY 60 days 60 ea 1RF J45.40 - Moderate persistent asthma, uncomplicated Patient Instructions: - Continue all current medications as prescribed. - Use the humidifier regularly to alleviate nasal bleeding. - Plan for lab work to check your platelet count. - A pulmonary consultation will be scheduled. - Attend follow-up psychiatric appointments as previously arranged. - Maintain your current lifestyle with no smoking or alcohol. - Report any significant changes in symptoms or overall health.
[2024-07-23 10:02] VITALS: BP 136/80; BMI 38.7
== END 2024-07-23 10:28 | disposition home or self-care (01) ==
LOC: HO.HMCH 09:52
PROVIDERS: PCP Internal Medicine; Visit Provider Internal Medicine
DX: J45.40 Moderate persistent asthma, uncomplicated (principal); F20.0 Paranoid schizophrenia; F31.9 Bipolar disorder, unspecified; E11.69 Type 2 diabetes mellitus with other specified complication; M51.369 Other intervertebral disc degeneration, lumbar region without mention of lumbar back pain or lower extremity pain; E78.5 Hyperlipidemia, unspecified; I10 Essential (primary) hypertension

== ENCOUNTER 2024-09-16 07:42 | Outpatient (REF) | payer OTHER, SELFPAY ==
--- OUTSIDE RECORDS SUMMARY | 2024-09-16 07:44 | XMS_ITS | Clinical Summary ---
Author Organization [address] [facility] Address [address] [place] [address] Phone Care Team Providers Care Mail Forwarding System Markup Clerk Name Role Phone Araceli Dawkins MD Primary Care Provider [phone] Encounters Date Type Department Care Team Description 07/17/2024 10:30 AM EDT Evaluation [address] [address] Tony Griggs, PT Difficulty walking (Primary Dx); Persons encountering health services in other specified circumstances from Last 3 Months Surgical History Surgery Date Site/Laterality Comments ABDOMINAL SURGERY PROCEDURE: HISTORICAL ABDOMINAL SURGERY; COMMENT: removal of benign tumor OTHER SURGICAL HISTORY 2008 PROCEDURE: AR RMVL RUPTURED BREAST IMPLANT W/IMPLANT CONTENTS; COMMENT: had small breasts as a child, had implants, then had removal done due to expulsion spontaneously and infected. Surgery was in [facility] KNEE SURGERY PROCEDURE: HISTORICAL KNEE SURGERY; COMMENT: right knee, dislocation? HAND SURGERY PROCEDURE: AR UNLISTED PROCEDURE HANDS/FINGERS; COMMENT: fracture SECTION PROCEDURE: HISTORICAL DELIVERY OTHER SURGICAL HISTORY PROCEDURE: HISTORICAL PANNICULECTOMY OTHER SURGICAL HISTORY 08/07/2007 PROCEDURE: AR BIOPSY LIVER NEEDLE PERCUTANEOUS; COMMENT: Mild chronic hepatitis, grade 2/stage 0, marked steatosis, most likely steatohepatitis associated with obesity. COLONOSCOPY W/ POLYPECTOMY 04/10/2007 PROCEDURE: AR COLSC FLX W/RMVL OF TUMOR POLYP LESION SNARE TQ; COMMENT: [facility], 1 cm serrated adenoma of the sigmoid colon. ESOPHAGOGASTRODUODENOSCOPY 04/10/2007 PROCEDURE: AR EGD TRANSORAL BIOPSY SINGLE/MULTIPLE; COMMENT: [facility], chronic gastritis, H. pylori present. COLONOSCOPY 01/12/2010 PROCEDURE: AR COLONOSCOPY FLX DX W/COLLJ SPEC WHEN PFRMD; COMMENT: [facility], no polyps. COLONOSCOPY 11/22/2010 PROCEDURE: AR COLONOSCOPY FLX DX W/COLLJ SPEC WHEN PFRMD; COMMENT: [facility], no polyps. ESOPHAGOGASTRODUODENOSCOPY 11/22/2010 PROCEDURE: AR EGD TRANSORAL BIOPSY SINGLE/MULTIPLE; COMMENT: [facility], erosive gastritis, biopsies positive for H. pylori. Duodenal biopsies normal. Medical History Medical History Date Comments HTN (hypertension) DX:HTN (hyper tension) Hyperlipidemia DX:Hyperlipidemi a Type 2 diabetes mellitus (CM S/HCC V24, CMS/HCC V28) DX:Type 2 diabetes mellitus (HCC) Asthma DX:Asthma Osteoarthritis DX:Osteoarthriti s Kidney stones DX:Kidney stones Schizophrenia (CMS/HCC V24, CMS/HCC V28) DX:Schizophrenia (HCC); COMM ENT: follows with [facility] Type 2 diabetes mellitus wit h microalbuminuria or microproteinuria 07/31/2012 DX:Type 2 diabete s mellitus with microalbuminuria or microproteinuria Type II or unspecified type diabetes mellitus with neurological manifestations, uncontrolled(250.62) (CMS/HCC V24, CMS/HCC V28) 10/30/2012 DX:Type II or unspecified t ype diabetes mellitus with neurological manifestations, uncontrolled(250.62) (HCC) Chronic hepatitis C without mention of hepatic coma 05/07/2013 DX:Chronic hepatitis C witho ut mention of hepatic coma; COMMENT: History of hepatitis C infection, liver biopsy at the [facility], 08/07/200708. Grade 2/stage 0 disease with marked steatosis. Personal history of colonic polyps 05/07/2013 DX:Personal history of colonic polyps; COMMENT: 1 cm serrated adenoma from the sigmoid colon 2006. Helicobacter pylori gastritis 05/07/2013 DX :Helicobacter pylori gastritis; COMMENT: Documented at endoscopy 2006 and 2010 at the [facility], as of 05/07/2013 it is not clear that this has ever been treated. ALFARO (nonalcoholic steatohepatitis) 05/07/2013 DX:ALFARO (nonalcoholic steatohepatitis); COMMENT: Liver biopsy at the [facility] 2007. Family History Medical History Relation Name Comments Other cancer Brother 1 bone cancer Other cancer Father kidney cancer Hypertension Mother open heart surg jami, dm, asthma Breast cancer Neg Hx Colon cancer Neg Hx Ovarian cancer Neg Hx Relation Name Status Comments Brother 1 Brother 2 Father Mother Social History Tobacco Use Types Packs/Day Years Used Date Smoking Tobacco: Never Smokeless Tobacco: Never Alcohol Use Standard Drinks/Week Comments No 0 (1 standard drink = 0.6 oz pur e alcohol) Comments Unknown Sex and Gender Information Value Date Recorded Sex Assigned at Not on file Legal Sex Female 7:06 AM EST Gender Identity Not on file Sexual Orientation Not on file Obstetrics History Plan of Treatment Health Maintenance Due Date Last Done Comments Breast Cancer Screening 1955 Diabetes: Annual GFR (Glomerular Filtration Rate) 1954 Diabetes: Annual Foot Exam 1964 Diabetes: Annual Retina Eye Exam 1964 Hepatitis A Vaccines (1 of 2 - Risk 2-dose series) 1973 Hepatitis B Vaccines (1 of 3 - Risk 3-dose series) 2014 COVID-19 Vaccine ( season) 2023 03/06/2022, 08/10/2021, 04/12/2021, Additional history exists Cholesterol Screening (Lipid Panel) 06/07/2024 Colorectal Cancer Screening: Colonoscopy 06/07/2024 Depression Screening 06/07/2024 Diabetes: Annual Urine Albumin-Creatinine Ratio (uACR) 06/07/2024 Diabetes: Blood Sugar Control Test (HGBA1C) 06/07/2024 Falls Risk Assessment 06/07/2024 Hepatitis C Screening 06/07/2024 Hypertension/CHF/CAD Annual BMP Blood Test 06/07/2024 Medicare Annual Wellness Visit 06/07/2024 Osteoporosis Screening (Bone Density Screening) 06/07/2024 Social Influencers of Health Screening 06/07/2024 Pneumococcal Vaccine: 50+ Years (3 of 3 - PCV20 or PCV21) 11/13/2024 11/14/2019, 01/12/2017 DTaP,Tdap,and Td Vaccines (2 - Td or Tdap) 12/24/2028 12/24/2018 Zoster Vaccines Completed 03/30/2020, 11/20/2019 RSV Immunization Adult Patients Completed 12/26/2022 Influenza Vaccine Completed 01/25/2024, , 03/06/2022, Additional history exists HIB Vaccines Aged Out No longer eligi ble based on patient's age to complete this topic HPV Vaccines Aged Out No longer eligi ble based on patient's age to complete this topic IPV Vaccines Aged Out No longer eligi ble based on patient's age to complete this topic MMR Vaccines Aged Out No longer eligi ble based on patient's age to complete this topic Meningococcal ACWY Vaccine Aged Out N o longer eligible based on patient's age to complete this topic Meningococcal B Vaccine Aged Out No l onger eligible based on patient's age to complete this topic RSV Immunization Patients Under 20 months Aged Out No longer eligible based on patient's age to complete this topic Varicella Vaccines Aged Out No longer eligible based on patient's age to complete this topic Goals Goal Patient Goal Type Associated Problems Recent Progress Patient-Stated? Author PT LTGs General No Tony Griggs, PT Note: Pt will demonstrate skill and confident with ambulation using single-point cane in left hand Pt will be independent with HEP Insurance [facility] [employer] Member Subscriber Plan / Payer (Ef fective 2023-Present) Name:Monica Alcaraz Relation to Subscriber:Self Name:Monica Alcaraz Payer ID:[id number] Group ID:Not on file Type:Not on file Address: [facility] [address] [id number] MEDICAID - [place] Care Teams Mail Forwarding System Markup Clerk Relationship Specialty Start Date End Date Araceli Dawkins MD [address] [facility] , [address] [facility] D/B/A: [facility] [place] PCP - General 07/18/16
--- OUTSIDE RECORDS SUMMARY | 2024-09-16 07:44 | XMS_ITS | Clinical Summary ---
Author Organization [facility] Address [address] [place] [address] Care Team Providers Care Boner Meat Name Role Phone Unavailable Primary Care Provider Unavailabl e Social History Tobacco Use Types Packs/Day Years Used Date Smoking Tobacco: Never Assessed Comments Unknown Sex and Gender Information Value Date Recorded Sex Assigned at Not on file Legal Sex Female 12:36 PM EDT Gender Identity Not on file Sexual Orientation [...]
== END 2024-09-16 07:43 | disposition home or self-care (01) ==
LOC: HO.MAMMO 07:42
PROVIDERS: PCP Internal Medicine; Visit Provider Internal Medicine
DX: Z12.31 Encounter for screening mammogram for malignant neoplasm of breast (principal)
CPT/HCPCS: 77063; 77067

== ENCOUNTER → 2024-09-16 08:00 | Outpatient (BNV) | payer OTHER, SELFPAY | PROVIDERS: PCP Internal Medicine; Visit Provider Internal Medicine | DX: Z12.31 Encounter for screening mammogram for malignant neoplasm of breast (principal) | CPT/HCPCS: 77063; 77067 ==

== ENCOUNTER 2024-09-18 13:56 | Outpatient (AMB) | payer OTHER, SELFPAY ==
--- OUTSIDE RECORDS SUMMARY | 2024-09-18 14:26 | XMS_ITS | Clinical Summary ---
Author Organization [address] [facility] Address [address] [place] [address] Phone Care Team Providers Care Rn Private Duty Name Role Phone Araceli Dawkins MD Primary Care Provider [phone] Encounters Date Type Department Care Team Description 07/17/2024 10:30 AM EDT Evaluation [address] [address] Tony Griggs, PT Difficulty walking (Primary Dx); Persons encountering health services in other specified circumstances from Last 3 Months Surgical History Surgery Date Site/Laterality Comments ABDOMINAL SURGERY PROCEDURE: HISTORICAL ABDOMINAL SURGERY; COMMENT: removal of benign tumor OTHER SURGICAL HISTORY 2008 PROCEDURE: HI RMVL RUPTURED BREAST IMPLANT W/IMPLANT CONTENTS; COMMENT: had small breasts as a child, had implants, then had removal done due to expulsion spontaneously and infected. Surgery was in [facility] KNEE SURGERY PROCEDURE: HISTORICAL KNEE SURGERY; COMMENT: right knee, dislocation? HAND SURGERY PROCEDURE: HI UNLISTED PROCEDURE HANDS/FINGERS; COMMENT: fracture SECTION PROCEDURE: HISTORICAL DELIVERY OTHER SURGICAL HISTORY PROCEDURE: HISTORICAL PANNICULECTOMY OTHER SURGICAL HISTORY 08/07/2007 PROCEDURE: HI BIOPSY LIVER NEEDLE PERCUTANEOUS; COMMENT: Mild chronic hepatitis, grade 2/stage 0, marked steatosis, most likely steatohepatitis associated with obesity. COLONOSCOPY W/ POLYPECTOMY 04/10/2007 PROCEDURE: HI COLSC FLX W/RMVL OF TUMOR POLYP LESION SNARE TQ; COMMENT: [facility], 1 cm serrated adenoma of the sigmoid colon. ESOPHAGOGASTRODUODENOSCOPY 04/10/2007 PROCEDURE: HI EGD TRANSORAL BIOPSY SINGLE/MULTIPLE; COMMENT: [facility], chronic gastritis, H. pylori present. COLONOSCOPY 01/12/2010 PROCEDURE: HI COLONOSCOPY FLX DX W/COLLJ SPEC WHEN PFRMD; COMMENT: [facility], no polyps. COLONOSCOPY 11/22/2010 PROCEDURE: HI COLONOSCOPY FLX DX W/COLLJ SPEC WHEN PFRMD; COMMENT: [facility], no polyps. ESOPHAGOGASTRODUODENOSCOPY 11/22/2010 PROCEDURE: HI EGD TRANSORAL BIOPSY SINGLE/MULTIPLE; COMMENT: [facility], erosive gastritis, biopsies positive for H. pylori. Duodenal biopsies normal. Medical History Medical History Date Comments HTN (hypertension) DX:HTN (hyper tension) Hyperlipidemia DX:Hyperlipidemi a Type 2 diabetes mellitus (CM S/HCC V24, CMS/HCC V28) DX:Type 2 diabetes mellitus (HCC) Asthma DX:Asthma Osteoarthritis DX:Osteoarthriti s Kidney stones DX:Kidney stones Schizophrenia (CMS/HCC V24, CMS/HCC V28) DX:Schizophrenia (HCC); COMM ENT: follows with [place] [facility] Type 2 diabetes mellitus wit h [...] hepatitis C infection, liver biopsy at the [facility], 08/07/200708. Grade 2/stage 0 disease with marked steatosis. Personal history of colonic polyps 05/07/2013 DX:Personal history of colonic polyps; COMMENT: 1 cm serrated adenoma from the sigmoid colon 2006. Helicobacter pylori gastritis 05/07/2013 DX :Helicobacter pylori gastritis; COMMENT: Documented at endoscopy 2006 and 2010 at the [facility], as of 05/07/2013 it is not clear that this has ever been treated. ALFARO (nonalcoholic steatohepatitis) 05/07/2013 DX:ALFARO (nonalcoholic steatohepatitis); COMMENT: Liver biopsy at the [facility] 2007. Family History Medical History Relation [...] Pt will be independent with HEP Insurance [facility] [employer] Member Subscriber Plan / Payer (Ef fective 2023-Present) Name:Monica Alcaraz Relation to Subscriber:Self Name:Monica Alcaraz Payer ID:[id number] Group ID:Not on file Type:Not on file Address: [facility] [address] [phone] MEDICAID - [place] Care Teams Rn Private Duty Relationship Specialty Start Date End Date Araceli Dawkins MD [address] [facility] , [address] [facility] D/B/A: [facility] [place] PCP - General 07/18/16
--- OUTSIDE RECORDS SUMMARY | 2024-09-18 14:26 | XMS_ITS | Clinical Summary ---
Author Organization [facility] Address [address] [place] [address] Care Team Providers Care Parking Enforcement Manager Name Role Phone Unavailable Primary Care Provider [...]
[2024-09-18 14:28] VITALS: BP 138/80; BMI 37.1
--- NOTE | 2024-09-18 14:28 | A.OFFPC_ITS ---
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 Required: No Accompanied by: Self / Same As Patient Allergies Cortisone Allergy (Severe, Verified 09/18/24 14:53) pruritus, hives, swellin milk [MILK] Allergy (Severe, Verified 09/18/24 14:53) rash ibuprofen [IBUPROFEN] Allergy (Intermediate, Verified 09/18/24 14:53) swelling levofloxacin Allergy (Intermediate, Verified 09/18/24 14:53) pruritus metronidazole Allergy (Intermediate, Verified 09/18/24 14:53) pruritus peanut [PEANUT] Allergy (Intermediate, Verified 09/18/24 14:53) pruritus Penicillins [PENICILLINS] Allergy (Intermediate, Verified 09/18/24 14:53) Hives shellfish derived [SHELLFISH DERIVED] Allergy (Intermediate, Verified 09/18/24 14:53) rash, shortness of breath morphine [MORPHINE] Adverse Reaction (Severe, Verified 09/18/24 14:53) loss of consciousness, hypotension oatmeal Adverse Reaction (Intermediate, Verified 09/18/24 14:53) abdominal gas pain egg [EGG] Adverse Reaction (Mild, Verified 09/18/24 14:53) diarrheas, dizziness red meat Allergy (Intermediate, Uncoded 09/18/24 14:53) hand swelling Medication List - Last Reconciled 09/18/24 by Araceli Dawkins MD acetaminophen 500 mg PO Q6H PRN albuterol sulfate 90 mcg/actuation 2 inhalations inhalation Q6H PRN albuterol sulfate 90 mcg/actuation inhalation alendronate 70 mg PO QWEEK amlodipine 10 mg PO DAILY 90 days aripiprazole 15 mg PO DAILY [back brace As directed] blood sugar diagnostic (OneTouch Ultra Test strips) test once daily blood-glucose meter (OneTouch Ultra2 Meter) test once daily buspirone 10 mg PO BID PRN carboxymethylcellulose sodium 0.5% (Lubricating Plus) 1 drp ophthalmic (eye) BID cholecalciferol (vitamin D3) (Vitamin D3) 25 mcg PO DAILY 90 days diazepam 5 mg PO BID PRN 30 days docusate sodium (Colace) 100 mg PO BID donepezil 10 mg PO BEDTIME 30 days fluticasone propionate 44 mcg/actuation 1 puff inhalation BID hydralazine 25 mg PO TID 90 days hydrocortisone 2.5% (Anusol-HC) 1 appl [place] BID-QID PRN hydrocortisone valerate 0.2% appl topical BID hydroxyzine pamoate 50 mg PO DAILY PRN lancets (OneTouch UltraSoft 2 Lancet) test once daily lansoprazole 30 mg PO DAILY lorazepam mg PO losartan 100 mg PO DAILY 90 days mecobalamin (vitamin B12) 500 mcg PO DAILY 90 days metoprolol tartrate 50 mg PO BID mirtazapine 7.5 mg PO BEDTIME paliperidone ER mg PO paliperidone ER 9 mg PO DAILY paroxetine HCl 30 mg PO QAM pioglitazone 45 mg PO DAILY 90 days plecanatide (Trulance) 3 mg PO DAILY quetiapine 50 mg PO BEDTIME rosuvastatin 40 mg PO DAILY 90 days [Scooter As directed] semaglutide (Rybelsus) 3 mg PO DAILY 30 days tretinoin 0.1% appl topical DAILY umeclidinium-vilanterol 62.5-25 mcg/actuation (Anoro Ellipta) 1 inh inhalation DAILY 60 days valacyclovir 1,000 mg PO BID 7 days zolpidem 10 mg PO BEDTIME 30 days Tobacco use date assessed: 07/23/24 Dental Screening Dental Screen Date: 07/23/24 HPI HPI Comments History of Present Illness Details The patient is a 69-year-old female presenting with medication management needs and a discussion regarding urinary incontinence supplies. She manages several chronic conditions including hypertension, diabetes, and schizophrenia. Her diabetes mellitus is well-controlled, with the latest HbA1c level at 6.8%. The patient is on a comprehensive medication plan to manage her chronic issues, requiring regular adjustments and renewals. Osteoporosis management includes Alendronate, and vitamin D supplementation has been adjusted due to previously high levels. For urinary incontinence, necessary supplies include pads and equipment to aid in daily activities. The patient is awaiting psychiatric follow-up to manage her mental health conditions such as depression and anxiety. Continual adherence to medication and lifestyle adjustments are essential in her current health management strategy. [facility] Medical History (Updated 09/18/24 @ 15:08 by Araceli Dawkins MD) Large bowel obstruction Renal cyst H. 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 Dysplasia of cervix, low grade (JOSE JUAN 1) Vaginal pruritus Breast pain, left Schizophrenia Bipolar 1 disorder Obese Gout Essential hypertension Diabetes mellitus Fall Lumbar back pain Surgical History H/O breast surgery Hx of lithotripsy History of esophagogastroduodenoscopy (EGD) H/O colonoscopy History of eye surgery History of removal of cyst History of surgery History of hemicolectomy History of hand surgery Family History Father Lung cancer Diabetes Hypertension Mother Diabetes CVD (cardiovascular disease) Maternal Aunt Breast cancer Brother Colon cancer Paternal Grandmother Colon cancer Social History Housing: Apartment Alcohol intake: never Patient Tobacco Use Status: Never used Tobacco e-Cigarette/Vaping Use: Never Used Second Hand Smoke Exposure: No service: No Current occupational status: disabled Cognitive needs: Yes Hearing needs: No Vision needs: No Female Reproductive History Menstrual Age of Menarche: 13 Questionnaire Thrive Questionnaire Date Thrive assessed: 07/23/24 MASSIEL-7 AMB Questionnaire MASSIEL-7 Date MASSIEL - 7 assessed: 07/23/24 Source: Developed by Drs. Tony Cedeno, Maureen Davies, Franky Bryson and colleagues, with an educational avni from [employer]. Review of Systems Const All systems reviewed & are unremarkable except as noted in HPI and below ENT Denies change in voice, Denies nasal discharge and Denies sinus pain Card Denies chest pain at rest, Denies chest pain with activity, Denies edema, Denies irregular heart rhythm, Denies claudication, Denies dyspnea, Denies dyspnea on exertion, Denies orthopnea, Denies paroxysmal nocturnal dyspnea and Denies slow heart rate Resp Denies cough, Denies dyspnea and Denies dyspnea on exertion Neuro Denies lack of coordination Endo Denies cold intolerance Physical exam (Primary Care) Vital Signs: Last Vital Signs BP 138/80 09/18/24 14:28 BMI result Body Mass Index 37.1 Tobacco/Smoking Status: Tobacco use Status Tobacco use date assessed 07/23/24 09/18/24 14:38 Patient Tobacco Use Status Never used Tobacco 09/18/24 14:38 e-Cigarette/Vaping Use Never Used 09/18/24 14:38 Thrive Assessment: Date of Thrive Assessment Date Thrive assessed 07/23/24 09/18/24 14:38 Const Limitations: ambulation with cane Resp Effort & Inspection: normal respiratory effort Auscultation: clear to auscultation bilaterally Cardio Jugular venous distension: no JVD Rate: regular rate Rhythm: regular rhythm Heart sounds: S1 normal heart sound present and S2 normal heart sound present Extrem General: Yes full ROM Results AMB Urinalysis, Automated UA Leukoctes 0 Kan/uL Last Edit by Jagruti Linares [facility] on 09/18/24 14:49 UA Nitrite Negative Last Edit by Jagruti Linares [facility] on 09/18/24 14:49 UA Urobilinogen 0 mg/dL Last Edit by Jagruti Linares, [facility] on 09/18/24 14:49 UA Protein 0 mg/dL Last Edit by Jagruti Linares, [facility] on 09/18/24 14:49 UA pH 6.0 Last Edit by Jagruti Linares, [facility] on 09/18/24 14:49 UA Blood 0 Kwan/uL Last Edit by Jagruti Linares, [facility] on 09/18/24 14:49 UA Specific [place] 1.030 Last Edit by Jagruti Linares [facility] on 09/18/24 14 :49 UA Ketone Negative Last Edit by Jagruti Linares [facility] on 09/18/24 14:49 UA Bilirubin 0 mg/dL Last Edit by Jagruti Linares [facility] on 09/18/24 14:49 UA Glucose 0 mg/dL Last Edit by Jagruti Linares, [facility] on 09/18/24 14:49 Results Reviewed Results Reviewed: Laboratory Last Values Urine pH (Auto) 6.0 09/18/24 14:38 Specific [place] (Auto) 1.030 09/18/24 14:38 Urine Protein (Auto) 0 mg/dL 09/18/24 14:38 Glucose (UA)(Auto) 0 mg/dL 09/18/24 14:38 Urine Ketones (Auto) Negative 09/18/24 14:38 Urine Blood (Auto) 0 Kwan/uL 09/18/24 14:38 Urine Nitrite (Auto) Negative 09/18/24 14:38 Urine Bilirubin (Auto) 0 mg/dL 09/18/24 14:38 Urine Urobilinogen (Auto) 0 mg/dL 09/18/24 14:38 Leukocyte Esterase (Auto) 0 Kan/uL 09/18/24 14:38 Coding Level of Care Code Est Pt Level 4 (80847) Complex EM visit Add On G2211 Diagnoses Dysuria R30.0 Urge urinary incontinence N39.41 Hyperlipidemia LDL goal <70 E78.5 Paranoid schizophrenia F20.0 Schizophrenia type: paranoid schizophrenia Bipolar 1 disorder F31.9 Type 2 diabetes mellitus without complication, without long-term current use of insulin E11.9 Diabetes mellitus type: type 2 Diabetes mellitus alf insulin use: without long term care administrator use Diabetes mellitus complication status: without complication Essential hypertension I10 Time Spent (min) 23 Assessment & Plan Assessment & Plan (1) Dysuria: Code(s): R30.0 - Dysuria Category: Medical (2) Urge urinary incontinence: Code(s): N39.41 - Urge incontinence Category: Medical (3) Hyperlipidemia LDL goal <70: Code(s): E78.5 - Hyperlipidemia, unspecified Category: Medical (4) Schizophrenia: Code(s): F20.9 - Schizophrenia, unspecified Category: Medical Qualifiers: Schizophrenia type: paranoid schizophrenia Qualified Code(s): F20.0 - Paranoid schizophrenia (5) Bipolar 1 disorder: Code(s): F31.9 - Bipolar disorder, unspecified Category: Medical (6) Diabetes mellitus: Code(s): E11.9 - Type 2 diabetes mellitus without complications Category: Medical Qualifiers: Diabetes mellitus type: type 2 Diabetes mellitus alf insulin use: without long term care administrator use Diabetes mellitus complication status: without complication Qualified Code(s): E11.9 - Type 2 diabetes mellitus without complications (7) Essential hypertension: Code(s): I10 - Essential (primary) hypertension Category: Medical Plan The patient's management plan involves continuation of her current antihypertensive and diabetes medications, with essential monitoring of blood pressure and blood glucose levels. Adjustments were made in her vitamin D dosing due to high levels. Treatment strategies for osteoporosis and insomnia will continue as per current prescriptions, while seeking further psychiatric evaluation to support mental health treatment. Supplies for urinary incontinence and necessary aid devices were arranged to ensure quality of life. This comprehensive approach considers maintaining stability and preventing exacerbations in her chronic conditions. Patient was informed and verbally consented to the use of an ambient scribe for clinic note documentation during this visit. I reviewed the patient's complex medication regimen, confirming the efficacy of current treatments for her chronic conditions. We discussed reducing her vitamin D intake due to excessive levels and agreed on continuing osteoporosis and mental health management with existing medications. The patient showed understanding of the necessity for regular monitoring and medication adherence. References were made to her stable diabetic control and cardiovascular health, with a specific emphasis on psychiatric follow-up to maintain mental health stability. The benefits and importance of this coordinated approach were communi cated, ensuring she understood the impact on her overall well-being. Orders: Orders AMB Urinalysis Automated Today R30.0 - Dysuria Medications: New underpads (Bed Underpads) Use 1 bed underpad 4 times a day 100 ea 11RF N39.41 - Urge incontinence walker (Ultra-Light Rollator misc) As directed 1 ea 0RF M54.16 - Radiculopathy, lumbar region incontinence pad, liner, disp Use 1 liner three times a day 90 ea 11RF N39.41 - Urge incontinence [recliner lift chair] As directed 1 ea 0RF M54.16 - Radiculopathy, lumbar region Refilled rosuvastatin 40 mg PO DAILY 90 tabs 1RF 90 days cholecalciferol (vitamin D3) (Vitamin D3) 25 mcg PO DAILY 90 tabs 1RF 90 days zolpidem 10 mg PO BEDTIME 30 tabs 0RF 30 days diazepam 5 mg PO BID PRN 60 tabs 0RF anxiety 30 days Patient Instructions: - Continue taking prescribed medications as directed. - Monitor blood glucose and maintain diabetes management. - Adhere to vitamin D dosage reduction to 25 mcg. - Use incontinence supplies and aid devices as required. - Follow up with psychiatry as arranged. - Ensure consistent psychiatric medication intake to manage mental health. - Report any new or worsening symptoms immediately. - Schedule regular check-ups for A1c and cholesterol monitoring.
== END 2024-09-18 15:06 | disposition home or self-care (01) ==
PROVIDERS: PCP Internal Medicine; Visit Provider Internal Medicine
DX: E11.69 Type 2 diabetes mellitus with other specified complication (principal); F20.0 Paranoid schizophrenia; F31.9 Bipolar disorder, unspecified; R30.0 Dysuria; N39.41 Urge incontinence; E78.5 Hyperlipidemia, unspecified; I10 Essential (primary) hypertension

== ENCOUNTER → 2024-09-18 13:57 | Outpatient (BNVA) | payer OTHER, SELFPAY | PROVIDERS: PCP Internal Medicine; Visit Provider Internal Medicine | DX: R30.0 Dysuria (principal); I10 Essential (primary) hypertension; E11.9 Type 2 diabetes mellitus without complications; F20.9 Schizophrenia, unspecified; N39.41 Urge incontinence; E78.5 Hyperlipidemia, unspecified; F20.0 Paranoid schizophrenia; F31.9 Bipolar disorder, unspecified; M54.16 Radiculopathy, lumbar region | CPT/HCPCS: 81003; 99212 ==

== ENCOUNTER 2024-11-04 09:56 | Outpatient (AMB) | payer OTHER, SELFPAY ==
--- NOTE | 2024-11-04 10:04 | A.OFFVIS_ITS ---
Vital Signs 11/04/24 10:06 Height 5 ft Weight 189 lb 9.561 oz BMI 37.0 BP 146/61 H Blood Pressure Location Lt brachial Position Sitting Pulse 65 Intake Visit Reasons: Abdominal pain R/S from 07/15/24 doc out sick Intake Note: Monica presents in the office as a follow up for her abdominal pains. CC: She states that she has nausea and pains in the stomach. She states that she that she has burning in her esophagus. Primary Health Care Nurse Required: Yes Allergies Cortisone Allergy (Severe, Verified 11/04/24 10:07) pruritus, hives, swellin milk (MILK) Allergy (Severe, Verified 11/04/24 10:07) rash ibuprofen (IBUPROFEN) Allergy (Intermediate, Verified 11/04/24 10:07) swelling levofloxacin Allergy (Intermediate, Verified 11/04/24 10:07) pruritus metronidazole Allergy (Intermediate, Verified 11/04/24 10:07) pruritus peanut (PEANUT) Allergy (Intermediate, Verified 11/04/24 10:07) pruritus Penicillins (PENICILLINS) Allergy (Intermediate, Verified 11/04/24 10:07) Hives shellfish derived (SHELLFISH DERIVED) Allergy (Intermediate, Verified 11/04/24 10:07) rash, shortness of breath morphine (MORPHINE) Adverse Reaction (Severe, Verified 11/04/24 10:07) loss of consciousness, hypotension oatmeal Adverse Reaction (Intermediate, Verified 11/04/24 10:07) abdominal gas pain egg (EGG) Adverse Reaction (Mild, Verified 11/04/24 10:07) diarrheas, dizziness red meat Allergy (Intermediate, Uncoded 11/04/24 10:07) hand swelling HPI HPI Abdominal pain R/S from 07/15/24 doc out sick: Details: 68 yr old f here for f/u RECAP: pt of? delilah ? H/O colon cancer- > 10 yrs? ago in [place] ? Diagnostic studies- ? 09/27/17- gastric? emptying study for nausea- normal- done in 3 hrs ? 03/2018- CT? and/pelvis- h/o abdominal pain- normal ? EGD/colonoscopy 2017- 2 small? polyps noted and removed, EGD with erythema h pylori pos ?she did get? treatment for h pylori in past h pylori ag was neg on? testing. ?EGD/colonoscopy 11/2018: gastritis, h pylori pos, hyperplastic? polyp, hyperplastic polyp rectum ? she was then treated with tinidazole? 250 mg TID for 14 d , omeprazole 20 mg bid for 2 weeks, bismuth 524 mg QID and? doxy 100 mg bid ?at f/o 01/2019 she was c/o LUQ pain with nausea,? constipation and was v hypertensive, was sent to ED for assessment, was able to? go home due to ongoing symptoms EGd,colonoscopy was repeated: EGD?colonoscopy: 06/2021 Endoscopy Findings: stomach polyps gastritis Colonoscopy Findings: polyp internal hemorrhoids melanosis coli Path: ? Chronic inactive duodenitis. severe chronic inflamamtion, h pylori pos hyperplastic stomach polyp melanosis coli I retried quadruple therapy but using flagyl (she denies allergy to this), and tetracycline she had KUB 03/22---constipation CT from marketing operations associate -- hepatic steatosis, kidney cyst EGD/Sigmoidoscopy; 12/2022 dilation esophagus and pylorus small internal hemorrhoids H pylori still present but not able to be cultured EGD 12/28/23 Impression/Findings: gastritis irregular Z line -possible short segment barretts Path:active esophagitis Culture: AMOXICILLIN: 0.125 S CLARITHROMYCIN: >=256 R LEVOFLOXACIN: >=32 R METRONIDAZOLE: 0.064 S TETRACYCLINE: 0.125 S ? INTERIM: she ran out of PPI last month and sx have been getting worse with reflux and epigastric apin she saw radiation engineer, had a skin test, no notes available she has nausea swallowing has been worse with occ choking EXAM: GENERAL: The patient is well developed and nontoxic,slightly flat affect VITAL SIGNS:see workflow HEENT: Nonicteric sclerae, PERRLA, EOMI. Oropharynx clear. Moist mucous membranes. Conjunctivae appear well perfused. No thyroid mass. CHEST: Chest wall is nontender. HEART: Regular rate and rhythm without murmurs. LUNGS: Clear to auscultation bilaterally. ABDOMEN: Soft, positive bowel sounds, tender epigastrium, no organomegaly.no flank tenderness SKIN: No rash, no excessive bruising, petechiae, or purpura. NEUROLOGIC: Cranial nerves II-XII intact without motor/sensory deficit. MS: normal A/P: 1/ h pylori pos with treatment with quadruple therapy, has co existing GERD, not responded to treatment regimens--PCN allergy--also hard to grow H pylori on specimens but most recent specimen was pos with good sens to PCN, flagyl and tetracycline but resistant to clarithromycin and levofloxacin 2/ constipation 2/2 medications and age--helped by agus 3/ dysphagia, related to 1/ above--improved with dilation PLAN: 1/ get allergy notes, depending on that might consider treatment again for H pylori 2/ restart PPI, shoudl help her choking etc PFSH Medical History Large bowel obstruction Renal cyst H. 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 Dysplasia of cervix, low grade (JOSE JUAN 1) Vaginal pruritus Breast pain, left Schizophrenia Bipolar 1 disorder Obese Gout Essential hypertension Diabetes mellitus Fall Lumbar back pain Surgical History H/O breast surgery Hx of lithotripsy History of esophagogastroduodenoscopy (EGD) H/O colonoscopy History of eye surgery History of removal of cyst History of surgery History of hemicolectomy History of hand surgery Family History Father Lung cancer Diabetes Hypertension Mother Diabetes CVD (cardiovascular disease) Maternal Aunt Breast cancer Brother Colon cancer Paternal Grandmother Colon cancer Social History Housing: Apartment Alcohol intake: never Patient Tobacco Use Status: Never used Tobacco e-Cigarette/Vaping Use: Never Used Second Hand Smoke Exposure: No service: No Current occupational status: disabled Cognitive needs: Yes Hearing needs: No Vision needs: No Female Reproductive History Menstrual Age of Menarche: 13 Physical Exam Vital Signs: Last Vital Signs Pulse 65 11/04/24 10:06 BP 146/61 H 11/04/24 10:06 BMI result Body Mass Index 37.0 Assessment & Plan Assessment & Plan (1) H. pylori infection: Code(s): A04.8 - Other specified bacterial intestinal infections Category: Medical Plan: as above Medications: Refilled lansoprazole 30 mg PO DAILY 90 caps 3RF Coding Level of Care Code Est Pt Level 3 (54281) Diagnoses H. pylori infection A04.8
[2024-11-04 10:06] VITALS: BP 146/61; PULSE 65; BMI 37.0
--- OUTSIDE RECORDS SUMMARY | 2024-11-04 10:31 | XMS_ITS | Clinical Summary ---
Author Organization [facility] Address [address] [place] [address] Care Team Providers Care Drywall Taper Helper Name Role Phone Unavailable Primary Care Provider [...]
--- OUTSIDE RECORDS SUMMARY | 2024-11-04 10:31 | XMS_ITS | Clinical Summary ---
Author Organization [address] [facility] Address [address] [place] [address] Phone Care Team Providers Care Loop Tacker Name Role Phone Araceli Dawkins MD Primary Care Provider [phone] Surgical History Surgery Date Site/Laterality Comments ABDOMINAL SURGERY PROCEDURE: HISTORICAL ABDOMINAL SURGERY; COMMENT: removal of benign tumor OTHER SURGICAL HISTORY 2008 PROCEDURE: OH RMVL RUPTURED BREAST IMPLANT W/IMPLANT CONTENTS; COMMENT: had small breasts as a child, had implants, then had removal done due to expulsion spontaneously and infected. Surgery was in [facility] KNEE SURGERY PROCEDURE: HISTORICAL KNEE SURGERY; COMMENT: right knee, dislocation? HAND SURGERY PROCEDURE: OH UNLISTED PROCEDURE HANDS/FINGERS; COMMENT: fracture SECTION PROCEDURE: HISTORICAL DELIVERY OTHER SURGICAL HISTORY PROCEDURE: HISTORICAL PANNICULECTOMY OTHER SURGICAL HISTORY 08/07/2007 PROCEDURE: OH BIOPSY LIVER NEEDLE PERCUTANEOUS; COMMENT: Mild chronic hepatitis, grade 2/stage 0, marked steatosis, most likely steatohepatitis associated with obesity. COLONOSCOPY W/ POLYPECTOMY 04/10/2007 PROCEDURE: OH COLSC FLX W/RMVL OF TUMOR POLYP LESION SNARE TQ; COMMENT: [facility], 1 cm serrated adenoma of the sigmoid colon. ESOPHAGOGASTRODUODENOSCOPY 04/10/2007 PROCEDURE: OH EGD TRANSORAL BIOPSY SINGLE/MULTIPLE; COMMENT: [facility], chronic gastritis, H. pylori present. COLONOSCOPY 01/12/2010 PROCEDURE: OH COLONOSCOPY FLX DX W/COLLJ SPEC WHEN PFRMD; COMMENT: [facility], no polyps. COLONOSCOPY 11/22/2010 PROCEDURE: OH COLONOSCOPY FLX DX W/COLLJ SPEC WHEN PFRMD; COMMENT: [facility], no polyps. ESOPHAGOGASTRODUODENOSCOPY 11/22/2010 PROCEDURE: OH EGD TRANSORAL BIOPSY SINGLE/MULTIPLE; COMMENT: [facility], erosive gastritis, biopsies positive for H. pylori. Duodenal biopsies normal. Medical History Medical History Date Comments HTN (hypertension) DX:HTN (hyper tension) Hyperlipidemia DX:Hyperlipidemi a Type 2 diabetes mellitus ( S/HCC V24, [facility] V28) DX:Type 2 diabetes mellitus (HCC) Asthma DX:Asthma Osteoarthritis DX:Osteoarthriti s Kidney stones DX:Kidney stones Schizophrenia (CMS/HCC V24, [facility] V28) DX:Schizophrenia (HCC); COMM ENT: follows with [facility] Type 2 diabetes mellitus wit h microalbuminuria or microproteinuria 07/31/2012 DX:Type 2 diabete s mellitus with microalbuminuria or microproteinuria Type II or unspecified type diabetes mellitus with neurological manifestations, uncontrolled(250.62) (CMS/HCC V24, [facility] V28) 10/30/2012 DX:Type II or unspecified t ype diabetes mellitus with neurological manifestations, uncontrolled(250.62) (HCC) Chronic hepatitis C without mention of hepatic coma 05/07/2013 DX:Chronic hepatitis C witho ut mention of hepatic coma; COMMENT: History of hepatitis C infection, liver biopsy at the [facility], 08/07/200708. Grade 2/stage 0 disease with marked steatosis. Personal history of colonic polyps 05/07/2013 DX:Personal history of colonic polyps; COMMENT: 1 cm serrated adenoma from the sigmoid colon 2006. Helicobacter pylori gastritis 05/07/2013 DX :Helicobacter pylori gastritis; COMMENT: Documented at endoscopy 2006 and 2010 at the [facility], as of 05/07/2013 it is not clear that this has ever been treated. ALFARO (nonalcoholic steatohepatitis) 05/07/2013 DX:ALFARO (nonalcoholic steatohepatitis); COMMENT: Liver biopsy at the [facility] 2007. Family History Medical History Relation [...] - PCV20 or PCV21) 11/13/2024 11/14/2019, 01/12/2017 Influenza Vaccine (#1) 2024 , 01/22/2023, 03/06/2022, Additional history exists DTaP,Tdap,and Td Vaccines (2 - Td or Tdap) 12/24/2028 12/24/2018 Zoster Vaccines Completed 03/30/2020, 11/20/2019 RSV Immunization Adult Patients Completed 12/26/2022 HIB Vaccines Aged Out No longer eligi [...] Author PT LTGs General No Tony Griggs, RADHA Note: Pt will demonstrate skill and confident with ambulation using single-point cane in left hand Pt will be independent with HEP Insurance [facility] [employer] Member Subscriber Plan / Payer (Ef fective 2023-Present) Name:Monica Alcaraz Relation to Subscriber:Self Name:Monica Alcaraz Payer ID:[id number] Group ID:Not on file Type:Not on file Address: [facility] [address] [place] [address] MEDICAID - [place] Care Teams Loop Tacker Relationship Specialty Start Date End Date Araceli Dawkins MD [address] [place] [address] , [address] [facility] D/B/A: [facility] [place] [phone] (Work) PCP - General 07/18/16
--- OUTSIDE RECORDS SUMMARY | 2024-11-04 10:31 | XMS_ITS | Patient Health Record ---
Author Organization [facility] Address [address] [place] [address] Care Team Providers Care Pipe Stem Sawyer Name Role Phone Araceli Ortiz Primary Care Provider Azam Sherman Jr Unavailable Allergies Allergen (clinical drug ingredient) Drug/Non Drug Allergy documented on EMR Reaction Allergy Type Onset Date Status Motrin Unknown Drug Allergy Active morphine Morphine Sulfate Unknown Drug Allergy Active ibuprofen Ibuprofen Unknown Drug Allergy Active Aspir-81 Unknown Drug Allergy Active red meat,eggs milk peanuts oatmeal shellfish (uncoded) Unknown Allergy Active Penicillin Unknown Drug Allergy Active Cortisone Unknown Drug Allergy Active Reason For Referral No Information Medications Medication SIG (Take, Route, Fr equency, Duration) Notes Start Date End Date Status Lisinopril Active Mirtazapine Active Primidone Active Lactulose Active ProAir HFA Active Atorvastatin Calcium Active Amitriptyline HCl Ac tive Janumet Active Omeprazole 20 MG 1 capsule Orally Onc e a day for 30 day(s) 01/26/2017 Active Zolpidem Tartrate Ac tive clonazePAM Active Metoprolol Tartrate Active Paliperidone ER Acti ve lamoTRIgine Active Benztropine Mesylate Active Social History Tobacco Use: Social History Observation Description Date Details (start date - stop date) Never Smoker NA - NA Tobacco Use/Smoking Question Answer Notes Patient is a nonsmoker Alcohol Screen Question Answer Notes Did you have a drink containing alcohol in the p ast year? No Points 0 Interpretation Negative Problems Problem Type SNOMED Code ICD Code Onset Dates Problem Status W/U Status Risk Notes Problem [id number] Gastroesophageal reflux disease without esophagitis (K21.9) Active confirmed Plan Of Treatment No Information Insurance Providers Payer Name Payer Address Payer Phone Subscriber Number Group Number Insured Name Patient Relationship to Insured Coverage Start Date Coverage End Date MEDICARE OF [place] [address] [place] [phone] [id number] VOLODYMYR AHN Self - patient is the insured [facility]ICAID [facility] [place] [facility] [address] [place] [phone] [id number] ROBERSON VARGASVOLODYMYR SUAREZ Self - patient is the insured Medical (General) History Medical History History ICD Code asthma-moderate hx of colon cancer with radiotherapy diabetes mellitus depression and anxiety and insomnia history of gait joint pain Surgical History Surgery Date(Month/Year) unspecified bilateral breast surgery left hand renal calculi removal hemicolectomy due to colon cancer eye surgery pilar cyst in the head 08/15
== END 2024-11-04 10:51 | disposition home or self-care (01) ==
LOC: HO.HGI 09:56
PROVIDERS: PCP Internal Medicine; Visit Provider Internal Medicine Gastroenterology
DX: A04.8 Other specified bacterial intestinal infections (principal)
CPT/HCPCS: 99213

== ENCOUNTER → 2024-11-04 09:56 | Outpatient (BNVA) | payer OTHER, SELFPAY | PROVIDERS: PCP Internal Medicine; Visit Provider Internal Medicine Gastroenterology | DX: A04.8 Other specified bacterial intestinal infections (principal) | CPT/HCPCS: 99212 ==

== ENCOUNTER 2025-01-15 08:51 | Outpatient (AMB) | payer OTHER, SELFPAY ==
--- NOTE | 2025-01-15 09:04 | A.OFFPC_ITS ---
Vital Signs 01/15/25 09:05 Height 5 ft Weight 194 lb BMI 37.9 BP 118/80 Blood Pressure Location Lt brachial Position Sitting Pulse 77 Pulse Source Pulse Oximeter Pulse Oximetry (%) 96 Oxygen Delivery Method Room Air Intake Visit Reasons: LT Side pain/Kidneys? [employer] Required: No Accompanied by: Self / Same As Patient Allergies Cortisone Allergy (Severe, Verified 01/15/25 09:10) pruritus, hives, swellin milk (MILK) Allergy (Severe, Verified 01/15/25 09:10) rash ibuprofen (IBUPROFEN) Allergy (Intermediate, Verified 01/15/25 09:10) swelling levofloxacin Allergy (Intermediate, Verified 01/15/25 09:10) pruritus metronidazole Allergy (Intermediate, Verified 01/15/25 09:10) pruritus peanut (PEANUT) Allergy (Intermediate, Verified 01/15/25 09:10) pruritus Penicillins (PENICILLINS) Allergy (Intermediate, Verified 01/15/25 09:10) Hives shellfish derived (SHELLFISH DERIVED) Allergy (Intermediate, Verified 01/15/25 09:10) rash, shortness of breath morphine (MORPHINE) Adverse Reaction (Severe, Verified 01/15/25 09:10) loss of consciousness, hypotension oatmeal Adverse Reaction (Intermediate, Verified 01/15/25 09:10) abdominal gas pain egg (EGG) Adverse Reaction (Mild, Verified 01/15/25 09:10) diarrheas, dizziness red meat Allergy (Intermediate, Uncoded 11/04/24 10:07) hand swelling Medication List - Last Reconciled 01/15/25 by Christine Pruett MD acetaminophen 500 mg PO Q6H PRN albuterol sulfate 90 mcg/actuation 2 inhalations inhalation Q6H PRN albuterol sulfate 90 mcg/actuation inhalation alendronate 70 mg PO QWEEK amlodipine 10 mg PO DAILY 90 days aripiprazole 15 mg PO DAILY [back brace As directed] blood sugar diagnostic (OneTouch Ultra Test strips) test once daily blood-glucose meter (OneTouch Ultra2 Meter) test once daily buspirone 10 mg PO BID PRN carboxymethylcellulose sodium 0.5% (Lubricating Plus) 1 drp ophthalmic (eye) BID cholecalciferol (vitamin D3) (Vitamin D3) 25 mcg PO DAILY 90 days diazepam 5 mg PO BID PRN 30 days docusate sodium (Colace) 100 mg PO BID donepezil 10 mg PO BEDTIME 30 days fluticasone propionate 44 mcg/actuation 1 puff inhalation BID hydralazine 25 mg PO TID 90 days hydrocortisone 2.5% (Anusol-HC) 1 appl NC BID-QID PRN hydrocortisone valerate 0.2% appl topical BID hydroxyzine pamoate 50 mg PO DAILY PRN incontinence pad, liner, disp Use 1 liner three times a day lancets (Cash Check CardTouch UltraSoft 2 Lancet) test once daily lansoprazole 30 mg PO DAILY lorazepam mg PO losartan 100 mg PO DAILY 90 days mecobalamin (vitamin B12) 500 mcg PO DAILY 90 days metoprolol tartrate 50 mg PO BID mirtazapine 7.5 mg PO BEDTIME paliperidone ER mg PO paliperidone ER 9 mg PO DAILY paroxetine HCl 30 mg PO QAM pioglitazone 45 mg PO DAILY 90 days plecanatide (Trulance) 3 mg PO DAILY quetiapine 50 mg PO BEDTIME [recliner lift chair As directed] rosuvastatin 40 mg PO DAILY 90 days [Scooter As directed] semaglutide (Rybelsus) 3 mg PO DAILY 30 days tretinoin 0.1% appl topical DAILY umeclidinium-vilanterol 62.5-25 mcg/actuation (Anoro Ellipta) 1 inh inhalation DAILY 60 days underpads (Bed Underpads) Use 1 bed underpad 4 times a day valacyclovir 1,000 mg PO BID 7 days walker (Ultra-Light Rollator misc) As directed zolpidem 10 mg PO BEDTIME 30 days Tobacco use date assessed: 07/23/24 Fall risk assessment: 1 Fall in past year Last assessed Fall Risk: 01/15/25 Dental Screening Dental Screen Date: 01/15/25 Did you have a dental visit in the last 12 months?: Yes Did you have a dental problem in the last 6 months where you did not have access to dental care?: No Was dental information given to patient?: Patient has dentist HPI HPI Comments History of Present Illness Details The patient is a 69-year-old female presenting with left sided otalgia, cephalalgia, and flank pain. The symptoms have been present for approximately one month, with the patient reporting that they started suddenly and have progressively worsened. The patient has been taking Tylenol for pain management, which has provided some relief. The patient was seen previously in Urology clinic for dysuria and flank pain during which lifestyle changes were emphasized for cholidolithiasis. The patient also reports a history of osteoporosis, which may be contributing to her current symptoms. She denies any fever or chills associated with her symptoms. [facility] Medical History Large bowel obstruction Renal cyst H. 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 Dysplasia of cervix, low grade (JOSE JUAN 1) Vaginal pruritus Breast pain, left Schizophrenia Bipolar 1 disorder Obese Gout Essential hypertension Diabetes mellitus Fall Lumbar back pain Surgical History H/O breast surgery Hx of lithotripsy History of esophagogastroduodenoscopy (EGD) H/O colonoscopy History of eye surgery History of removal of cyst History of surgery History of hemicolectomy History of hand surgery Family History Father Lung cancer Diabetes Hypertension Mother Diabetes CVD (cardiovascular disease) Maternal Aunt Breast cancer Brother Colon cancer Paternal Grandmother Colon cancer Social History Housing: Apartment Alcohol intake: never Patient Tobacco Use Status: Never used Tobacco e-Cigarette/Vaping Use: Never Used Second Hand Smoke Exposure: No service: No Current occupational status: disabled Cognitive needs: Yes Hearing needs: No Vision needs: No Female Reproductive History Menstrual Age of Menarche: 13 Questionnaire PHQ-9 Over the last 2 weeks, how often have you been bothered by any of the following problems? 1. Little interest or pleasure in doing things: several days 2. Feeling down, depressed, or hopeless: several days 3. Trouble falling or staying asleep, or sleeping too much: several days 4. Feeling tired or having little energy: several days 5. Poor appetite or overeating: several days 6. Feeling bad about yourself - or that you are a failure or have let yourself or your family down: not at all 7. Trouble concentrating on things, such as reading the newspaper or watching television: several days 8. Moving or speaking so slowly that other people could have noticed. Or the opposite - being so fidgety or restless that you have been moving around a lot more than usual: several days 9. Thoughts that you would be better off or of hurting yourself in some way: not at all Total score: 7 86490 - PHQ-9 Billing: Yes Source: Developed by Drs. Tony Cedeno, Maureen Davies, Franky Bryson and colleagues, with an educational avni from [employer]. Thrive Questionnaire Date Thrive assessed: 07/23/24 I am a: Patient What is your living situation today?: I have a steady place to live Within the past 12 months, did the food you bought not last and you didn't have the money to get more?: Never true Within the past 12 months, did you worry whether your food would run out before you got money to buy more?: Never true Do you have trouble paying for medicines?: No Do you have trouble getting transportation to medical appointments?: No Do you have trouble paying your heating and electricity bill?: No Do you have trouble taking care of your child, family member or friend?: No Do you have trouble with day-to-day activities such as bathing, preparing meals, shopping, managing finances, etc.?: No Are you currently unemployed and looking for a job?: No Are you interested in more education?: No Please select the resources that you would like help with: None Currently or been in a relationship where the following occur: No concerns reported THRIVE Score: 0 AUDIT C Alcohol Use Questionnaire (AUDIT-C) 1. How often do you have a drink containing alcohol?: Never Total Score: 0 MASSIEL-7 AMB Questionnaire MASSIEL-7 Date MASSIEL - 7 assessed: 07/23/24 Feeling nervous, anxious, or on edge: 0 = Not at all Not being able to stop or control worryin = Not at all Worrying too much about different things: 0 = Not at all Trouble relaxin = Not at all Being so restless that it is hard to sit still: 0 = Not at all Becoming easily annoyed or irritable: 0 = Not at all Feeling afraid as if something awful might happen: 0 = Not at all Total MASSIEL-7 score (0-4 normal; 5-9 mild; 10-14 moderate; 15-21 severe): 0 Source: Developed by Drs. Tony Cedeno, Maureen Davies, Franky Bryson and colleagues, with an educational avni from [employer]. MASSIEL-7 Assessment Billing MASSIEL-7 Assessment Tool: MASSIEL-7 Assessment 78279 Review of Systems Const Details: Positives besides what was mentioned in HPI are in BOLD Constitutional: No Weight Change, No Fever, No Chills, No Night Sweats, No Fatigue, No Malaise ENT/Mouth: No Hearing Changes, No Ear Pain, No Nasal Congestion, No Sinus Pain, No Hoarseness, No sore throat, No Rhinorrhea, No Swallowing Difficulty Eyes: No Eye Pain, No Swelling, No Redness, No Foreign Body, No Discharge, No Vision Changes Cardiovascular: No Chest Pain, No SOB, No PND, No Dyspnea on Exertion, No Orthopnea, No Claudication, No Edema, No Palpitations Respiratory: No Cough, No Sputum, No Wheezing, No Smoke Exposure, No Dyspnea Gastrointestinal: No Nausea, No Vomiting, No Diarrhea, No Constipation, No Pain, No Heartburn, No Anorexia, No Dysphagia, No Hematochezia, No Melena, No Flatulence, No Jaundice Genitourinary: No Dysmenorrhea, No DUB, No Dyspareunia, No Dysuria, No Urinary Frequency, No Hematuria, No Urinary Incontinence, No Urgency, No Flank Pain, No Urinary Flow Changes, No Hesitancy Musculoskeletal: No Arthralgias, No Myalgias, No Joint Swelling, No Joint Stiffness, No Back Pain, No Neck Pain, No Injury History Skin: No Skin Lesions, No Pruritis, No Hair Changes, No Breast/Skin Changes, No Nipple Discharge Neuro: No Weakness, No Numbness, No Paresthesias, No Loss of Consciousness, No Syncope, No Dizziness, No Headache, No Coordination Changes, No Recent Falls Psych: No Anxiety/Panic, No Depression, No Insomnia, No Personality Changes, No Delusions, No Rumination, No SI/HI/AH/VH, No Social Issues, No Memory Tinoco ges, No Violence/Abuse Hx., No Eating Concerns Heme/Lymph: No Bruising, No Bleeding, No Transfusions History, No Lymphadenopathy Endocrine: No Polyuria, No Polydipsia, No Temperature Intolerance Physical exam (Primary Care) Vital Signs: Last Vital Signs Pulse 77 01/15/25 09:05 BP 118/80 01/15/25 09:05 Pulse Ox 96 01/15/25 09:05 Oxygen Delivery Method Room Air 01/15/25 09:05 BMI result Body Mass Index 37.9 Tobacco/Smoking Status: Tobacco use Status Tobacco use date assessed 07/23/24 01/15/25 09:15 Patient Tobacco Use Status Never used Tobacco 01/15/25 09:15 e-Cigarette/Vaping Use Never Used 01/15/25 09:15 PHQ-9: PHQ-9 Score PHQ-9: Total score 7 01/15/25 09:35 Thrive Assessment: Date of Thrive Assessment Date Thrive assessed 07/23/24 01/15/25 09:15 Currently or been in a relationship where the following occur: No concerns reported Const Other: Pertinent findings are in BOLD GENERAL APPEARANCE NAD, activity normal for age, well developed/ well nourished, no cyanosis, pallor, or diaphoresis. EYES lids/conjunctiva normal. EARS/NOSE/THROAT Mucous membranes moist, nares normal, lips/teeth normal uvula midline without oral pharyngeal erythema, exudate or swelling TMs normal bilaterally. No lymphangitis/lymphedema. HEAD/NECK normocephalic atraumatic, no facial trauma, neck is supple. RESPIRATORY respiratory effort normal, speaks in full sentences, no tripod position, no accessory muscle use. Lungs clear to auscultation without rhonchi, wheezes, rales CARDIAC Regular rate and rhythm, no edema. ABDOMINAL Soft, ND/NT. No evidence of fluid wave. No pulsatile masses on exam, rebound tenderness, Hoover sign or pain over Mcburney's point. MUSCLES/EXTREMITIES No abnormal range of motion, no swelling. SKIN Warm, pink and dry. No rashes, dermatoses, petechiae or lesions. NEUROLOGICAL Speech is clear and appropriate. Normal level of consciousness. Gait and coordination are normal. 5/5 strength in all extremities. PSYCH Normal mood and affect. Judgement/competence is appropriate Ear exam: normal. Dental carries present. Left sided flank pain present which is worse with movement. Results AMB Urinalysis, Automated UA Leukoctes 0 Kan/uL Last Edit by Nuria Pacheco CMA on 01/15/25 09:52 UA Nitrite Negative Last Edit by Nuria Pacheco CMA on 01/15/25 09:52 UA Urobilinogen 0 mg/dL Last Edit by Nuria Pacheco CMA on 01/15/25 09:52 UA Protein 15 mg/dL Last Edit by Nuria Pacheco CMA on 01/15/25 09:52 UA pH 6.0 Last Edit by Nuria Pacheco CMA on 01/15/25 09:52 UA Blood 0 Kwan/uL Last Edit by Nuria Pacheco CMA on 01/15/25 09:52 UA Specific [place] 1.030 Last Edit by Nuria Pacheco CMA on 01/15/25 09:52 UA Ketone Negative Last Edit by Nuria Pacheco CMA on 01/15/25 09:52 UA Bilirubin 0 mg/dL Last Edit by Nuria Pacheco CMA on 01/15/25 09:52 UA Glucose 0 mg/dL Last Edit by Nuria Pacheco CMA on 01/15/25 09:52 Results Reviewed Results Reviewed: Laboratory Last Values Urine pH (Auto) 6.0 01/15/25 09:45 Specific [place] (Auto) 1.030 01/15/25 09:45 Urine Protein (Auto) 15 mg/dL 01/15/25 09:45 Glucose (UA)(Auto) 0 mg/dL 01/15/25 09:45 Urine Ketones (Auto) Negative 01/15/25 09:45 Urine Blood (Auto) 0 Kwan/uL 01/15/25 09:45 Urine Nitrite (Auto) Negative 01/15/25 09:45 Urine Bilirubin (Auto) 0 mg/dL 01/15/25 09:45 Urine Urobilinogen (Auto) 0 mg/dL 01/15/25 09:45 Leukocyte Esterase (Auto) 0 Kan/uL 01/15/25 09:45 Coding Level of Care Code Est Pt Level 4 (79969) Diagnoses Dysuria R30.0 Flank pain R10.9 Headache R51.9 Ear pain H92.09 Additional Codes MASSIEL-7 Assessment Billing - MASSIEL-7 Assessment Tool: MASSIEL-7 Assessment 75144 ([id number]) PHQ-9 - 63441 - PHQ-9 Billing: Yes ([id number]) Assessment & Plan Assessment & Plan (1) Dysuria: Code(s): R30.0 - Dysuria Category: Medical Plan: Amb UA negative. Urology referral. (2) Flank pain: Code(s): R10.9 - Unspecified abdominal pain Category: Medical Plan: Amb UA negative. CXR to rule out ribs fracture. CXR negative. Urology referral. (3) Headache: Code(s): R51.9 - Headache, unspecified Category: Medical Plan: Continue Tylenol. Most likely 2/2 teeth caries. (4) Ear pain: Code(s): H92.09 - Otalgia, unspecified ear Category: Medical Plan: Ear exam normal. No indication for Abx. Dentist recommended. Plan I discussed with the patient the possibility of a dental issue contributing to her otalgia and recommended scheduling a dental appointment. UA in clinic was negative for UTI.CXR ordered to rule out ribs fracture. And advised her to continue taking Tylenol for pain management. Orders: Orders XR ribs BI min 4V w CXR1V Today M54.9 - Dorsalgia, unspecified AMB Urinalysis Automated Today Z13.9 - Encounter for screening, unspecified Referrals Urology Referral M54.9 - Dorsalgia, unspecified, R10.9 - Unspecified abdominal pain, R30.0 - Dysuria Medications: Refilled alendronate 70 mg PO QWEEK 14 tabs 3RF alendronate 70 mg PO QWEEK 14 tabs 3RF Discontinued alendronate Discontinued Reason: Duplicate 70 mg PO QWEEK 14 tabs 3RF
[2025-01-15 09:05] VITALS: BP 118/80; PULSE 77; O2SAT 96; BMI 37.9
--- OUTSIDE RECORDS SUMMARY | 2025-01-15 10:24 | XMS_ITS | Clinical Summary ---
Author Organization [facility] Address [address] [place] [address] Care Team Providers Care Hogshead Packer Name Role Phone Unavailable Primary Care Provider Unavailabl e Social History Tobacco Use Types Packs/Day Years Used Date Smoking Tobacco: Never Assessed Comments Unknown Sex and Gender Information Value Date Recorded Sex Assigned at Not on file Legal Sex Female 12:36 PM EDT Gender Identity Not on file Sexual Orientation Not on file Plan of Treatment Health Maintenance Due Date Last Done Comments Advance Care Planning 1955 Hepatitis C Virus Screening 1955 DTaP/Tdap/Td Vaccines (1 - Tdap) 1973 Pneumococcal Vaccines 50+ (1 of 1 - PCV) 2004 Zoster (Shingles) Vaccine (1 of 2) 2004 COVID-19 Vaccine ( - 2023-2 5 season) 2024 RSV Vaccine 60 years and old er and Patients (1 - 1-dose 75+ series) 2029 Hepatitis B Vaccines Aged Out No long er eligible based on patient's age to complete this topic
--- OUTSIDE RECORDS SUMMARY | 2025-01-15 10:24 | XMS_ITS | Clinical Summary ---
Author Organization [address] [facility] Address [address] [place] [address] Phone Care Team Providers Care Mortician Investigator Name Role Phone Araceli Dawkins MD Primary Care Provider [phone] Surgical History Surgery Date Site/Laterality Comments ABDOMINAL SURGERY PROCEDURE: HISTORICAL ABDOMINAL SURGERY; COMMENT: removal of benign tumor OTHER SURGICAL HISTORY 2008 PROCEDURE: AK RMVL RUPTURED BREAST IMPLANT W/IMPLANT CONTENTS; COMMENT: had small breasts as a child, had implants, then had removal done due to expulsion spontaneously and infected. Surgery was in [facility] PROCEDURE: HISTORICAL KNEE SURGERY; COMMENT: right knee, dislocation? HAND SURGERY PROCEDURE: AK UNLISTED PROCEDURE HANDS/FINGERS; COMMENT: fracture SECTION PROCEDURE: HISTORICAL DELIVERY OTHER SURGICAL HISTORY PROCEDURE: HISTORICAL PANNICULECTOMY OTHER SURGICAL HISTORY 08/07/2007 PROCEDURE: AK BIOPSY LIVER NEEDLE PERCUTANEOUS; COMMENT: Mild chronic hepatitis, grade 2/stage 0, marked steatosis, most likely steatohepatitis associated with obesity. COLONOSCOPY W/ POLYPECTOMY 04/10/2007 PROCEDURE: AK COLSC FLX W/RMVL OF TUMOR POLYP LESION SNARE TQ; COMMENT: [facility], 1 cm serrated adenoma of the sigmoid colon. ESOPHAGOGASTRODUODENOSCOPY 04/10/2007 PROCEDURE: AK EGD TRANSORAL BIOPSY SINGLE/MULTIPLE; COMMENT: [facility], chronic gastritis, H. pylori present. COLONOSCOPY 01/12/2010 PROCEDURE: AK COLONOSCOPY FLX DX W/COLLJ SPEC WHEN PFRMD; COMMENT: [facility], no polyps. COLONOSCOPY 11/22/2010 PROCEDURE: AK COLONOSCOPY FLX DX W/COLLJ SPEC WHEN PFRMD; COMMENT: [facility], no polyps. ESOPHAGOGASTRODUODENOSCOPY 11/22/2010 PROCEDURE: AK EGD TRANSORAL BIOPSY SINGLE/MULTIPLE; COMMENT: [facility], erosive gastritis, biopsies positive for H. pylori. Duodenal biopsies normal. Medical History Medical History Date Comments HTN (hypertension) DX:HTN (hyper tension) Hyperlipidemia DX:Hyperlipidemi a Type 2 diabetes mellitus ( S/HCC V24, [facility] V28) DX:Type 2 diabetes mellitus (HCC) Asthma DX:Asthma Osteoarthritis DX:Osteoarthriti s Kidney stones DX:Kidney stones Schizophrenia (CMS/HCC V24, [facility] V28) DX:Schizophrenia (HCC); COMM ENT: follows with [facility] Type 2 diabetes mellitus wit h microalbuminuria or microproteinuria 07/31/2012 DX:Type 2 diabete s mellitus with microalbuminuria or microproteinuria Type II or unspecified type diabetes mellitus with neurological manifestations, uncontrolled(250.62) (CMS/HCC V24, [facility] V28) 10/30/2012 DX:Type II or unspecified t ype diabetes mellitus with neurological manifestations, uncontrolled(250.62) (HCC) Chronic hepatitis C without mention of hepatic coma 05/07/2013 DX:Chronic hepatitis C witho ut mention of hepatic coma; COMMENT: History of hepatitis C infection, liver biopsy at the [facility], 08/07/200708. Grade 2/stage 0 disease with marked steatosis. Personal history of colonic polyps 05/07/2013 DX:Personal history of colonic polyps; COMMENT: 1 cm serrated adenoma from the sigmoid colon 2006. Helicobacter pylori gastritis 05/07/2013 DX :Helicobacter pylori gastritis; COMMENT: Documented at endoscopy 2006 and 2010 at the [facility], as of 05/07/2013 it is not clear that this has ever been treated. ALFARO (nonalcoholic steatohepatitis) 05/07/2013 DX:ALFARO (nonalcoholic steatohepatitis); COMMENT: Liver biopsy at the [facility] 2007. Family History Medical History [...] of 3 - Risk 3-dose series) 2014 Depression Screening 05/01/2024 Cholesterol Screening (Lipid Panel) 06/07/2024 Colorectal Cancer Screening: Colonoscopy 06/07/2024 Diabetes: Annual Urine Albumin-Creatinine Ratio (uACR) 06/07/2024 Diabetes: Blood Sugar Control Test (HGBA1C) 06/07/2024 Falls Risk Assessment 06/07/2024 Hepatitis C Screening 06/07/2024 Hypertension/CHF/CAD Annual BMP Blood Test 06/07/2024 Medicare Annual Wellness Visit 06/07/2024 Osteoporosis Screening (Bone Density Screening) 06/07/2024 Social Influencers of Health Screening 06/07/2024 Pneumococcal Vaccine: 50+ Years (3 of 3 - PCV20 or PCV21) 11/13/2024 11/14/2019, 01/12/2017 COVID-19 Vaccine (6 - 2024- season) 2024 03/06/2022, 08/10/2021, 04/12/2021, Additional history exists Influenza Vaccine (#1) 2024 , 01/22/2023, 03/06/2022, [...] Pt will be independent with HEP Insurance [facility] [employer] Member Subscriber Plan / Payer (Ef fective 2023-Present) Name:Monica Alcaraz Relation to Subscriber:Self Name:Monica Alcaraz Payer ID:[id number] Group ID:Not on file Type:Not on file Address: [facility] [address] [place] [address] MEDICAID - [place] Care Teams Mortician Investigator Relationship Specialty Start Date End Date Araceli Dawikns MD [address] [place] [address] , [address] [facility] D/B/A: [facility] [place] [phone] (Work) PCP - General 07/18/16
--- OUTSIDE RECORDS SUMMARY | 2025-01-15 10:24 | XMS_ITS | Patient Health Record ---
Author Organization [facility] Address [address] [place] [address] Care Team Providers Care Innersole Fitter Name Role Phone Araceli Ortiz Primary Care Provider Azam Sherman Jr Unavailable Allergies Allergen (clinical drug ingredient) Drug/Non Drug Allergy documented on EMR Reaction Allergy Type Onset Date Status Penicillin Unknown Drug Allergy Active Cortisone Unknown Drug Allergy Active Motrin Unknown Drug Allergy Active morphine Morphine Sulfate Unknown Drug Allergy Active ibuprofen Ibuprofen Unknown Drug Allergy Active Aspir-81 Unknown Drug Allergy Active red meat,eggs milk peanuts oatmeal shellfish (uncoded) Unknown Allergy Active Reason For Referral No Information [...] Problem Status W/U Status Risk Notes Problem [id number] Gastroesophageal reflux disease without esophagitis (K21.9) Active confirmed Plan Of Treatment No Information Insurance Providers Payer Name Payer Address Payer Phone Subscriber Number Group Number Insured Name Patient Relationship to Insured Coverage Start Date Coverage End Date MEDICARE OF [place] [address] [place] [address] [phone] [id number] VOLODYMYR AHN Self - patient is the insured [facility]ICA[facility] [address] [place] [phone] [id number] ROBERSON VARGASVOLODYMYR SUAREZ Self - patient is [...]
== END 2025-01-15 10:30 | disposition home or self-care (01) ==
LOC: HO.HMCH 08:51
PROVIDERS: PCP Internal Medicine; Visit Provider Internal Medicine
DX: R30.0 Dysuria (principal); R10.9 Unspecified abdominal pain; R51.9 Headache, unspecified; H92.09 Otalgia, unspecified ear; Z13.9 Encounter for screening, unspecified

== ENCOUNTER 2025-01-15 08:51 | Outpatient (REF) | payer OTHER, SELFPAY ==
--- NOTE | ~2025-01-15 | XR_ITS ---
EXAMINATION: XR RIBS, BILATERAL CLINICAL INFORMATION: M54.9 - Dorsalgia, unspecified COMPARISON: February 13, 2019. TECHNIQUE: AP view chest. Oblique views of the hemithorax . FINDINGS: Pulmonary reticular pattern. No hyperinflation. No consolidation, pleural effusion or pneumothorax. Cardiomediastinal silhouette size is normal. Multilevel spondylosis. Mild S-shaped curvature of the thoracic spine. Limited oblique views demonstrate no acute cortical disruption in the ribs. Large body habitus/obesity. XR/XR ribs BI min 4V w CXR1V IMPRESSION: No acute airspace disease. No gross acute fracture. Multilevel spondylosis, axial skeleton. Electronically signed by: Nestor Torre MD 01/15/2025 10:37 AM EDT
== END 2025-01-15 08:52 | disposition home or self-care (01) ==
LOC: HO.XRAY 08:51
PROVIDERS: PCP Internal Medicine; Visit Provider Internal Medicine
DX: M54.9 Dorsalgia, unspecified (principal); R30.0 Dysuria; R10.9 Unspecified abdominal pain; R51.9 Headache, unspecified; H92.09 Otalgia, unspecified ear
CPT/HCPCS: 71111; 81003; 96127; 99212

== ENCOUNTER → 2025-01-15 10:19 | Outpatient (BNV) | payer OTHER, SELFPAY | PROVIDERS: PCP Internal Medicine; Visit Provider Radiology Diagnostic Radiology | DX: M47.814 Spondylosis without myelopathy or radiculopathy, thoracic region (principal) | CPT/HCPCS: 71111 ==

== ENCOUNTER 2025-01-27 14:54 | Outpatient (AMB) | payer OTHER, SELFPAY ==
[2025-01-27 15:11] VITALS: BP 180/88; PULSE 66; RESP 18; TEMP 36.3; O2SAT 97; BMI 37.9
--- NOTE | 2025-01-27 15:11 | A.OFFPC_ITS ---
Vital Signs 01/27/25 15:11 Height 5 ft Weight 194 lb 0.108 oz BMI 37.9 BP 180/88 H Blood Pressure Location Lt brachial Position Sitting Respiration 18 Pulse 66 Pulse Source Pulse Oximeter Temp 97.3 F Temp Source Temporal Artery Scan Pulse Oximetry (%) 97 Oxygen Delivery Method Room Air Intake Visit Reasons: (R) hand swelling, nausea, headaches General Internist And Physician Leader Required: Yes General Internist And Physician Leader Language: Icelandic Accompanied by: Self / Same As Patient Allergies Cortisone Allergy (Severe, Verified 01/27/25 15:23) pruritus, hives, swellin milk (MILK) Allergy (Severe, Verified 01/27/25 15:23) rash ibuprofen (IBUPROFEN) Allergy (Intermediate, Verified 01/27/25 15:23) swelling levofloxacin Allergy (Intermediate, Verified 01/27/25 15:23) pruritus metronidazole Allergy (Intermediate, Verified 01/27/25 15:23) pruritus peanut (PEANUT) Allergy (Intermediate, Verified 01/27/25 15:23) pruritus Penicillins (PENICILLINS) Allergy (Intermediate, Verified 01/27/25 15:23) Hives shellfish derived (SHELLFISH DERIVED) Allergy (Intermediate, Verified 01/27/25 15:23) rash, shortness of breath morphine (MORPHINE) Adverse Reaction (Severe, Verified 01/27/25 15:23) loss of consciousness, hypotension oatmeal Adverse Reaction (Intermediate, Verified 01/27/25 15:23) abdominal gas pain egg (EGG) Adverse Reaction (Mild, Verified 01/27/25 15:23) diarrheas, dizziness red meat Allergy (Intermediate, Uncoded 01/27/25 15:23) hand swelling Medication List - Last Reconciled 01/27/25 by Alison Bourne PA-C acetaminophen 500 mg PO Q6H PRN albuterol sulfate 90 mcg/actuation 2 inhalations inhalation Q6H PRN albuterol sulfate 90 mcg/actuation inhalation alendronate 70 mg PO QWEEK amlodipine 10 mg PO DAILY 90 days aripiprazole 15 mg PO DAILY [back brace As directed] blood sugar diagnostic (OneTouch Ultra Test strips) test once daily blood-glucose meter (ZoomTouch Ultra2 Meter) test once daily buspirone 10 mg PO BID PRN carboxymethylcellulose sodium 0.5% (Lubricating Plus) 1 drp ophthalmic (eye) BID cholecalciferol (vitamin D3) (Vitamin D3) 25 mcg PO DAILY 90 days diazepam 5 mg PO BID PRN 30 days docusate sodium (Colace) 100 mg PO BID donepezil 10 mg PO BEDTIME 30 days fluticasone propionate 44 mcg/actuation 1 puff inhalation BID hydralazine 25 mg PO TID 90 days hydrocortisone 2.5% (Anusol-HC) 1 appl GA BID-QID PRN hydrocortisone valerate 0.2% appl topical BID hydroxyzine pamoate 50 mg PO DAILY PRN incontinence pad, liner, disp Use 1 liner three times a day lancets (ZoomTouch UltraSoft 2 Lancet) test once daily lansoprazole 30 mg PO DAILY lorazepam mg PO losartan 100 mg PO DAILY 90 days mecobalamin (vitamin B12) 500 mcg PO DAILY 90 days metoprolol tartrate 50 mg PO BID mirtazapine 7.5 mg PO BEDTIME paliperidone ER mg PO paliperidone ER 9 mg PO DAILY paroxetine HCl 30 mg PO QAM pioglitazone 45 mg PO DAILY 90 days plecanatide (Trulance) 3 mg PO DAILY quetiapine 50 mg PO BEDTIME [recliner lift chair As directed] rosuvastatin 40 mg PO DAILY 90 days [Scooter As directed] semaglutide (Rybelsus) 3 mg PO DAILY 30 days tretinoin 0.1% appl topical DAILY umeclidinium-vilanterol 62.5-25 mcg/actuation (Anoro Ellipta) 1 inh inhalation DAILY 60 days underpads (Bed Underpads) Use 1 bed underpad 4 times a day valacyclovir 1,000 mg PO BID 7 days walker (Ultra-Light Rollator misc) As directed zolpidem 10 mg PO BEDTIME 30 days Tobacco use date assessed: 01/27/25 Fall risk assessment: No Falls in past year Last assessed Fall Risk: 01/27/25 Dental Screening Dental Screen Date: 01/27/25 Did you have a dental visit in the last 12 months?: No Did you have a dental problem in the last 6 months where you did not have access to dental care?: No Was dental information given to patient?: No HPI (R) hand swelling, nausea, headaches HPI Details 69-year-old female with past medical his tory of diabetes mellitus, hypertension, gout, bipolar disorder, schizophrenia, hypercholesterolemia, chronic pain syndrome, coronary artery disease last seen 12/2024 coming in for acute problem. histology tech [place] [id number] was used for the duration of this visit. Presenting with a fall resulting in hand and hip pain. The fall occurred while taking a shower, where she slipped and attempted to hold onto a tube, resulting in hand swelling and hip pain. She did not hit the floor but landed in a sitting position, exacerbating pre-existing hip pain due to osteoporosis. The patient reports increased hip pain post-fall, with a history of osteoporosis contributing to the severity. She also reports a tremor that affects her ability to hold food, which started approximately two weeks ago. Unable to determine strength in erick hands due to pain. The patient has a history of seeing a neurologist for tremors, but the neurologist has since relocated. [facility] Medical History Large bowel obstruction Renal cyst H. 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 Dysplasia of cervix, low grade (JOSE JUAN 1) Vaginal pruritus Breast pain, left Schizophrenia Bipolar 1 disorder Obese Gout Essential hypertension Diabetes mellitus Fall Lumbar back pain Surgical History H/O breast surgery Hx of lithotripsy History of esophagogastroduodenoscopy (EGD) H/O colonoscopy History of eye surgery History of removal of cyst History of surgery History of hemicolectomy History of hand surgery Family History Father Lung cancer Diabetes Hypertension Mother Diabetes CVD (cardiovascular disease) Maternal Aunt Breast cancer Brother Colon cancer Paternal Grandmother Colon cancer Social History Housing: Apartment Alcohol intake: never Patient Tobacco Use Status: Never used Tobacco e-Cigarette/Vaping Use: Never Used Second Hand Smoke Exposure: No service: No Current occupational status: disabled Cognitive needs: Yes Hearing needs: No Vision needs: No Female Reproductive History Menstrual Age of Menarche: 13 Questionnaire Thrive Questionnaire Date Thrive assessed: 01/15/25 I am a: Patient What is your living situation today?: I have a steady place to live Within the past 12 months, did the food you bought not last and you didn't have the money to get more?: Never true Within the past 12 months, did you worry whether your food would run out before you got money to buy more?: Never true Do you have trouble paying for medicines?: No Do you have trouble getting transportation to medical appointments?: No Do you have trouble paying your heating and electricity bill?: No Do you have trouble taking care of your child, family member or friend?: No Do you have trouble with day-to-day activities such as bathing, preparing meals, shopping, managing finances, etc.?: No Are you currently unemployed and looking for a job?: No Are you interested in more education?: No Please select the resources that you would like help with: None Currently or been in a relationship where the following occur: No concerns reported THRIVE Score: 0 MASSIEL-7 AMB Questionnaire MASSIEL-7 Date MASSIEL - 7 assessed: 07/23/24 Source: Developed by Drs. Tony Cedeno, Maureen Davies, Franky Bryson and colleagues, with an educational avni from [employer]. Review of Systems Const Denies body aches, Denies chills, Denies fever(s), Denies headache(s) and Denies poor appetite Eyes Reports no additional complaints ENT Denies dysphagia, Denies dizziness, Denies headache(s) and Denies odynophagia Card Denies chest pain, Denies syncope, Denies edema, Denies irregular heart rhythm, Denies lightheadedness and Denies dyspnea Resp Denies cough and Denies dyspnea GI Denies abdominal pain, Denies constipation, Denies dysphagia, Denies diarrhea, Denies nausea, Denies odynophagia and Denies vomiting Reports no additional complaints Musc Reports no additional complaints and Denies abnormal gait Skin/Breast Reports system reviewed and no additional complaints, except as documented Neuro Denies abnormal gait, Denies dizziness, Denies syncope and Denies headache(s) Psych Reports no additional complaints Physical exam (Primary Care) Vital Signs: Last Vital Signs Temp 97.3 F 01/27/25 15:11 Pulse 66 01/27/25 15:11 Resp 18 01/27/25 15:11 BP 180/88 H 01/27/25 15:11 Pulse Ox 97 01/27/25 15:11 Oxygen Delivery Method Room Air 01/27/25 15:11 BMI result Body Mass Index 37.9 Tobacco/Smoking Status: Tobacco use Status Tobacco use date assessed 01/27/25 01/27/25 15:20 Patient Tobacco Use Status Never used Tobacco 01/27/25 15:20 e-Cigarette/Vaping Use Never Used 01/27/25 15:20 Thrive Assessment: Date of Thrive Assessment Date Thrive assessed 01/15/25 01/27/25 15:20 Currently or been in a relationship where the following occur: No concerns reported Const General: cooperative, healthy appearing, comfortable and no acute distress Orientation/consciousness: patient oriented x3 HENMT Head: Yes normocephalic Ears: hearing grossly normal bilaterally General nose exam: Normal external nose present Eyes General: appearance normal, both eyes and all related structures Conjunctivae: conjunctivae normal Neck Neck: Yes full ROM and Yes no lymphadenopathy Resp Effort & Inspection: normal respiratory effort Auscultation: clear to auscultation bilaterally, no crackles, no rales, no rhonchi and no wheezes Cardio Rate: regular rate Rhythm: regular rhythm Back/Spine/Pelvis Other: TTP over lumbar spine and erick hips with intact LE sensation and strength Skin General skin exam: no rashes or lesions noted Neuro General: patient oriented x3 Gait exam (Neuro): Normal gait present Extrem Other: swelling over the dorsal aspect of the right hand with tenderness to palpation over entirety of hand and fingers. ROM and neuro exam limited due to pain. No discloration or bruising. No snuff box tenderness General: Yes normal to inspection, Yes full ROM and No edema Psych Affect: normal affect Attitude: cooperative Insight: Good insight present (Psych) Judgement: Good judgement present (Psych) Coding Level of Care Code Est Pt Level 4 (15401) Diagnoses Right hand pain M79.641 Bilateral hip pain M25.551; M25.552 Low back pain M54.50 Tremor R25.1 Assessment & Plan Assessment & Plan (1) Right hand pain: Code(s): M79.641 - Pain in right hand Category: Medical Plan: The patient experienced a fall in the shower, resulting in hand swelling and hip pain. X-rays of the hand and hips will be performed to rule out fractures. A letter will be provided to request additional personal care hours due to the fall and its impact on her daily activities. (2) Bilateral hip pain: Code(s): M25.551 - Pain in right hip; M25.552 - Pain in left hip Category: Medical Plan: see above (3) Low back pain: Code(s): M54.50 - Low back pain, unspecified Category: Medical Plan: She had tenderness to the lumbar spine and plan for XR to ensure there is no break given history of osteoporosis. (4) Tremor: Code(s): R25.1 - Tremor, unspecified Category: Medical Plan: The patient reports a tremor affecting her ability to hold food, which has been present for approximately two weeks. A referral to a neurologist has been made for further evaluation and management of the tremor. Plan I discussed with the patient the need for x-rays of the hand and hips to rule out fractures following her fall. We also talked about the importance of addressing her tremor, and I provided a referral to a neurologist for further evaluation. Additionally, I agreed to write a letter to request increased personal care hours due to her recent fall and ongoing difficulties with daily a ctivities. This note was constructed using voice recognition software. While every effort has been made to ensure accuracy and assistant golf professional, still areas may have been included sometimes these areas may affect the content or meeting of the given symptoms. Total time spent caring for the patient today was 20 minutes. This includes time spent before the visit reviewing the chart, time spent during the visit, and time spent after the visit and documentation. Patient was informed and verbally consented to the use of an ambient scribe for clinic note documentation during this visit. Orders: Orders XR hip BI w PEL1V Today M25.551 - Pain in right hip, M25.552 - Pain in left hip XR lumbar spine 2-3V Today M54.50 - Low back pain, unspecified Referrals Neurology Referral R25.1 - Tremor, unspecified
--- OUTSIDE RECORDS SUMMARY | 2025-01-27 16:59 | XMS_ITS | Clinical Summary ---
Author Organization [facility] Address [address] [place] [address] Care Team Providers Care Machine I Coremaker Name Role Phone Unavailable Primary Care Provider [...]
--- OUTSIDE RECORDS SUMMARY | 2025-01-27 16:59 | XMS_ITS | Clinical Summary ---
Author Organization [address] [facility] Address [address] [place] [address] Phone Care Team Providers Care Machine Adjuster Helper Name Role Phone Araceli Dawkins MD Primary Care Provider [phone] Allergies Active Allergy Reactions Criticality Noted Date Comments Morphine Swelling 07/17/2012 Nitrofurantoin Rash 08/29/2012 Penicillin G Itching 07/17/2012 Medications No known medications Encounters Date Type Department Care Team Description 01/20/2025 4:53 PM EDT - 01/20/2025 5:33 PM EDT Emergency [facility] Emergency [address] [place] [address] Abdiel Latif MD Discharge Disposition: Home or Self Care from Last 3 Months Surgical History Surgery Date Site/Laterality Comments ABDOMINAL SURGERY PROCEDURE: HISTORICAL ABDOMINAL SURGERY; COMMENT: removal of benign tumor OTHER SURGICAL HISTORY 2008 PROCEDURE: OR RMVL RUPTURED BREAST IMPLANT W/IMPLANT CONTENTS; COMMENT: had small breasts as a child, had implants, then had removal done due to expulsion spontaneously and infected. Surgery was in [facility] KNEE SURGERY PROCEDURE: HISTORICAL KNEE SURGERY; COMMENT: right knee, dislocation? HAND SURGERY PROCEDURE: OR UNLISTED PROCEDURE HANDS/FINGERS; COMMENT: fracture SECTION PROCEDURE: HISTORICAL DELIVERY OTHER SURGICAL HISTORY PROCEDURE: HISTORICAL PANNICULECTOMY OTHER SURGICAL HISTORY 08/07/2007 PROCEDURE: OR BIOPSY LIVER NEEDLE PERCUTANEOUS; COMMENT: Mild chronic hepatitis, grade 2/stage 0, marked steatosis, most likely steatohepatitis associated with obesity. COLONOSCOPY W/ POLYPECTOMY 04/10/2007 PROCEDURE: OR COLSC FLX W/RMVL OF TUMOR POLYP LESION SNARE TQ; COMMENT: [facility], 1 cm serrated adenoma of the sigmoid colon. ESOPHAGOGASTRODUODENOSCOPY 04/10/2007 PROCEDURE: OR EGD TRANSORAL BIOPSY SINGLE/MULTIPLE; COMMENT: [facility], chronic gastritis, H. pylori present. COLONOSCOPY 01/12/2010 PROCEDURE: OR COLONOSCOPY FLX DX W/COLLJ SPEC WHEN PFRMD; COMMENT: [facility], no polyps. COLONOSCOPY 11/22/2010 PROCEDURE: OR COLONOSCOPY FLX DX W/COLLJ SPEC WHEN PFRMD; COMMENT: [facility], no polyps. ESOPHAGOGASTRODUODENOSCOPY 11/22/2010 PROCEDURE: OR EGD TRANSORAL BIOPSY SINGLE/MULTIPLE; COMMENT: [facility], erosive gastritis, biopsies positive for H. pylori. Duodenal biopsies normal. Medical History Medical History Date Comments HTN (hypertension) DX:HTN (hyper tension) Hyperlipidemia DX:Hyperlipidemi a Type 2 diabetes mellitus (CM S/HCC V24, [facility] V28) DX:Type 2 diabetes mellitus (HCC) Asthma DX:Asthma Osteoarthritis DX:Osteoarthriti s Kidney stones DX:Kidney stones Schizophrenia ([facility] V24, [facility] V28) DX:Schizophrenia (HCC); COMM ENT: follows with [facility] Type 2 diabetes mellitus wit h microalbuminuria or microproteinuria 07/31/2012 DX:Type 2 diabete s mellitus with microalbuminuria or microproteinuria Type II or unspecified type diabetes mellitus with neurological manifestations, uncontrolled(250.62) (CMS/HCC V24, [facility] V28) 10/30/2012 DX:Type II or unspecified t ype diabetes mellitus with neurological manifestations, uncontrolled(250.62) (HCC) Chronic hepatitis C without mention of hepatic coma 05/07/2013 DX:Chronic hepatitis C witho ut mention of hepatic coma; COMMENT: History of hepatitis C infection, liver biopsy at the [facility], 08/07/200708. Grade 2/stage 0 disease with marked steatosis. Personal history of colonic polyps 05/07/2013 DX:Personal history of colonic polyps; COMMENT: 1 cm serrated adenoma from the sigmoid colon 2006. Helicobacter pylori gastritis 05/07/2013 DX :Helicobacter pylori gastritis; COMMENT: Documented at endoscopy 2006 and 2010 at the [facility], as of 05/07/2013 it is not clear that this has ever been treated. ALFARO (nonalcoholic steatohepatitis) 05/07/2013 DX:ALFARO (nonalcoholic steatohepatitis); COMMENT: Liver biopsy at the [facility] 2007. Family History Medical History Relation [...] Sexual Orientation Not on file Obstetrics History Last Filed Vital Signs Vital Sign Reading Time Taken Comments Blood Pressure 148/78 01/20/2025 3:30 PM EDT Pulse 72 01/20/2025 3:30 PM EDT Temperature 36.6 C (97.9 F) 01/20/2025 3:30 PM EDT Respiratory Rate 20 01/20/2025 3:30 PM EDT Oxygen Saturation 97% 01/20/2025 3:30 PM EDT Inhaled Oxygen Concentration - - Weight - - Height 152.4 cm (5') 01/20/2025 3:30 PM EDT Body Mass Index - - Plan of Treatment Health Maintenance Due Date [...] will be independent with HEP Insurance [facility] [employer] Member Subscriber Plan / Payer (Ef fective 2023-Present) Name:Monica Ahn Relation to Subscriber:Self Name:Monica Ahn Payer ID:[id number] Group ID:Not on file Type:Not on file Address: [facility] [address] [id number] MEDICAID - [place] Care Teams Machine Adjuster Helper Relationship Specialty Start Date End Date Araceli Dawkins MD [address] [facility] , [address] [facility] D[facility] [place] PCP - General 07/18/16
--- OUTSIDE RECORDS SUMMARY | 2025-01-27 16:59 | XMS_ITS | Patient Health Record ---
Author Organization [facility] Address [address] [place] [address] Care Team Providers Care Dike Supervisor Name Role Phone Araceli Ortiz Primary Care Provider Azam Sherman Jr Unavailable [phone] Allergies Allergen (clinical drug ingredient) Drug/Non Drug Allergy documented on EMR Reaction Allergy Type Onset Date Status morphine Morphine Sulfate Unknown Drug Allergy Active ibuprofen Ibuprofen Unknown Drug Allergy Active Aspir-81 Unknown Drug Allergy Active red meat,eggs milk peanuts oatmeal shellfish (uncoded) Unknown Allergy Active Penicillin Unknown Drug Allergy Active Cortisone Unknown Drug Allergy Active Motrin Unknown Drug Allergy Active Reason For Referral [...] Problem Status W/U Status Risk Notes Problem [id number] Gastroesophageal reflux disease without esophagitis (K21.9) Active confirmed Plan Of Treatment No Information Insurance Providers Payer Name Payer Address Payer Phone Subscriber Number Group Number Insured Name Patient Relationship to Insured Coverage Start Date Coverage End Date MEDICARE OF [place] [address] [place] [address] [phone] [id number] VOLODYMYR AHN Self - patient is the insured MEDICAID OF [id number] [address] [place] [address] [phone] [id number] ROBERSON VARGASVOLODYMYR SUAREZ Self - patient is [...]
== END 2025-01-27 15:54 | disposition home or self-care (01) ==
LOC: HO.HMCH 14:55
PROVIDERS: PCP Internal Medicine
DX: M79.641 Pain in right hand (principal); M25.551 Pain in right hip; M25.552 Pain in left hip; M54.50 Low back pain, unspecified; R25.1 Tremor, unspecified

== ENCOUNTER 2025-01-27 14:54 | Outpatient (REF) | payer OTHER, SELFPAY ==
--- NOTE | ~2025-01-27 | XR_ITS ---
EXAMINATION: XR HAND, RIGHT CLINICAL INFORMATION: M79.641 - Pain in right hand COMPARISON: None available. TECHNIQUE: PA, lateral, and oblique views of the right hand. FINDINGS: There is moderate narrowing, subchondral sclerosis, cystic change, and osteophytes involving the first CMC joint. There are marginal osteophytes and moderate asymmetric narrowing of the DIP joint of the second digit. XR/XR hand RT min 3V IMPRESSION: Moderate to severe first CMC joint osteoarthritis and mild to moderate osteoarthritis in the second digit DIP joint. Electronically signed by: Rajan Talavera MD 01/27/2025 05:27 PM EDT
--- NOTE | ~2025-01-27 | XR_ITS ---
EXAMINATION: XR LUMBOSACRAL SPINE CLINICAL INFORMATION: M54.50 - Low back pain, unspecified COMPARISON: December 20, 2022 TECHNIQUE: Three views of the lumbosacral spine. FINDINGS: There is mild convex left curvature of the lumbar spine. There are 5 nonrib-bearing lumbar segments. There is osteopenia. There is stable mild wedging of superior T12. There is stable mild grade 1 anterolisthesis at L4-5. There is facet sclerosis at L4-5 and L5-S1. XR/XR lumbar spine 2-3V IMPRESSION: Stable x-ray with grade 1 anterolisthesis at L4-5 and facet arthropathy at L4-5 and L5-S1. Osteopenia. Stable mild wedging of T12 superior endplate. Electronically signed by: Rajan Talavera MD 01/27/2025 05:35 PM EDT
--- NOTE | ~2025-01-27 | XR_ITS ---
EXAMINATION: XR BILATERAL HIPS WITH AP PELVIS CLINICAL INFORMATION: M25.551 - Pain in right hip COMPARISON: None available. TECHNIQUE: AP and frog-leg lateral views of each hip and an AP view of the pelvis. FINDINGS: Enthesophytes are noted at the anterior superior iliac spines. Degenerative irregularity and small osteophytes are noted at the bilateral SI joints. There is chondrocalcinosis in the pubic symphysis joint. Right hip demonstrates acetabular roof osteophytes and mild axial joint space narrowing. Left hip joint demonstrates acetabular roof osteophytes and mild axial joint space narrowing. XR/XR hip BI w PEL1V IMPRESSION: Mild degenerative changes are noted in bilateral SI and hip joints. Electronically signed by: Rajan Talavera MD 01/27/2025 05:24 PM EDT
--- NOTE | ~2025-01-27 | XR_ITS ---
EXAMINATION: XR WRIST, RIGHT CLINICAL INFORMATION: M79.641 - Pain in right hand COMPARISON: None available. TECHNIQUE: PA, lateral, oblique, and scaphoid views of the right wrist. FINDINGS: There is moderate narrowing with sclerosis and degenerative cystic changes and marginal osteophytes in the first carpometacarpal joint. Ulnar variance measures +2 mm. There is subtle lucency involving the ulnar side of the lunate. XR/XR wrist RT min 3V IMPRESSION: Moderate to severe first CMC joint osteoarthritis. 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 Correlate for symptoms. Electronically signed by: Rajan Talavera MD 01/27/2025 05:26 PM EDT
== END 2025-01-27 14:55 | disposition home or self-care (01) ==
LOC: HO.XRAY 14:54
PROVIDERS: PCP Internal Medicine
DX: M25.551 Pain in right hip (principal); M25.552 Pain in left hip; M54.50 Low back pain, unspecified; M79.641 Pain in right hand; R25.1 Tremor, unspecified; I10 Essential (primary) hypertension; Z79.899 Other long term (current) drug therapy
CPT/HCPCS: 72100; 73110; 73130; 73521; 99212

== ENCOUNTER → 2025-01-27 15:59 | Outpatient (BNV) | payer OTHER, SELFPAY | PROVIDERS: PCP Internal Medicine; Visit Provider Radiology Diagnostic Radiology | DX: M16.0 Bilateral primary osteoarthritis of hip (principal); M85.88 Other specified disorders of bone density and structure, other site; M18.11 Unilateral primary osteoarthritis of first carpometacarpal joint, right hand; M53.3 Sacrococcygeal disorders, not elsewhere classified; M47.816 Spondylosis without myelopathy or radiculopathy, lumbar region; S22.080A Wedge compression fracture of T11-T12 vertebra, initial encounter for closed fracture; M19.041 Primary osteoarthritis, right hand | CPT/HCPCS: 72100; 73110; 73130; 73521 ==

== ENCOUNTER 2025-02-19 09:14 | Outpatient (AMB) | payer OTHER, SELFPAY ==
--- NOTE | 2025-02-19 09:17 | MHC.OFFVIS ---
Intake Visit Reasons: dysuria and flank pain ER REFERRAL Intake Note: Patient is present for DYSURIA AND FLANK PAIN Urology Medication:NONE Antibiotic Allergy:LEVOFLOXACIN,PENICLLINS Blood Thinner:NONE TODAY'S PVR:74ML'S Telephone Advice Nurse Required: No Telephone Advice Nurse Name: [id number] Allergies Cortisone Allergy (Severe, Verified 02/19/25 09:50) pruritus, hives, swellin milk (MILK) Allergy (Severe, Verified 02/19/25 09:50) rash ibuprofen (IBUPROFEN) Allergy (Intermediate, Verified 02/19/25 09:50) swelling levofloxacin Allergy (Intermediate, Verified 02/19/25 09:50) pruritus metronidazole Allergy (Intermediate, Verified 02/19/25 09:50) pruritus peanut (PEANUT) Allergy (Intermediate, Verified 02/19/25 09:50) pruritus Penicillins (PENICILLINS) Allergy (Intermediate, Verified 02/19/25 09:50) Hives shellfish derived (SHELLFISH DERIVED) Allergy (Intermediate, Verified 02/19/25 09:50) rash, shortness of breath morphine (MORPHINE) Adverse Reaction (Severe, Verified 02/19/25 09:50) loss of consciousness, hypotension oatmeal Adverse Reaction (Intermediate, Verified 02/19/25 09:50) abdominal gas pain egg (EGG) Adverse Reaction (Mild, Verified 02/19/25 09:50) diarrheas, dizziness red meat Allergy (Intermediate, Uncoded 02/19/25 09:50) hand swelling Medication List - Last Reconciled 02/19/25 by MATHEW Lynn acetaminophen 500 mg PO Q6H PRN albuterol sulfate 90 mcg/actuation 2 inhalations inhalation Q6H PRN albuterol sulfate 90 mcg/actuation inhalation alendronate 70 mg PO QWEEK amlodipine 10 mg PO DAILY 90 days aripiprazole 15 mg PO DAILY [back brace As directed] blood sugar diagnostic (OneTouch Ultra Test strips) test once daily blood-glucose meter (OneTouch Ultra2 Meter) test once daily buspirone 10 mg PO BID PRN carboxymethylcellulose sodium 0.5% (Lubricating Plus) 1 drp ophthalmic (eye) BID cholecalciferol (vitamin D3) (Vitamin D3) 25 mcg PO DAILY 90 days diazepam 5 mg PO BID PRN 30 days docusate sodium (Colace) 100 mg PO BID donepezil 10 mg PO BEDTIME 30 days fluticasone propionate 44 mcg/actuation 1 puff inhalation BID hydralazine 25 mg PO TID 90 days hydrocortisone 2.5% (Anusol-HC) 1 appl MA BID-QID PRN hydrocortisone valerate 0.2% appl topical BID hydroxyzine pamoate 50 mg PO DAILY PRN incontinence pad, liner, disp Use 1 liner three times a day lancets (OneTouch UltraSoft 2 Lancet) test once daily lansoprazole 30 mg PO DAILY lorazepam mg PO losartan 100 mg PO DAILY 90 days mecobalamin (vitamin B12) 500 mcg PO DAILY 90 days metoprolol tartrate 50 mg PO BID mirtazapine 7.5 mg PO BEDTIME paliperidone ER mg PO paliperidone ER 9 mg PO DAILY paroxetine HCl 30 mg PO QAM pioglitazone 45 mg PO DAILY 90 days plecanatide (Trulance) 3 mg PO DAILY quetiapine 50 mg PO BEDTIME [recliner lift chair As directed] rosuvastatin 40 mg PO DAILY 90 days [Scooter As directed] semaglutide (Rybelsus) 3 mg PO DAILY 30 days tretinoin 0.1% appl topical DAILY umeclidinium-vilanterol 62.5-25 mcg/actuation (Anoro Ellipta) 1 inh inhalation DAILY 60 days underpads (Bed Underpads) Use 1 bed underpad 4 times a day valacyclovir 1,000 mg PO BID 7 days walker (Ultra-Light Rollator misc) As directed zolpidem 10 mg PO BEDTIME 30 days HPI Comments Details: Monica is a 69 year old Mohawk speaking patient of Dr. Arnaldo Dawkins. She has a past medical history of hepatic stenosis, JOSE JUAN III with severe dysplasia, large bowel obstruction, hypercholesteremia, lupus, osteopenia, schizophrenia, bipolar, hypertension, gout, diabetes, colitis, and obesity. She presents to the office today for follow-up of her nephrolithiasis and lower urinary tract symptoms. In discussion with the patient today she reports she was unable to make it is a previous appointments due to other issues she was experiencing. She reports noting ongoing issues with intermittent episodes of flank pain however is unsure if this is related to her nephrolithiasis or chronic back pain she experiences. She reports feeling episodes of mixed urinary incontinence have increased due to her decreased mobility in time to get to the bathroom. In office urinalysis results reviewed with the patient today PVR 74 mL. We did discussed obtaining more recent imaging as patient with a previous history of nephrolithiasis and reporting intermittent episodes of flank pain. She is agreeable. We also discussed further treatment options of mixed urinary incontinence and risks and benefits of these treatment options. Patient has previously trialed multiple overactive bladder medications such as Myrbetriq, Gemtesa, oxybutynin, tolterodine, and testosterone Ben without any improvement in her lower urinary tract symptoms. She also trialed combination therapy with Myrbetriq and VESIcare. She has had a previous sling procedure in 2019. She denies dysuria, foul smelling urine, changes to urinary stream, fever, and or chills. She otherwise offers no other issues or concerns at this time. [facility] Medical History Large bowel obstruction Renal cyst H. 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 Dysplasia of cervix, low grade (JOSE JUAN 1) Vaginal pruritus Breast pain, left Schizophrenia Bipolar 1 disorder Obese Gout Essential hypertension Diabetes mellitus Fall Lumbar back pain Surgical History H/O breast surgery Hx of lithotripsy History of esophagogastroduodenoscopy (EGD) H/O colonoscopy History of eye surgery History of removal of cyst History of surgery History of hemicolectomy History of hand surgery Family History Father Lung cancer Diabetes Hypertension Mother Diabetes CVD (cardiovascular disease) Maternal Aunt Breast cancer Brother Colon cancer Paternal Grandmother Colon cancer Social History Housing: Apartment Alcohol intake: never Patient Tobacco Use Status: Never used Tobacco e-Cigarette/Vaping Use: Never Used Second Hand Smoke Exposure: No service: No Current occupational status: disabled Cognitive needs: Yes Hearing needs: No Vision needs: No Female Reproductive History Menstrual Age of Menarche: 13 Review of Systems Const Reports as per HPI Eyes Reports no additional complaints ENT Reports no additional complaints Card Reports as per [facility] Resp Reports no additional complaints GI Reports as per [facility] Reports as per [facility] Musc Reports as per [facility] Neuro Reports as per [facility] Psych Reports as per [facility] Endo Reports as per [facility] Physical Exam Const General: cooperative, healthy appearing, comfortable, no acute distress, well developed, alert and awake Nutritional Appearance: overweight Orientation/consciousness: patient oriented x3 Limitations: language barrier and ambulation with cane HEENT Head: Yes normal to inspection, Yes normocephalic and Yes atraumatic Ears: hearing grossly normal bilaterally Eyes General: appearance normal, both eyes and all related structures Neck Neck: Yes normal visual inspection and Yes trachea midline Chest Chest palpation & inspection: normal inspection of the chest Resp Effort & Inspection: normal respiratory effort and able to speak in complete sentences Cardio Rate: regular rate GI Inspection: Yes normal to inspection and Yes Abdominal panniculus present General: Yes no CVA tenderness Back/Spine/Pelvis Back: no CVA tenderness Neuro General: patient oriented x3 Extrem General: Yes normal to inspection Psych Appearance: grossly normal Mental Status: mental status grossly normal Speech and movement: Normal speech and movement present and Clear speech present Affect: normal affect Attitude: cooperative Thought process: Normal thought process present Thought content: Normal thought content present Insight: Fair insight present (Psych) Judgement: Fair judgement present (Psych) Office Procedures Post Void Residual Post Residual Void Post Void Residual (PVR): [id number] Void Residual by ultrasound Results AMB Urinalysis, Automated UA Leukoctes 0 Kan/uL Last Edit by MARKY Barrera on 02/19/25 09:35 UA Nitrite Negative Last Edit by MARKY Barrera on 02/19/25 09:35 UA Urobilinogen 0.2 mg/dL Last Edit by MARKY Barrera on 02/19/25 09:35 UA Protein 15 mg/dL Last Edit by MARKY Barrera on 02/19/25 09:35 UA pH 6.0 Last Edit by MARKY Barrera on 02/19/25 09:35 UA Blood 10 Kwan/uL Last Edit by MARKY Barrera on 02/19/25 09:35 UA Specific [place] 1.025 Last Edit by MARKY Barrera on 02/19/25 09:35 UA Ketone Negative Last Edit by MARKY Barrera on 02/19/25 09:35 UA Bilirubin 0 mg/dL Last Edit by MARKY Barrera on 02/19/25 09:35 UA Glucose 0 mg/dL Last Edit by MARKY Barrera on 02/19/25 09:35 Assessment & Plan Assessment & Plan (1) Renal cyst: Code(s): N28.1 - Cyst of kidney, acquired Category: Medical (2) Mixed incontinence urge and stress: Code(s): N39.46 - Mixed incontinence Category: Medical (3) Nephrolithiasis: Code(s): N20.0 - Calculus of kidney Category: Medical Plan In office urinalysis results with the patient today; as noted above. PVR 74 mL. Will obtain retroperitoneal ultrasound for further assessment evaluation. We did discussed importance of adequate hydration relation to nephrolithiasis as well as overall health and well-being. All questions were answered. We did discussed at length further treatment options of mixed urinary incontinence as well as nephrolithiasis; we discussed risks and benefits of these interventions. Follow-up in 1-3 months with imaging and PVR; or sooner with any issues, concerns, and or questions. Orders: Orders Urine Cytology Today R31.9 - Hematuria, unspecified US retroperitoneal comp Today N20.0 - Calculus of kidney, N28.1 - Cyst of kidney, acquired, N39.46 - Mixed incontinence AMB Urinalysis Automated Today Z13.9 - Encounter for screening, unspecified Patient Instructions: The patient had an opportunity to ask questions regarding the treatment plan. All questions were answered. Physical exam, labs, and imaging were discussed and reviewed in detail. As well as risks, benefits, and discussion of treatment choices. No major barriers to understanding were identified. The patient expressed understanding and agreement with the above treatment plan. The patient was made aware they should contact our office by phone for worsening of their current condition, the appearance of new symptoms, or with any questions or concerns. Compliance is encouraged with any medications and follow up testing that is ordered. It is a privilege to be allowed the opportunity to participate in? your urological care.? Again, if you have any questions or concerns If you have any questions or concerns please do not hesitate to contact me. The office is [phone]. This note is constructed using voice recognition software. While every effort has been made to ensure accuracy cloud solutions architect errors may have been included. Yours sincerely, BIANCA Lynn-ANDREA Coding Level of Care Code Est Pt Level 3 (88223) Complex EM visit Add On G2211 Diagnoses Renal cyst N28.1 Mixed incontinence urge and stress N39.46 Nephrolithiasis N20.0 CPT Codes Post Residual Void - PVR CPT Code: 49391-Fypn Void Residual by ultrasound ([id number])
--- OUTSIDE RECORDS SUMMARY | 2025-02-19 10:14 | XMS_ITS | Clinical Summary ---
Author Organization [facility] Address [address] [place] [address] Phone Care Team Providers Care Licensed Reactor Operator Name Role Phone Araceli Dawkins MD Primary Care Provider [phone] Allergies Active Allergy Reactions Criticality Noted Date Comments Morphine Swelling 07/17/2012 Nitrofurantoin Rash 08/29/2012 Penicillin G Itching 07/17/2012 Medications No known medications Encounters Date Type Department Care Team Description 01/20/2025 4:53 PM EDT - 01/20/2025 5:33 PM EDT Emergency [facility] Emergency [address] [place] [address] Abdiel Latif MD Discharge Disposition: [...] spontaneously and infected. Surgery was in [facility] KNEE SURGERY PROCEDURE: HISTORICAL KNEE SURGERY; [...] OF TUMOR POLYP LESION SNARE TQ; COMMENT: [facility], 1 cm serrated adenoma of the sigmoid colon. ESOPHAGOGASTRODUODENOSCOPY 04/10/2007 PROCEDURE: AR EGD TRANSORAL BIOPSY SINGLE/MULTIPLE; COMMENT: [facility], chronic gastritis, H. pylori present. COLONOSCOPY 01/12/2010 PROCEDURE: AR COLONOSCOPY FLX DX W/COLLJ SPEC WHEN PFRMD; COMMENT: [facility], no polyps. COLONOSCOPY 11/22/2010 PROCEDURE: AR COLONOSCOPY FLX DX W/COLLJ SPEC WHEN PFRMD; COMMENT: [facility], no polyps. ESOPHAGOGASTRODUODENOSCOPY 11/22/2010 PROCEDURE: AR EGD TRANSORAL BIOPSY SINGLE/MULTIPLE; COMMENT: [facility], erosive gastritis, biopsies positive for H. pylori. Duodenal biopsies normal. Medical History Medical History Date Comments HTN (hypertension) DX:HTN (hyper tension) Hyperlipidemia DX:Hyperlipidemi a Type 2 diabetes mellitus (CM S/HCC V24, [facility] V28) DX:Type 2 diabetes mellitus (HCC) Asthma DX:Asthma Osteoarthritis DX:Osteoarthriti s Kidney stones DX:Kidney stones Schizophrenia ([facility] V24, [facility] V28) DX:Schizophrenia (HCC); COMM ENT: follows with [facility] Type 2 diabetes mellitus wit h microalbuminuria or microproteinuria 07/31/2012 DX:Type 2 diabete s mellitus with microalbuminuria or microproteinuria Type II or unspecified type diabetes mellitus with neurological manifestations, uncontrolled(250.62) (CMS/HCC V24, [facility] V28) 10/30/2012 DX:Type II or unspecified t ype diabetes mellitus with neurological manifestations, uncontrolled(250.62) (HCC) Chronic hepatitis C without mention of hepatic coma 05/07/2013 DX:Chronic hepatitis C witho ut mention of hepatic coma; COMMENT: History of hepatitis C infection, liver biopsy at the [facility], 08/07/200708. Grade 2/stage 0 disease with marked steatosis. Personal history of colonic polyps 05/07/2013 DX:Personal history of colonic polyps; COMMENT: 1 cm serrated adenoma from the sigmoid colon 2006. Helicobacter pylori gastritis 05/07/2013 DX :Helicobacter pylori gastritis; COMMENT: Documented at endoscopy 2006 and 2010 at the [facility], as of 05/07/2013 it is not clear that this has ever been treated. ALFARO (nonalcoholic steatohepatitis) 05/07/2013 DX:ALFARO (nonalcoholic steatohepatitis); COMMENT: Liver biopsy at the [facility] 2007. Family History Medical History Relation [...] Last Done Comments Breast Cancer Screening 1954 Colorectal Cancer Screening: Colonoscopy 1954 Diabetes: Annual GFR (Glomerular Filtration Rate) 1954 Diabetes: Annual Foot Exam 1964 Diabetes: Annual Retina Eye Exam 1964 Hepatitis A Vaccines (1 of 2 - Risk 2-dose series) 1973 Hepatitis B Vaccines (1 of 3 - Risk 3-dose series) 2014 Depression Screening 05/01/2024 Cholesterol Screening (Lipid Panel) 06/07/2024 Diabetes: Annual Urine Albumin-Creatinine Ratio (uACR) [...] Pt will be independent with HEP Insurance [facility] OPT[facility] Member Subscriber Plan / Payer (Ef fective 2023-Present) Name:Monica Ahn Relation to Subscriber:Self Name:Monica Ahn Payer ID:[id number] Group ID:Not on file Type:Not on file Address: [facility] [address] [id number] MEDICAID - [place] Care Teams Licensed Reactor Operator Relationship Specialty Start Date End Date Araceli Dawkins MD [address] [facility] , [address] [facility] D/B/A: [facility] [place] PCP - General 07/18/16
--- OUTSIDE RECORDS SUMMARY | 2025-02-19 10:14 | XMS_ITS | Patient Health Record ---
Author Organization [facility] Address [address] [place] [address] Care Team Providers Care Interactive Developer Name Role Phone Araceli Ortiz Primary Care Provider Azam Sherman Jr Unavailable [phone] Allergies Allergen (clinical drug ingredient) Drug/Non Drug Allergy documented on EMR Reaction Allergy Type Onset Date Status Motrin Unknown Drug Allergy Active Morphine Sulfate Unknown Drug Allergy Active ibuprofen [...] MG 1 capsule Orally Onc e a day; Duration: 30 day(s) 01/26/2017 Active Zolpidem Tartrate Ac [...] Problem Status W/U Status Risk Notes Problem Gastroesophageal reflux disease without esophagitis (502296811) Gastroesophageal reflux disease without esophagitis (K21.9) Active confirmed Plan Of Treatment No Information Insurance Providers Payer Name Payer Address Payer Phone Subscriber Number Group Number Insured Name Patient Relationship to Insured Coverage Start Date Coverage End Date MEDICARE OF [place] [address] CL[place]EL HUSAIN [id number] VOLODYMYR AHN Self - patient is the insured MEDICAID OF [employer] [address] [place]AJ[place] [phone] [id number] ROBERSONEUNICE VARGAS VOLODYMYR Self - patient is the insured Medical [...]
--- OUTSIDE RECORDS SUMMARY | 2025-02-19 10:14 | XMS_ITS | Clinical Summary ---
Author Organization [facility] Address [address] [place] [address] Care Team Providers Care Abrading Machine Tender Name Role Phone Unavailable Primary Care Provider [...] - 2023-2 5 season) 2024 RSV Vaccine 50 years and old er and Patients (1 - 1-dose 75+ series) 2029 Hepatitis B Vaccines Aged Out No long er eligible based on patient's age to complete this topic
== END 2025-02-19 09:54 | disposition home or self-care (01) ==
LOC: HO.HUSH 09:14
PROVIDERS: PCP Internal Medicine; Visit Provider Nurse Practitioner Family
DX: N28.1 Cyst of kidney, acquired (principal); N39.46 Mixed incontinence; N20.0 Calculus of kidney; Z13.9 Encounter for screening, unspecified
CPT/HCPCS: 99213; G2211

== ENCOUNTER 2025-02-19 09:14 | Outpatient (REF) | payer OTHER, SELFPAY | END 2025-02-19 09:15 | disposition home or self-care (01) | LOC: HO.LAB 09:14 | PROVIDERS: PCP Internal Medicine; Visit Provider Nurse Practitioner Family | DX: N20.0 Calculus of kidney (principal); N39.46 Mixed incontinence; N28.1 Cyst of kidney, acquired | CPT/HCPCS: 51798; 81003; 88112; 99212 ==

== ENCOUNTER 2025-03-07 10:27 | Outpatient (REF) | payer OTHER, SELFPAY ==
[2025-03-07 10:44] LABS: MANUAL DIFF FLAG NO
[2025-03-07 11:41] LABS: Hematocrit 40.0 % (37.0-47.0); Hemoglobin 12.4 g/dl (12.0-16.0); Imm Gran Abs Auto 0.00 X10*3/uL (0.00-0.03); Imm Gran Pct Auto 0.0 % (0.0-0.4); Lymphocytes Absolute Auto 2.1 X10*3/uL (1.2-4.9); Mean Corpuscular HGB Conc 31.0 g/dl (31.0-35.0); Mean Corpuscular Hemoglobin 27.0 pg (27.0-33.0); Mean Corpuscular Volume 87.1 fL (80.0-98.0); NRBC Abs Auto 0.000 X10*3/uL (0.0-0.012); NRBC Pct Auto 0.0 /100WBC (0.0-0.2); Platelet Count 165 X10*3/uL (160-400); Red Blood Count 4.59 X10*6/uL (4.20-5.50); White Blood Count 5.1 X10*3/uL (4.8-10.8)
--- OUTSIDE RECORDS SUMMARY | 2025-03-07 12:22 | XMS_ITS | Clinical Summary ---
Author Organization [facility] Address [address] [place] [address] Phone Care Team Providers Care Spring Forger Name Role Phone Araceli Dawkins MD Primary Care Provider [phone] Allergies Active Allergy Reactions Criticality Noted Date Comments Morphine Swelling 07/17/2012 Nitrofurantoin Rash 08/29/2012 Penicillin G Itching 07/17/2012 Medications No known medications Encounters Date Type Department Care Team Description 01/20/2025 4:53 PM EDT - 01/20/2025 5:33 PM EDT Emergency [facility] Emergency [address] [place] [address] Abdiel Latif MD Discharge Disposition: Home or Self Care from Last 3 Months Surgical History Surgery Date Site/Laterality Comments ABDOMINAL SURGERY PROCEDURE: HISTORICAL ABDOMINAL SURGERY; COMMENT: removal of benign tumor OTHER SURGICAL HISTORY 2008 PROCEDURE: [place] RMVL RUPTURED BREAST IMPLANT W/IMPLANT CONTENTS; COMMENT: had small breasts as a child, had implants, then had removal done due to expulsion spontaneously and infected. Surgery was in [facility] KNEE SURGERY PROCEDURE: HISTORICAL KNEE SURGERY; COMMENT: right knee, dislocation? HAND SURGERY PROCEDURE: [place] UNLISTED PROCEDURE HANDS/FINGERS; COMMENT: fracture SECTION PROCEDURE: HISTORICAL DELIVERY OTHER SURGICAL HISTORY PROCEDURE: HISTORICAL PANNICULECTOMY OTHER SURGICAL HISTORY 08/07/2007 PROCEDURE: [place] BIOPSY LIVER NEEDLE PERCUTANEOUS; COMMENT: Mild chronic hepatitis, grade 2/stage 0, marked steatosis, most likely steatohepatitis associated with obesity. COLONOSCOPY W/ POLYPECTOMY 04/10/2007 PROCEDURE: IL COLSC FLX W/RMVL OF TUMOR POLYP LESION SNARE TQ; COMMENT: [facility], 1 cm serrated adenoma of the sigmoid colon. ESOPHAGOGASTRODUODENOSCOPY 04/10/2007 PROCEDURE: [place] EGD TRANSORAL BIOPSY SINGLE/MULTIPLE; COMMENT: [facility], chronic gastritis, H. pylori present. COLONOSCOPY 01/12/2010 PROCEDURE: [place] COLONOSCOPY FLX DX W/COLLJ SPEC WHEN PFRMD; COMMENT: [facility], no polyps. COLONOSCOPY 11/22/2010 PROCEDURE: [place] COLONOSCOPY FLX DX W/COLLJ SPEC WHEN PFRMD; COMMENT: [facility], no polyps. ESOPHAGOGASTRODUODENOSCOPY 11/22/2010 PROCEDURE: [place] EGD TRANSORAL BIOPSY SINGLE/MULTIPLE; COMMENT: [facility], erosive gastritis, biopsies positive for H. pylori. Duodenal biopsies normal. Medical History Medical History Date Comments HTN (hypertension) DX:HTN (hyper tension) Hyperlipidemia DX:Hyperlipidemi a Type 2 diabetes mellitus (CM S/HCC V24, [facility] V28) DX:Type 2 diabetes mellitus (HCC) Asthma DX:Asthma Osteoarthritis DX:Osteoarthriti s Kidney stones DX:Kidney stones Schizophrenia ([facility] V24, [facility] V28) DX:Schizophrenia (HCC); COMM ENT: follows with [facility] Type 2 diabetes mellitus wit h microalbuminuria or microproteinuria 07/31/2012 DX:Type 2 diabete s mellitus with microalbuminuria or microproteinuria Type II or unspecified type diabetes mellitus with neurological manifestations, uncontrolled(250.62) (CMS/HCC V24, [facility] V28) 10/30/2012 DX:Type II or unspecified t ype diabetes mellitus with neurological manifestations, uncontrolled(250.62) (HCC) Chronic hepatitis C without mention of hepatic coma 05/07/2013 DX:Chronic hepatitis C witho ut mention of hepatic coma; COMMENT: History of hepatitis C infection, liver biopsy at the [facility], 08/07/200708. Grade 2/stage 0 disease with marked steatosis. Personal history of colonic polyps 05/07/2013 DX:Personal history of colonic polyps; COMMENT: 1 cm serrated adenoma from the sigmoid colon 2006. Helicobacter pylori gastritis 05/07/2013 DX :Helicobacter pylori gastritis; COMMENT: Documented at endoscopy 2006 and 2010 at the [facility], as of 05/07/2013 it is not clear that this has ever been treated. ALFARO (nonalcoholic steatohepatitis) 05/07/2013 DX:ALFARO (nonalcoholic steatohepatitis); COMMENT: Liver biopsy at the [facility] 2007. Family History Medical History Relation Name [...] Pt will be independent with HEP Insurance [facility] ASSISTED OPTIONS Member Subscriber Plan / Payer (Ef fective 2023-Present) Name:Monica Ahn Relation to Subscriber:Self Name:Monica Ahn Payer ID:[id number] Group ID:Not on file Type:Not on file Address: [facility] [address] [phone] MEDICAID - [place] Care Teams Spring Forger Relationship Specialty Start Date End Date Araceli Dawkins MD [address] [facility] , [address] [facility] D/B/A: [facility] [place] PCP - General 07/18/16
--- OUTSIDE RECORDS SUMMARY | 2025-03-07 12:22 | XMS_ITS | Clinical Summary ---
Author Organization [facility] Address [address] [place] [address] Care Team Providers Care Gas Engine Operator Compressors Name Role Phone Unavailable Primary Care Provider [...]
--- OUTSIDE RECORDS SUMMARY | 2025-03-07 12:22 | XMS_ITS | Patient Health Record ---
Author Organization [facility] Address [address] [place] [address] Care Team Providers Care Investor Relations Manager Name Role Phone Araceli Ortiz Primary Care Provider Azam Sherman Jr Unavailable Allergies Allergen (clinical drug ingredient) Drug/Non Drug Allergy documented on EMR Reaction Allergy Type Onset Date Status Cortisone Unknown Drug Allergy Active Motrin Unknown Drug Allergy Active morphine Morphine Sulfate Unknown Drug Allergy Active ibuprofen Ibuprofen Unknown Drug Allergy Active Aspir-81 Unknown Drug Allergy Active red meat,eggs milk peanuts oatmeal shellfish (uncoded) Unknown Allergy Active Penicillin Unknown Drug Allergy Active Reason For Referral [...] Notes Problem Gastroesophageal reflux disease without esophagitis (934778479) Gastroesophageal reflux disease without esophagitis (K21.9) Active confirmed Plan Of Treatment No Information Insurance Providers Payer Name Payer Address Payer Phone Subscriber Number Group Number Insured Name Patient Relationship to Insured Coverage Start Date Coverage End Date MEDICARE OF [place] [address] [place] [id number] VOLODYMYR AHN Self - patient is the insured MEDICAID OF [employer] [address] [place] [phone] [id number] ROBERSON VARGAS VOLODYMYR Self - patient is the [...]
[2025-03-07 12:35] LABS: Alanine Aminotransferase 113 U/L (0-31); Albumin Level 3.7 g/dL (3.5-5.0); Alkaline Phosphatase 106 U/L (39-117); Anion Gap 10 (12-20); Aspartate Amino Transferase 104 U/L (5-31); Blood Urea Nitrogen 17 mg/dL (9-16); Calcium 9.0 mg/dL (8.4-10.2); Carbon Dioxide 29 mmol/L (22-29); Chloride 107 mmol/L (96-108); Cholesterol 183 mg/dL (<200); Estimated Glomerular Filt Rate > 60; HDL Cholesterol 56 mg/dL (>40); Potassium 4.1 mmol/L (3.3-5.1); Sodium 142 mmol/L (135-145); Total Protein 6.4 g/dL (6.5-8.0); Triglycerides 182 mg/dL (<150)
[2025-03-07 12:39] LABS: Microalbum/Creatinine Ratio Ur 5.8 ug/mg cr (<30)
== END 2025-03-07 10:28 | disposition home or self-care (01) ==
LOC: HO.LAB 10:27
PROVIDERS: PCP Internal Medicine; Visit Provider Internal Medicine
DX: E11.9 Type 2 diabetes mellitus without complications (principal); E55.9 Vitamin D deficiency, unspecified; I25.10 Atherosclerotic heart disease of native coronary artery without angina pectoris; E78.5 Hyperlipidemia, unspecified; D64.9 Anemia, unspecified
CPT/HCPCS: 36415; 80053; 80061; 82043; 82306; 82570; 85025

== ENCOUNTER 2025-03-17 10:36 | Outpatient (AMB) | payer OTHER, SELFPAY ==
--- NOTE | 2025-03-17 11:00 | MHC.PC.OV ---
Vital Signs 03/17/25 11:02 Height 5 ft Weight 192 lb 6 oz BMI 37.6 BP 120/70 Blood Pressure Location Lt brachial Position Sitting Pulse 67 Pulse Source Pulse Oximeter Temp 97.3 F Temp Source Temporal Artery Scan Pulse Oximetry (%) 98 Oxygen Delivery Method Room Air Intake Visit Reasons: PE- A1C needed. Intake Note: Patient is here today for a physical. Financial Analyst Accountant Required: No Dental Assistant Medical Assistant: Not Required per policy Accompanied by: Self / Same As Patient Allergies Cortisone Allergy (Severe, Verified 03/17/25 11:32) pruritus, hives, swellin milk (MILK) Allergy (Severe, Verified 03/17/25 11:32) rash ibuprofen (IBUPROFEN) Allergy (Intermediate, Verified 03/17/25 11:32) swelling levofloxacin Allergy (Intermediate, Verified 03/17/25 11:32) pruritus metronidazole Allergy (Intermediate, Verified 03/17/25 11:32) pruritus peanut (PEANUT) Allergy (Intermediate, Verified 03/17/25 11:32) pruritus Penicillins (PENICILLINS) Allergy (Intermediate, Verified 03/17/25 11:32) Hives shellfish derived (SHELLFISH DERIVED) Allergy (Intermediate, Verified 03/17/25 11:32) rash, shortness of breath morphine (MORPHINE) Adverse Reaction (Severe, Verified 03/17/25 11:32) loss of consciousness, hypotension oatmeal Adverse Reaction (Intermediate, Verified 03/17/25 11:32) abdominal gas pain egg (EGG) Adverse Reaction (Mild, Verified 03/17/25 11:32) diarrheas, dizziness red meat Allergy (Intermediate, Uncoded 03/17/25 11:32) hand swelling Medication List - Last Reconciled 03/17/25 by Araceli Dawkins MD acetaminophen 500 mg PO Q6H PRN albuterol sulfate 90 mcg/actuation inhalation alendronate 70 mg PO QWEEK amlodipine 10 mg PO DAILY 90 days aripiprazole 15 mg PO DAILY [back brace As directed] blood sugar diagnostic (SECUDE InternationalTouch Ultra Test strips) test once daily blood-glucose meter (SECUDE InternationalTouch Ultra2 Meter) test once daily buspirone 10 mg PO BID PRN carboxymethylcellulose sodium 0.5% (Lubricating Plus) 1 drp ophthalmic (eye) BID cholecalciferol (vitamin D3) (Vitamin D3) 25 mcg PO DAILY 90 days diazepam 5 mg PO BID PRN 30 days docusate sodium (Colace) 100 mg PO BID donepezil 10 mg PO BEDTIME 30 days fluticasone propionate 44 mcg/actuation 1 puff inhalation BID hydralazine 25 mg PO TID 90 days hydrocortisone 2.5% (Anusol-HC) 1 appl IN BID-QID PRN hydrocortisone valerate 0.2% appl topical BID hydroxyzine pamoate 50 mg PO DAILY PRN incontinence pad, liner, disp Use 1 liner three times a day lancets (SECUDE InternationalTouch UltraSoft 2 Lancet) test once daily lansoprazole 30 mg PO DAILY losartan 100 mg PO DAILY 90 days mecobalamin (vitamin B12) 500 mcg PO DAILY 90 days metoprolol tartrate 50 mg PO BID mirtazapine 7.5 mg PO BEDTIME paliperidone ER 9 mg PO DAILY 90 days paliperidone ER mg PO paroxetine HCl 30 mg PO QAM pioglitazone 45 mg PO DAILY 90 days plecanatide (Trulance) 3 mg PO DAILY quetiapine 50 mg PO BEDTIME [recliner lift chair As directed] rosuvastatin 40 mg PO DAILY 90 days [Scooter As directed] semaglutide (Rybelsus) 3 mg PO DAILY 30 days tretinoin 0.1% appl topical DAILY umeclidinium-vilanterol 62.5-25 mcg/actuation (Anoro Ellipta) 1 inh inhalation DAILY 60 days underpads (Bed Underpads) Use 1 bed underpad 4 times a day valacyclovir 1,000 mg PO BID 7 days walker (Ultra-Light Rollator misc) As directed zolpidem 10 mg PO BEDTIME 30 days Tobacco use date assessed: 03/17/25 Fall risk assessment: No Falls in past year Last assessed Fall Risk: 03/17/25 Dental Screening Dental Screen Date: 01/27/25 HPI HPI Comments History of Present Illness Details The patient is a 69-year-old female presenting for an annual physical examination. Her medical history is notable for hyperlipidemia with an LDL in the 90s, hypertension, diabetes mellitus, anxiety, insomnia, schizophrenia, and depression. She also has a history of a lung cyst. The patient's current medications include Tylenol, albuterol, alendronate, amlodipine 10 mg, hydroxyzine, lansoprazole, losartan, vitamin B12, metoprolol, mirtazapine, paliperidone, paroxetine, pioglitazone 45 mg, Trulicity, Seroquel, rosuvastatin 40 mg, Rybelsus, and zolpidem. She reports that one of her diabetes medications causes pain. The patient has multiple documented allergies, including cortisone, milk, ibuprofen, Levaquin, metronidazole, nuts, penicillin, shellfish, morphine, oatmeal, egg, and red meat. For health maintenance, the patient underwent a colonoscopy in 2022 and received an influenza vaccination on the day of the visit. Pap smear done last year. Mammogram done this year. DEXA scan done last year. [facility] Medical History Large bowel obstruction Renal cyst H. 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 Dysplasia of cervix, low grade (JOSE JUAN 1) Vaginal pruritus Breast pain, left Schizophrenia Bipolar 1 disorder Obese Gout Essential hypertension Diabetes mellitus Fall Lumbar back pain Surgical History H/O breast surgery Hx of lithotripsy History of esophagogastroduodenoscopy (EGD) H/O colonoscopy History of eye surgery History of removal of cyst History of surgery History of hemicolectomy History of hand surgery Family History Father Lung cancer Diabetes Hypertension Mother Diabetes CVD (cardiovascular disease) Maternal Aunt Breast cancer Brother Colon cancer Paternal Grandmother Colon cancer Social History Housing: Apartment Alcohol intake: never Patient Tobacco Use Status: Never used Tobacco e-Cigarette/Vaping Use: Never Used Second Hand Smoke Exposure: No service: No Current occupational status: disabled Cognitive needs: Yes (Cane) Hearing needs: No Vision needs: No Female Reproductive History Menstrual Age of Menarche: 13 Questionnaire Thrive Questionnaire Date Thrive assessed: 01/15/25 I am a: Patient What is your living situation today?: I have a steady place to live Within the past 12 months, did the food you bought not last and you didn't have the money to get more?: Never true Within the past 12 months, did you worry whether your food would run out before you got money to buy more?: Never true Do you have trouble paying for medicines?: No Do you have trouble getting transportation to medical appointments?: No Do you have trouble paying your heating and electricity bill?: No Do you have trouble taking care of your child, family member or friend?: No Do you have trouble with day-to-day activities such as bathing, preparing meals, shopping, managing finances, etc.?: No Are you currently unemployed and looking for a job?: No Are you interested in more education?: No Please select the resources that you would like help with: None Currently or been in a relationship where the following occur: No concerns reported THRIVE Score: 0 MASSIEL-7 AMB Questionnaire MASSIEL-7 Date MASSIEL - 7 assessed: 07/23/24 Source: Developed by Drs. Tony Cedeno, Maureen Davies, Franky Bryson and colleagues, with an educational avni from [employer]. Review of Systems Const All systems reviewed & are unremarkable except as noted in HPI and below Card Denies chest pain at rest, Denies chest pain with activity, Denies edema, Denies irregular heart rhythm, Denies claudication, Denies dyspnea, Denies dyspnea on exertion, Denies orthopnea, Denies paroxysmal nocturnal dyspnea and Denies slow heart rate Resp Denies cough, Denies dyspnea and Denies dyspnea on exertion Musc Denies abnormal gait, Denies atrophy, Denies deformity and Denies limited range of motion Skin/Breast Denies bleeding lesions, Denies changing lesions and Denies rash Neuro Denies abnormal gait and Denies lack of coordination Physical exam (Primary Care) Vital Signs: Last Vital Signs Temp 97.3 F 03/17/25 11:02 Pulse 67 03/17/25 11:02 BP 120/70 03/17/25 11:02 Pulse Ox 98 03/17/25 11:02 Oxygen Delivery Method Room Air 03/17/25 11:02 BMI result Body Mass Index 37.6 BMI Assessment/Plan discussion: High BMI High, discussed plan: lifestyle, weight reduction, dietary and physical activity Tobacco/Smoking Status: Tobacco use Status Tobacco use date assessed 03/17/25 03/17/25 11:11 Patient Tobacco Use Status Never used Tobacco 03/17/25 11:00 e-Cigarette/Vaping Use Never Used 03/17/25 11:00 Thrive Assessment: Date of Thrive Assessment Date Thrive assessed 01/15/25 03/17/25 11:00 Currently or been in a relationship where the following occur: No concerns reported Const Limitations: ambulation with cane HENMT Head: Yes normal to inspection, Yes normocephalic and Yes atraumatic Ears: external ears normal Eyes General: appearance normal, both eyes and all related structures Eyelids: Yes eyelids normal Conjunctivae: conjunctivae normal Neck Neck: Yes normal visual inspection and Yes supple Resp Effort & Inspection: normal respiratory effort Auscultation: clear to auscultation bilaterally Cardio Jugular venous distension: no JVD Rate: regular rate Rhythm: regular rhythm Heart sounds: S1 normal heart sound present and S2 normal heart sound present GI Inspection: Yes normal to inspection Palpation (GI): Soft to palpation and nontender Auscultation: normal bowel sounds Skin General skin exam: no rashes or lesions noted Neuro General: no focal motor deficits Extrem General: Yes full ROM Psych Appearance: grossly normal Results AMB Hemoglobin A1c AMB Hemoglobin A1c 6.8 % Last Edit by EMMIE Torres on 03/17/25 11:19 Results Reviewed Results Reviewed: Laboratory Last Values Hgb A1c (Clinic) 6.8 % (4.0-6.0) H 03/17/25 11:19 Coding Level of Care Code Est Pt Prev Care >65y(44233) Diagnoses Physical exam Z00.00 Type 2 diabetes mellitus without complication, without long-term current use of insulin E11.9 Diabetes mellitus type: type 2 Diabetes mellitus fci insulin use: without fci use Diabetes mellitus complication status: without complication Paranoid schizophrenia F20.0 Schizophrenia type: paranoid schizophrenia Bipolar 1 disorder F31.9 Time Spent (min) 31 Assessment & Plan Assessment & Plan (1) Physical exam: Code(s): Z00.00 - Encounter for general adult medical examination without abnormal findings Category: Medical (2) Diabetes mellitus: Code(s): E11.9 - Type 2 diabetes mellitus without complications Category: Medical Qualifiers: Diabetes mellitus type: type 2 Diabetes mellitus keno terminal operator insulin use: without keno terminal operator use Diabetes mellitus complication status: without complication Qualified Code(s): E11.9 - Type 2 diabetes mellitus without complications (3) Schizophrenia: Code(s): F20.9 - Schizophrenia, unspecified Category: Medical Qualifiers: Schizophrenia type: paranoid schizophrenia Qualified Code(s): F20.0 - Paranoid schizophrenia (4) Bipolar 1 disorder: Code(s): F31.9 - Bipolar disorder, unspecified Category: Medical Plan Plan 1. Physical exam Repeat in a year. Continue yearly mammograms. DEXA scan to be done 2025. 2. Diabetes Mellitus The patient's blood sugar is reported to be well-controlled. Due to reported pain with one of the current diabetes medications, a change in the regimen is planned. Orders: Orders AMB Hemoglobin A1c Today E11.9 - Type 2 diabetes mellitus without complications Lipid Panel 4 Months E78.5 - Hyperlipidemia, unspecified Comprehensive [place]. Panel Fast 4 Months I10 - Essential (primary) hypertension Microalbumin, Random (w Creat) 4 Months R80.9 - Proteinuria, unspecified Medications: New sitagliptin phosphate (Januvia) 25 mg PO DAILY 90 tabs 1RF 90 days ezetimibe 10 mg PO DAILY 90 tabs 1RF 90 days Discontinued semaglutide (Rybelsus) Discontinued Reason: Patient Completed Course 3 mg PO DAILY 30 days 30 tabs 0RF pioglitazone Discontinued Reason: Patient Completed Course 45 mg PO DAILY 90 days 90 tabs 1RF
[2025-03-17 11:02] VITALS: BP 120/70; PULSE 67; TEMP 36.3; O2SAT 98; BMI 37.6
== END 2025-03-17 11:44 | disposition home or self-care (01) ==
LOC: HO.HMCH 10:36
PROVIDERS: PCP Internal Medicine; Visit Provider Internal Medicine
DX: Z00.00 Encounter for general adult medical examination without abnormal findings (principal); E11.9 Type 2 diabetes mellitus without complications; F20.0 Paranoid schizophrenia; F31.9 Bipolar disorder, unspecified

== ENCOUNTER → 2025-03-17 10:36 | Outpatient (BNVA) | payer OTHER, SELFPAY | PROVIDERS: PCP Internal Medicine; Visit Provider Internal Medicine | DX: Z00.00 Encounter for general adult medical examination without abnormal findings (principal); E11.9 Type 2 diabetes mellitus without complications; I10 Essential (primary) hypertension; F20.0 Paranoid schizophrenia; F31.9 Bipolar disorder, unspecified; E78.5 Hyperlipidemia, unspecified; R80.9 Proteinuria, unspecified; Z79.899 Other long term (current) drug therapy | CPT/HCPCS: 83036; 99397 ==

== ENCOUNTER 2025-03-31 10:21 | Outpatient (AMB) | payer OTHER, SELFPAY ==
--- NOTE | 2025-03-31 10:29 | MHC.OFFVIS ---
Vital Signs 03/31/25 10:31 Height 5 ft Weight 196 lb 3.382 oz BMI 38.3 BP 139/67 Blood Pressure Location Lt brachial Position Sitting Pulse 84 Intake Visit Reasons: 4 MO F/U Intake Note: Monica presents in the office as a 4 month follow up. CC: States that she has itching in her rectum - states that she is constipated and has blood when she has a BM. 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 Allergies Cortisone Allergy (Severe, Verified 03/31/25 10:31) pruritus, hives, swellin milk (MILK) Allergy (Severe, Verified 03/31/25 10:31) rash ibuprofen (IBUPROFEN) Allergy (Intermediate, Verified 03/31/25 10:31) swelling levofloxacin Allergy (Intermediate, Verified 03/31/25 10:31) pruritus metronidazole Allergy (Intermediate, Verified 03/31/25 10:31) pruritus peanut (PEANUT) Allergy (Intermediate, Verified 03/31/25 10:31) pruritus Penicillins (PENICILLINS) Allergy (Intermediate, Verified 03/31/25 10:31) Hives shellfish derived (SHELLFISH DERIVED) Allergy (Intermediate, Verified 03/31/25 10:31) rash, shortness of breath morphine (MORPHINE) Adverse Reaction (Severe, Verified 03/31/25 10:31) loss of consciousness, hypotension oatmeal Adverse Reaction (Intermediate, Verified 03/31/25 10:31) abdominal gas pain egg (EGG) Adverse Reaction (Mild, Verified 03/31/25 10:31) diarrheas, dizziness red meat Allergy (Intermediate, Uncoded 03/31/25 10:31) hand swelling HPI HPI 4 MO F/U: Details: 68 yr old f here for f/u RECAP: pt of? delilah ? H/O colon cancer- > 10 yrs? ago in [place] ? Diagnostic studies- ? 09/27/17- gastric? emptying study for nausea- normal- done in 3 hrs ? 03/2018- CT? and/pelvis- h/o abdominal pain- normal ? EGD/colonoscopy 2018- 2 small? polyps noted and removed, EGD with erythema h pylori pos ?she did get? treatment for h pylori in past h pylori ag was neg on? testing. ?EGD/colonoscopy 11/2018: gastritis, h pylori pos, hyperplastic? polyp, hyperplastic polyp rectum ? she was then treated with tinidazole? 250 mg TID for 14 d , omeprazole 20 mg bid for 2 weeks, bismuth 524 mg QID and? doxy 100 mg bid ?at f/o 01/2019 she was c/o LUQ pain with nausea,? constipation and was v hypertensive, was sent to ED for assessment, was able to? go home due to ongoing symptoms EGd,colonoscopy was repeated: EGD?colonoscopy: 06/2021 Endoscopy Findings: stomach polyps gastritis Colonoscopy Findings: polyp internal hemorrhoids melanosis coli Path: ? Chronic inactive duodenitis. 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 INTERIM: she has itching in the rectum she has blood in stool usu mixed with stool she has constipation, stools are hard and can cause discomfort in anal area she can sit ok no abdominal pain she has nausea she has had this for 3 weeks she denies any dysphagia EXAM: GENERAL: The patient is well developed and nontoxic,slightly flat affect VITAL SIGNS:see workflow HEENT: Nonicteric sclerae, PERRLA, EOMI. Oropharynx clear. Moist mucous membranes. Conjunctivae appear well perfused. No thyroid mass. CHEST: Chest wall is nontender. HEART: Regular rate and rhythm without murmurs. LUNGS: Clear to auscultation bilaterally. ABDOMEN: Soft, positive bowel sounds, tender epigastrium, no organomegaly.no flank tenderness SKIN: No rash, no excessive bruising, petechiae, or purpura. NEUROLOGIC: Cranial nerves II-XII intact without motor/sensory deficit. MS: normal A/P: 1/ h pylori pos with treatment with quadruple therapy, has co existing GERD, not responded to treatment regimens--PCN allergy--also hard to grow H pylori on specimens but most recent specimen was pos with good sens to PCN, flagyl and tetracycline but resistant to clarithromycin and levofloxacin 2/ constipation 2/2 medications and age--helped by agus--but seems to be an issue again now 3/ dysphagia, related to 1/ above--improved with dilation PLAN: 1/ once again try to get allergy notes, depending on that might consider treatment again for H pylori 2/ get an EGD and colonoscopy due to rectal sx --will use suprep and resend trulance [facility] Medical History Large bowel obstruction Renal cyst H. 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 Dysplasia of cervix, low grade (JOSE JUAN 1) Vaginal pruritus Breast pain, left Schizophrenia Bipolar 1 disorder Obese Gout Essential hypertension Diabetes mellitus Fall Lumbar back pain Surgical History H/O breast surgery Hx of lithotripsy History of esophagogastroduodenoscopy (EGD) H/O colonoscopy History of eye surgery History of removal of cyst History of surgery History of hemicolectomy History of hand surgery Family History Father Lung cancer Diabetes Hypertension Mother Diabetes CVD (cardiovascular disease) Maternal Aunt Breast cancer Brother Colon cancer Paternal Grandmother Colon cancer Social History Housing: Apartment Alcohol intake: never Patient Tobacco Use Status: Never used Tobacco e-Cigarette/Vaping Use: Never Used Second Hand Smoke Exposure: No service: No Current occupational status: disabled Cognitive needs: Yes (Cane) Hearing needs: No Vision needs: No Female Reproductive History Menstrual Age of Menarche: 13 Physical Exam Vital Signs: Last Vital Signs Pulse 84 03/31/25 10:31 BP 139/67 03/31/25 10:31 BMI result Body Mass Index 38.3 Assessment & Plan Assessment & Plan (1) Constipation by delayed colonic transit: Code(s): K59.01 - Slow transit constipation Category: Medical Plan: as above Medications: Refilled plecanatide (Trulance) 3 mg PO DAILY 30 tabs 2RF Coding Level of Care Code Est Pt Level 4 (27550) Diagnoses Constipation by delayed colonic transit K59.01
[2025-03-31 10:31] VITALS: BP 139/67; PULSE 84; BMI 38.3
--- OUTSIDE RECORDS SUMMARY | 2025-03-31 12:58 | XMS_ITS | Clinical Summary ---
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
== END 2025-03-31 10:47 | disposition home or self-care (01) ==
LOC: HO.HGI 10:22
PROVIDERS: PCP Internal Medicine; Visit Provider Internal Medicine Gastroenterology
DX: K59.01 Slow transit constipation (principal)
CPT/HCPCS: 99214

== ENCOUNTER → 2025-03-31 10:21 | Outpatient (BNVA) | payer OTHER, SELFPAY | PROVIDERS: PCP Internal Medicine; Visit Provider Internal Medicine Gastroenterology | DX: K59.01 Slow transit constipation (principal) | CPT/HCPCS: 99212 ==